=== PATIENT | male | born 1970 | race Caucasian/White ===

== ENCOUNTER 2023-08-07 11:25 | Outpatient (REF) | payer MEDICARE, MEDICAID, SELFPAY ==
--- NOTE | ~2023-08-07 | XR_ITS ---
EXAMINATION: XR HIP, RIGHT CLINICAL INFORMATION: Right hip pain COMPARISON: 10/11/2021 lumbar spine and right hip, 08/04/2021 hip with pelvis TECHNIQUE: AP view of the pelvis as well as AP and lateral views of the right hip. FINDINGS: Stabilization hardware incompletely imaged in the lower lumbar spine. Moderate degenerative changes left hip with joint space narrowing and hypertrophic change. Moderate degenerative changes right hip with joint space narrowing and hypertrophic change. Hypertrophic change with large exostosis redemonstrated along the lateral aspect of the right greater trochanter. XR/XR hip RT w PEL1V IMPRESSION: Moderate degenerative changes right hip. Hypertrophic change with large exostosis redemonstrated along the lateral aspect of the right greater trochanter. Additional imaging with CT scan or MRI should be considered for better visualization as these modalities are much more sensitive for detection of fracture or other underlying pathology.
== END 2023-08-07 11:26 | disposition home or self-care (01) ==
LOC: HO.HOSX 11:25
PROVIDERS: Visit Provider Physician Assistant
DX: M16.11 Unilateral primary osteoarthritis, right hip (principal); M70.61 Trochanteric bursitis, right hip; M54.9 Dorsalgia, unspecified
CPT/HCPCS: 20610; 73502; J1040

== ENCOUNTER 2023-08-07 14:55 | Outpatient (AMB) | payer MEDICARE, MEDICAID, SELFPAY ==
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
[2023-08-07 15:08] VITALS: BMI 37.5
== END 2023-08-07 15:29 | disposition home or self-care (01) ==
PROVIDERS: PCP Internal Medicine; Visit Provider Physician Assistant
DX: M70.61 Trochanteric bursitis, right hip (principal); M16.11 Unilateral primary osteoarthritis, right hip
CPT/HCPCS: 20610; 99204

== ENCOUNTER 2023-09-19 11:01 | Outpatient (REF) | payer MEDICARE, MEDICAID, SELFPAY ==
--- NOTE | ~2023-09-19 | FL_ITS ---
Right hip steroid injection Indications: Right hip pain. Procedure: Risks and benefits and possible complications were discussed with the patient and the consent form was signed. The patient was placed supine on the fluoroscopy table. The right hip was prepped and draped in normal sterile fashion. 1% buffered lidocaine was used for anesthesia. A 22-gauge spinal needle was used to access the hip joint. Intra-articular position of the needle within the hip joint was verified using 3 cc of Omnipaque 300. Subsequently, a total of 5 mL of 1% lidocaine and 80 mg of DepoMedrol was then injected into the hip joint. The needle was then removed and a Band-Aid was applied to the injection site. The patient tolerated the procedure well. There were no immediate complications. Fluoroscopic images demonstrate mild to moderate degenerative arthritis of the right hip joint. No evidence of AVN. FL/FL arthrogram hip RT IMPRESSION: -Successful fluoroscopically guided intra-articular instillation of right hip steroid and contrast. The procedure was performed by Roni Devine PA-C, and directly supervised by Dr. Preston.
== END 2023-09-19 11:02 | disposition home or self-care (01) ==
LOC: HO.XRAY 11:01
PROVIDERS: PCP Internal Medicine; Visit Provider Physician Assistant
DX: M16.11 Unilateral primary osteoarthritis, right hip (principal)
CPT/HCPCS: 27093; 73525

== ENCOUNTER → 2023-09-19 11:01 | Outpatient (BNV) | payer MEDICARE, MEDICAID, SELFPAY | PROVIDERS: PCP Internal Medicine; Visit Provider Radiology Diagnostic Radiology | DX: M16.11 Unilateral primary osteoarthritis, right hip (principal) | CPT/HCPCS: 27093; 73525 ==

== ENCOUNTER 2024-02-19 11:03 | Outpatient (AMB) | payer MEDICARE, MEDICAID, SELFPAY ==
--- NOTE | 2024-02-19 11:10 | A.OFFVIS_ITS ---
Intake Vital Signs 02/19/24 11:24 Height 6 ft 3 in Weight 300 lb BMI 37.5 Intake Visit Reasons: [facility]- LT shoulder pain Intake Note: Zev is a 53 year old male who presents today for a evaluation of his left shoulder pain. Patient reports that he received both his tetanus and flu in his left arm. He states that his pain is worse with movement. Patient has tried taking Tylenol and it gives him mild relief. Patient states with movement he tends to feel his pain radiate up to his neck. Allergies nasids Allergy (Uncoded 08/07/23 15:06) heat stroke HPI [facility]- LT shoulder pain HPI Details 53-year-old male who presents in the off ice today for an evaluation of left shoulder pain. Patient reports an increase in pain with movement. He claims the pain radiates to his neck with movement. He states he has tried Tylenol with mild relief. Patient reports receiving his Flu and tetanus vaccinations in this left upper extremity. [facility] Social History (Updated 08/07/23 @ 15:08 by Martha Nguyen) Alcohol intake: never Patient Tobacco Use Status: Never used Tobacco Current occupational status: disabled Review of Systems Const All systems reviewed & are unremarkable except as noted in HPI and below Physical Exam Vital Signs: BMI result Body Mass Index 37.5 Const General: cooperative, healthy appearing and no acute distress Resp Effort & Inspection: normal respiratory effort and able to speak in complete sentences Cardio Rate: regular rate Peripheral pulses: Peripheral pulses 2+ throughout GI Palpation (GI): Soft to palpation Skin Lesions: no lesions Rashes: no rashes Extrem Other: Left shoulder: Forward flexion lacking 40 degrees. Abduction to 90 degrees. Able to reach back pocket. Positive cross-body reach. Positive empty can. Negative drop arm. Office Procedures Joint Injection/Drain Joint Injection/Drain Primary Site: left shoulder Prep: site was prepped using aseptic technique, ethochloride spray was applied and injection warnings given Injected: 80 mg of, DepoMedrol, with 8 mL of (2% plain lido ) and in the subcromial space Approach Used: posterolateral Procedure: The patient tolerated the procedure well, but had some pain with the injection and there was some relief with the local anesthesia Coding 98575 - Large joint Procedure code (CPT) selection complete Assessment & Plan Assessment & Plan (1) Painful arc syndrome of left shoulder: Code(s): M75.102 - Unspecified rotator cuff tear or rupture of left shoulder, not specified as traumatic Plan Mr. Medrano is a 53-year-old male who presents in the office today for an evaluation of left shoulder pain. Patient reports an increase in pain with movement. He claims the pain radiates to his neck with movement. He states he has tried Tylenol with mild relief. Patient reports receiving his Flu and tetanus vaccinations in this left upper extremity. The patient was offered a cortisone injection in the left shoulder with 80 mg of DepoMedrol. The patient was explained the risk, benefits, and alternatives to receiving this injection. After receiving consent for the injection, the patient had the procedure done while in office today. The patient tolerated the procedure well with no complications. A referral was made for the patient to attend physical therapy. If in 6 weeks he has not has resolution of his symptoms then he will notify the office and we will discuss moving forward with an MRI to further evaluate the integrity of the left shoulder. Follow up will be in 6 weeks, or sooner if needed. X-rays of the left shoulder which were obtained while in the office today and were reviewed by me, Wendi Hua PA-C, revealed no acute fracture or dislocation. Orders: Orders XR shoulder LT min 2V Today M25.519 - Pain in unspecified shoulder Patient Instructions: Scribed by Lakia Rajan esthetician and manager medical spa, for Wendi Hua PA-C on 02/19/2024 at 11:09 am, EST. Coding Level of Care Code Est Pt Level 4 (71878) Diagnoses Painful arc syndrome of left shoulder M75.102 CPT Codes Coding - 84623 Large joint: 59669 - Large joint ([id number])
[2024-02-19 11:24] VITALS: BMI 37.5
== END 2024-02-19 12:23 | disposition home or self-care (01) ==
PROVIDERS: PCP Internal Medicine; Visit Provider Physician Assistant
DX: M75.102 Unspecified rotator cuff tear or rupture of left shoulder, not specified as traumatic (principal)
CPT/HCPCS: 20610; 99214

== ENCOUNTER 2024-02-19 11:14 | Outpatient (REF) | payer MEDICARE, MEDICAID, SELFPAY ==
--- NOTE | ~2024-02-19 | XR_ITS ---
EXAMINATION: XR SHOULDER, LEFT CLINICAL INFORMATION: Left shoulder pain. COMPARISON: None available. TECHNIQUE: AP external rotation, Grashey, scapular Y, and axillary views of the left shoulder. FINDINGS: Some minimal degenerative changes are present at the inferior aspect of the glenohumeral joint with a small humeral head osteophyte. Mild degenerative changes are seen at the AC joint. The bones and soft tissues are otherwise unremarkable. No fracture. Glenohumeral and acromioclavicular alignment is anatomic with normal joint space. No abnormal soft tissue calcifications. XR/XR shoulder LT min 2V IMPRESSION: Mild degenerative changes in the left shoulder as described above.
== END 2024-02-19 11:15 | disposition home or self-care (01) ==
LOC: HO.HOSX 11:14
PROVIDERS: Visit Provider Physician Assistant
DX: M25.512 Pain in left shoulder (principal); M75.102 Unspecified rotator cuff tear or rupture of left shoulder, not specified as traumatic
CPT/HCPCS: 20610; 73030; 99212; J1010; J1040

== ENCOUNTER 2024-02-29 10:24 | Outpatient (AMB) | payer MEDICARE, MEDICAID, SELFPAY ==
--- NOTE | 2024-02-29 10:46 | A.OFFVIS_ITS ---
Intake Vital Signs 02/29/24 10:48 Height 6 ft 3 in Weight 300 lb BMI 37.5 Intake Visit Reasons: OV - right hip pain Intake Note: Zev is a 53 year old male who presents today for a follow up of his Right Hip Bursitis/OA. Last Bursitis Injection done 08/07/23 & Right Hip Arthrogram done 09/19/23. Patient reports he would like to discuss alternative treatment options today. Allergies nasids Allergy (Uncoded 02/29/24 10:49) heat stroke HPI OV - right hip pain HPI Details Zev is a 53 year old male who presents today for a follow up of his Right Hip Bursitis/OA. Last Bursitis Injection done 08/07/23 & Right Hip Arthrogram done 09/19/23. Patient reports he would like to discuss alternative treatment options today. He [id number] hip pain that is ever present and worse with certain activities such as getting into a car or into/out of bed. He has treid physical therapy, injections and medication. He cannot take NSAIDs anymore. He recently ( 10/11) had an intra articular right hip injection and felt relief for two days and then the pain returned. He feels he cannot engage in daily activities without pain. He has to sit with his leg extended and feels the quality of his life is compromised. [facility] Social History Alcohol intake: never Patient Tobacco Use Status: Never used Tobacco Current occupational status: disabled Physical Exam Vital Signs: BMI result Body Mass Index 37.5 Const General: cooperative, healthy appearing, no acute distress and well groomed Orientation/consciousness: oriented to person and oriented to place HEENT Head: Yes normal to inspection, Yes normocephalic and Yes atraumatic Eyes General: appearance normal, both eyes and all related structures Alignment and Position: alignment normal Conjunctivae: conjunctivae normal EOM: EOMs intact bilaterally Neck Neck: Yes normal visual inspection and Yes trachea midline Resp Other: No rerpiratory distress Effort & Inspection: normal respiratory effort and able to speak in complete sentences GI Other: No abdominal distension Back/Spine/Pelvis Cervical Spine: normal cervical lordosis and cervical ROM normal Skin General skin exam: no rashes or lesions noted Neuro General: oriented to person, oriented to place and gait normal Extrem Other: Sits with right hip in an extended position There is a + Impingement and + Stinchfield He has full flexion but is limited in internal rotation bilaterally Results Reviewed Results Reviewed: I personally reviewed relevant radiographs. Moderate bilateral hip OA Assessment & Plan Assessment & Plan (1) Osteoarthritis of right hip: Code(s): M16.11 - Unilateral primary osteoarthritis, right hip Qualifiers: Osteoarthritis type: unspecified Qualified Code(s): M16.11 - Unilateral primary osteoarthritis, right hip Plan: This is a 53 yo m with painful rigbht hip arthritis. He describes pain for years that has got to the point that he cannot engage in daily activities and feels the quality of his life is diminished. He had relief from an intra articular injection but it was only for a few days. I reviewed his radiographs with him and discussed options. I recommend right hip replacement. We had a long discussion and he is only 53 but is unable to walk comfortably for more than a few minutes. I discussed the risks benefits and alternatives including but not limited to the risk of pain, infection, stiffness, need for further surgery, fracture and dislocation as well as potential medical complications such as blood clots, pulmonary embolism and cardiac complications. He expressed understanding and we will begin our pre operative clearance process. Coding Level of Care Code Est Pt Level 4 (88231) Diagnoses Osteoarthritis of right hip, unspecified osteoarthritis type M16.11 Osteoarthritis type: unspecified
[2024-02-29 10:48] VITALS: BMI 37.5
== END 2024-02-29 11:41 | disposition home or self-care (01) ==
PROVIDERS: PCP Internal Medicine; Visit Provider Orthopaedic Surgery
DX: M16.11 Unilateral primary osteoarthritis, right hip (principal)
CPT/HCPCS: 99214

== ENCOUNTER → 2024-02-29 10:24 | Outpatient (BNVA) | payer MEDICARE, MEDICAID, SELFPAY | PROVIDERS: PCP Internal Medicine; Visit Provider Orthopaedic Surgery | DX: M16.11 Unilateral primary osteoarthritis, right hip (principal) | CPT/HCPCS: 99212 ==

== ENCOUNTER → 2024-03-31 08:52 | Outpatient (BNVA) | payer MEDICARE, MEDICAID, SELFPAY | PROVIDERS: PCP Internal Medicine | DX: Z01.818 Encounter for other preprocedural examination (principal) ==

== ENCOUNTER 2024-04-24 09:07 | Outpatient (REF) | payer MEDICARE, MEDICAID, SELFPAY ==
--- NOTE | ~2024-04-24 | XR_ITS ---
EXAMINATION: XR HIP, RIGHT CLINICAL INFORMATION: Pain in unspecified hip. COMPARISON: 08/07/2023 TECHNIQUE: AP view of the pelvis and 2 views of the right hip. FINDINGS: Stabilization hardware incompletely imaged in the lower lumbar spine. Moderate degenerative changes in the left hip with joint space narrowing and hypertrophic change. Moderate degenerative changes in the right hip with joint space narrowing and hypertrophic change. Prominent exostosis along the lateral aspect of the greater trochanter on the right redemonstrated. XR/XR hip RT min 2V IMPRESSION: 1. Moderate degenerative changes bilateral hips. 2. Prominent exostosis along the lateral aspect of the greater trochanter on the right redemonstrated.
== END 2024-04-24 09:08 | disposition home or self-care (01) ==
LOC: HO.HOSX 09:07
PROVIDERS: Visit Provider Physician Assistant
DX: M16.11 Unilateral primary osteoarthritis, right hip (principal)
CPT/HCPCS: 71046; 73502; 99212

== ENCOUNTER 2024-04-24 09:16 | Outpatient (AMB) | payer MEDICARE, MEDICAID, SELFPAY ==
[2024-04-24 09:20] VITALS: BMI 37.5
--- NOTE | 2024-04-24 09:20 | MHC.OFFVIS ---
Vital Signs 04/24/24 09:20 Height 6 ft 3 in Weight 300 lb BMI 37.5 Intake Visit Reasons: T JUAN w/NE 04/30/24 Intake Note: Zev is a 53 year old male who presents today for a pre op appointment for his right JUAN 04/30/24 NE. Allergies amlodipine Allergy (Verified 04/24/24 09:38) Shortness of Breath NSAIDS (Non-Steroidal Anti-Inflamma Allergy (Verified 04/24/24 09:38) Seizure HPI HPI T JUAN w/NE 04/30/24: Details: 53-year-old male who presents in the office today for his preoperative history and physical exam prior to a right total hip arthroplasty to be performed on 04/30/[address] Peterson Cheek. Patient denies having a walker at home. He is interested in getting one off [employer] with wheels. He denies having a raised toilet seat. Patient confirms having stairs at home but has assistance to help him. Patient reports that due to him having issues leaving the house he would like home therapy at first. He will bring the information for the outpatient physical therapy they prefer at their next appointment. Patient sent forms for FMLA to the office. Patient presents in the office today with a female family member. Patient has an allergy history, as follows: -Amlodipine; dyspena -NSAIDs; seizure Patient is currently taking, as follows: -Acetaminophen 650 mg PO QID PRN -Bisacodyl 10 mg daily PRN -Buspirone 30 mg PO TID -Chlorpheniramine maleate 4 mg PO BID -Cyclobenzaprine 5-10 mg PO TID PRN -Escitalopram oxalate 20 mg PO QNoon -Hydrochlorothiazide 25 mg PO daily -Hydroxyzine HCI 100 mg PO Bedtime -Lamotrigine 200 mg PO BID -Lorazepam 1 mg PO daily PRN -Melatonin 10 mg PO Bedtime PRN -Omeprazole 20 mg PO BID -Ondansetron 4 mg PO BID -Quetiapine 50 mg TID -Trazadone 100 mg PO bedtime Patient has a medical history, as follows: -Hx of traumatic head injury -Bipolar 1 disorder -Sleep apnea, not on CPAP -Hx of lipoma -Depression -Severe obesity; BMI of 34.7 as of 04/22/2024. -PTSD -Mixed hyperlipidemia -Lung nodules -Insomnia -Impaired fasting glucose -Hypertension -Hypercalcemia -Renal cell carcinoma; 07/2019; in remission -Acute renal failure; reportedly d/t Celebrex, dehydration, TRAVIS-1 use -Fatty liver -Erectile dysfunction -Elevated serum creatinine -Colon polyp -Anxiety Patient has a surgical history, as follows: -Hx of lumbar spinal fusion; 2012 -Hx of colonoscopy -Hx of umbilical hernia repair -Hx of appendectomy -Hx of vasectomy -Hx of surgery on lower extremity; tibial rodding--2007--right side. -Hx of partial nephrectomy; 2018--right PFSH Medical History (Updated 04/22/24 @ 10:33 by Simi Goldberg RN) History of traumatic head injury Arthritis Bipolar 1 disorder Sleep apnea SOB (shortness of breath) Syncope History of lipoma Depression Severe obesity (BMI 35.0-35.9 with comorbidity) PTSD (post-traumatic stress disorder) Mixed hyperlipidemia Lung nodules Insomnia Impaired fasting glucose HTN (hypertension) Hyperlipidemia Hypercalcemia Renal cell carcinoma Acute renal failure Fatty liver Erectile dysfunction Elevated serum creatinine Colon polyp Back pain Anxiety Surgical History (Updated 04/22/24 @ 10:33 by Simi Goldberg RN) History of lumbar spinal fusion H/O colonoscopy Hx of umbilical hernia repair Hx of appendectomy Hx of vasectomy History of surgery on lower extremity History of partial nephrectomy Social History Are you a primary healthcare economics manager to a significant other at home: No Do you presently have visiting nurse or other home services: No Alcohol intake: never Patient Tobacco Use Status: Former Tobacco user Current occupational status: disabled Review of Systems Const All systems reviewed & are unremarkable except as noted in HPI and below Physical Exam Vital Signs: BMI result Body Mass Index 37.5 Const General: cooperative, healthy appearing, comfortable, no acute distress, well developed, alert and awake Orientation/consciousness: patient oriented x3 HEENT Head: Yes normal to inspection, Yes normocephalic and Yes atraumatic Eyes General: appearance normal, both eyes and all related structures Alignment and Position: alignment normal Conjunctivae: conjunctivae normal EOM: EOMs intact bilaterally Neck Neck: Yes normal visual inspection and Yes no lymphadenopathy Resp Other: No rerpiratory distress Effort & Inspection: normal respiratory effort and able to speak in complete sentences Cardio Rate: regular rate Peripheral pulses: Peripheral pulses 2+ throughout GI Other: No abdominal distension Inspection: Yes normal to inspection Palpation (GI): Soft to palpation Back/Spine/Pelvis Cervical Spine: normal cervical lordosis and cervical ROM normal Skin General skin exam: no rashes or lesions noted Neuro General: patient oriented x3 Extrem Other: Right hip: Skin is clean, dry, and intact. Sits with right hip in an extended position There is a + Impingement and + Stinchfield He has full flexion but is limited in internal rotation bilaterally Psych Mental Status: mental status grossly normal Assessment & Plan Assessment & Plan (1) Osteoarthritis of right hip: Code(s): M16.11 - Unilateral primary osteoarthritis, right hip Category: Medical Qualifiers: Osteoarthritis type: unspecified Qualified Code(s): M16.11 - Unilateral primary osteoarthritis, right hip Plan Mr. Medrano is a 53-year-old male who presents in the office today for his preoperative history and physical exam prior to a right total hip arthroplasty to be performed on 04/30/[address] Peterson Cheek. Patient denies having a walker at home. He is interested in getting one off [employer] with wheels. He denies having a raised toilet seat. Patient confirms having stairs at home but has assistance to help him. Patient reports that due to him having issues leaving the house he would like home therapy at first. He will bring the information for the outpatient physical therapy they prefer at their next appointment. Patient sent forms for FMLA to the office. Patient presents in the office today with a female family member. Patient has an allergy history, as follows: -Amlodipine; dyspena -NSAIDs; seizure Patient is currently taking, as follows: -Acetaminophen 650 mg PO QID PRN -Bisacodyl 10 mg daily PRN -Buspirone 30 mg PO TID -Chlorpheniramine maleate 4 mg PO BID -Cyclobenzaprine 5-10 mg PO TID PRN -Escitalopram oxalate 20 mg PO QNoon -Hydrochlorothiazide 25 mg PO daily -Hydroxyzine HCI 100 mg PO Bedtime -Lamotrigine 200 mg PO BID -Lorazepam 1 mg PO daily PRN -Melatonin 10 mg PO Bedtime PRN -Omeprazole 20 mg PO BID -Ondansetron 4 mg PO BID -Quetiapine 50 mg TID -Trazadone 100 mg PO bedtime Patient has a medical history, as follows: -Hx of traumatic head injury -Bipolar 1 disorder -Sleep apnea, not on CPAP -Hx of lipoma -Depression -Severe obesity; BMI of 34.7 as of 04/22/2024. -PTSD -Mixed hyperlipidemia -Lung nodules -Insomnia -Impaired fasting glucose -Hypertension -Hypercalcemia -Renal cell carcinoma; 07/2019; in remission -Acute renal failure; reportedly d/t Celebrex, dehydration, TRAVIS-1 use -Fatty liver -Erectile dysfunction -Elevated serum creatinine -Colon polyp -Anxiety Patient has a surgical history, as follows: -Hx of lumbar spinal fusion; 2012 -Hx of colonoscopy -Hx of umbilical hernia repair -Hx of appendectomy -Hx of vasectomy -Hx of surgery on lower extremity; tibial rodding--2007--right side. -Hx of partial nephrectomy; 2018--right I discussed in detail the procedure and what to expect pre and post operatively. We discussed the risks, benefits and alternatives to the surgery and the rehabilitation course. The risks include infection, bleeding, nerve injury, ongoing pain, swelling, and stiffness, perioperative risk of injury to bones and soft tissues, and blood clots. I have answered all questions and with their understanding they have consented to move forward with a right total hip arthroplasty to be performed on 04/30/[address] Peterson Cheek. Of note: The family will bring the information for the preferred outpatient physical therapy at their first post-operative appointment. Follow-up will be at the post operative appointment on 05/15/2024 at 1:00 pm, or sooner if needed. Patient was prescribed a walker for after surgery on 04/22/2024. This was sent to the medical supply store. A prescription for a raised toilet seat was placed in the office today. The office is working on the [facility] paperwork and will call the patient when it is ready to be picked up. X-rays were obtained in the office today for surgical planning. Medications: New [Raised toliet seat] As directed 1 ea 0RF Right total hip arthroplasty M16.11 - Unilateral primary osteoarthritis, right hip Patient Instructions: Scribed by Lakia Rajan medical technician, for Wendi Hua PA-C on 04/24/2024 at 9:19 am, EST. Coding Level of Care Code Global (14445) Diagnoses Osteoarthritis of right hip, unspecified osteoarthritis type M16.11 Osteoarthritis type: unspecified
== END 2024-04-24 09:56 | disposition home or self-care (01) ==
PROVIDERS: PCP Internal Medicine; Visit Provider Physician Assistant
DX: M16.11 Unilateral primary osteoarthritis, right hip (principal)
CPT/HCPCS: 99024

== ENCOUNTER 2024-04-30 06:34 | Inpatient (IN) | payer MEDICARE, MEDICAID, SELFPAY ==
[2024-04-22 10:49] VITALS: BP 166/97; PULSE 88; RESP 16; O2SAT 97; BMI 34.7
--- NOTE | 2024-04-22 11:05 | P.CONAN_ITS ---
Documented by User: Marilu Malin NP 04/24/24 13:28 HPI - Anesthesia Eval Consult details Narrative: 53yo M for Right Hip Total Replacement, 04/30/24 No recent illness No CP with minimal activity d/t pain. GARCIA started with pregabalin 2 years. Recent echo by pcp WNL. Off pregabalin with some improvement in GARCIA. Per pt, PCP plans to continue w/u after recovery SARAH. Never had CPAP. Some weight loss. No apnic spells per partner RCC s/p partial R nephrectomy 2018. No chemo rad Discussed increase risk with full gallo. Encouraged pt to trim close to face before DOS. Pt resistant. PMFSH Active Problems Active Problems: All Active Problems Painful arc syndrome of left shoulder (Acute) Osteoarthritis of right hip (Acute) Greater trochanteric bursitis of right hip (Acute) Past Medical History Medical History History of traumatic head injury Arthritis Bipolar 1 disorder Sleep apnea SOB (shortness of breath) Syncope History of lipoma Depression Severe obesity (BMI 35.0-35.9 with comorbidity) PTSD (post-traumatic stress disorder) Mixed hyperlipidemia Lung nodules Insomnia Impaired fasting glucose HTN (hypertension) Hyperlipidemia Hypercalcemia Renal cell carcinoma Acute renal failure Fatty liver Erectile dysfunction Elevated serum creatinine Colon polyp Back pain Anxiety Family History Family history of problems with anesthesia: No Surgical History Surgical History History of lumbar spinal fusion H/O colonoscopy Hx of umbilical hernia repair Hx of appendectomy Hx of vasectomy History of surgery on lower extremity History of partial nephrectomy History of Problems with Anesthesia: No Social History Social History Are you a primary human services care specialist to a significant other at home: No Do you presently have visiting nurse or other home services: No Alcohol intake: never Patient Tobacco Use Status: Former Tobacco user Smoked in Last 30 Days: No Use of substances other than those prescribed or required for medical reasons: Yes Substance Use Type Other:: vape Substance Use Frequency: Daily Have you been hit, kicked, punched, or otherwise hurt by someone within the past year? If so, by whom?: No Are you DNR?: No Advance Directives: No Advance Directives Information Provided: No Advance Directives on File: No Recently lost weight without trying: No Eating poorly because of decreased appetite: No Nutrition Risks: No Nutritional Risk Poor oral hygiene: No Current occupational status: disabled Meds Allergies Allergy/AdvReac Type Severity Reaction Status Date / Time amlodipine Allergy Shortness Verified 04/24/24 09:38 of Breath NSAIDS (Non-Steroidal Allergy Seizure Verified 04/24/24 09:38 Anti-Inflamma pregabalin Allergy Unknown Verified 04/30/24 06:41 Home Medications ?Medication ?Instructions ?Recorded ?Confirmed ?Last Taken ?Type buspirone 30 mg tablet 30 mg PO TID 08/07/23 04/21/24 04/29/24 History cholecalciferol (vitamin D3) 25 25 mcg PO DAILY 08/07/23 04/22/24 04/29/24 History mcg (1,000 unit) capsule escitalopram oxalate 20 mg tablet 20 mg PO QNOON 08/07/23 04/22/24 04/29/24 History hydrochlorothiazide 25 mg tablet 25 mg PO DAILY 08/07/23 04/22/24 04/29/24 History hydroxyzine HCl 50 mg tablet 100 mg PO BEDTIME 08/07/23 04/22/24 04/29/24 History lamotrigine 200 mg tablet 200 mg PO BID 08/07/23 04/22/24 04/29/24 History lorazepam 1 mg tablet 1 mg PO DAILY PRN Anxiety 08/07/23 04/22/24 04/29/24 History melatonin 5 mg tablet 10 mg PO BEDTIME PRN Insomnia 08/07/23 04/22/24 04/29/24 History omeprazole 20 mg capsule,delayed 20 mg PO BID@0630,1630 08/07/23 04/30/24 04/29/24 History release ondansetron 4 mg disintegrating 4 mg PO BID 08/07/23 04/22/24 Unknown History tablet quetiapine 50 mg tablet 50 mg PO TID 08/07/23 04/22/24 04/29/24 History trazodone 100 mg tablet 100 mg PO BEDTIME 08/07/23 04/22/24 04/29/24 History bisacodyl 5 mg tablet,delayed 10 mg PO DAILY PRN Constipation 04/21/24 04/22/24 Unknown History release chlorpheniramine maleate 4 mg 4 mg PO BID 04/21/24 04/22/24 04/29/24 History tablet (Aller-Chlor) cyclobenzaprine 5 mg tablet 5 - 10 mg PO TID PRN muscle spasm 04/21/24 04/21/24 04/29/24 History acetaminophen 325 mg tablet 650 mg PO QID PRN Pain 04/22/24 04/22/24 Unknown History Exam Height,Weight and Vital Signs: Height 6 ft 3 in Weight 126.099 kg Last Vital Signs Pulse 88 04/22/24 10:49 Resp 16 04/22/24 10:49 BP 166/97 H 04/22/24 10:49 Pulse Ox 93 04/22/24 10:49 O2 Del Method Room Air 04/22/24 10:49 Pertinent Lab Results Pertinent Lab Results: Lab Results 04/22/24 04/22/24 Range/Units 11:05 11:58 Nasal Screen MRSA (PCR) NEGATIVE (Negative) Nasal S. aureus Screen POSITIVE A (Negative) Nasal MRSA/S.aureus Interp SEE NOTE Blood Type O Positive Antibody Screen NEGATIVE 03/2024 CBC, BMP, PT/INR from [facility] wnl except creat elevated @ 1.3 Narrative Narrative: EKG 03/2024 NSR Prolonged QT @ 420 Airway Mallampati Class: III TM Dist: >3cm Neck ROM: Full Heart: RRR Lungs: CTAB Assessment and Plan Assessment Anesthesia Assessment: Anesthesia Plan Discussed and PAT Visit Final Anesthetic Review Family History of Problems with Anesthesia: No History of Problems with Anesthesia: No Documented by User: Nury Silva MD 04/30/24 08:02 [facility] Past Medical History Medical History History of traumatic head injury Arthritis Bipolar 1 disorder Sleep apnea SOB (shortness of breath) Syncope History of lipoma Depression Severe obesity (BMI 35.0-35.9 with comorbidity) PTSD (post-traumatic stress disorder) Mixed hyperlipidemia Lung nodules Insomnia Impaired fasting glucose HTN (hypertension) Hyperlipidemia Hypercalcemia Renal cell carcinoma Acute renal failure Fatty liver Erectile dysfunction Elevated serum creatinine Colon polyp Back pain Anxiety Surgical History Surgical History History of lumbar spinal fusion H/O colonoscopy Hx of umbilical hernia repair Hx of appendectomy Hx of vasectomy History of surgery on lower extremity History of partial nephrectomy Social History Social History Are you a primary human services care specialist to a significant other at home: No Do you presently have visiting nurse or other home services: No Alcohol intake: never Patient Tobacco Use Status: Former Tobacco user Smoked in Last 30 Days: No Use of substances other than those prescribed or required for medical reasons: Yes Substance Use Type Other:: vape Substance Use Frequency: Daily Have you been hit, kicked, punched, or otherwise hurt by someone within the past year? If so, by whom?: No Are you DNR?: No Advance Directives: No Advance Directives Information Provided: No Advance Directives on File: No Recently lost weight without trying: No Eating poorly because of decreased appetite: No Nutrition Risks: No Nutritional Risk Poor oral hygiene: No Current occupational status: disabled Meds Allergies Allergy/AdvReac Type Severity Reaction Status Date / Time amlodipine Allergy Shortness Verified 04/24/24 09:38 of Breath NSAIDS (Non-Steroidal Allergy Seizure Verified 04/24/24 09:38 Anti-Inflamma pregabalin Allergy Unknown Verified 04/30/24 06:41 Home Medications ?Medication ?Instructions ?Recorded ?Confirmed ?Last Taken ?Type buspirone 30 mg tablet 30 mg PO TID 08/07/23 04/21/24 04/29/24 History cholecalciferol (vitamin D3) 25 25 mcg PO DAILY 08/07/23 04/22/24 04/29/24 History mcg (1,000 unit) capsule escitalopram oxalate 20 mg tablet 20 mg PO QNOON 08/07/23 04/22/24 04/29/24 History hydrochlorothiazide 25 mg tablet 25 mg PO DAILY 08/07/23 04/22/24 04/29/24 History hydroxyzine HCl 50 mg tablet 100 mg PO BEDTIME 08/07/23 04/22/24 04/29/24 History lamotrigine 200 mg tablet 200 mg PO BID 08/07/23 04/22/24 04/29/24 History lorazepam 1 mg tablet 1 mg PO DAILY PRN Anxiety 08/07/23 04/22/24 04/29/24 History melatonin 5 mg tablet 10 mg PO BEDTIME PRN Insomnia 08/07/23 04/22/24 04/29/24 History omeprazole 20 mg capsule,delayed 20 mg PO BID@0630,1630 08/07/23 04/30/24 04/29/24 History release ondansetron 4 mg disintegrating 4 mg PO BID 08/07/23 04/22/24 Unknown History tablet quetiapine 50 mg tablet 50 mg PO TID 08/07/23 04/22/24 04/29/24 History trazodone 100 mg tablet 100 mg PO BEDTIME 08/07/23 04/22/24 04/29/24 History bisacodyl 5 mg tablet,delayed 10 mg PO DAILY PRN Constipation 04/21/24 04/22/24 Unknown History release chlorpheniramine maleate 4 mg 4 mg PO BID 04/21/24 04/22/24 04/29/24 History tablet (Aller-Chlor) cyclobenzaprine 5 mg tablet 5 - 10 mg PO TID PRN muscle spasm 04/21/24 04/21/24 04/29/24 History acetaminophen 325 mg tablet 650 mg PO QID PRN Pain 04/22/24 04/22/24 Unknown History Assessment and Plan Final Anesthetic Review NPO: Yes ASA Class: III Final Preanesthetic Review: No Changes in Pt Med Stat, Meds/Allgs Chart Reviewed, Consent Obtained/Reviewed and Anes Risks/Benef Reviewed Patient Risk: Intermediate Procedure Risk: Intermediate Anesthetic Plan Anesthetic Plan: GA Disposition: Standard PACU
[2024-04-22 13:02] LABS: MRSA Nasal PCR NEGATIVE (Negative); SA Nasal PCR POSITIVE (Negative)
[2024-04-30] VITALS (21 sets, daily range): BP systolic 111–187; BP diastolic 60–113; PULSE 80–116; RESP 14–18; TEMP 36.1–36.8; O2SAT 94–100; BMI 34.1
--- NOTE | 2024-04-30 | ECG_ITS ---
Test Reason : preop Blood Pressure : / mmHG Vent. Rate : 085 BPM Atrial Rate : 085 BPM P-R Int : 192 ms QRS Dur : 102 ms QT Int : 394 ms P-R-T Axes : 031 -39 030 degrees QTc Int : 468 ms Normal sinus rhythm Left axis deviation Abnormal ECG No previous ECGs available Referred By: Nury Silva Electronically Signed By:TANIKA ARBOLEDA
--- NOTE | ~2024-04-30 | XR_ITS ---
EXAMINATION: XR CHEST CLINICAL INFORMATION: Dyspnea on exertion, preop. COMPARISON: None available. TECHNIQUE: 4 views of the chest. FINDINGS: There is no gross pneumothorax. Heart size is normal. Mild dextroscoliosis of the thoracic spine with multilevel degenerative changes. No gross pleural effusion. No focal consolidation to suggest pneumonia. Pectus excavatum deformity present. XR/XR chest 2V IMPRESSION: No evidence of pneumonia. Pectus excavatum deformity present. This study was presented today, April 23, 2024, for interpretation. Stat results provided at this time as requested by referring provider.
--- NOTE | ~2024-04-30 | XR_ITS ---
EXAMINATION: XR PELVIS CLINICAL INFORMATION: Status post JUAN COMPARISON: 04/24/2024 TECHNIQUE: AP view of the pelvis. FINDINGS: Right hip bipolar prosthesis intact. No fracture, dislocation or destructive process. Pelvis intact. XR/XR pelvis 1-2V IMPRESSION: Intact prosthesis. Alignment is anatomic.
--- OUTSIDE RECORDS SUMMARY | 2024-04-30 06:37 | XMS_ITS | Continuity of Care Document ---
Author Organization [facility] Address [address] [place] [address]- Care Team Providers Care House Detective Name Role Phone Pee SANCHEZ, Carlos Primary Care Physician [facility]counter [facility] Date(s): 02/25/23 - 03/27/23 [facility] [address] [place], [place] [address] Allergies, Adverse Reactions, Alerts Substance Reaction Severity Status NSAIDs Seizure Active amLODIPine Fatigue SOB - Shortness of breath Active Immunizations Given and Recorded Vaccine Date Status Refusal Reason influenza virus vaccine, inactivated 1 09/26/22 Gi bhavik influenza virus vaccine, inactivated 07/28/21 Doug rded influenza virus vaccine, inactivated 08/02/20 Doug rded influenza virus vaccine, inactivated 09/23/19 Doug rded influenza virus vaccine, inactivated 08/30/18 Doug rded influenza virus vaccine, inactivated 10/19/16 Doug rded influenza virus vaccine, inactivated 08/11/15 Doug rded influenza virus vaccine, inactivated 09/15/14 Doug rded SARS-CoV-2 (COVID-19) mRNA-1273 vaccine 02/17/22 R ecorded SARS-CoV-2 (COVID-19) mRNA-1273 vaccine 10/14/21 R ecorded SARS-CoV-2 (COVID-19) mRNA-1273 vaccine 04/17/21 R ecorded SARS-CoV-2 (COVID-19) mRNA-1273 vaccine 03/20/21 R ecorded tetanus/diphtheria/pertussis, acel(Tdap) 07/19/11 Recorded 1Result Comment: [facility] 48304-728-16 Medications Aller-Chlor 4 mg oral tablet 1 tablet = 4 mg, By Mouth, 2 times a day, TAKE 1 TABLET BY MOUTH TWICE DAILY, # 180 tablet, 1 Refills, Maintenance, 01/19/23 14:07:00 EST, [facility] #[id number], 190.5, cm, 11/06/22 9:34:00 EST, Height Start Date: 01/19/23 Status: Ordered Ativan 1 mg oral tablet 1 tablet = 1 mg, By Mouth, Daily, PRN panic only, # 10 tablet, 4 Refills, Maintenance, 01/25/23 10:18:00 EST, Tablet, [facility] #[id number], Partial fill upon patient request if the prescription is for a schedule II opioid drug., 190.5, cm, 10/19... Start Date: 01/25/23 Stop Date: 06/24/23 Status: Ordered baclofen 10 mg oral tablet See Instructions, 1 tablet By Mouth 3 times a day for 7 days, then 1 tab BID x7d, # 35 tablet, Refills 0, Tot. Refills 0, Maintenance, 09/26/22 12:16:00 EST, Instructions Replace Required Details, Route to Pharmacy Electronically, [facility]... Start Date: 09/26/22 Status: Ordered baclofen 20 mg oral tablet 20 mg, 1, tablet, By Mouth, 3 times a day, # 270 tablet, Refills 2, Tot. Refills 2, Maintenance, 06/28/22 10:10:00 EDT, Route to Pharmacy Electronically, [facility] #[id number], Partial fill upon patient request if the prescription is for a sched... Start Date: 06/28/22 Status: Ordered bisacodyl 5 mg oral delayed release tablet 2 tablet = 10 mg, By Mouth, Daily, # 180 tablet, 3 Refills, Maintenance, 06/28/22 10:09:00 EDT, EC Tablet, [facility] #[id number], Partial fill upon patient request if the prescription is for a schedule II opioid drug., 190.5, cm, 06/28/22 9:08:0... Start Date: 06/28/22 Status: Ordered busPIRone 30 mg oral tablet 1 tablet = 30 mg, By Mouth, 3 times a day, # 270 tablet, 1 Refills, Maintenance, 01/25/23 10:15:00 EST, [facility] #[id number], Partial fill upon patient request if the prescription is for a schedule II opioid drug., 190.5, cm, 11/06/22 9:34:00 E... Start Date: 01/25/23 Stop Date: 07/24/23 Status: Ordered hydrochlorothiazide 25 mg oral tablet 25 mg, 1, tablet, By Mouth, Daily, # 90 tablet, Refills 1, Tot. Refills 1, Maintenance, 01/18/23 12:33:00 EST, Route to Pharmacy Electronically, [facility] #[id number], Partial fill upon patientrequest if the prescription is for a schedule II op... Start Date: 01/18/23 Status: Ordered hydrOXYzine pamoate 50 mg oral capsule 2 capsule = 100 mg, By Mouth, Daily at bedtime, # 180 capsule, 1 Refills, Maintenance, 01/25/23 10:16:00 EST, Capsule, [facility] #[id number], 190.5, cm, 11/06/22 9:34:00 EST, Height Start Date: 01/25/23 Stop Date: 07/24/23 Status: Ordered lamotrigine 200 mg oral tablet 1 tablet = 200 mg, By Mouth, 2 times a day, # 180 tablet, 1 Refills, Maintenance, 01/25/23 10:17:00EST, Tablet, [facility] #[id number], Partial fill upon patient request if the prescription is for a schedule II opioid drug., 190.5, cm, 11/06/22... Start Date: 01/25/23 Stop Date: 07/24/23 Status: Ordered Lexapro 20 mg oral tablet 1 tablet = 20 mg, By Mouth, Daily, # 90 tablet, 1 Refills, Maintenance, 01/25/23 10:14:00 EST, Tablet, [facility] #[id number], Partial fill upon patient request if the prescription is for a schedule II opioid drug., 190.5, cm, 11/06/22 9:34:00 ES... Start Date: 01/25/23 Stop Date: 07/24/23 Status: Ordered melatonin 5 mg oral tablet See Instructions, PRN for insomnia, 2 tablet By Mouth Daily at bedtime, # 60 tablet, 4 Refills, Maintenance, 01/25/23 10:19:00 EST, Tablet, [facility] #[id number], 190.5, cm, 11/06/22 9:34:00 EST, Height Start Date: 01/25/23 Status: Ordered omeprazole 20 mg oral enteric coated capsule 1 capsule = 20 mg, By Mouth, 2 times a day, # 180 capsule, 2 Refills, Maintenance, 09/26/22 12:26:00 EST, [facility] #[id number], Partial fill upon patient request if the prescription is for a schedule II opioid drug., 190.5, cm, 09/26/22 11:38:0... Start Date: 09/26/22 Status: Ordered ondansetron 4 mg oral tablet 1 tablet = 4 mg, By Mouth, Every 8 hours, PRN Nausea, # 180 tablet, 0 Refills, Maintenance, 06/28/22 10:10:00 EDT, Tablet, [facility] #[id number], Partial fill upon patient request if the prescription is for a schedule II opioid drug., 190.5, cm,... Start Date: 06/28/22 Status: Ordered pregabalin 150 mg oral capsule TAKE 1 CAPSULE BY MOUTH TWICE DAILY Start Date: 02/17/23 Status: Ordered Restoril 7.5 mg oral capsule 1 capsule = 7.5 mg, By Mouth, Daily at bedtime, PRN for sleep, for 30 days, # 30 capsule, 1 Refills, Acute 05/01/23 10:15:00 EDT, 03/02/23 10:15:00 EDT, Capsule, [facility] #[id number], 190.5, cm, 11/06/22 9:34:00 EST, Height Start Date: 03/02/23 Stop Date: 05/01/23 Status: Ordered SEROquel 50 mg oral tablet 1 tablet = 50 mg, By Mouth, 3 times a day, # 270 tablet, 1 Refills, Maintenance, 01/25/23 10:19:00 EST, Tablet, [facility] #[id number], Partial fill upon patient request if the prescription is for a schedule II opioid drug., 190.5, cm, 11/06/22 9... Start Date: 01/25/23 Stop Date: 07/24/23 Status: Ordered sildenafil 100 mg oral tablet 0.5 - 1 tablet, By Mouth, Daily, PRN erectile dysfunction, PATIENT USING COUPON NOT INSURANCE, # 30 tablet, 1 Refills, Maintenance, 01/18/23 12:32:00 EST, Tablet, [facility] #[id number], Partial fill upon patient request if the prescription is f... Start Date: 01/18/23 Status: Ordered traZODone 100 mg oral tablet 100 mg, 1, tablet, By Mouth, Daily at bedtime, # 30 tablet, Refills 1, Tot. Refills 1, Maintenance,03/02/23 10:15:00 EDT, Route to Pharmacy Electronically, [facility] #[id number], 190.5, cm, 11/06/22 9:34:00 EST, Height Start Date: 03/02/23 Stop Date: 05/01/23 Status: Ordered Vitamin D3 1000 intl units oral capsule 1 capsule = 25 mcg, By Mouth, Daily, # 90 capsule, 3 Refills, Maintenance, 06/28/22 10:10:00 EDT, Capsule, [facility] #[id number], Partial fill upon patient request if the prescription is for a schedule II opioid drug., 190.5, cm, 06/28/22 9:08:0... Start Date: 06/28/22 Status: Ordered Problem List Condition Confirmation Course Effective Dates Status H ealth Status Informant Anxiety Confirmed Active Chronic back pain Confirmed Active Erectile dysfunction Confirmed Active History of acute renal failure, reportedly d/t celebrex, dehydration, TRAVIS-I use Confirmed Active History of renal cell carcinoma, s/p partial R nephrectomy 08/07; Dr Gallegos Confirmed Active Hypertension Confirmed 09/09/09 Active Impaired fasting glucose Confirmed Active Insomnia Confirmed Active Mixed hyperlipidemia Confirmed Active Lung nodules Confirmed Active Obese class I Confirmed Active Colon polyp Confirmed Active Post-traumatic stress disorder Confirmed Active Severe recurrent major depression without psychotic features Confirmed Active Fatty liver Confirmed Active Social History Social History Type Response Tobacco Total pack years: 3. Sex Patient Care team information Care Team Personnel Name: Yosvany Ardon Position: [facility] Cardio/Pulm Mgr ([facility] Member Role: Primary Care Nurse Name: Carlos Glasgow MD Position: [facility] Primary Care Physician Member Role: PCP Address: Address: [facility] [address]- Name: Sarah Hope Position: [facility] RN Member Role: Primary Care Nurse Name: Verenice Holt Position: [facility] RN Member Role: Primary Care Nurse Name: Margarita Lenz RN Position: [facility] RN Member Role: Primary Care Nurse Name: Lakshmi Michelle RN Position: [facility] RN Member Role: Primary Care Nurse Care Team Related Persons Name: JEZ COLEMAN Address: home [address] [place] [address]
--- OUTSIDE RECORDS SUMMARY | 2024-04-30 06:37 | XMS_ITS | Continuity of Care Document ---
Author Organization [facility] Address [address] [place] [address]- Care Team Providers Care Rotary Lithographic Press Operator Name Role Phone Pee SANCHEZ, Carlos Primary Care Physician [phone] [facility]counter [facility] Date(s): 11/28/23 - 12/28/23 [facility] [address] [place], [place] [address] Allergies, Adverse Reactions, Alerts Substance Reaction Severity Status NSAIDs Seizure Active amLODIPine Fatigue SOB - Shortness of breath Active Immunizations Given and Recorded Vaccine Date Status Refusal Reason tetanus/diphtheria/pertussis, acel(Tdap) 1 09/26/23 Given tetanus/diphtheria/pertussis, acel(Tdap) 07/19/11 Recorded influenza virus vaccine, inactivated 2 09/26/23 Gi bhavik influenza virus vaccine, inactivated 3 09/26/22 Gi bhavik influenza virus vaccine, inactivated [...] SARS-CoV-2 (COVID-19) mRNA-1273 vaccine 03/20/21 R ecorded 1Result Comment: [facility] 68964-328-98 vaccine given below Flu 2Result Comment: [facility] 44263-291-75 vaccine given above Tdap 3Result Comment: [facility] 79529-223-14 Medications Aller-Chlor 4 mg oral tablet 1 tablet = 4 mg, By Mouth, 2 times a day, TAKE 1 TABLET BY MOUTH TWICE DAILY, # 180 tablet, 1 Refills, Maintenance, 05/29/23 12:06:00 EDT, [facility] #[id number], 190.5, cm, 05/29/23 11:36:00 EDT, Height Start Date: 05/29/23 Status: Ordered Ativan 1 mg oral tablet 1 tablet = 1 mg, By Mouth, Daily, PRN panic only, # 10 tablet, 3 Refills, Maintenance, 12/24/23 7:30:00 EST, Tablet, [facility] #[id number], Partial fill upon patient request if the prescriptionis for a schedule II opioid drug., 190.5, cm, 10/01... Start Date: 12/24/23 Stop Date: 04/22/24 Status: Ordered bisacodyl 5 mg oral delayed release tablet 2 tablet = 10 mg, By Mouth, Daily, # 180 tablet, 3 Refills, Maintenance, 06/28/22 10:09:00 EDT, EC Tablet, [facility] #[id number], Partial fill upon patient request if the prescription is for a schedule II opioid drug., 190.5, cm, 06/28/22 9:08:0... Start Date: 06/28/22 Status: Ordered busPIRone 30 mg oral tablet 1 tablet = 30 mg, By Mouth, 3 times a day, # 270 tablet, 1 Refills, Maintenance, 08/02/23 14:21:00 EDT, [facility] #[id number], Partial fill upon patient request if the prescription is for a schedule II opioid drug., 190.5, cm, 05/29/23 11:36:00... Start Date: 08/02/23 Stop Date: 01/29/24 Status: Ordered cyclobenzaprine 5 mg oral tablet 1-2 tablet, By Mouth, 3 times a day, PRN Spasm, # 90 tablet, 2 Refills, Maintenance, 10/07/23 13:41:00 EST, [facility] #[id number], Partial fill upon patient request if the prescription is for aschedule II opioid drug., 190.5, cm, 10/01/23 8:42:... Start Date: 10/07/23 Status: Ordered Home Blood Pressure Monitor See Instructions, # 1 each, Maintenance, Use to check blood pressure Dx I10, 09/26/23 8:28:00 EST, Supply Start Date: 09/26/23 Status: Ordered hydrochlorothiazide 25 mg oral tablet 25 mg, 1, tablet, By Mouth, Daily, # 90 tablet, Refills 1, Tot. Refills 1, Maintenance, 05/29/23 12:07:00 EDT, Route to Pharmacy Electronically, [facility] #[id number], Partial fill upon patientrequest if the prescription is for a schedule II op... Start Date: 05/29/23 Status: Ordered hydrOXYzine pamoate 50 mg oral capsule 2 capsule = 100 mg, By Mouth, Daily at bedtime, # 180 capsule, 1 Refills, Maintenance, 01/29/24 14:13:00 EDT, Capsule, [facility] #[id number], 190.5, cm, 10/01/23 8:42:00 EST, Height Start Date: 01/29/24 Stop Date: 07/27/24 Status: Ordered hydrOXYzine pamoate 50 mg oral capsule 2 capsule = 100 mg, By Mouth, Daily at bedtime, for 90 days, # 180 capsule, 1 Refills, Hard Stop 01/29/24 14:13:00 EDT, 08/02/23 14:13:00 EDT, Capsule, [facility] #[id number], 190.5, cm, 05/29/23 11:36:00 EDT, Height Start Date: 08/02/23 Stop Date: 01/29/24 Status: Ordered lamotrigine 200 mg oral tablet 1 tablet = 200 mg, By Mouth, 2 times a day, # 180 tablet, 1 Refills, Maintenance, 01/29/24 14:14:00EDT, Tablet, [facility] #[id number], Partial fill upon patient request if the prescription is for a schedule II opioid drug., 190.5, cm, 10/01/23... Start Date: 01/29/24 Stop Date: 07/27/24 Status: Ordered lamotrigine 200 mg oral tablet 1 tablet = 200 mg, By Mouth, 2 times a day, for 90 days, # 180 tablet, 1 Refills, Hard Stop 01/29/24 14:14:00 EDT, 08/02/23 14:14:00 EDT, Tablet, [facility] #[id number], Partial fill upon patient request if the prescription is for a schedule II o... Start Date: 08/02/23 Stop Date: 01/29/24 Status: Ordered Lexapro 20 mg oral tablet 1 tablet = 20 mg, By Mouth, Daily, # 90 tablet, 1 Refills, Maintenance, 01/29/24 14:13:00 EDT, Tablet, [facility] #[id number], Partial fill upon patient request if the prescription is for a schedule II opioid drug., 190.5, cm, 10/01/23 8:42:00 ES... Start Date: 01/29/24 Stop Date: 07/27/24 Status: Ordered Lexapro 20 mg oral tablet 1 tablet = 20 mg, By Mouth, Daily, for 90 days, # 90 tablet, 1 Refills, Hard Stop 01/29/24 14:13:00EDT, 08/02/23 14:13:00 EDT, Tablet, [facility] #[id number], Partial fill upon patient request if the prescription is for a schedule II opioid drug... Start Date: 08/02/23 Stop Date: 01/29/24 Status: Ordered melatonin 5 mg oral tablet See Instructions, PRN for insomnia, 2 tablet By Mouth Daily at bedtime, # 60 tablet, 4 Refills, Maintenance, 11/01/23 15:29:00 EST, Tablet, [facility] #[id number], 190.5, cm, 10/01/23 8:42:00 EST, Height Start Date: 11/01/23 Status: Ordered omeprazole 20 mg oral enteric coated capsule 1 capsule = 20 mg, By Mouth, 2 times a day, # 180 capsule, 2 Refills, Maintenance, 05/29/23 12:06:00 EDT, [facility] #[id number], Partial fill upon patient request if the prescription is for a schedule II opioid drug., 190.5, cm, 05/29/23 11:36:0... Start Date: 05/29/23 Status: Ordered ondansetron 4 mg oral tablet 1 tablet = 4 mg, By Mouth, Every 8 hours, PRN Nausea, # 180 tablet, 0 Refills, Maintenance, 08/25/23 21:28:00 EDT, Tablet, [facility] #[id number], Partial fill upon patient request if the prescription is for a schedule II opioid drug., 190.5, cm,... Start Date: 08/25/23 Status: Ordered pregabalin 150 mg oral capsule 1 capsule = 150 mg, By Mouth, 2 times a day, # 180 capsule, 1 Refills, Maintenance, 10/07/23 13:42:00 EST, Capsule, [facility] #[id number], Partial fill upon patient request if the prescription is for a schedule II opioid drug., 190.5, cm, ... Start Date: 10/07/23 Status: Ordered SEROquel 25 mg oral tablet 25 mg, 1, tablet, By Mouth, 2 times a day, dose decreasee, # 180 tablet, Refills 1, Tot. Refills 1,Maintenance, 11/01/23 15:28:00 EST, Route to Pharmacy Electronically, [facility] #[id number], Partial fill upon patient request if the prescriptio... Start Date: 11/01/23 Stop Date: 04/29/24 Status: Ordered sildenafil 100 mg oral tablet 0.5 - 1 tablet, By Mouth, Daily, PRN erectile dysfunction, PATIENT USING COUPON NOT INSURANCE, # 30 tablet, 1 Refills, Maintenance, 01/18/23 12:32:00 EST, Tablet, [facility] #36, Partial fill upon patient request if the prescription is f... Start Date: 01/18/23 Status: Ordered temazepam 7.5 mg oral capsule 1 capsule = 7.5 mg, By Mouth, Daily at bedtime, PRN as needed for sleep, # 30 capsule, 1 Refills, Maintenance, 11/21/23 14:41:00 EST, [facility] #[id number], Partial fill upon patient request ifthe prescription is for a schedule II opioid drug.,... Start Date: 11/21/23 Stop Date: 01/20/24 Status: Ordered traZODone 100 mg oral tablet 100 mg, 1, tablet, By Mouth, Daily at bedtime, # 60 tablet, Refills 2, Tot. Refills 2, Maintenance,09/12/23 14:58:00 EDT, Route to Pharmacy Electronically, [facility] #[id number], 190.5, cm, 05/29/23 11:36:00 EDT, Height Start Date: 09/12/23 Stop Date: 03/10/24 Status: Ordered valsartan 80 mg oral tablet 80 mg, 1, tablet, By Mouth, Daily, # 90 tablet, Refills 1, Tot. Refills 1, Maintenance, 11/28/23 7:15:00 EST, Route to Pharmacy Electronically, [facility] #[id number], Partial fill upon patient request if the prescription is for a schedule II opi... Start Date: 11/28/23 Status: Ordered Vitamin D3 1000 intl units oral capsule 1 capsule = 25 mcg, By Mouth, Daily, # 90 capsule, 3 Refills, Maintenance, 09/26/23 8:16:00 EST, Capsule, [facility] #[id number], Partial fill upon patient request if the prescription is for a schedule II opioid drug., 190.5, cm, 09/26/23 8:10:00... Start Date: 09/26/23 Status: Ordered Problem List Condition Confirmation Course Effective Dates Status H ealth Status Informant Anxiety Confirmed Active Chronic back pain Confirmed Active Erectile dysfunction Confirmed Active Family history of prostate cancer Confirmed Active History of acute renal failure, reportedly d/t celebrex, dehydration, TRAVIS-I use Confirmed Active History of renal cell carcinoma, s/p partial R nephrectomy 08/07; Dr Gallegos Confirmed Active Hypercalcemia Confirmed Active Hyperlipidemia Confirmed Active Hypertension Confirmed 09/09/09 Active Impaired fasting glucose Confirmed Active Insomnia Confirmed Active Mixed hyperlipidemia Confirmed Active Lung nodules; LDCT program following Confirmed Active Colon polyp Confirmed Active Post-traumatic stress disorder Confirmed Active Elevated serum creatinine Confirmed Active Severe obesity (BMI 35.0-39.9) with comorbidity Confirmed Active Severe recurrent major depression without psychotic features Confirmed Active Fatty liver Confirmed Active Social History Social History Type Response Tobacco Total pack years: 3. Sex Patient Care team information Care Team Personnel Name: Carlos Glasgow MD Position: [facility] Physician - Primary Care Member Role: PCP Address: Address: [address] [place] [id number] Name: Sarah Sheth MA Position: [facility] RN Member Role: Primary Care Nurse Name: Verenice Holt Position: [facility] RN Member Role: Primary Care Nurse Name: Margarita Lenz RN Position: [facility] RN Member Role: Primary Care Nurse Name: Lakshmi Michelle RN Position: [facility] RN Member Role: Primary Care Nurse Care Team Related Persons Name: JEZ COLEMAN Address: home [address] [place] [address]
--- OUTSIDE RECORDS SUMMARY | 2024-04-30 06:37 | XMS_ITS | Continuity of Care Document ---
Author Organization [facility] Address [address] [place] [address]- Care Team Providers Care Lookback Coordinator Name Role Phone Pee SANCHEZ, Carlos Primary Care Physician [facility]counter [facility] Date(s): 11/28/23 - 12/28/23 [facility] [address] [place], [place] [address] Allergies, Adverse Reactions, Alerts Substance Reaction [...] mRNA-1273 vaccine 03/20/21 R ecorded 1Result Comment: [facility] 84930-605-87 vaccine given below Flu 2Result Comment: [facility] 68020-723-31 vaccine given above Tdap 3Result Comment: [facility] 83748-947-55 Medications Aller-Chlor 4 mg oral tablet 1 tablet = 4 mg, By Mouth, 2 times a day, TAKE 1 TABLET BY MOUTH TWICE DAILY, # 180 tablet, 1 Refills, Maintenance, 05/29/23 12:06:00 EDT, [facility] #[id number], 190.5, cm, 05/29/23 11:36:00 EDT, Height Start Date: 05/29/23 Status: Ordered Ativan 1 mg oral tablet 1 tablet = 1 mg, By Mouth, Daily, PRN panic only, # 10 tablet, 3 Refills, Maintenance, 12/24/23 7:30:00 EST, Tablet, [facility] #[id number], Partial fill upon patient request if the prescriptionis for a schedule II opioid drug., 190.5, cm, 10/01... Start Date: 12/24/23 Stop Date: 04/22/24 Status: Ordered bisacodyl 5 mg oral delayed release tablet 2 tablet = 10 mg, By Mouth, Daily, # 180 tablet, 3 Refills, Maintenance, 06/28/22 10:09:00 EDT, EC Tablet, [facility] #[id number], Partial fill upon patient request if the prescription is for a schedule II opioid drug., 190.5, cm, 06/28/22 9:08:0... Start Date: 06/28/22 Status: Ordered busPIRone 30 mg oral tablet 1 tablet = 30 mg, By Mouth, 3 times a day, # 270 tablet, 1 Refills, Maintenance, 08/02/23 14:21:00 EDT, [facility] #[id number], Partial fill upon patient request if the prescription is for a schedule II opioid drug., 190.5, cm, 05/29/23 11:36:00... Start Date: 08/02/23 Stop Date: 01/29/24 Status: Ordered cyclobenzaprine 5 mg oral tablet 1-2 tablet, By Mouth, 3 times a day, PRN Spasm, # 90 tablet, 2 Refills, Maintenance, 10/07/23 13:41:00 EST, [facility] #[id number], Partial fill upon patient request if the [...] 05/29/23 12:07:00 EDT, Route to Pharmacy Electronically, [facility] #[id number], Partial fill upon patientrequest if the prescription is for a schedule II op... Start Date: 05/29/23 Status: Ordered hydrOXYzine pamoate 50 mg oral capsule 2 capsule = 100 mg, By Mouth, Daily at bedtime, # 180 capsule, 1 Refills, Maintenance, 01/29/24 14:13:00 EDT, Capsule, [facility] #[id number], 190.5, cm, 10/01/23 8:42:00 EST, Height Start Date: 01/29/24 Stop Date: 07/27/24 Status: Ordered hydrOXYzine pamoate 50 mg oral capsule 2 capsule = 100 mg, By Mouth, Daily at bedtime, for 90 days, # 180 capsule, 1 Refills, Hard Stop 01/29/24 14:13:00 EDT, 08/02/23 14:13:00 EDT, Capsule, [facility] #[id number], 190.5, cm, 05/29/23 11:36:00 EDT, Height Start Date: 08/02/23 Stop Date: 01/29/24 Status: Ordered lamotrigine 200 mg oral tablet 1 tablet = 200 mg, By Mouth, 2 times a day, # 180 tablet, 1 Refills, Maintenance, 01/29/24 14:14:00EDT, Tablet, [facility] #[id number], Partial fill upon patient request if the prescription is for a schedule II opioid drug., 190.5, cm, 10/01/23... Start Date: 01/29/24 Stop Date: 07/27/24 Status: Ordered lamotrigine 200 mg oral tablet 1 tablet = 200 mg, By Mouth, 2 times a day, for 90 days, # 180 tablet, 1 Refills, Hard Stop 01/29/24 14:14:00 EDT, 08/02/23 14:14:00 EDT, Tablet, [facility] #[id number], Partial fill upon patient request if the prescription is for a schedule II o... Start Date: 08/02/23 Stop Date: 01/29/24 Status: Ordered Lexapro 20 mg oral tablet 1 tablet = 20 mg, By Mouth, Daily, # 90 tablet, 1 Refills, Maintenance, 01/29/24 14:13:00 EDT, Tablet, [facility] #[id number], Partial fill upon patient request if the prescription is for a schedule II opioid drug., 190.5, cm, 10/01/23 8:42:00 ES... Start Date: 01/29/24 Stop Date: 07/27/24 Status: Ordered Lexapro 20 mg oral tablet 1 tablet = 20 mg, By Mouth, Daily, for 90 days, # 90 tablet, 1 Refills, Hard Stop 01/29/24 14:13:00EDT, 08/02/23 14:13:00 EDT, Tablet, [facility] #[id number], Partial fill upon patient request if the prescription is for a schedule II opioid drug... Start Date: 08/02/23 Stop Date: 01/29/24 Status: Ordered melatonin 5 mg oral tablet See Instructions, PRN for insomnia, 2 tablet By Mouth Daily at bedtime, # 60 tablet, 4 Refills, Maintenance, 11/01/23 15:29:00 EST, Tablet, [facility] #[id number], 190.5, cm, 10/01/23 8:42:00 EST, Height Start Date: 11/01/23 Status: Ordered omeprazole 20 mg oral enteric coated capsule 1 capsule = 20 mg, By Mouth, 2 times a day, # 180 capsule, 2 Refills, Maintenance, 05/29/23 12:06:00 EDT, [facility] #[id number], Partial fill upon patient request if the prescription is for a schedule II opioid drug., 190.5, cm, 05/29/23 11:36:0... Start Date: 05/29/23 Status: Ordered ondansetron 4 mg oral tablet 1 tablet = 4 mg, By Mouth, Every 8 hours, PRN Nausea, # 180 tablet, 0 Refills, Maintenance, 08/25/23 21:28:00 EDT, Tablet, [facility] #[id number], Partial fill upon patient request if the prescription is for a schedule II opioid drug., 190.5, cm,... Start Date: 08/25/23 Status: Ordered pregabalin 150 mg oral capsule 1 capsule = 150 mg, By Mouth, 2 times a day, # 180 capsule, 1 Refills, Maintenance, 10/07/23 13:42:00 EST, Capsule, [facility] #[id number], Partial fill upon patient request if the prescription is for a schedule II opioid drug., 190.5, cm, ... Start Date: 10/07/23 Status: Ordered SEROquel 25 mg oral tablet 25 mg, 1, tablet, By Mouth, 2 times a day, dose decreasee, # 180 tablet, Refills 1, Tot. Refills 1,Maintenance, 11/01/23 15:28:00 EST, Route to Pharmacy Electronically, [facility] #[id number], Partial fill upon patient request if the [...] capsule, 1 Refills, Maintenance, 11/21/23 14:41:00 EST, [facility] #[id number], Partial fill upon patient request ifthe prescription is for a schedule II opioid drug.,... Start Date: 11/21/23 Stop Date: 01/20/24 Status: Ordered traZODone 100 mg oral tablet 100 mg, 1, tablet, By Mouth, Daily at bedtime, # 60 tablet, Refills 2, Tot. Refills 2, Maintenance,09/12/23 14:58:00 EDT, Route to Pharmacy Electronically, [facility] #[id number], 190.5, cm, 05/29/23 11:36:00 EDT, Height Start Date: 09/12/23 Stop Date: 03/10/24 Status: Ordered valsartan 80 mg oral tablet 80 mg, 1, tablet, By Mouth, Daily, # 90 tablet, Refills 1, Tot. Refills 1, Maintenance, 11/28/23 7:15:00 EST, Route to Pharmacy Electronically, [facility] #[id number], Partial fill upon patient request if the prescription is for a schedule II opi... Start Date: 11/28/23 Status: Ordered Vitamin D3 1000 intl units oral capsule 1 capsule = 25 mcg, By Mouth, Daily, # 90 capsule, 3 Refills, Maintenance, 09/26/23 8:16:00 EST, Capsule, [facility] #[id number], Partial fill upon patient request if the [...] Team Personnel Name: Carlos Glasgow MD Position: [facility] Physician - Primary Care Member Role: PCP Address: Address: [address] [place] [id number] Name: Sarah Sheth [place] Position: [facility] RN Member Role: Primary Care Nurse Name: Verenice Holt Position: [facility] RN Member Role: Primary Care Nurse Name: Margarita Lenz RN Position: [facility] RN Member Role: Primary Care Nurse Name: Lakshmi Michelle RN Position: [facility] RN Member Role: Primary Care Nurse Care Team Related Persons Name: JEZ COLEMAN Address: home [address] [place] [address]
--- OUTSIDE RECORDS SUMMARY | 2024-04-30 06:37 | XMS_ITS | Continuity of Care Document ---
Author Organization [facility] Address [address] [place] [address]- Care Team Providers Care Network Internship Name Role Phone Pee SANCHEZ, Carlos Primary Care Physician [phone] Encounter [facility] Date(s): 02/03/24 - 03/04/24 [facility] [address] [place], [place] [address] Allergies, Adverse Reactions, Alerts Substance Reaction [...] mRNA-1273 vaccine 03/20/21 R ecorded 1Result Comment: [facility] [id number] vaccine given below Flu 2Result Comment: [facility] 81876-467-63 vaccine given above Tdap 3Result Comment: [facility] 17258-201-30 Medications Aller-Chlor 4 mg oral tablet 1 tablet = 4 mg, By Mouth, 2 times a day, TAKE 1 TABLET BY MOUTH TWICE DAILY, # 180 tablet, 1 Refills, Maintenance, 02/03/24 21:15:00 EDT, [facility] #[id number], 190.5, cm, 10/01/23 8:42:00 EST, Height Start Date: 02/03/24 Status: Ordered Ativan 1 mg oral tablet 1 tablet = 1 mg, By Mouth, Daily, PRN panic only, for 30 days, # 10 tablet, 3 Refills, Hard Stop 04/22/24 7:30:00 EDT, 12/24/23 7:30:00 EST, Tablet, [facility] #[id number], Partial fill upon patient request if the prescription is for a schedule I... Start Date: 12/24/23 Stop Date: 04/22/24 Status: Ordered Ativan 1 mg oral tablet 1 tablet = 1 mg, By Mouth, Daily, PRN panic only, # 10 tablet, 3 Refills, Maintenance, 04/22/24 7:30:00 EDT, Tablet, [facility] #[id number], Partial fill upon patient request if the prescriptionis for a schedule II opioid drug., 190.5, cm, 10/01... Start Date: 04/22/24 Stop Date: 08/20/24 Status: Ordered bisacodyl 5 mg oral delayed release tablet 2 tablet = 10 mg, By Mouth, Daily, # 180 tablet, 3 Refills, Maintenance, 06/28/22 10:09:00 EDT, EC Tablet, [facility] #[id number], Partial fill upon patient request if the prescription is for a schedule II opioid drug., 190.5, cm, 06/28/22 9:08:0... Start Date: 06/28/22 Status: Ordered busPIRone 30 mg oral tablet 1 tablet = 30 mg, By Mouth, 3 times a day, # 270 tablet, 1 Refills, Maintenance, 01/31/24 14:11:00 EDT, [facility] #[id number], Partial fill upon patient request if the prescription is for a schedule II opioid drug., 190.5, cm, 10/01/23 8:42:00 E... Start Date: 01/31/24 Stop Date: 07/29/24 Status: Ordered cyclobenzaprine 5 mg oral tablet 1-2 tablet, By Mouth, 3 times a day, PRN Spasm, # 90 tablet, 2 Refills, Maintenance, 10/07/23 13:41:00 EST, [facility] #[id number], Partial fill upon patient request if the [...] 05/29/23 12:07:00 EDT, Route to Pharmacy Electronically, [facility] #[id number], Partial fill upon patientrequest if the prescription is for a schedule II op... Start Date: 05/29/23 Status: Ordered hydrOXYzine pamoate 50 mg oral capsule 2 capsule = 100 mg, By Mouth, Daily at bedtime, # 180 capsule, 1 Refills, Maintenance, 01/29/24 14:13:00 EDT, Capsule, [facility] #[id number], 190.5, cm, 10/01/23 8:42:00 EST, Height Start Date: 01/29/24 Stop Date: 07/27/24 Status: Ordered lamotrigine 200 mg oral tablet 1 tablet = 200 mg, By Mouth, 2 times a day, # 180 tablet, 1 Refills, Maintenance, 01/29/24 14:14:00EDT, Tablet, [facility] #[id number], Partial fill upon patient request if the prescription is for a schedule II opioid drug., 190.5, cm, 10/01/23... Start Date: 01/29/24 Stop Date: 07/27/24 Status: Ordered Lexapro 20 mg oral tablet 1 tablet = 20 mg, By Mouth, Daily, # 90 tablet, 1 Refills, Maintenance, 01/29/24 14:13:00 EDT, Tablet, [facility] #[id number], Partial fill upon patient request if the prescription is for a schedule II opioid drug., 190.5, cm, 10/01/23 8:42:00 ES... Start Date: 01/29/24 Stop Date: 07/27/24 Status: Ordered melatonin 5 mg oral tablet See Instructions, PRN for insomnia, 2 tablet By Mouth Daily at bedtime, # 60 tablet, 4 Refills, Maintenance, 01/31/24 14:12:00 EDT, Tablet, [facility] #[id number], 190.5, cm, 10/01/23 8:42:00 EST, Height Start Date: 01/31/24 Status: Ordered omeprazole 20 mg oral enteric coated capsule 1 capsule = 20 mg, By Mouth, 2 times a day, # 180 capsule, 2 Refills, Maintenance, 05/29/23 12:06:00 EDT, [facility] #[id number], Partial fill upon patient request if the prescription is for a schedule II opioid drug., 190.5, cm, 05/29/23 11:36:0... Start Date: 05/29/23 Status: Ordered ondansetron 4 mg oral tablet 1 tablet = 4 mg, By Mouth, Every 8 hours, PRN Nausea, # 180 tablet, 0 Refills, Maintenance, 02/03/24 21:19:00 EDT, Tablet, [facility] #[id number], Partial fill upon patient request if the prescription is for a schedule II opioid drug., 190.5, cm,... Start Date: 02/03/24 Status: Ordered pregabalin 100 mg oral capsule 1 capsule = 100 mg, By Mouth, 2 times a day, # 60 capsule, 0 Refills, Maintenance, 03/04/24 12:28:00 EDT, Capsule, [facility] #[id number], Partial fill upon patient request if the prescription is for a schedule II opioid drug., 190.5, cm, ... Start Date: 03/04/24 Status: Ordered SEROquel 25 mg oral tablet 25 mg, 1, tablet, By Mouth, 2 times a day, dose decreasee, # 180 tablet, Refills 1, Tot. Refills 1,Maintenance, 11/01/23 15:28:00 EST, Route to Pharmacy Electronically, [facility] #[id number], Partial fill upon patient request if the [...] as needed for sleep, # 30 capsule, 4 Refills, Maintenance, 01/31/24 14:09:00 EDT, [facility] #[id number], Partial fill upon patient request ifthe prescription is for a schedule II opioid drug.,... Start Date: 01/31/24 Stop Date: 06/29/24 Status: Ordered traZODone 100 mg oral tablet 100 mg, 1, tablet, By Mouth, Daily at bedtime, # 60 tablet, Refills 2, Tot. Refills 2, Maintenance,09/12/23 14:58:00 EDT, Route to Pharmacy Electronically, [facility] #[id number], 190.5, cm, 05/29/23 11:36:00 EDT, Height Start Date: 09/12/23 Stop Date: 03/10/24 Status: Ordered Vitamin D3 1000 intl units oral capsule 1 capsule = 25 mcg, By Mouth, Daily, # 90 capsule, 3 Refills, Maintenance, 09/26/23 8:16:00 EST, Capsule, [facility] #[id number], Partial fill upon patient request if the [...] Team Personnel Name: Carlos Glasgow MD Position: [facility] Physician - Primary Care Member Role: PCP Address: Address: [address] [place] [address] Name: Sarah Sheth [place] Position: [facility] RN Member Role: Primary Care Nurse Name: Verenice Holt Position: [facility] RN Member Role: Primary Care Nurse Name: Margarita Lenz RN Position: [facility] RN Member Role: Primary Care Nurse Name: Lakshmi Michelle RN Position: [facility] RN Member Role: Primary Care Nurse Care Team Related Persons Name: JEZ COLEMAN Address: home [address] [place] [address]
--- OUTSIDE RECORDS SUMMARY | 2024-04-30 06:37 | XMS_ITS | Continuity of Care Document ---
Author Organization [facility] Address [address] [place] [address]- Care Team Providers Care Rn Oncology Name Role Phone Carlos Glasgow MD Primary Care Physician [phone] Encounter [facility] [id number] Date(s): 10/09/22 [facility] [address] [place] [address]- Attending Physician: Agnieszka SANCHEZ, Chase Perez Referring Physician: Carlos Glasgow MD Allergies, Adverse Reactions, Alerts Substance Reaction Severity [...] ecorded tetanus/diphtheria/pertussis, acel(Tdap) 07/19/11 Recorded 1Result Comment: [facility] [id number] Medications Ativan 1 mg oral tablet 1 tablet = 1 mg, By Mouth, Daily, PRN panic only, # 10 tablet, 4 Refills, Maintenance, 09/27/22 10:13:00 EST, Tablet, [facility] #[id number], Partial fill upon patient request if the prescription is for a schedule II opioid drug., 190.5, cm, 0... Start Date: 09/27/22 Stop Date: 02/24/23 Status: Ordered baclofen 10 mg oral tablet See Instructions, 1 tablet By Mouth 3 times a day for 7 days, then 1 tab BID x7d, # 35 tablet, Refills 0, Tot. Refills 0, Maintenance, 09/26/22 12:16:00 EST, Instructions Replace Required Details, Route to Pharmacy Electronically, [facility]... Start Date: 09/26/22 Status: Ordered baclofen 20 mg oral tablet 20 mg, 1, tablet, By Mouth, 3 times a day, # 270 tablet, Refills 2, Tot. Refills 2, Maintenance, 06/28/22 10:10:00 EDT, Route to Pharmacy Electronically, [facility] #[id number], Partial fill upon patient request if the prescription is for a sched... Start Date: 06/28/22 Status: Ordered bisacodyl 5 mg oral delayed release tablet 2 tablet = 10 mg, By Mouth, Daily, # 180 tablet, 3 Refills, Maintenance, 06/28/22 10:09:00 EDT, EC Tablet, [facility] #[id number], Partial fill upon patient request if the prescription is for a schedule II opioid drug., 190.5, cm, 06/28/22 9:08:0... Start Date: 06/28/22 Status: Ordered busPIRone 30 mg oral tablet 1 tablet = 30 mg, By Mouth, 3 times a day, # 90 tablet, 4 Refills, Maintenance, 09/27/22 10:15:00 EST, [facility] #[id number], Partial fill upon patient request if the prescription is for a schedule II opioid drug., 190.5, cm, 09/26/22 11:38:00 E... Start Date: 09/27/22 Stop Date: 02/24/23 Status: Ordered hydrochlorothiazide 25 mg oral tablet 25 mg, 1, tablet, By Mouth, Daily, # 90 tablet, Refills 0, Maintenance, 05/07/20 10:47:00 EDT Start Date: 05/07/20 Status: Ordered hydrOXYzine pamoate 50 mg oral capsule 1-2 capsules, By Mouth, Daily at bedtime, # 60 capsule, 4 Refills, Maintenance, 09/27/22 10:12:00 EST, Capsule, [facility] #[id number], 190.5, cm, 09/26/22 11:38:00 EST, Height Start Date: 09/27/22 Stop Date: 02/24/23 Status: Ordered lamotrigine 200 mg oral tablet 1 tablet = 200 mg, By Mouth, 2 times a day, # 60 tablet, 4 Refills, Maintenance, 09/27/22 10:15:00 EST, Tablet, [facility] #[id number], Partial fill upon patient request if the prescription is for a schedule II opioid drug., 190.5, cm, 09/26/22 1... Start Date: 09/27/22 Stop Date: 02/24/23 Status: Ordered Lexapro 10 mg oral tablet 1 tablet = 10 mg, By Mouth, Daily, take 1/2 tab for 7 days then increase to full tab, # 30 tablet, 4 Refills, Maintenance, 09/27/22 10:14:00 EST, Tablet, [facility] #[id number], Partial fill upon patient request if the prescription is for a sched... Start Date: 09/27/22 Stop Date: 02/24/23 Status: Ordered melatonin 5 mg oral tablet See Instructions, PRN for insomnia, 2 tablet By Mouth Daily at bedtime, # 60 tablet, 4 Refills, Maintenance, 09/27/22 10:16:00 EST, Tablet, [facility] #[id number], 190.5, cm, 09/26/22 11:38:00 EST, Height Start Date: 09/27/22 Status: Ordered omeprazole 20 mg oral enteric coated capsule 1 capsule = 20 mg, By Mouth, 2 times a day, # 180 capsule, 2 Refills, Maintenance, 09/26/22 12:26:00 EST, [facility] #[id number], Partial fill upon patient request if the prescription is for a schedule II opioid drug., 190.5, cm, 09/26/22 11:38:0... Start Date: 09/26/22 Status: Ordered ondansetron 4 mg oral tablet 1 tablet = 4 mg, By Mouth, Every 8 hours, PRN Nausea, # 180 tablet, 0 Refills, Maintenance, 06/28/22 10:10:00 EDT, Tablet, [facility] #[id number], Partial fill upon patient request if the prescription is for a schedule II opioid drug., 190.5, cm,... Start Date: 06/28/22 Status: Ordered pregabalin 75 mg oral capsule 1 capsule = 75 mg, By Mouth, 2 times a day, # 180 capsule, 0 Refills, Maintenance, 09/29/22 22:02:00 EST, Capsule, Partial fill upon patient request if the prescription is for a schedule II opioid drug. Start Date: 09/29/22 Status: Ordered Restoril 7.5 mg oral capsule 1 capsule = 7.5 mg, By Mouth, Daily at bedtime, PRN for sleep, for 30 days, # 30 capsule, 4 Refills, Acute 02/24/23 10:12:00 EDT, 09/27/22 10:12:00 EST, Capsule, [facility] #[id number], 190.5, cm, 09/26/22 11:38:00 EST, Height Start Date: 09/27/22 Stop Date: 02/24/23 Status: Ordered SEROquel 50 mg oral tablet 1 tablet = 50 mg, By Mouth, 3 times a day, # 90 tablet, 4 Refills, Maintenance, 09/27/22 10:15:00 EST, Tablet, [facility] #[id number], Partial fill upon patient request if the prescription is for a schedule II opioid drug., 190.5, cm, 09/26/22 11... Start Date: 09/27/22 Stop Date: 02/24/23 Status: Ordered sildenafil 100 mg oral tablet 0.5 - 1 tablet, By Mouth, Daily, PRN erectile dysfunction, PATIENT USING COUPON NOT INSURANCE, # 30 tablet, 0 Refills, Maintenance, 06/28/22 10:08:00 EDT, Tablet, [facility] #[id number], Partial fill upon patient request if the prescription is f... Start Date: 06/28/22 Status: Ordered tiZANidine 4 mg oral tablet 4 mg, 1, tablet, By Mouth, 3 times a day, # 90 tablet, Refills 1, Tot. Refills 1, Maintenance, 09/26/22 12:18:00 EST, Route to Pharmacy Electronically, [facility] #[id number], Partial fill upon patient request if the prescription is for a schedul... Start Date: 09/26/22 Status: Ordered traZODone 100 mg oral tablet 100 mg, 1, tablet, By Mouth, Daily at bedtime, # 30 tablet, Refills 4, Tot. Refills 4, Maintenance,09/27/22 10:16:00 EST, Route to Pharmacy Electronically, [facility] #[id number], 190.5, cm, 09/26/22 11:38:00 EST, Height Start Date: 09/27/22 Stop Date: 02/24/23 Status: Ordered Vitamin D3 1000 intl units oral capsule 1 capsule = 25 mcg, By Mouth, Daily, # 90 capsule, 3 Refills, Maintenance, 06/28/22 10:10:00 EDT, Capsule, [facility] #[id number], Partial fill upon patient request if the [...] Care Team Personnel Name: Yosvany Ardon Position: [facility] Cardio/Pulm Mgr ([facility]) Member Role: Primary Care Nurse Name: Carlos Glasgow MD Position: [facility] Primary Care Physician Member Role: PCP Address: Address: [address] [place], [place] [address] Name: Sarah Hope Position: [facility] RN Member Role: Primary Care Nurse Name: Verenice Holt Position: [facility] RN Member Role: Primary Care Nurse Name: Margarita Lenz RN Position: [facility] RN Member Role: Primary Care Nurse Name: Lakshmi Michelle RN Position: [facility] RN Member Role: Primary Care Nurse Care Team Related Persons Name: JEZ COLEMAN Address: home [address] [place] [address]
--- OUTSIDE RECORDS SUMMARY | 2024-04-30 06:37 | XMS_ITS | Continuity of Care Document ---
Author Organization [facility] Address [address] [place] [address]- Care Team Providers Care Telephone Answerer Name Role Phone Carlos Glasgow MD Primary Care Physician [phone] Encounter [facility] Date(s): 09/26/23 - 10/03/23 [facility] [address] [place], [place] [address] Encounter Diagnosis Right hip pain(Discharge Diagnosis) - 09/29/23 Medicare annual wellness visit, subsequent(Discharge Diagnosis) - 09/29/23 Attending Physician: Carlos Glasgow MD Allergies, Adverse Reactions, [...] mRNA-1273 vaccine 03/20/21 R ecorded 1Result Comment: [facility] 04063-428-70 vaccine given below Flu 2Result Comment: [facility] 47676-860-27 vaccine given above Tdap 3Result Comment: [facility] [id number] Medications Aller-Chlor 4 mg oral tablet 1 tablet = 4 mg, By Mouth, 2 times a day, TAKE 1 TABLET BY MOUTH TWICE DAILY, # 180 tablet, 1 Refills, Maintenance, 05/29/23 12:06:00 EDT, [facility] #[id number], 190.5, cm, 05/29/23 11:36:00 EDT, Height Start Date: 05/29/23 Status: Ordered Ativan 1 mg oral tablet 1 tablet = 1 mg, By Mouth, Daily, PRN panic only, # 10 tablet, 2 Refills, Maintenance, 09/25/23 7:30:00 EST, Tablet, [facility] #[id number], Partial fill upon patient request if the prescriptionis for a schedule II opioid drug., 190.5, cm, 05/29... Start Date: 09/25/23 Stop Date: 12/24/23 Status: Ordered bisacodyl 5 mg oral delayed release tablet 2 tablet = 10 mg, By Mouth, Daily, # 180 tablet, 3 Refills, Maintenance, 06/28/22 10:09:00 EDT, EC Tablet, [facility] #[id number], Partial fill upon patient request if the prescription is for a schedule II opioid drug., 190.5, cm, 06/28/22 9:08:0... Start Date: 06/28/22 Status: Ordered busPIRone 30 mg oral tablet 1 tablet = 30 mg, By Mouth, 3 times a day, # 270 tablet, 1 Refills, Maintenance, 08/02/23 14:21:00 EDT, [facility] #[id number], Partial fill upon patient request if the prescription is for a schedule II opioid drug., 190.5, cm, 05/29/23 11:36:00... Start Date: 08/02/23 Stop Date: 01/29/24 Status: Ordered cyclobenzaprine 5 mg oral tablet 1-2 tablet, By Mouth, 3 times a day, PRN Spasm, # 90 tablet, 2 Refills, Maintenance, 05/29/23 12:07:00 EDT, [facility] #[id number], Partial fill upon patient request if the prescription is for aschedule II opioid drug., 190.5, cm, 05/29/23 11:36... Start Date: 05/29/23 Status: Ordered Home Blood Pressure Monitor See Instructions, # 1 each, Maintenance, Use to check blood pressure Dx I10, 09/26/23 8:28:00 EST, Supply Start Date: 09/26/23 Status: Ordered hydrochlorothiazide 25 mg oral tablet 25 mg, 1, tablet, By Mouth, Daily, # 90 tablet, Refills 1, Tot. Refills 1, Maintenance, 05/29/23 12:07:00 EDT, Route to Pharmacy Electronically, [facility] #[id number], Partial fill upon patientrequest if the prescription is for a schedule II op... Start Date: 05/29/23 Status: Ordered hydrOXYzine pamoate 50 mg oral capsule 2 capsule = 100 mg, By Mouth, Daily at bedtime, # 180 capsule, 1 Refills, Maintenance, 08/02/23 14:13:00 EDT, Capsule, [facility] #[id number], 190.5, cm, 05/29/23 11:36:00 EDT, Height Start Date: 08/02/23 Stop Date: 01/29/24 Status: Ordered lamotrigine 200 mg oral tablet 1 tablet = 200 mg, By Mouth, 2 times a day, # 180 tablet, 1 Refills, Maintenance, 08/02/23 14:14:00EDT, Tablet, [facility] #[id number], Partial fill upon patient request if the prescription is for a schedule II opioid drug., 190.5, cm, 05/29/23... Start Date: 08/02/23 Stop Date: 01/29/24 Status: Ordered Lexapro 20 mg oral tablet 1 tablet = 20 mg, By Mouth, Daily, # 90 tablet, 1 Refills, Maintenance, 08/02/23 14:13:00 EDT, Tablet, [facility] #[id number], Partial fill upon patient request if the prescription is for a schedule II opioid drug., 190.5, cm, 05/29/23 11:36:00 E... Start Date: 08/02/23 Stop Date: 01/29/24 Status: Ordered melatonin 5 mg oral tablet See Instructions, PRN for insomnia, 2 tablet By Mouth Daily at bedtime, # 60 tablet, 4 Refills, Maintenance, 08/02/23 14:14:00 EDT, Tablet, [facility] #[id number], 190.5, cm, 05/29/23 11:36:00 EDT, Height Start Date: 08/02/23 Status: Ordered omeprazole 20 mg oral enteric coated capsule 1 capsule = 20 mg, By Mouth, 2 times a day, # 180 capsule, 2 Refills, Maintenance, 05/29/23 12:06:00 EDT, [facility] #[id number], Partial fill upon patient request if the prescription is for a schedule II opioid drug., 190.5, cm, 05/29/23 11:36:0... Start Date: 05/29/23 Status: Ordered ondansetron 4 mg oral tablet 1 tablet = 4 mg, By Mouth, Every 8 hours, PRN Nausea, # 180 tablet, 0 Refills, Maintenance, 08/25/23 21:28:00 EDT, Tablet, [facility] #[id number], Partial fill upon patient request if the prescription is for a schedule II opioid drug., 190.5, cm,... Start Date: 08/25/23 Status: Ordered pregabalin 150 mg oral capsule TAKE 1 CAPSULE BY MOUTH TWICE DAILY Start Date: 02/17/23 Status: Ordered SEROquel 25 mg oral tablet 25 mg, 1, tablet, By Mouth, 2 times a day, dose decreasee, # 180 tablet, Refills 0, Tot. Refills 0,Maintenance, 08/02/23 14:09:00 EDT, Route to Pharmacy Electronically, [facility] #[id number], Partial fill upon patient request if the prescriptio... Start Date: 08/02/23 Stop Date: 10/31/23 Status: Ordered sildenafil 100 mg oral tablet [...] Maintenance,09/12/23 14:58:00 EDT, Route to Pharmacy Electronically, [facility] #[id number], 190.5, cm, 05/29/23 11:36:00 EDT, Height Start Date: 09/12/23 Stop Date: 03/10/24 Status: Ordered valsartan 80 mg oral tablet 80 mg, 1, tablet, By Mouth, Daily, # 90 tablet, Refills 0, Tot. Refills 0, Maintenance, 08/28/23 22:06:00 EDT, Route to Pharmacy Electronically, [facility] #[id number], Partial fill upon patientrequest if the prescription is for a schedule II op... Start Date: 08/28/23 Status: Ordered Vitamin D3 1000 intl units oral capsule 1 capsule = 25 mcg, By Mouth, Daily, # 90 capsule, 3 Refills, Maintenance, 09/26/23 8:16:00 EST, Capsule, [facility] #[id number], Partial fill upon patient request if the [...] Active Post-traumatic stress disorder Confirmed Active Severe obesity (BMI 35.0-39.9) with comorbidity Confirmed Active Severe recurrent major depression without psychotic features Confirmed Active Fatty liver Confirmed Active Diagnosis Diagnosis Type Effective Dates Health Status Clinical Service Informant Right hip pain Discharge Diagnosis 09/29/23 Medicare annual wellness visit, subsequent Discharge Diagnosis 09/29/23 Vital Signs Most recent to oldest [Reference Range]: 1 2 Height 190.5 cm (10/01/23 8:42 AM) 190.50 cm (09/26/23 8:10 AM) Weight 139.2 kg (10/01/23 8:42 AM) 139.2 kg (09/26/23 8:10 AM) Oxygen Saturation [94-100 %] 93 % *L* (09/26/23 8:10 AM) Pulse Rate [55-90 bpm] 110 bpm *H* (09/26/23 8:10 AM) Body Mass Index [18.5-24.99 kg/m2] 38.36 kg/m2 *>HHI* (09/26/23 8:10 AM) Blood Pressure [90-138/55-84 mm Hg] 119/ 87mm Hg (09/26/23 8:10 AM) Mode of Delivery (Oxygen) Room air (09/26/23 8:10 AM) Blood pressure sites Arm, left (09/26/23 8:10 AM) Social History Social History Type Response Tobacco Total pack years: 3. Sex EKG study * Event Display: ECG 12-Lead Authored Date: Please click on pdf link to open report * Event Display: ECG 12-Lead Authored Date: Ventricular Rate: 99 BPM Atrial Rate: 99 BPM P-R Interval: 224 ms QRS Duration: 110 ms Q-T Interval: 496 ms QTC Calculation(Bazett): 636 ms P [place]: 52 degrees R [place]: -38 degrees T [place]: 41 degrees Sinus rhythm with 1st degree A-V block Left axis deviation Possible Inferior infarct , age undetermined Cannot rule out Anterior infarct , age undetermined Prolonged QT Abnormal ECG When compared with ECG of 22-JUL-2012 23:37, Vent. rate has increased BY 38 BPM Nonspecific T wave abnormality has replaced inverted T waves in Inferior leads QT has lengthened Confirmed by KIRK WHITLEY MD ([id number]) on 09/26/2023 10:02:55 AM [place]: KIRK WHITLEY MD Note * Naila Luna: PERFORM, SIGN, VERIFY Event Display: Patient Education/Instruction Authored Date: [id number] [facility] Clinical Summary Name JANESSA ACUNA Age 52 Years 1970 PCP Pee SANCHEZ, Carlos PCP Visit Date 09/26/2023 07:56:00 Additional Instructions: Scheduled Appointments?? Future Appointments ?*[facility] [address]??[place],??[place],??[address] ?Phone:??--?Fax:??-- ?Appt. Date:??11/01/2023?3:00 PM ?Scheduled Provider:??Sarah Law Follow-Up Instructions ?? Diagnosis Syncope and collapse Medications: Please continue your medications until treatment is completed or stopped by your provider. Discuss any questions related to medications with your provider. New Medications [facility] #[id number], [address] [place] [id number], [phone] Cholecalciferol (Vitamin D3 1000 intl units oral capsule) 1 capsule Oral Daily. Refills: 3. Next Dose: - Durable Medical Equipment (Home Blood Pressure Monitor) Use to check blood pressure Dx I10. Refills: 0. Next Dose: Medications to Continue with No Changes These medications were not printed or sent to your pharmacy Bisacodyl (bisacodyl 5 mg oral delayed release tablet) 2 tab(s) Oral Daily. Refills: 3. Next Dose: BusPIRone (busPIRone 30 mg oral tablet) 1 tab(s) Oral 3 times a day for 90 Days. Refills: 1. Next Dose: Chlorpheniramine (Aller-Chlor 4 mg oral tablet) 1 tab(s) Oral twice a day. TAKE 1 TABLET BY MOUTH TWICE DAILY. Refills: 1. Next Dose: Cyclobenzaprine (cyclobenzaprine 5 mg oral tablet) 1-2 tablet Oral 3 times a day as needed Spasm. Refills: 2. Next Dose: Escitalopram (Lexapro 20 mg oral tablet) 1 tab(s) Oral Daily for 90 Days. Refills: 1. Next Dose: Hydrochlorothiazide (hydrochlorothiazide 25 mg oral tablet) 1 tab(s) Oral Daily. Refills: 1. Next Dose: HydrOXYzine (hydrOXYzine pamoate 50 mg oral capsule) 2 capsule Oral Daily at Bedtime for 90 Days. Refills: 1. Next Dose: Lamotrigine (lamotrigine 200 mg oral tablet) 1 tab(s) Oral twice a day for 90 Days. Refills: 1. Next Dose: Lorazepam (Ativan 1 mg oral tablet) 1 tab(s) Oral Daily as needed panic only for 30 Days. Refills: 2. Next Dose: Melatonin (melatonin 5 mg oral tablet) 2 tablet By Mouth Daily at bedtime; as needed for insomnia. Refills: 4. Next Dose: Omeprazole (omeprazole 20 mg oral enteric coated capsule) 1 capsule Oral twice a day. Refills: 2. Next Dose: Ondansetron (ondansetron 4 mg oral tablet) 1 tab(s) Oral every 8 hours as needed Nausea. Refills: 0. Next Dose: Pregabalin (pregabalin 150 mg oral capsule) TAKE 1 CAPSULE BY MOUTH TWICE DAILY. Next Dose: Quetiapine (SEROquel 25 mg oral tablet) 1 tab(s) Oral twice a day for 90 Days. dose decreasee. Refills: 0. Next Dose: Sildenafil (sildenafil 100 mg oral tablet) 0.5 - 1 tablet Oral Daily as needed erectile dysfunction. PATIENT USING COUPON NOT INSURANCE. Refills: 1. Next Dose: Trazodone (traZODone 100 mg oral tablet) 1 tab(s) Oral Daily at Bedtime for 60 Days. Refills: 2. Next Dose: Valsartan (valsartan 80 mg oral tablet) 1 tab(s) Oral Daily. Refills: 0. Next Dose: Allergy Info:?? amLODIPine; NSAIDs Medications Given This Visit Medication Dose Route influenza virus vaccine, inactivated (influenza virus, inactivated vacc) 0.5 mL Intramuscular tetanus/diphtheria/pertussis, acel(Tdap) ((Tdap) diphtheria/pertussis, acel/tetanus vacc) 0.5 mL Intramuscular Future Orders ?No future orders Vital Signs Height 190.50 cm Weight 139.2 kg BMI 38.36 kg/m2 Blood Pressure 119 mm Hg/87 mm Hg Temperature Pulse Rate 110 bpm Respiratory Rate 02 Sat Mode of Delivery 93 %/Room air You can now view a summary of your hospital visit from the comfort of your home through a free online portal called [email or web address]. [email or web address] is a website that allows you to securely view your medical information including discharge summary, medications and follow-up visits. ??You can alsosend a secure electronic message to your doctor???s office to request appointments, renew medications or just ask a question. You can enroll at [email or web address] or register during your next office visit. Disclaimer:?? The information provided is of a general nature and is intended to be used in conjunction with the recommendations and advice of your health care practitioner. ??Every effort has been made to ensure that the information provided is accurate and complete at the time it is provided to you however, as your needs change, or, as new ??information becomes available, different or additional instructions may be required. If you have questions, please consult with your primary care provider or pharmacist, as appropriate. ??This information is not intended to serve as substitution for assessment and evaluation by a qualified health care provider. If you do not have a primary care provider, you may find a [facility] provider by calling [facility] Link at [phone]. [facility], in keeping with [facility] guidance, no longer requires face masks for staff, patientsor visitors in most situations. Similar to time spent indoors at other locations, there is the chance that you were exposed to respiratory viruses during your time with us (such as flu or COVID-19).? If you develop symptoms concerning for a viral respiratory infection, please seek testing (and treatment if indicated) from your medical provider or home test kit. For information about the plan of care including goals and instructions for your diagnosis, please see the patient education orders section of this document. Patient Education Materials?? The content of this educational material or handout may have been modified, supplemented, or adapted from its original content and format to support your individualized medical care. Patient Care team information Care Team Personnel Name: Carlos Glasgow MD Position: [facility] Physician - Primary Care Member Role: PCP Address: Address: [facility] [place] [address]- Name: Sarah Sheth [place] Position: [facility] RN Member Role: Primary Care Nurse Name: Verenice Holt Position: [facility] RN Member Role: Primary Care Nurse Name: Margarita Lenz RN Position: [facility] RN Member Role: Primary Care Nurse Name: Lakshmi Michelle RN Position: [facility] RN Member Role: Primary Care Nurse Care Team Related Persons Name: JEZ COLEMAN Address: home [address] [place] [address]
--- OUTSIDE RECORDS SUMMARY | 2024-04-30 06:37 | XMS_ITS | Continuity of Care Document ---
Author Organization [facility] Address [address] [place] [address]- Care Team Providers Care General Purchasing Agent Name Role Phone Not on Staff, PCP Primary Care Physician Unavail able Encounter [facility] Date(s): 03/27/22 - 04/26/22 [facility] [address] [place], [place] [address] Allergies, Adverse Reactions, Alerts Substance Reaction Severity Status NSAIDs Seizure Active amLODIPine Fatigue SOB - Shortness of breath Active Immunizations Given and Recorded Vaccine Date Status Refusal Reason SARS-CoV-2 (COVID-19) mRNA-1273 vaccine 02/17/22 R ecorded SARS-CoV-2 (COVID-19) mRNA-1273 vaccine 10/14/21 R ecorded SARS-CoV-2 (COVID-19) mRNA-1273 vaccine 04/17/21 R ecorded SARS-CoV-2 (COVID-19) mRNA-1273 vaccine 03/20/21 R ecorded influenza virus vaccine, inactivated 07/28/21 Doug rded influenza virus vaccine, inactivated 08/02/20 Doug rded influenza virus vaccine, inactivated 09/23/19 Doug rded influenza virus vaccine, inactivated 08/30/18 Doug rded influenza virus vaccine, inactivated 10/19/16 Doug rded influenza virus vaccine, inactivated 08/11/15 Doug rded influenza virus vaccine, inactivated 09/15/14 Doug rded tetanus/diphtheria/pertussis, acel(Tdap) 07/19/11 Recorded Medications atenolol 25 mg oral tablet 25 mg, 1, tablet, By Mouth, 2 times a day, # 180 tablet, Refills 0, Maintenance, 05/07/20 10:47:00 EDT Start Date: 05/07/20 Status: Ordered atenolol 25 mg oral tablet 25 mg, 1, tablet, By Mouth, Daily, # 90 tablet, Refills 0, Maintenance, 05/07/20 10:47:00 EDT Start Date: 05/07/20 Status: Ordered baclofen 20 mg oral tablet 20 mg, 1, tablet, By Mouth, 3 times a day, # 90 tablet, Refills 0, Maintenance, 05/07/20 10:48:00 EDT Start Date: 05/07/20 Status: Ordered bisacodyl 5 mg oral delayed release tablet 1 tablet = 5 mg, By Mouth, Daily, 0 Refills, Maintenance, 04/19/22 12:13:00 EDT, Partial fill upon patient request if the prescription is for a schedule II opioid drug. Start Date: 04/19/22 Status: Ordered chlorpheniramine 4 mg oral tablet 1 tablet = 4 mg, By Mouth, Every 6 hours, 0 Refills, Maintenance, 04/19/22 12:12:00 EDT, Partial fill upon patient request if the prescription is for a schedule II opioid drug. Start Date: 04/19/22 Status: Ordered fluticasone 50 mcg/inh nasal spray Daily, 0 Refills, Maintenance, 04/19/22 12:14:00 EDT, Partial fill upon patient request if the prescription is for a schedule II opioid drug. Start Date: 04/19/22 Status: Ordered gabapentin 600 mg oral tablet 1 tablet = 600 mg, By Mouth, 3 times a day, # 90 tablet, 0 Refills, Maintenance, 05/07/20 10:49:00 EDT, Tablet Start Date: 05/07/20 Status: Ordered hydrochlorothiazide 25 mg oral tablet 25 mg, 1, tablet, By Mouth, Daily, # 90 tablet, Refills 0, Maintenance, 05/07/20 10:47:00 EDT Start Date: 05/07/20 Status: Ordered Kenalog 0.1% cream 0 Refills, Maintenance, 04/19/22 12:14:00 EDT, Partial fill upon patient request if the prescription is for a schedule II opioid drug. Start Date: 04/19/22 Status: Ordered losartan 100 mg oral tablet 1 tablet = 100 mg, By Mouth, Daily, # 30 tablet, 0 Refills, Maintenance, 05/07/20 10:48:00 EDT, Tablet Start Date: 05/07/20 Status: Ordered MiraLax = 17 Gm, By Mouth, Daily, 0 Refills, Maintenance, 04/19/22 12:14:00 EDT, Partial fill upon patient request if the prescription is for a schedule II opioid drug. Start Date: 04/19/22 Status: Ordered Multivitamin Daily, 0 Refills, Maintenance, 04/19/22 12:14:00 EDT, Partial fill upon patient request if the prescription is for a schedule II opioid drug. Start Date: 04/19/22 Status: Ordered omeprazole 20 mg oral delayed release tablet 1 tablet = 20 mg, By Mouth, Daily, 0 Refills, Maintenance, 04/19/22 12:12:00 EDT, Partial fill uponpatient request if the prescription is for a schedule II opioid drug. Start Date: 04/19/22 Status: Ordered ondansetron 4 mg oral tablet 1 tablet = 4 mg, By Mouth, Every 8 hours, 0 Refills, Maintenance, 04/19/22 12:13:00 EDT, Partial fill upon patient request if the prescription is for a schedule II opioid drug. Start Date: 04/19/22 Status: Ordered predniSONE 20 mg oral tablet 1 tablet = 20 mg, By Mouth, Daily, 0 Refills, Maintenance, 04/19/22 12:14:00 EDT, Partial fill uponpatient request if the prescription is for a schedule II opioid drug. Start Date: 04/19/22 Status: Ordered sildenafil 20 mg oral tablet 1 tablet = 20 mg, By Mouth, 3 times a day, 0 Refills, Maintenance, 04/19/22 12:13:00 EDT, Partial fill upon patient request if the prescription is for a schedule II opioid drug. Start Date: 04/19/22 Status: Ordered Tylenol Extra Strength 500 mg oral tablet 2 tablet = 1,000 mg, By Mouth, Every 6 hours, 0 Refills, Maintenance, 04/19/22 12:14:00 EDT, Partial fill upon patient request if the prescription is for a schedule II opioid drug. Start Date: 04/19/22 Status: Ordered Vitamin D3 1000 intl units oral capsule 1 capsule = 25 mcg, By Mouth, Daily, # 100 capsule, 0 Refills, Maintenance, 04/19/22 12:13:00 EDT, Capsule, Partial fill upon patient request if the prescription is for a schedule II opioid drug. Start Date: 04/19/22 Status: Ordered Problem List Condition Effective Dates Status Health Status Inform ant Post-traumatic stress disorder(Confirmed) Active 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
--- OUTSIDE RECORDS SUMMARY | 2024-04-30 06:37 | XMS_ITS | Continuity of Care Document ---
Author Organization [facility] Address [address] [place] [address]- Care Team Providers Care Door Slinger Name Role Phone Carlos Glasgow MD Primary Care Physician [facility] Date[facility]): 08/25/23 - 09/24/23 [facility] [address] [place], [place] [address] Allergies, Adverse Reactions, Alerts Substance Reaction [...] ecorded tetanus/diphtheria/pertussis, acel(Tdap) 07/19/11 Recorded 1Result Comment: [facility] 24572-285-82 Medications Aller-Chlor 4 mg oral tablet 1 tablet = 4 mg, By Mouth, 2 times a day, TAKE 1 TABLET BY MOUTH TWICE DAILY, # 180 tablet, 1 Refills, Maintenance, 05/29/23 12:06:00 EDT, [facility] #[id number], 190.5, cm, 05/29/23 11:36:00 EDT, Height Start Date: 05/29/23 Status: Ordered Ativan 1 mg oral tablet 1 tablet = 1 mg, By Mouth, Daily, PRN panic only, # 10 tablet, 4 Refills, Maintenance, 01/25/23 10:18:00 EST, Tablet, [facility] #[id number], Partial fill upon patient request if the prescription is for a schedule II opioid drug., 190.5, cm, 10/19... Start Date: 01/25/23 Stop Date: 06/24/23 Status: Ordered bisacodyl 5 mg oral delayed release tablet 2 tablet = 10 mg, By Mouth, Daily, # 180 tablet, 3 Refills, Maintenance, 06/28/22 10:09:00 EDT, EC Tablet, [facility] #[id number], Partial fill upon patient request if the prescription is for a schedule II opioid drug., 190.5, cm, 06/28/22 9:08:0... Start Date: 06/28/22 Status: Ordered busPIRone 30 mg oral tablet 1 tablet = 30 mg, By Mouth, 3 times a day, # 270 tablet, 1 Refills, Maintenance, 08/02/23 14:21:00 EDT, [facility] #[id number], Partial fill upon patient request if the prescription is for a schedule II opioid drug., 190.5, cm, 05/29/23 11:36:00... Start Date: 08/02/23 Stop Date: 01/29/24 Status: Ordered cyclobenzaprine 5 mg oral tablet 1-2 tablet, By Mouth, 3 times a day, PRN Spasm, # 90 tablet, 2 Refills, Maintenance, 05/29/23 12:07:00 EDT, [facility] #[id number], Partial fill upon patient request if the prescription is for aschedule II opioid drug., 190.5, cm, 05/29/23 11:36... Start Date: 05/29/23 Status: Ordered hydrochlorothiazide 25 mg oral tablet 25 mg, 1, tablet, By Mouth, Daily, # 90 tablet, Refills 1, Tot. Refills 1, Maintenance, 05/29/23 12:07:00 EDT, Route to Pharmacy Electronically, [facility] #[id number], Partial fill upon patientrequest if the prescription is for a schedule II op... Start Date: 05/29/23 Status: Ordered hydrOXYzine pamoate 50 mg oral capsule 2 capsule = 100 mg, By Mouth, Daily at bedtime, # 180 capsule, 1 Refills, Maintenance, 08/02/23 14:13:00 EDT, Capsule, [facility] #[id number], 190.5, cm, 05/29/23 11:36:00 EDT, Height Start Date: 08/02/23 Stop Date: 01/29/24 Status: Ordered lamotrigine 200 mg oral tablet 1 tablet = 200 mg, By Mouth, 2 times a day, # 180 tablet, 1 Refills, Maintenance, 08/02/23 14:14:00EDT, Tablet, [facility] #[id number], Partial fill upon patient request if the prescription is for a schedule II opioid drug., 190.5, cm, 05/29/23... Start Date: 08/02/23 Stop Date: 01/29/24 Status: Ordered Lexapro 20 mg oral tablet 1 tablet = 20 mg, By Mouth, Daily, # 90 tablet, 1 Refills, Maintenance, 08/02/23 14:13:00 EDT, Tablet, [facility] #[id number], Partial fill upon patient request if the prescription is for a schedule II opioid drug., 190.5, cm, 05/29/23 11:36:00 E... Start Date: 08/02/23 Stop Date: 01/29/24 Status: Ordered melatonin 5 mg oral tablet See Instructions, PRN for insomnia, 2 tablet By Mouth Daily at bedtime, # 60 tablet, 4 Refills, Maintenance, 08/02/23 14:14:00 EDT, Tablet, [facility] #[id number], 190.5, cm, 05/29/23 11:36:00 EDT, Height Start Date: 08/02/23 Status: Ordered omeprazole 20 mg oral enteric coated capsule 1 capsule = 20 mg, By Mouth, 2 times a day, # 180 capsule, 2 Refills, Maintenance, 05/29/23 12:06:00 EDT, [facility] #32551, Partial fill upon patient request if the prescription is for a schedule II opioid drug., 190.5, cm, 05/29/23 11:36:0... Start Date: 05/29/23 Status: Ordered ondansetron 4 mg oral tablet 1 tablet = 4 mg, By Mouth, Every 8 hours, PRN Nausea, # 180 tablet, 0 Refills, Maintenance, 08/25/23 21:28:00 EDT, Tablet, [facility] #[id number], Partial fill upon patient request if the [...] 08/02/23 14:09:00 EDT, Route to Pharmacy Electronically, [facility] #[id number], Partial fill upon patient request if the [...] Maintenance,09/12/23 14:58:00 EDT, Route to Pharmacy Electronically, [facility] #[id number], 190.5, cm, 05/29/23 11:36:00 EDT, Height Start Date: 09/12/23 Stop Date: 03/10/24 Status: Ordered valsartan 80 mg oral tablet 80 mg, 1, tablet, By Mouth, Daily, # 90 tablet, Refills 0, Tot. Refills 0, Maintenance, 08/28/23 22:06:00 EDT, Route to Pharmacy Electronically, [facility] #[id number], Partial fill upon patientrequest if the prescription is for a schedule II op... Start Date: 08/28/23 Status: Ordered Vitamin D3 1000 intl units oral capsule 1 capsule = 25 mcg, By Mouth, Daily, # 90 capsule, 3 Refills, Maintenance, 05/29/23 12:06:00 EDT, Capsule, [facility] #[id number], Partial fill upon patient request if the prescription is for a schedule II opioid drug., 190.5, cm, 05/29/23 11:36:... Start Date: 05/29/23 Status: Ordered Problem List Condition Confirmation Course [...] Team Personnel Name: Carlos Glasgow MD Position: [facility] Physician - Primary Care Member Role: PCP Address: Address: [address] [place] [address] Name: Sarah Sheth [place] Position: [facility] RN Member Role: Primary Care Nurse Name: Verenice Holt Position: [facility] RN Member Role: Primary Care Nurse Name: Margarita Lenz RN Position: [facility] RN Member Role: Primary Care Nurse Name: Lakshmi Michelle RN Position: [facility] RN Member Role: Primary Care Nurse Care Team Related Persons Name: JEZ COLEMAN Address: home [address] [facility] [address] [place] [address]
--- OUTSIDE RECORDS SUMMARY | 2024-04-30 06:37 | XMS_ITS | Continuity of Care Document ---
Author Organization [facility] Address [address] [place] [address]- Care Team Providers Care Intel Analyst Name Role Phone Carlos Glasgow MD Primary Care Physician [phone] [place]counter [facility] Date(s): 04/15/24 - 04/22/24 [facility] [address] [place], [place] [address] Attending Physician: Michael Cavazos MD Referring Physician: Peterson Cheek MD Allergies, Adverse Reactions, Alerts Substance Reaction [...] mRNA-1273 vaccine 03/20/21 R ecorded 1Result Comment: [facility] 50604-963-11 vaccine given below Flu 2Result Comment: [facility] 48014-719-25 vaccine given above Tdap 3Result Comment: [facility] 65338-887-15 Medications Aller-Chlor 4 mg oral tablet 1 tablet = 4 mg, By Mouth, 2 times a day, TAKE 1 TABLET BY MOUTH TWICE DAILY, # 180 tablet, 1 Refills, Maintenance, 02/03/24 21:15:00 EDT, [facility] #[id number], 190.5, cm, 10/01/23 8:42:00 EST, Height Start Date: 02/03/24 Status: Ordered Ativan 1 mg oral tablet 1 tablet = 1 mg, By Mouth, Daily, PRN panic only, # 10 tablet, 3 Refills, Maintenance, 04/22/24 7:30:00 EDT, Tablet, [facility] #[id number], Partial fill upon patient request if the prescriptionis for a schedule II opioid drug., 190.5, cm, 10/01... Start Date: 04/22/24 Stop Date: 08/20/24 Status: Ordered bisacodyl 5 mg oral delayed release tablet 2 tablet = 10 mg, By Mouth, Daily, # 180 tablet, 3 Refills, Maintenance, 06/28/22 10:09:00 EDT, EC Tablet, [facility] #[id number], Partial fill upon patient request if the prescription is for a schedule II opioid drug., 190.5, cm, 06/28/22 9:08:0... Start Date: 06/28/22 Status: Ordered busPIRone 30 mg oral tablet 1 tablet = 30 mg, By Mouth, 3 times a day, # 270 tablet, 1 Refills, Maintenance, 01/31/24 14:11:00 EDT, [facility] #[id number], Partial fill upon patient request if the prescription is for a schedule II opioid drug., 190.5, cm, 10/01/23 8:42:00 E... Start Date: 01/31/24 Stop Date: 07/29/24 Status: Ordered cyclobenzaprine 5 mg oral tablet 1-2 tablet, By Mouth, 3 times a day, PRN Spasm, # 90 tablet, 2 Refills, Maintenance, 03/19/24 22:24:00 EDT, [facility] #[id number], Partial fill upon patient request if the prescription is for aschedule II opioid drug., 190.5, cm, 10/01/23 8:42:... Start Date: 03/19/24 Status: Ordered Home Blood Pressure Monitor See Instructions, # 1 each, Maintenance, Use to check blood pressure Dx I10, 09/26/23 8:28:00 EST, Supply Start Date: 09/26/23 Status: Ordered hydrochlorothiazide 25 mg oral tablet 25 mg, 1, tablet, By Mouth, Daily, # 90 tablet, Refills 1, Tot. Refills 1, Maintenance, 03/05/24 13:23:00 EDT, Route to Pharmacy Electronically, [facility] #[id number], Partial fill upon patientrequest if the prescription is for a schedule II op... Start Date: 03/05/24 Status: Ordered hydrOXYzine pamoate 50 mg oral capsule 2 capsule = 100 mg, By Mouth, Daily at bedtime, # 180 capsule, 1 Refills, Maintenance, 01/29/24 14:13:00 EDT, Capsule, [facility] #[id number], 190.5, cm, 10/01/23 8:42:00 EST, Height Start Date: 01/29/24 Stop Date: 07/27/24 Status: Ordered lamotrigine 200 mg oral tablet 1 tablet = 200 mg, By Mouth, 2 times a day, # 120 tablet, 1 Refills, Maintenance, 07/27/24 14:14:00EDT, Tablet, [facility] #45013, Partial fill upon patient request if the prescription is for a schedule II opioid drug., 190.5, cm, 10/01/23... Start Date: 07/27/24 Stop Date: 11/24/24 Status: Ordered Lexapro 20 mg oral tablet 1 tablet = 20 mg, By Mouth, Daily, # 90 tablet, 1 Refills, Maintenance, 01/29/24 14:13:00 EDT, Tablet, [facility] #[id number], Partial fill upon patient request if the prescription is for a schedule II opioid drug., 190.5, cm, 10/01/23 8:42:00 ES... Start Date: 01/29/24 Stop Date: 07/27/24 Status: Ordered melatonin 5 mg oral tablet See Instructions, PRN for insomnia, 2 tablet By Mouth Daily at bedtime, # 60 tablet, 4 Refills, Maintenance, 01/31/24 14:12:00 EDT, Tablet, [facility] #[id number], 190.5, cm, 10/01/23 8:42:00 EST, Height Start Date: 01/31/24 Status: Ordered omeprazole 20 mg oral enteric coated capsule 1 capsule = 20 mg, By Mouth, 2 times a day, # 180 capsule, 2 Refills, Maintenance, 05/29/23 12:06:00 EDT, [facility] #[id number], Partial fill upon patient request if the prescription is for a schedule II opioid drug., 190.5, cm, 05/29/23 11:36:0... Start Date: 05/29/23 Status: Ordered ondansetron 4 mg oral tablet 1 tablet = 4 mg, By Mouth, Every 8 hours, PRN Nausea, # 180 tablet, 0 Refills, Maintenance, 02/03/24 21:19:00 EDT, Tablet, [facility] #[id number], Partial fill upon patient request if the prescription is for a schedule II opioid drug., 190.5, cm,... Start Date: 02/03/24 Status: Ordered pregabalin 50 mg oral capsule 1 capsule = 50 mg, By Mouth, 2 times a day, # 20 capsule, 0 Refills, Maintenance, 04/07/24 10:36:00EDT, [facility] #[id number], Partial fill upon patient request if the prescription is for a schedule II opioid drug., 190.5, cm, 04/07/24 10:05:00... Start Date: 04/07/24 Stop Date: 04/17/24 Status: Ordered SEROquel 25 mg oral tablet 25 mg, 1, tablet, By Mouth, 2 times a day, dose decreasee, # 180 tablet, Refills 1, Tot. Refills 1,Maintenance, 11/01/23 15:28:00 EST, Route to Pharmacy Electronically, [facility] #[id number], Partial fill upon patient request if the [...] capsule, 4 Refills, Maintenance, 01/31/24 14:09:00 EDT, [facility] #[id number], Partial fill upon patient request ifthe prescription is for a schedule II opioid drug.,... Start Date: 01/31/24 Stop Date: 06/29/24 Status: Ordered traZODone 100 mg oral tablet 100 mg, 1, tablet, By Mouth, Daily at bedtime, # 60 tablet, Refills 0, Tot. Refills 0, Maintenance,03/18/24 7:26:00 EDT, Route to Pharmacy Electronically, [facility] #[id number], 190.5, cm, 10/01/23 8:42:00 EST, Height Start Date: 03/18/24 Stop Date: 05/17/24 Status: Ordered Vitamin D3 1000 intl units oral capsule 1 capsule = 25 mcg, By Mouth, Daily, # 90 capsule, 3 Refills, Maintenance, 09/26/23 8:16:00 EST, Capsule, [facility] #[id number], Partial fill upon patient request if the [...] features Confirmed Active Fatty liver Confirmed Active Vital Signs Most recent to oldest [Reference Range]: 1 Height 189.00 cm (04/15/24 8:59 AM) Weight 127.1 kg (04/15/24 8:59 AM) Oxygen Saturation [94-100 %] 95 % (04/15/24 8:59 AM) Pulse Rate [55-90 bpm] 106 bpm *H* (04/15/24 8:59 AM) Body Mass Index [18.5-24.99 kg/m2] 35.58 kg/m2 *>HHI* (04/15/24 8:59 AM) Blood Pressure [90-138/55-84 mm Hg] 137/ 84mm Hg (04/15/24 8:59 AM) Respiratory Rate [16-30 br/min] 16 br/mi n (04/15/24 8:59 AM) Mode of Delivery (Oxygen) Room air (04/15/24 8:59 AM) Blood pressure sites Arm, right (04/15/24 8:59 AM) Weight Obtained Via Standing scale (04/15/24 8:59 AM) Social History Social History Type Response Tobacco Total pack years: 3. Sex EKG study * Event Display: ECG 12-Lead Authored Date: Please click on pdf link to open report * Event Display: ECG 12-Lead Authored Date: Ventricular Rate: 90 BPM Atrial Rate: 90 BPM P-R Interval: 200 ms QRS Duration: 110 ms Q-T Interval: 420 ms QTC Calculation(Bazett): 513 ms P [place]: 85 degrees R [place]: -21 degrees T [place]: 35 degrees Normal sinus rhythm Prolonged QT Abnormal ECG When compared with ECG of 26-SEP-2023 08:51, QT has shortened Confirmed by Eddie Schuster ([id number]) on 04/15/2024 9:47:01 AM [place]: Eddie Schuster Patient Care team information Care Team Personnel Name: Carlos Glasgow MD Position: [facility] Physician - Primary Care Member Role: PCP Address: Address: [address] [place] [id number] Name: Sarah Sheth [place] Position: [facility] Staff Member Role: Primary Care Nurse Name: Verenice Diego [place] Position: [facility] Staff Member Role: Primary Care Nurse Name: Margarita Lenz RN Position: [facility] RN Member Role: Primary Care Nurse Name: Lakshmi Michelle RN Position: [facility] RN Member Role: Primary Care Nurse Care Team Related Persons Name: JEZ COLEMAN Address: home [address] [address] [place] [address]
--- OUTSIDE RECORDS SUMMARY | 2024-04-30 06:37 | XMS_ITS | Continuity of Care Document ---
Author Organization [facility] Address [address] [place] [address]- Care Team Providers Care Mixed Livestock Farm Worker Name Role Phone Carlos Glasgow MD Primary Care Physician [facility] Date[facility]s): 08/31/23 - 09/30/23 [facility] [address] [place], [place] [address] Allergies, Adverse Reactions, Alerts Substance Reaction [...] mRNA-1273 vaccine 03/20/21 R ecorded 1Result Comment: [facility] 41984-038-59 vaccine given below Flu 2Result Comment: [facility] 29627-339-27 vaccine given above Tdap 3Result Comment: [facility] 93149-699-65 Medications Aller-Chlor 4 mg oral tablet 1 tablet = 4 mg, By Mouth, 2 times a day, TAKE 1 TABLET BY MOUTH TWICE DAILY, # 180 tablet, 1 Refills, Maintenance, 05/29/23 12:06:00 EDT, [facility] #[id number], 190.5, cm, 05/29/23 11:36:00 EDT, Height Start Date: 05/29/23 Status: Ordered Ativan 1 mg oral tablet 1 tablet = 1 mg, By Mouth, Daily, PRN panic only, # 10 tablet, 2 Refills, Maintenance, 09/25/23 7:30:00 EST, Tablet, [facility] #[id number], Partial fill upon patient request if the prescriptionis for a schedule II opioid drug., 190.5, cm, 05/29... Start Date: 09/25/23 Stop Date: 12/24/23 Status: Ordered bisacodyl 5 mg oral delayed release tablet 2 tablet = 10 mg, By Mouth, Daily, # 180 tablet, 3 Refills, Maintenance, 06/28/22 10:09:00 EDT, EC Tablet, [facility] #[id number], Partial fill upon patient request if the prescription is for a schedule II opioid drug., 190.5, cm, 06/28/22 9:08:0... Start Date: 06/28/22 Status: Ordered busPIRone 30 mg oral tablet 1 tablet = 30 mg, By Mouth, 3 times a day, # 270 tablet, 1 Refills, Maintenance, 08/02/23 14:21:00 EDT, [facility] #[id number], Partial fill upon patient request if the prescription is for a schedule II opioid drug., 190.5, cm, 05/29/23 11:36:00... Start Date: 08/02/23 Stop Date: 01/29/24 Status: Ordered cyclobenzaprine 5 mg oral tablet 1-2 tablet, By Mouth, 3 times a day, PRN Spasm, # 90 tablet, 2 Refills, Maintenance, 05/29/23 12:07:00 EDT, [facility] #[id number], Partial fill upon patient request if the [...] 05/29/23 12:07:00 EDT, Route to Pharmacy Electronically, [facility] #[id number], Partial fill upon patientrequest if the prescription is for a schedule II op... Start Date: 05/29/23 Status: Ordered hydrOXYzine pamoate 50 mg oral capsule 2 capsule = 100 mg, By Mouth, Daily at bedtime, # 180 capsule, 1 Refills, Maintenance, 08/02/23 14:13:00 EDT, Capsule, [facility] #[id number], 190.5, cm, 05/29/23 11:36:00 EDT, Height Start Date: 08/02/23 Stop Date: 01/29/24 Status: Ordered lamotrigine 200 mg oral tablet 1 tablet = 200 mg, By Mouth, 2 times a day, # 180 tablet, 1 Refills, Maintenance, 08/02/23 14:14:00EDT, Tablet, [facility] #[id number], Partial fill upon patient request if the prescription is for a schedule II opioid drug., 190.5, cm, 05/29/23... Start Date: 08/02/23 Stop Date: 01/29/24 Status: Ordered Lexapro 20 mg oral tablet 1 tablet = 20 mg, By Mouth, Daily, # 90 tablet, 1 Refills, Maintenance, 08/02/23 14:13:00 EDT, Tablet, [facility] #[id number], Partial fill upon patient request if the prescription is for a schedule II opioid drug., 190.5, cm, 05/29/23 11:36:00 E... Start Date: 08/02/23 Stop Date: 01/29/24 Status: Ordered melatonin 5 mg oral tablet See Instructions, PRN for insomnia, 2 tablet By Mouth Daily at bedtime, # 60 tablet, 4 Refills, Maintenance, 08/02/23 14:14:00 EDT, Tablet, [facility] #[id number], 190.5, cm, 05/29/23 11:36:00 EDT, Height Start Date: 08/02/23 Status: Ordered omeprazole 20 mg oral enteric coated capsule 1 capsule = 20 mg, By Mouth, 2 times a day, # 180 capsule, 2 Refills, Maintenance, 05/29/23 12:06:00 EDT, [facility] #[id number], Partial fill upon patient request if the prescription is for a schedule II opioid drug., 190.5, cm, 05/29/23 11:36:0... Start Date: 05/29/23 Status: Ordered ondansetron 4 mg oral tablet 1 tablet = 4 mg, By Mouth, Every 8 hours, PRN Nausea, # 180 tablet, 0 Refills, Maintenance, 08/25/23 21:28:00 EDT, Tablet, [facility] #[id number], Partial fill upon patient request if the [...] 08/02/23 14:09:00 EDT, Route to Pharmacy Electronically, [facility] #[id number], Partial fill upon patient request if the [...] Maintenance,09/12/23 14:58:00 EDT, Route to Pharmacy Electronically, [facility] #[id number], 190.5, cm, 05/29/23 11:36:00 EDT, Height Start Date: 09/12/23 Stop Date: 03/10/24 Status: Ordered valsartan 80 mg oral tablet 80 mg, 1, tablet, By Mouth, Daily, # 90 tablet, Refills 0, Tot. Refills 0, Maintenance, 08/28/23 22:06:00 EDT, Route to Pharmacy Electronically, [facility] #[id number], Partial fill upon patientrequest if the prescription is for a schedule II op... Start Date: 08/28/23 Status: Ordered Vitamin D3 1000 intl units oral capsule 1 capsule = 25 mcg, By Mouth, Daily, # 90 capsule, 3 Refills, Maintenance, 09/26/23 8:16:00 EST, Capsule, [facility] #[id number], Partial fill upon patient request if the [...] Team Personnel Name: Carlos Glasgow MD Position: [facility] Physician - Primary Care Member Role: PCP Address: Address: [facility] [place], [place] [address] Name: Sarah Sheth [place] Position: [facility] RN Member Role: Primary Care Nurse Name: Verenice Holt Position: [facility] RN Member Role: Primary Care Nurse Name: Margarita Lenz RN Position: [facility] RN Member Role: Primary Care Nurse Name: Lakshmi Michelle RN Position: [facility] RN Member Role: Primary Care Nurse Care Team Related Persons Name: JEZ COLMEAN Address: home [address] [facility] [address] [place] [address]
--- OUTSIDE RECORDS SUMMARY | 2024-04-30 06:37 | XMS_ITS | Continuity of Care Document ---
Author Organization [facility] Address [address] [place] [address]- Care Team Providers Care Regional Controller Name Role Phone Carlos Glasgow MD Primary Care Physician Encounter [facility] [id number] Date(s): 05/07/20 - 05/07/[address] [address]- [facility] Discharge Disposition: A-D/C Home Attending Physician: Ramon Finnegan MD Admitting Physician: Ramon Finnegan MD Referring Physician: Ramon Finnegan MD Allergies, Adverse Reactions, Alerts Substance Reaction Severity Status NSAIDs Seizure Active amLODIPine Fatigue SOB - Shortness of breath Active Medications atenolol 25 mg oral tablet 25 [...] 10:48:00 EDT Start Date: 05/07/20 Status: Ordered gabapentin 600 mg oral tablet 1 tablet = 600 mg, By Mouth, 3 times a day, # 90 tablet, 0 Refills, Maintenance, 05/07/20 10:49:00 EDT, Tablet Start Date: 05/07/20 Status: Ordered hydrochlorothiazide 25 mg oral tablet 25 mg, 1, tablet, By Mouth, Daily, # 90 tablet, Refills 0, Maintenance, 05/07/20 10:47:00 EDT Start Date: 05/07/20 Status: Ordered losartan 100 mg oral tablet 1 tablet = 100 mg, By Mouth, Daily, # 30 tablet, 0 Refills, Maintenance, 05/07/20 10:48:00 EDT, Tablet Start Date: 05/07/20 Status: Ordered Problem List Condition Effective Dates Status Health Status Inform ant Post-traumatic stress disorder(Confirmed) Active 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 Vital Signs Most recent to oldest [Reference Range]: 1 2 3 Weight 150 kg (05/07/20 10:35 AM) Oxygen Saturation [94-100 %] 95 % (05/07/20 12:10 PM) 95 % (05/07/20 12:05 PM) 95 % (05/07/20 12:00 PM) Pulse Rate [55-90 bpm] 93 bpm *H* (05/07/20 10:35 AM) Blood Pressure [90-138/55-84 mm Hg] 144/79mm Hg *H* (05/07/20 12:10 PM) 143/79mm Hg *H* (05/07/20 12:05 PM) 140/83mm Hg *H* (05/07/20 12:00 PM) Respiratory Rate [16-30 br/min] 21 br/min (05/07/20 12:10 PM) 19 br/min (05/07/20 12:05 PM) 16 br/min (05/07/20 12:00 PM) Temperature [96.8-100.4 DegF] 99.3 DegF (05/07/20 10:35 AM) Mode of Delivery (Oxygen) Room air (05/07/20 10:35 AM) Blood pressure sites Arm, right (05/07/20 10:35 AM) Temperature Route Temporal (05/07/20 10:35 AM) Weight Obtained Via Patient/family state d (05/07/20 10:35 AM) Social History Social History Type Response Smoking Status Former smoker entered on: 04/27/15 Sex
--- OUTSIDE RECORDS SUMMARY | 2024-04-30 06:38 | XMS_ITS | Continuity of Care Document ---
Author Organization [facility] Address [address] [place] [address]- Care Team Providers Care Search Marketing Analyst Name Role Phone Pee SANCHEZ, Carlos Primary Care Physician Encounter [facility] Date(s): 02/14/24 - 03/15/24 [facility] [address] [place], [place] [address] Allergies, Adverse Reactions, Alerts Substance Reaction [...] mRNA-1273 vaccine 03/20/21 R ecorded 1Result Comment: [facility] 95501-799-28 vaccine given below Flu 2Result Comment: [facility] 60890-301-49 vaccine given above Tdap 3Result Comment: [facility] 71398-920-56 Medications Aller-Chlor 4 mg oral tablet 1 tablet = 4 mg, By Mouth, 2 times a day, TAKE 1 TABLET BY MOUTH TWICE DAILY, # 180 tablet, 1 Refills, Maintenance, 02/03/24 21:15:00 EDT, [facility] #[id number], 190.5, cm, 10/01/23 8:42:00 EST, Height Start Date: 02/03/24 Status: Ordered Ativan 1 mg oral tablet 1 tablet = 1 mg, By Mouth, Daily, PRN panic only, for 30 days, # 10 tablet, 3 Refills, Hard Stop 04/22/24 7:30:00 EDT, 12/24/23 7:30:00 EST, Tablet, [facility] #[id number], Partial fill upon patient request if the prescription is for a schedule I... Start Date: 12/24/23 Stop Date: 04/22/24 Status: Ordered Ativan 1 mg oral tablet 1 tablet = 1 mg, By Mouth, Daily, PRN panic only, # 10 tablet, 3 Refills, Maintenance, 04/22/24 7:30:00 EDT, Tablet, [facility] #[id number], Partial fill upon patient request if the prescriptionis for a schedule II opioid drug., 190.5, cm, 10/01... Start Date: 04/22/24 Stop Date: 08/20/24 Status: Ordered bisacodyl 5 mg oral delayed release tablet 2 tablet = 10 mg, By Mouth, Daily, # 180 tablet, 3 Refills, Maintenance, 06/28/22 10:09:00 EDT, EC Tablet, [facility] #[id number], Partial fill upon patient request if the prescription is for a schedule II opioid drug., 190.5, cm, 06/28/22 9:08:0... Start Date: 06/28/22 Status: Ordered busPIRone 30 mg oral tablet 1 tablet = 30 mg, By Mouth, 3 times a day, # 270 tablet, 1 Refills, Maintenance, 01/31/24 14:11:00 EDT, [facility] #[id number], Partial fill upon patient request if the prescription is for a schedule II opioid drug., 190.5, cm, 10/01/23 8:42:00 E... Start Date: 01/31/24 Stop Date: 07/29/24 Status: Ordered cyclobenzaprine 5 mg oral tablet 1-2 tablet, By Mouth, 3 times a day, PRN Spasm, # 90 tablet, 2 Refills, Maintenance, 10/07/23 13:41:00 EST, [facility] #[id number], Partial fill upon patient request if the [...] 03/05/24 13:23:00 EDT, Route to Pharmacy Electronically, [facility] #[id number], Partial fill upon patientrequest if the prescription is for a schedule II op... Start Date: 03/05/24 Status: Ordered hydrOXYzine pamoate 50 mg oral capsule 2 capsule = 100 mg, By Mouth, Daily at bedtime, # 180 capsule, 1 Refills, Maintenance, 01/29/24 14:13:00 EDT, Capsule, [facility] #[id number], 190.5, cm, 10/01/23 8:42:00 EST, Height Start Date: 01/29/24 Stop Date: 07/27/24 Status: Ordered lamotrigine 200 mg oral tablet 1 tablet = 200 mg, By Mouth, 2 times a day, # 180 tablet, 1 Refills, Maintenance, 01/29/24 14:14:00EDT, Tablet, [facility] #[id number], Partial fill upon patient request if the prescription is for a schedule II opioid drug., 190.5, cm, 10/01/23... Start Date: 01/29/24 Stop Date: 07/27/24 Status: Ordered Lexapro 20 mg oral tablet 1 tablet = 20 mg, By Mouth, Daily, # 90 tablet, 1 Refills, Maintenance, 01/29/24 14:13:00 EDT, Tablet, [facility] #[id number], Partial fill upon patient request if the prescription is for a schedule II opioid drug., 190.5, cm, 10/01/23 8:42:00 ES... Start Date: 01/29/24 Stop Date: 07/27/24 Status: Ordered melatonin 5 mg oral tablet See Instructions, PRN for insomnia, 2 tablet By Mouth Daily at bedtime, # 60 tablet, 4 Refills, Maintenance, 01/31/24 14:12:00 EDT, Tablet, [facility] #[id number], 190.5, cm, 10/01/23 8:42:00 EST, Height Start Date: 01/31/24 Status: Ordered omeprazole 20 mg oral enteric coated capsule 1 capsule = 20 mg, By Mouth, 2 times a day, # 180 capsule, 2 Refills, Maintenance, 05/29/23 12:06:00 EDT, [facility] #[id number], Partial fill upon patient request if the prescription is for a schedule II opioid drug., 190.5, cm, 05/29/23 11:36:0... Start Date: 05/29/23 Status: Ordered ondansetron 4 mg oral tablet 1 tablet = 4 mg, By Mouth, Every 8 hours, PRN Nausea, # 180 tablet, 0 Refills, Maintenance, 02/03/24 21:19:00 EDT, Tablet, [facility] #[id number], Partial fill upon patient request if the prescription is for a schedule II opioid drug., 190.5, cm,... Start Date: 02/03/24 Status: Ordered pregabalin 100 mg oral capsule 1 capsule = 100 mg, By Mouth, 2 times a day, # 60 capsule, 0 Refills, Maintenance, 03/04/24 12:28:00 EDT, Capsule, [facility] #[id number], Partial fill upon patient request if the prescription is for a schedule II opioid drug., 190.5, cm, ... Start Date: 03/04/24 Status: Ordered SEROquel 25 mg oral tablet 25 mg, 1, tablet, By Mouth, 2 times a day, dose decreasee, # 180 tablet, Refills 1, Tot. Refills 1,Maintenance, 11/01/23 15:28:00 EST, Route to Pharmacy Electronically, [facility] #[id number], Partial fill upon patient request if the [...] capsule, 4 Refills, Maintenance, 01/31/24 14:09:00 EDT, [facility] #[id number], Partial fill upon patient request ifthe prescription is for a schedule II opioid drug.,... Start Date: 01/31/24 Stop Date: 06/29/24 Status: Ordered traZODone 100 mg oral tablet 100 mg, 1, tablet, By Mouth, Daily at bedtime, # 60 tablet, Refills 2, Tot. Refills 2, Maintenance,09/12/23 14:58:00 EDT, Route to Pharmacy Electronically, [facility] #[id number], 190.5, cm, 05/29/23 11:36:00 EDT, Height Start Date: 09/12/23 Stop Date: 03/10/24 Status: Ordered Vitamin D3 1000 intl units oral capsule 1 capsule = 25 mcg, By Mouth, Daily, # 90 capsule, 3 Refills, Maintenance, 09/26/23 8:16:00 EST, Capsule, [facility] #[id number], Partial fill upon patient request if the [...] Team Personnel Name: Carlos Glasgow MD Position: [facility] Physician - Primary Care Member Role: PCP Address: Address: [address] [place] [address] Name: Sarah Sheth [place] Position: [facility] RN Member Role: Primary Care Nurse Name: Verenice Holt Position: [facility] RN Member Role: Primary Care Nurse Name: Margarita Lenz RN Position: [facility] RN Member Role: Primary Care Nurse Name: Lakshmi Michelle RN Position: [facility] RN Member Role: Primary Care Nurse Care Team Related Persons Name: JEZ COLEMAN Address: home [address] [facility] [address] [place] [address]
--- OUTSIDE RECORDS SUMMARY | 2024-04-30 06:38 | XMS_ITS | Continuity of Care Document ---
Author Organization [facility] Dominique [facility] Address [address] [place] [address]- Care Team Providers Care Tonal Regulator Name Role Phone Pee SANCHEZ, Carlos Primary Care Physician [id number] Date[facility]s): 03/19/20 - 03/26/20 [facility] [address] [place] [address]- [facility] Attending Physician: Sivan SANCHEZ, [facility] Referring Physician: Carlos Glasgow MD Allergies, Adverse Reactions, Alerts Substance Reaction Severity Status NSAIDs Seizure Active amLODIPine Fatigue SOB - Shortness of breath Active Problem List Condition Effective Dates Status Health Status Inform ant Post-traumatic stress disorder(Confirmed) Active 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
--- OUTSIDE RECORDS SUMMARY | 2024-04-30 06:38 | XMS_ITS | Continuity of Care Document ---
Author Organization [facility] Address [address] [place] [address]- Care Team Providers Care Fur Examiner Name Role Phone Carlos Glasgow MD Primary Care Physician [phone] [place] [facility] Date(s): 01/25/23 - 02/24/23 [facility] [address] [place], [place] [address] Allergies, Adverse Reactions, Alerts Substance Reaction [...] ecorded tetanus/diphtheria/pertussis, acel(Tdap) 07/19/11 Recorded 1Result Comment: [facility] 23375-443-04 Medications Aller-Chlor 4 mg oral tablet 1 tablet = 4 mg, By Mouth, 2 times a day, TAKE 1 TABLET BY MOUTH TWICE DAILY, # 180 tablet, 1 Refills, Maintenance, 01/19/23 14:07:00 EST, [facility] #[id number], 190.5, cm, 11/06/22 9:34:00 EST, Height Start Date: 01/19/23 Status: Ordered Ativan 1 mg oral tablet 1 tablet = 1 mg, By Mouth, Daily, PRN panic only, # 10 tablet, 4 Refills, Maintenance, 01/25/23 10:18:00 EST, Tablet, [facility] #[id number], Partial fill upon patient request if the [...] Replace Required Details, Route to Pharmacy Electronically, [facility]... Start Date: 09/26/22 Status: Ordered baclofen 20 mg oral tablet 20 mg, 1, tablet, By Mouth, 3 times a day, # 270 tablet, Refills 2, Tot. Refills 2, Maintenance, 06/28/22 10:10:00 EDT, Route to Pharmacy Electronically, [facility] #[id number], Partial fill upon patient request if the prescription is for a sched... Start Date: 06/28/22 Status: Ordered bisacodyl 5 mg oral delayed release tablet 2 tablet = 10 mg, By Mouth, Daily, # 180 tablet, 3 Refills, Maintenance, 06/28/22 10:09:00 EDT, EC Tablet, [facility] #[id number], Partial fill upon patient request if the prescription is for a schedule II opioid drug., 190.5, cm, 06/28/22 9:08:0... Start Date: 06/28/22 Status: Ordered busPIRone 30 mg oral tablet 1 tablet = 30 mg, By Mouth, 3 times a day, # 270 tablet, 1 Refills, Maintenance, 01/25/23 10:15:00 EST, [facility] #[id number], Partial fill upon patient request if the prescription is for a schedule II opioid drug., 190.5, cm, 11/06/22 9:34:00 E... Start Date: 01/25/23 Stop Date: 07/24/23 Status: Ordered hydrochlorothiazide 25 mg oral tablet 25 mg, 1, tablet, By Mouth, Daily, # 90 tablet, Refills 1, Tot. Refills 1, Maintenance, 01/18/23 12:33:00 EST, Route to Pharmacy Electronically, [facility] #[id number], Partial fill upon patientrequest if the prescription is for a schedule II op... Start Date: 01/18/23 Status: Ordered hydrOXYzine pamoate 50 mg oral capsule 2 capsule = 100 mg, By Mouth, Daily at bedtime, # 180 capsule, 1 Refills, Maintenance, 01/25/23 10:16:00 EST, Capsule, [facility] #[id number], 190.5, cm, 11/06/22 9:34:00 EST, Height Start Date: 01/25/23 Stop Date: 07/24/23 Status: Ordered lamotrigine 200 mg oral tablet 1 tablet = 200 mg, By Mouth, 2 times a day, # 180 tablet, 1 Refills, Maintenance, 01/25/23 10:17:00EST, Tablet, [facility] #[id number], Partial fill upon patient request if the prescription is for a schedule II opioid drug., 190.5, cm, 11/06/22... Start Date: 01/25/23 Stop Date: 07/24/23 Status: Ordered Lexapro 20 mg oral tablet 1 tablet = 20 mg, By Mouth, Daily, # 90 tablet, 1 Refills, Maintenance, 01/25/23 10:14:00 EST, Tablet, [facility] #[id number], Partial fill upon patient request if the prescription is for a schedule II opioid drug., 190.5, cm, 11/06/22 9:34:00 ES... Start Date: 01/25/23 Stop Date: 07/24/23 Status: Ordered melatonin 5 mg oral tablet See Instructions, PRN for insomnia, 2 tablet By Mouth Daily at bedtime, # 60 tablet, 4 Refills, Maintenance, 01/25/23 10:19:00 EST, Tablet, [facility] #[id number], 190.5, cm, 11/06/22 9:34:00 EST, Height Start Date: 01/25/23 Status: Ordered omeprazole 20 mg oral enteric coated capsule 1 capsule = 20 mg, By Mouth, 2 times a day, # 180 capsule, 2 Refills, Maintenance, 09/26/22 12:26:00 EST, [facility] #[id number], Partial fill upon patient request if the prescription is for a schedule II opioid drug., 190.5, cm, 09/26/22 11:38:0... Start Date: 09/26/22 Status: Ordered ondansetron 4 mg oral tablet 1 tablet = 4 mg, By Mouth, Every 8 hours, PRN Nausea, # 180 tablet, 0 Refills, Maintenance, 06/28/22 10:10:00 EDT, Tablet, [facility] #[id number], Partial fill upon patient request if the prescription is for a schedule II opioid drug., 190.5, cm,... Start Date: 06/28/22 Status: Ordered pregabalin 150 mg oral capsule TAKE 1 CAPSULE BY MOUTH TWICE DAILY Start Date: 02/17/23 Status: Ordered SEROquel 50 mg oral tablet 1 tablet = 50 mg, By Mouth, 3 times a day, # 270 tablet, 1 Refills, Maintenance, 01/25/23 10:19:00 EST, Tablet, [facility] #[id number], Partial fill upon patient request if the [...] is f... Start Date: 01/18/23 Status: Ordered tiZANidine 4 mg oral tablet 4 mg, 1, tablet, By Mouth, 3 times a day, # 90 tablet, Refills 1, Tot. Refills 1, Maintenance, 09/26/22 12:18:00 EST, Route to Pharmacy Electronically, [facility] #[id number], Partial fill upon patient request if the prescription is for a schedul... Start Date: 09/26/22 Status: Ordered traZODone 100 mg oral tablet 100 mg, 1, tablet, By Mouth, Daily at bedtime, # 30 tablet, Refills 4, Tot. Refills 4, Maintenance,09/27/22 10:16:00 EST, Route to Pharmacy Electronically, [facility] #[id number], 190.5, cm, 09/26/22 11:38:00 EST, Height Start Date: 09/27/22 Stop Date: 02/24/23 Status: Ordered Vitamin D3 1000 intl units oral capsule 1 capsule = 25 mcg, By Mouth, Daily, # 90 capsule, 3 Refills, Maintenance, 06/28/22 10:10:00 EDT, Capsule, [facility] #[id number], Partial fill upon patient request if the [...] Care Team Personnel Name: Yosvany Ardon Position: [facility] Cardio/Pulm Mgr ([facility]) Member Role: Primary Care Nurse Name: Carlos Glasgow MD Position: [facility] Primary Care Physician Member Role: PCP Address: Address: [address] [facility] [place] [address]- Name: Sarah Hope Position: [facility] RN Member Role: Primary Care Nurse Name: Verenice Holt Position: [facility] RN Member Role: Primary Care Nurse Name: Margarita Lenz RN Position: [facility] RN Member Role: Primary Care Nurse Name: Lakshmi Michelle RN Position: [facility] RN Member Role: Primary Care Nurse Care Team Related Persons Name: JEZ COLEMAN Address: home [address] [facility] [address] [place] [address]
--- OUTSIDE RECORDS SUMMARY | 2024-04-30 06:38 | XMS_ITS | Continuity of Care Document ---
Author Organization [facility] Dominique Silva [facility] Address [address] [place] [address]- Care Team Providers Care Community Relations Officer Name Role Phone Carlos Glasgow MD Primary Care Physician Encounter [facility] Date(s): 03/19/20 - 04/18/20 [facility] [address] [place] [address]- [facility] Attending Physician: Wendy Aguilera Admitting Physician: AdmWendy tinoco Referring Physician: Admtr, ArSamina Allergies, Adverse Reactions, Alerts Substance Reaction Severity Status NSAIDs Seizure Active amLODIPine Fatigue SOB - Shortness of breath Active Problem List Condition Effective Dates Status Health Status Inform ant Post-traumatic stress disorder(Confirmed) Active 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
--- OUTSIDE RECORDS SUMMARY | 2024-04-30 06:38 | XMS_ITS | Continuity of Care Document ---
Author Organization [facility] Address [address] [place] [address]- Care Team Providers Care Legislators Name Role Phone Carlos Glasgow MD Primary Care Physician [phone] Encounter [facility] Date(s): 08/27/23 - 09/26/23 [facility] [address] [place], [place] [address] Allergies, Adverse Reactions, Alerts Substance [...] mRNA-1273 vaccine 03/20/21 R ecorded 1Result Comment: [facility] 22808-589-51 vaccine given below Flu 2Result Comment: [facility] 22094-524-66 vaccine given above Tdap 3Result Comment: [facility] 85948-947-02 Medications Aller-Chlor 4 mg oral tablet 1 tablet = 4 mg, By Mouth, 2 times a day, TAKE 1 TABLET BY MOUTH TWICE DAILY, # 180 tablet, 1 Refills, Maintenance, 05/29/23 12:06:00 EDT, [facility] #[id number], 190.5, cm, 05/29/23 11:36:00 EDT, Height Start Date: 05/29/23 Status: Ordered Ativan 1 mg oral tablet 1 tablet = 1 mg, By Mouth, Daily, PRN panic only, # 10 tablet, 2 Refills, Maintenance, 09/25/23 7:30:00 EST, Tablet, [facility] #[id number], Partial fill upon patient request if the prescriptionis for a schedule II opioid drug., 190.5, cm, 05/29... Start Date: 09/25/23 Stop Date: 12/24/23 Status: Ordered bisacodyl 5 mg oral delayed release tablet 2 tablet = 10 mg, By Mouth, Daily, # 180 tablet, 3 Refills, Maintenance, 06/28/22 10:09:00 EDT, EC Tablet, [facility] #[id number], Partial fill upon patient request if the prescription is for a schedule II opioid drug., 190.5, cm, 06/28/22 9:08:0... Start Date: 06/28/22 Status: Ordered busPIRone 30 mg oral tablet 1 tablet = 30 mg, By Mouth, 3 times a day, # 270 tablet, 1 Refills, Maintenance, 08/02/23 14:21:00 EDT, [facility] #[id number], Partial fill upon patient request if the prescription is for a schedule II opioid drug., 190.5, cm, 05/29/23 11:36:00... Start Date: 08/02/23 Stop Date: 01/29/24 Status: Ordered cyclobenzaprine 5 mg oral tablet 1-2 tablet, By Mouth, 3 times a day, PRN Spasm, # 90 tablet, 2 Refills, Maintenance, 05/29/23 12:07:00 EDT, [facility] #[id number], Partial fill upon patient request if the [...] 05/29/23 12:07:00 EDT, Route to Pharmacy Electronically, [facility] #[id number], Partial fill upon patientrequest if the prescription is for a schedule II op... Start Date: 05/29/23 Status: Ordered hydrOXYzine pamoate 50 mg oral capsule 2 capsule = 100 mg, By Mouth, Daily at bedtime, # 180 capsule, 1 Refills, Maintenance, 08/02/23 14:13:00 EDT, Capsule, [facility] #[id number], 190.5, cm, 05/29/23 11:36:00 EDT, Height Start Date: 08/02/23 Stop Date: 01/29/24 Status: Ordered lamotrigine 200 mg oral tablet 1 tablet = 200 mg, By Mouth, 2 times a day, # 180 tablet, 1 Refills, Maintenance, 08/02/23 14:14:00EDT, Tablet, [facility] #[id number], Partial fill upon patient request if the prescription is for a schedule II opioid drug., 190.5, cm, 05/29/23... Start Date: 08/02/23 Stop Date: 01/29/24 Status: Ordered Lexapro 20 mg oral tablet 1 tablet = 20 mg, By Mouth, Daily, # 90 tablet, 1 Refills, Maintenance, 08/02/23 14:13:00 EDT, Tablet, [facility] #[id number], Partial fill upon patient request if the prescription is for a schedule II opioid drug., 190.5, cm, 05/29/23 11:36:00 E... Start Date: 08/02/23 Stop Date: 01/29/24 Status: Ordered melatonin 5 mg oral tablet See Instructions, PRN for insomnia, 2 tablet By Mouth Daily at bedtime, # 60 tablet, 4 Refills, Maintenance, 08/02/23 14:14:00 EDT, Tablet, [facility] #[id number], 190.5, cm, 05/29/23 11:36:00 EDT, Height Start Date: 08/02/23 Status: Ordered omeprazole 20 mg oral enteric coated capsule 1 capsule = 20 mg, By Mouth, 2 times a day, # 180 capsule, 2 Refills, Maintenance, 05/29/23 12:06:00 EDT, [facility] #[id number], Partial fill upon patient request if the prescription is for a schedule II opioid drug., 190.5, cm, 05/29/23 11:36:0... Start Date: 05/29/23 Status: Ordered ondansetron 4 mg oral tablet 1 tablet = 4 mg, By Mouth, Every 8 hours, PRN Nausea, # 180 tablet, 0 Refills, Maintenance, 08/25/23 21:28:00 EDT, Tablet, [facility] #[id number], Partial fill upon patient request if the [...] 08/02/23 14:09:00 EDT, Route to Pharmacy Electronically, [facility] #[id number], Partial fill upon patient request if the [...] Maintenance,09/12/23 14:58:00 EDT, Route to Pharmacy Electronically, [facility] #[id number], 190.5, cm, 05/29/23 11:36:00 EDT, Height Start Date: 09/12/23 Stop Date: 03/10/24 Status: Ordered valsartan 80 mg oral tablet 80 mg, 1, tablet, By Mouth, Daily, # 90 tablet, Refills 0, Tot. Refills 0, Maintenance, 08/28/23 22:06:00 EDT, Route to Pharmacy Electronically, [facility] #[id number], Partial fill upon patientrequest if the prescription is for a schedule II op... Start Date: 08/28/23 Status: Ordered Vitamin D3 1000 intl units oral capsule 1 capsule = 25 mcg, By Mouth, Daily, # 90 capsule, 3 Refills, Maintenance, 09/26/23 8:16:00 EST, Capsule, [facility] #[id number], Partial fill upon patient request if the [...] Team Personnel Name: Carlos Glasgow MD Position: [facility] Physician - Primary Care Member Role: PCP Address: Address: [facility] [place], [place] [address] Name: Sarah Sheth [place] Position: [facility] RN Member Role: Primary Care Nurse Name: Verenice Holt Position: [facility] RN Member Role: Primary Care Nurse Name: Margarita Lenz RN Position: [facility] RN Member Role: Primary Care Nurse Name: Lakshmi Michelle RN Position: [facility] RN Member Role: Primary Care Nurse Care Team Related Persons Name: JEZ COLEMAN Address: home [address] [facility] [address] [place] [address]
--- OUTSIDE RECORDS SUMMARY | 2024-04-30 06:38 | XMS_ITS | Continuity of Care Document ---
Author Organization [facility] Address [address] [place] [address]- Care Team Providers Care Buffer Nickel Name Role Phone Carlos Glasgow MD Primary Care Physician Encounter [facility] Date(s): 07/01/22 - 07/31/22 [facility] [address] [place], [place] [address] Allergies, Adverse Reactions, Alerts Substance Reaction [...] Doug rded tetanus/diphtheria/pertussis, acel(Tdap) 07/19/11 Recorded Medications Ativan 1 mg oral tablet 1 tablet = 1 mg, By Mouth, Daily, PRN panic only, # 10 tablet, 4 Refills, Maintenance, 07/05/22 10:38:00 EDT, Tablet, [facility] #[id number], Partial fill upon patient request if the prescription is for a schedule II opioid drug., 190.5, cm, 06/19... Start Date: 07/05/22 Stop Date: 12/02/22 Status: Ordered baclofen 20 mg oral tablet 20 mg, 1, tablet, By Mouth, 3 times a day, # 270 tablet, Refills 2, Tot. Refills 2, Maintenance, 06/28/22 10:10:00 EDT, Route to Pharmacy Electronically, [facility] #[id number], Partial fill upon patient request if the prescription is for a sched... Start Date: 06/28/22 Status: Ordered bisacodyl 5 mg oral delayed release tablet 2 tablet = 10 mg, By Mouth, Daily, # 180 tablet, 3 Refills, Maintenance, 06/28/22 10:09:00 EDT, EC Tablet, [facility] #[id number], Partial fill upon patient request if the prescription is for a schedule II opioid drug., 190.5, cm, 06/28/22 9:08:0... Start Date: 06/28/22 Status: Ordered busPIRone 30 mg oral tablet 1 tablet = 30 mg, By Mouth, 3 times a day, # 90 tablet, 4 Refills, Maintenance, 07/05/22 10:39:00 EDT, [facility] #[id number], Partial fill upon patient request if the prescription is for a schedule II opioid drug., 190.5, cm, 06/28/22 9:08:00 ED... Start Date: 07/05/22 Stop Date: 12/02/22 Status: Ordered gabapentin 600 mg oral tablet 1 tablet = 600 mg, By Mouth, 3 times a day, # 270 tablet, 2 Refills, Maintenance, 06/28/22 10:10:00EDT, Tablet, [facility] #[id number], Partial fill upon patient request if the prescription is for a schedule II opioid drug., 190.5, cm, 06/28/22... Start Date: 06/28/22 Status: Ordered hydrochlorothiazide 25 mg oral tablet 25 mg, 1, tablet, By Mouth, Daily, # 90 tablet, Refills 0, Maintenance, 05/07/20 10:47:00 EDT Start Date: 05/07/20 Status: Ordered hydrOXYzine pamoate 50 mg oral capsule 1-2 capsules, By Mouth, Daily at bedtime, # 60 capsule, 4 Refills, Maintenance, 07/05/22 10:37:00 EDT, Capsule, [facility] #[id number], 190.5, cm, 06/28/22 9:08:00 EDT, Height Start Date: 07/05/22 Stop Date: 12/02/22 Status: Ordered lamotrigine 200 mg oral tablet 1 tablet = 200 mg, By Mouth, 2 times a day, # 60 tablet, 4 Refills, Maintenance, 07/05/22 10:39:00 EDT, Tablet, [facility] #[id number], Partial fill upon patient request if the prescription is for a schedule II opioid drug., 190.5, cm, 06/28/22 9... Start Date: 07/05/22 Stop Date: 12/02/22 Status: Ordered Lexapro 10 mg oral tablet 1 tablet = 10 mg, By Mouth, Daily, take 1/2 tab for 7 days then increase to full tab, # 30 tablet, 4 Refills, Maintenance, 07/05/22 10:42:00 EDT, Tablet, [facility] #[id number], Partial fill upon patient request if the prescription is for a sched... Start Date: 07/05/22 Stop Date: 12/02/22 Status: Ordered melatonin 5 mg oral tablet See Instructions, PRN for insomnia, 2 tablet By Mouth Daily at bedtime, # 60 tablet, 4 Refills, Maintenance, 07/05/22 10:41:00 EDT, Tablet, [facility] #[id number], 190.5, cm, 06/28/22 9:08:00 EDT, Height Start Date: 07/05/22 Status: Ordered omeprazole 20 mg oral delayed [...] 0 Refills, Maintenance, 06/28/22 10:10:00 EDT, Tablet, [facility] #[id number], Partial fill upon patient request if the prescription is for a schedule II opioid drug., 190.5, cm,... Start Date: 06/28/22 Status: Ordered Restoril 7.5 mg oral capsule 1 capsule = 7.5 mg, By Mouth, Daily at bedtime, PRN for sleep, for 30 days, # 30 capsule, 4 Refills, Acute 12/02/22 10:37:00 EST, 07/05/22 10:37:00 EDT, Capsule, [facility] #[id number], 190.5, cm, 06/28/22 9:08:00 EDT, Height Start Date: 07/05/22 Stop Date: 12/02/22 Status: Ordered SEROquel 50 mg oral tablet 1 tablet = 50 mg, By Mouth, 3 times a day, # 90 tablet, 4 Refills, Maintenance, 07/05/22 10:40:00 EDT, Tablet, [facility] #[id number], Partial fill upon patient request if the prescription is for a schedule II opioid drug., 190.5, cm, 06/28/22 9:... Start Date: 07/05/22 Stop Date: 12/02/22 Status: Ordered sildenafil 100 mg oral tablet 0.5 - 1 tablet, By Mouth, Daily, PRN erectile dysfunction, PATIENT USING COUPON NOT INSURANCE, # 30 tablet, 0 Refills, Maintenance, 06/28/22 10:08:00 EDT, Tablet, [facility] #[id number], Partial fill upon patient request if the prescription is f... Start Date: 06/28/22 Status: Ordered traZODone 100 mg oral tablet 100 mg, 1, tablet, By Mouth, Daily at bedtime, # 30 tablet, Refills 4, Tot. Refills 4, Maintenance,07/05/22 10:41:00 EDT, Route to Pharmacy Electronically, [facility] #[id number], 190.5, cm, 06/28/22 9:08:00 EDT, Height Start Date: 07/05/22 Stop Date: 12/02/22 Status: Ordered Vitamin D3 1000 intl units oral capsule 1 capsule = 25 mcg, By Mouth, Daily, # 90 capsule, 3 Refills, Maintenance, 06/28/22 10:10:00 EDT, [facility], [id number], Partial fill upon patient request if the prescription is for a schedule II opioid drug., 190.5, cm, 06/28/22 9:08:0... Start Date: 06/28/22 Status: Ordered Problem List Condition Effective Dates Status Health Status Inform ant Anxiety(Confirmed) Active Chronic back pain(Confirmed) Active Erectile dysfunction(Confirmed) Active History of acute renal failu re, reportedly d/t celebrex, dehydration, TRAVIS-I use(Confirmed) Active History of renal cell carcin dede, s/p partial R nephrectomy 08/07; Dr Gallegos(Confirmed) Active Hypertension(Confirmed) 09/09/09 Active Impaired fasting glucose(Confirmed) Active Insomnia(Confirmed) Active Mixed hyperlipidemia(Confirmed) Active Lung nodules(Confirmed) Active Obese class I(Confirmed) Active Colon polyp(Confirmed) Active Post-traumatic stress disorder(Confirmed) Active 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 Sex Care Team Personnel Name: Carlos Glasgow MD Address: [address] [place] [address]
--- OUTSIDE RECORDS SUMMARY | 2024-04-30 06:38 | XMS_ITS | Continuity of Care Document ---
Author Organization [facility] Address [address] [place] [address]- Care Team Providers Care Analytical Research Program Manager Name Role Phone Carlos Glasgow MD Primary Care Physician Encounter [facility] [id number] Date(s): 03/22/20 - 05/24/[address] [address]- [facility] Attending Physician: Ramon Finnegan MD Admitting Physician: Ramon Finnegan MD Allergies, Adverse Reactions, [...]
--- OUTSIDE RECORDS SUMMARY | 2024-04-30 06:38 | XMS_ITS | Continuity of Care Document ---
Author Organization [facility] Address [address] [place] [address]- Care Team Providers Care Clerk Supervisor Name Role Phone Carlos Glasgow MD Primary Care Physician [phone] Encounter [facility] Date(s): 06/10/23 - 07/10/23 [facility] [address] [place], [place] [address] Allergies, Adverse Reactions, Alerts Substance Reaction Severity [...] ecorded tetanus/diphtheria/pertussis, acel(Tdap) 07/19/11 Recorded 1Result Comment: [facility] 31586-545-13 Medications Aller-Chlor 4 mg oral tablet 1 tablet = 4 mg, By Mouth, 2 times a day, TAKE 1 TABLET BY MOUTH TWICE DAILY, # 180 tablet, 1 Refills, Maintenance, 05/29/23 12:06:00 EDT, [facility] #[id number], 190.5, cm, 05/29/23 11:36:00 EDT, Height Start Date: 05/29/23 Status: Ordered Ativan 1 mg oral tablet 1 tablet = 1 mg, By Mouth, Daily, PRN panic only, # 10 tablet, 4 Refills, Maintenance, 01/25/23 10:18:00 EST, Tablet, [facility] #[id number], Partial fill upon patient request if the prescription is for a schedule II opioid drug., 190.5, cm, 10/19... Start Date: 01/25/23 Stop Date: 06/24/23 Status: Ordered bisacodyl 5 mg oral delayed release tablet 2 tablet = 10 mg, By Mouth, Daily, # 180 tablet, 3 Refills, Maintenance, 06/28/22 10:09:00 EDT, EC Tablet, [facility] #[id number], Partial fill upon patient request if the prescription is for a schedule II opioid drug., 190.5, cm, 06/28/22 9:08:0... Start Date: 06/28/22 Status: Ordered busPIRone 30 mg oral tablet 1 tablet = 30 mg, By Mouth, 3 times a day, # 270 tablet, 0 Refills, Maintenance, 07/10/23 9:22:00 EDT, [facility], Partial fill upon patient request if the prescription is for a schedule II opioid drug., 190.5, cm, 05/29/23 11:3... Start Date: 07/10/23 Stop Date: 10/08/23 Status: Ordered cyclobenzaprine 5 mg oral tablet 1-2 tablet, By Mouth, 3 times a day, PRN Spasm, # 90 tablet, 2 Refills, Maintenance, 05/29/23 12:07:00 EDT, [facility] #[id number], Partial fill upon patient request if the prescription is for aschedule II opioid drug., 190.5, cm, 05/29/23 11:36... Start Date: 05/29/23 Status: Ordered hydrochlorothiazide 25 mg oral tablet 25 mg, 1, tablet, By Mouth, Daily, # 90 tablet, Refills 1, Tot. Refills 1, Maintenance, 05/29/23 12:07:00 EDT, Route to Pharmacy Electronically, [facility] #[id number], Partial fill upon patientrequest if the prescription is for a schedule II op... Start Date: 05/29/23 Status: Ordered hydrOXYzine pamoate 50 mg oral capsule 2 capsule = 100 mg, By Mouth, Daily at bedtime, # 180 capsule, 1 Refills, Maintenance, 01/25/23 10:16:00 EST, Capsule, [facility] #[id number], 190.5, cm, 11/06/22 9:34:00 EST, Height Start Date: 01/25/23 Stop Date: 07/24/23 Status: Ordered lamotrigine 200 mg oral tablet 1 tablet = 200 mg, By Mouth, 2 times a day, # 180 tablet, 1 Refills, Maintenance, 01/25/23 10:17:00EST, Tablet, [facility] #[id number], Partial fill upon patient request if the prescription is for a schedule II opioid drug., 190.5, cm, 11/06/22... Start Date: 01/25/23 Stop Date: 07/24/23 Status: Ordered Lexapro 20 mg oral tablet 1 tablet = 20 mg, By Mouth, Daily, # 90 tablet, 1 Refills, Maintenance, 01/25/23 10:14:00 EST, Tablet, [facility] #[id number], Partial fill upon patient request if the prescription is for a schedule II opioid drug., 190.5, cm, 11/06/22 9:34:00 ES... Start Date: 01/25/23 Stop Date: 07/24/23 Status: Ordered melatonin 5 mg oral tablet See Instructions, PRN for insomnia, 2 tablet By Mouth Daily at bedtime, # 60 tablet, 4 Refills, Maintenance, 07/03/23 7:18:00 EDT, Tablet, [facility], 190.5, cm, 05/29/23 11:36:00 EDT, Height Start Date: 07/03/23 Status: Ordered omeprazole 20 mg oral enteric coated capsule 1 capsule = 20 mg, By Mouth, 2 times a day, # 180 capsule, 2 Refills, Maintenance, 05/29/23 12:06:00 EDT, [facility] #[id number], Partial fill upon patient request if the prescription is for a schedule II opioid drug., 190.5, cm, 05/29/23 11:36:0... Start Date: 05/29/23 Status: Ordered ondansetron 4 mg oral tablet 1 tablet = 4 mg, By Mouth, Every 8 hours, PRN Nausea, # 180 tablet, 0 Refills, Maintenance, 05/29/23 12:06:00 EDT, Tablet, [facility] #[id number], Partial fill upon patient request if the prescription is for a schedule II opioid drug., 190.5, cm,... Start Date: 05/29/23 Status: Ordered pregabalin 150 mg oral capsule TAKE 1 CAPSULE BY MOUTH TWICE DAILY Start Date: 02/17/23 Status: Ordered Restoril 7.5 mg oral capsule 1 capsule = 7.5 mg, By Mouth, Daily at bedtime, PRN for sleep, for 30 days, # 30 capsule, 4 Refills, Acute 12/07/23 9:24:00 EST, 07/10/23 9:24:00 EDT, Capsule, [facility], 190.5, cm, 05/29/23 11:36:00 EDT, Height Start Date: 07/10/23 Stop Date: 12/07/23 Status: Ordered SEROquel 50 mg oral tablet 1 tablet = 50 mg, By Mouth, 3 times a day, # 270 tablet, 1 Refills, Maintenance, 01/25/23 10:19:00 EST, Tablet, [facility] #[id number], Partial fill upon patient request if the [...] tablet, By Mouth, Daily at bedtime, # 90 tablet, Refills 0, Tot. Refills 0, Maintenance,07/03/23 7:17:00 EDT, Route to Pharmacy Electronically, [facility], 190.5, cm, 05/29/23 11:36:00 EDT, Height Start Date: 07/03/23 Stop Date: 10/01/23 Status: Ordered valsartan 80 mg oral tablet 80 mg, 1, tablet, By Mouth, Daily, PLEASE DISREGARD PRIOR RX FOR 160MG, # 90 tablet, Refills 0,Tot. Refills 0, Maintenance, 05/29/23 12:20:00 EDT, Route to Pharmacy Electronically, [facility] #[id number], Partial fill upon patient request if... Start Date: 05/29/23 Status: Ordered Vitamin D3 1000 intl units oral capsule 1 capsule = 25 mcg, By Mouth, Daily, # 90 capsule, 3 Refills, Maintenance, 05/29/23 12:06:00 EDT, Capsule, [facility] #[id number], Partial fill upon patient request if the [...] Care Team Personnel Name: Yosvany Ardon Position: [facility] ([facility] Member Role: Primary Care Nurse Name: Carlos Glasgow MD Position: [facility] Physician - Primary Care Member Role: PCP Address: Address: [address] [place] [address] Name: Sarah Sheth [place] Position: [facility] RN Member Role: Primary Care Nurse Name: Verenice Holt Position: [facility] RN Member Role: Primary Care Nurse Name: Margarita Lenz RN Position: [facility] RN Member Role: Primary Care Nurse Name: Lakshmi Michelle RN Position: [facility] RN Member Role: Primary Care Nurse Care Team Related Persons Name: JEZ COLEMAN Address: home [address] [place] [address]
--- OUTSIDE RECORDS SUMMARY | 2024-04-30 06:38 | XMS_ITS | Continuity of Care Document ---
Author Organization [facility] Address [address] [place] [address]- Care Team Providers Care Foam Dispenser Name Role Phone Carlos Glasgow MD Primary Care Physician [phone] Encounter [facility] Date(s): 07/04/23 - 08/03/23 [facility] [address] [place], [place] [address] Allergies, Adverse Reactions, Alerts Substance [...] ecorded tetanus/diphtheria/pertussis, acel(Tdap) 07/19/11 Recorded 1Result Comment: [facility] [id number] Medications Aller-Chlor 4 mg oral tablet 1 tablet = 4 mg, By Mouth, 2 times a day, TAKE 1 TABLET BY MOUTH TWICE DAILY, # 180 tablet, 1 Refills, Maintenance, 05/29/23 12:06:00 EDT, [facility] #[id number], 190.5, cm, 05/29/23 11:36:00 EDT, Height Start Date: 05/29/23 Status: Ordered Ativan 1 mg oral tablet 1 tablet = 1 mg, By Mouth, Daily, PRN panic only, # 10 tablet, 4 Refills, Maintenance, 01/25/23 10:18:00 EST, Tablet, [facility] #[id number], Partial fill upon patient request if the prescription is for a schedule II opioid drug., 190.5, cm, 10/19... Start Date: 01/25/23 Stop Date: 06/24/23 Status: Ordered bisacodyl 5 mg oral delayed release tablet 2 tablet = 10 mg, By Mouth, Daily, # 180 tablet, 3 Refills, Maintenance, 06/28/22 10:09:00 EDT, EC Tablet, [facility] #[id number], Partial fill upon patient request if the prescription is for a schedule II opioid drug., 190.5, cm, 06/28/22 9:08:0... Start Date: 06/28/22 Status: Ordered busPIRone 30 mg oral tablet 1 tablet = 30 mg, By Mouth, 3 times a day, # 270 tablet, 1 Refills, Maintenance, 08/02/23 14:21:00 EDT, [facility] #[id number], Partial fill upon patient request if the prescription is for a schedule II opioid drug., 190.5, cm, 05/29/23 11:36:00... Start Date: 08/02/23 Stop Date: 01/29/24 Status: Ordered cyclobenzaprine 5 mg oral tablet 1-2 tablet, By Mouth, 3 times a day, PRN Spasm, # 90 tablet, 2 Refills, Maintenance, 05/29/23 12:07:00 EDT, [facility] #[id number], Partial fill upon patient request if the prescription is for aschedule II opioid drug., 190.5, cm, 05/29/23 11:36... Start Date: 05/29/23 Status: Ordered hydrochlorothiazide 25 mg oral tablet 25 mg, 1, tablet, By Mouth, Daily, # 90 tablet, Refills 1, Tot. Refills 1, Maintenance, 05/29/23 12:07:00 EDT, Route to Pharmacy Electronically, [facility] #[id number], Partial fill upon patientrequest if the prescription is for a schedule II op... Start Date: 05/29/23 Status: Ordered hydrOXYzine pamoate 50 mg oral capsule 2 capsule = 100 mg, By Mouth, Daily at bedtime, # 180 capsule, 1 Refills, Maintenance, 08/02/23 14:13:00 EDT, Capsule, [facility] #[id number], 190.5, cm, 05/29/23 11:36:00 EDT, Height Start Date: 08/02/23 Stop Date: 01/29/24 Status: Ordered lamotrigine 200 mg oral tablet 1 tablet = 200 mg, By Mouth, 2 times a day, # 180 tablet, 1 Refills, Maintenance, 08/02/23 14:14:00EDT, Tablet, [facility] #[id number], Partial fill upon patient request if the prescription is for a schedule II opioid drug., 190.5, cm, 05/29/23... Start Date: 08/02/23 Stop Date: 01/29/24 Status: Ordered Lexapro 20 mg oral tablet 1 tablet = 20 mg, By Mouth, Daily, # 90 tablet, 1 Refills, Maintenance, 08/02/23 14:13:00 EDT, Tablet, [facility] #[id number], Partial fill upon patient request if the prescription is for a schedule II opioid drug., 190.5, cm, 05/29/23 11:36:00 E... Start Date: 08/02/23 Stop Date: 01/29/24 Status: Ordered melatonin 5 mg oral tablet See Instructions, PRN for insomnia, 2 tablet By Mouth Daily at bedtime, # 60 tablet, 4 Refills, Maintenance, 08/02/23 14:14:00 EDT, Tablet, [email or web address] #[id number], 190.5, cm, 05/29/23 11:36:00 EDT, Height Start Date: 08/02/23 Status: Ordered omeprazole 20 mg oral enteric coated capsule 1 capsule = 20 mg, By Mouth, 2 times a day, # 180 capsule, 2 Refills, Maintenance, 05/29/23 12:06:00 EDT, [facility] #[id number], Partial fill upon patient request if the prescription is for a schedule II opioid drug., 190.5, cm, 05/29/23 11:36:0... Start Date: 05/29/23 Status: Ordered ondansetron 4 mg oral tablet 1 tablet = 4 mg, By Mouth, Every 8 hours, PRN Nausea, # 180 tablet, 0 Refills, Maintenance, 05/29/23 12:06:00 EDT, Tablet, [facility] #[id number], Partial fill upon patient request if the prescription is for a schedule II opioid drug., 190.5, cm,... Start Date: 05/29/23 Status: Ordered pregabalin 150 mg oral capsule TAKE 1 CAPSULE BY MOUTH TWICE DAILY Start Date: 02/17/23 Status: Ordered Restoril 7.5 mg oral capsule 1 capsule = 7.5 mg, By Mouth, Daily at bedtime, PRN for sleep, for 30 days, infrequent use, # 14 capsule, 0 Refills, Acute 09/01/23 14:23:00 EDT, 08/02/23 14:23:00 EDT, Capsule, [facility] #[id number], 190.5, cm, 05/29/23 11:36:00 EDT, Height Start Date: 08/02/23 Stop Date: 09/01/23 Status: Ordered SEROquel 25 mg oral tablet 25 mg, 1, tablet, By Mouth, 2 times a day, dose decreasee, # 180 tablet, Refills 0, Tot. Refills 0,Maintenance, 08/02/23 14:09:00 EDT, Route to Pharmacy Electronically, [facility] #[id number], Partial fill upon patient request if the [...] 60 tablet, Refills 0, Tot. Refills 0, Maintenance,07/13/23 9:16:00 EDT, Route to Pharmacy Electronically, [facility] #[id number], 190.5, cm, 05/29/23 11:36:00 EDT, Height Start Date: 07/13/23 Stop Date: 09/11/23 Status: Ordered valsartan 80 mg oral tablet 80 mg, 1, tablet, By Mouth, Daily, PLEASE DISREGARD PRIOR RX FOR 160MG, # 90 tablet, Refills 0,Tot. Refills 0, Maintenance, 05/29/23 12:20:00 EDT, Route to Pharmacy Electronically, [facility] #[id number], Partial fill upon patient request if... Start Date: 05/29/23 Status: Ordered Vitamin D3 1000 intl units oral capsule 1 capsule = 25 mcg, By Mouth, Daily, # 90 capsule, 3 Refills, Maintenance, 05/29/23 12:06:00 EDT, Capsule, [facility] #[id number], Partial fill upon patient request if the [...] Team Personnel Name: Carlos Glasgow MD Position: [facility] Physician - Primary Care Member Role: PCP Address: Address: [address] [place] [address]- Name: Sarah Sheth [place] Position: [facility] RN Member Role: Primary Care Nurse Name: Verenice Holt Position: [facility] RN Member Role: Primary Care Nurse Name: Margarita Lenz RN Position: [facility] RN Member Role: Primary Care Nurse Name: Lakshmi Michelle RN Position: [facility] RN Member Role: Primary Care Nurse Care Team Related Persons Name: JEZ COLEMAN Address: home [address] [place] [address]
--- OUTSIDE RECORDS SUMMARY | 2024-04-30 06:38 | XMS_ITS | Continuity of Care Document ---
Author Organization [facility] Address [address] [place] [address]- Care Team Providers Care Tapping Machine Operator Name Role Phone Pee SANCHEZ, Carlos Primary Care Physician Encounter [facility] Date(s): 02/03/24 - 03/04/24 [facility] [address] [place], [place] [address] Allergies, Adverse Reactions, Alerts Substance Reaction Severity [...] mRNA-1273 vaccine 03/20/21 R ecorded 1Result Comment: [facility] 32221-075-03 vaccine given below Flu 2Result Comment: [facility] 03953-085-99 vaccine given above Tdap 3Result Comment: [facility] 11049-669-07 Medications Aller-Chlor 4 mg oral tablet 1 tablet = 4 mg, By Mouth, 2 times a day, TAKE 1 TABLET BY MOUTH TWICE DAILY, # 180 tablet, 1 Refills, Maintenance, 02/03/24 21:15:00 EDT, [facility] #[id number], 190.5, cm, 10/01/23 8:42:00 EST, Height Start Date: 02/03/24 Status: Ordered Ativan 1 mg oral tablet 1 tablet = 1 mg, By Mouth, Daily, PRN panic only, for 30 days, # 10 tablet, 3 Refills, Hard Stop 04/22/24 7:30:00 EDT, 12/24/23 7:30:00 EST, Tablet, [facility] #[id number], Partial fill upon patient request if the prescription is for a schedule I... Start Date: 12/24/23 Stop Date: 04/22/24 Status: Ordered Ativan 1 mg oral tablet 1 tablet = 1 mg, By Mouth, Daily, PRN panic only, # 10 tablet, 3 Refills, Maintenance, 04/22/24 7:30:00 EDT, Tablet, [facility] #[id number], Partial fill upon patient request if the prescriptionis for a schedule II opioid drug., 190.5, cm, 10/01... Start Date: 04/22/24 Stop Date: 08/20/24 Status: Ordered bisacodyl 5 mg oral delayed release tablet 2 tablet = 10 mg, By Mouth, Daily, # 180 tablet, 3 Refills, Maintenance, 06/28/22 10:09:00 EDT, EC Tablet, [facility] #[id number], Partial fill upon patient request if the prescription is for a schedule II opioid drug., 190.5, cm, 06/28/22 9:08:0... Start Date: 06/28/22 Status: Ordered busPIRone 30 mg oral tablet 1 tablet = 30 mg, By Mouth, 3 times a day, # 270 tablet, 1 Refills, Maintenance, 01/31/24 14:11:00 EDT, [facility] #[id number], Partial fill upon patient request if the prescription is for a schedule II opioid drug., 190.5, cm, 10/01/23 8:42:00 E... Start Date: 01/31/24 Stop Date: 07/29/24 Status: Ordered cyclobenzaprine 5 mg oral tablet 1-2 tablet, By Mouth, 3 times a day, PRN Spasm, # 90 tablet, 2 Refills, Maintenance, 10/07/23 13:41:00 EST, [facility] #[id number], Partial fill upon patient request if the [...] 05/29/23 12:07:00 EDT, Route to Pharmacy Electronically, [facility] #[id number], Partial fill upon patientrequest if the prescription is for a schedule II op... Start Date: 05/29/23 Status: Ordered hydrOXYzine pamoate 50 mg oral capsule 2 capsule = 100 mg, By Mouth, Daily at bedtime, # 180 capsule, 1 Refills, Maintenance, 01/29/24 14:13:00 EDT, Capsule, [facility] #[id number], 190.5, cm, 10/01/23 8:42:00 EST, Height Start Date: 01/29/24 Stop Date: 07/27/24 Status: Ordered lamotrigine 200 mg oral tablet 1 tablet = 200 mg, By Mouth, 2 times a day, # 180 tablet, 1 Refills, Maintenance, 01/29/24 14:14:00EDT, Tablet, [facility] #[id number], Partial fill upon patient request if the prescription is for a schedule II opioid drug., 190.5, cm, 10/01/23... Start Date: 01/29/24 Stop Date: 07/27/24 Status: Ordered Lexapro 20 mg oral tablet 1 tablet = 20 mg, By Mouth, Daily, # 90 tablet, 1 Refills, Maintenance, 01/29/24 14:13:00 EDT, Tablet, [facility] #[id number], Partial fill upon patient request if the prescription is for a schedule II opioid drug., 190.5, cm, 10/01/23 8:42:00 ES... Start Date: 01/29/24 Stop Date: 07/27/24 Status: Ordered melatonin 5 mg oral tablet See Instructions, PRN for insomnia, 2 tablet By Mouth Daily at bedtime, # 60 tablet, 4 Refills, Maintenance, 01/31/24 14:12:00 EDT, Tablet, [facility] #[id number], 190.5, cm, 10/01/23 8:42:00 EST, Height Start Date: 01/31/24 Status: Ordered omeprazole 20 mg oral enteric coated capsule 1 capsule = 20 mg, By Mouth, 2 times a day, # 180 capsule, 2 Refills, Maintenance, 05/29/23 12:06:00 EDT, [facility] #[id number], Partial fill upon patient request if the prescription is for a schedule II opioid drug., 190.5, cm, 05/29/23 11:36:0... Start Date: 05/29/23 Status: Ordered ondansetron 4 mg oral tablet 1 tablet = 4 mg, By Mouth, Every 8 hours, PRN Nausea, # 180 tablet, 0 Refills, Maintenance, 02/03/24 21:19:00 EDT, Tablet, [facility] #[id number], Partial fill upon patient request if the prescription is for a schedule II opioid drug., 190.5, cm,... Start Date: 02/03/24 Status: Ordered pregabalin 100 mg oral capsule 1 capsule = 100 mg, By Mouth, 2 times a day, # 60 capsule, 0 Refills, Maintenance, 03/04/24 12:28:00 EDT, Capsule, [facility] #[id number], Partial fill upon patient request if the prescription is for a schedule II opioid drug., 190.5, cm, ... Start Date: 03/04/24 Status: Ordered SEROquel 25 mg oral tablet 25 mg, 1, tablet, By Mouth, 2 times a day, dose decreasee, # 180 tablet, Refills 1, Tot. Refills 1,Maintenance, 11/01/23 15:28:00 EST, Route to Pharmacy Electronically, [facility] #[id number], Partial fill upon patient request if the [...] capsule, 4 Refills, Maintenance, 01/31/24 14:09:00 EDT, [facility] #[id number], Partial fill upon patient request ifthe prescription is for a schedule II opioid drug.,... Start Date: 01/31/24 Stop Date: 06/29/24 Status: Ordered traZODone 100 mg oral tablet 100 mg, 1, tablet, By Mouth, Daily at bedtime, # 60 tablet, Refills 2, Tot. Refills 2, Maintenance,09/12/23 14:58:00 EDT, Route to Pharmacy Electronically, [facility] #[id number], 190.5, cm, 05/29/23 11:36:00 EDT, Height Start Date: 09/12/23 Stop Date: 03/10/24 Status: Ordered Vitamin D3 1000 intl units oral capsule 1 capsule = 25 mcg, By Mouth, Daily, # 90 capsule, 3 Refills, Maintenance, 09/26/23 8:16:00 EST, Capsule, [facility] #[id number], Partial fill upon patient request if the [...] Team Personnel Name: Carlos Glasgow MD Position: [facility] Physician - Primary Care Member Role: PCP Address: Address: [address] [place] [address] Name: Sarah Sheth [place] Position: [facility] RN Member Role: Primary Care Nurse Name: Verenice Holt Position: [facility] RN Member Role: Primary Care Nurse Name: Margarita Lenz RN Position: [facility] RN Member Role: Primary Care Nurse Name: Lakshmi Michelle RN Position: [facility] RN Member Role: Primary Care Nurse Care Team Related Persons Name: JEZ COLEMAN Address: home [address] [address] [place] [address]
--- OUTSIDE RECORDS SUMMARY | 2024-04-30 06:38 | XMS_ITS | Continuity of Care Document ---
Author Organization [facility] Address [address] [place] [address]- Care Team Providers Care Delivery Assistant Name Role Phone Carlos Glasgow MD Primary Care Physician Encounter [facility] Date(s): 08/17/23 - 09/16/23 [facility] [address] [place], [place] [address] Allergies, Adverse Reactions, Alerts Substance Reaction [...] ecorded tetanus/diphtheria/pertussis, acel(Tdap) 07/19/11 Recorded 1Result Comment: [facility] 21782-326-61 Medications Aller-Chlor 4 mg oral tablet 1 tablet = 4 mg, By Mouth, 2 times a day, TAKE 1 TABLET BY MOUTH TWICE DAILY, # 180 tablet, 1 Refills, Maintenance, 05/29/23 12:06:00 EDT, [facility] #[id number], 190.5, cm, 05/29/23 11:36:00 EDT, Height Start Date: 05/29/23 Status: Ordered Ativan 1 mg oral tablet 1 tablet = 1 mg, By Mouth, Daily, PRN panic only, # 10 tablet, 4 Refills, Maintenance, 01/25/23 10:18:00 EST, Tablet, [facility] #[id number], Partial fill upon patient request if the prescription is for a schedule II opioid drug., 190.5, cm, 10/19... Start Date: 01/25/23 Stop Date: 06/24/23 Status: Ordered bisacodyl 5 mg oral delayed release tablet 2 tablet = 10 mg, By Mouth, Daily, # 180 tablet, 3 Refills, Maintenance, 06/28/22 10:09:00 EDT, EC Tablet, [facility] #[id number], Partial fill upon patient request if the prescription is for a schedule II opioid drug., 190.5, cm, 06/28/22 9:08:0... Start Date: 06/28/22 Status: Ordered busPIRone 30 mg oral tablet 1 tablet = 30 mg, By Mouth, 3 times a day, # 270 tablet, 1 Refills, Maintenance, 08/02/23 14:21:00 EDT, [facility] #[id number], Partial fill upon patient request if the prescription is for a schedule II opioid drug., 190.5, cm, 05/29/23 11:36:00... Start Date: 08/02/23 Stop Date: 01/29/24 Status: Ordered cyclobenzaprine 5 mg oral tablet 1-2 tablet, By Mouth, 3 times a day, PRN Spasm, # 90 tablet, 2 Refills, Maintenance, 05/29/23 12:07:00 EDT, [facility] #[id number], Partial fill upon patient request if the prescription is for aschedule II opioid drug., 190.5, cm, 05/29/23 11:36... Start Date: 05/29/23 Status: Ordered hydrochlorothiazide 25 mg oral tablet 25 mg, 1, tablet, By Mouth, Daily, # 90 tablet, Refills 1, Tot. Refills 1, Maintenance, 05/29/23 12:07:00 EDT, Route to Pharmacy Electronically, [facility] #[id number], Partial fill upon patientrequest if the prescription is for a schedule II op... Start Date: 05/29/23 Status: Ordered hydrOXYzine pamoate 50 mg oral capsule 2 capsule = 100 mg, By Mouth, Daily at bedtime, # 180 capsule, 1 Refills, Maintenance, 08/02/23 14:13:00 EDT, Capsule, [facility] #[id number], 190.5, cm, 05/29/23 11:36:00 EDT, Height Start Date: 08/02/23 Stop Date: 01/29/24 Status: Ordered lamotrigine 200 mg oral tablet 1 tablet = 200 mg, By Mouth, 2 times a day, # 180 tablet, 1 Refills, Maintenance, 08/02/23 14:14:00EDT, Tablet, [facility] #[id number], Partial fill upon patient request if the prescription is for a schedule II opioid drug., 190.5, cm, 05/29/23... Start Date: 08/02/23 Stop Date: 01/29/24 Status: Ordered Lexapro 20 mg oral tablet 1 tablet = 20 mg, By Mouth, Daily, # 90 tablet, 1 Refills, Maintenance, 08/02/23 14:13:00 EDT, Tablet, [facility] #[id number], Partial fill upon patient request if the prescription is for a schedule II opioid drug., 190.5, cm, 05/29/23 11:36:00 E... Start Date: 08/02/23 Stop Date: 01/29/24 Status: Ordered melatonin 5 mg oral tablet See Instructions, PRN for insomnia, 2 tablet By Mouth Daily at bedtime, # 60 tablet, 4 Refills, Maintenance, 08/02/23 14:14:00 EDT, Tablet, [facility] #[id number], 190.5, cm, 05/29/23 11:36:00 EDT, Height Start Date: 08/02/23 Status: Ordered omeprazole 20 mg oral enteric coated capsule 1 capsule = 20 mg, By Mouth, 2 times a day, # 180 capsule, 2 Refills, Maintenance, 05/29/23 12:06:00 EDT, [facility] #[id number], Partial fill upon patient request if the prescription is for a schedule II opioid drug., 190.5, cm, 05/29/23 11:36:0... Start Date: 05/29/23 Status: Ordered ondansetron 4 mg oral tablet 1 tablet = 4 mg, By Mouth, Every 8 hours, PRN Nausea, # 180 tablet, 0 Refills, Maintenance, 08/25/23 21:28:00 EDT, Tablet, [facility] #[id number], Partial fill upon patient request if the [...] 08/02/23 14:09:00 EDT, Route to Pharmacy Electronically, [facility] #[id number], Partial fill upon patient request if the [...] Maintenance,09/12/23 14:58:00 EDT, Route to Pharmacy Electronically, [facility] #[id number], 190.5, cm, 05/29/23 11:36:00 EDT, Height Start Date: 09/12/23 Stop Date: 03/10/24 Status: Ordered valsartan 80 mg oral tablet 80 mg, 1, tablet, By Mouth, Daily, # 90 tablet, Refills 0, Tot. Refills 0, Maintenance, 08/28/23 22:06:00 EDT, Route to Pharmacy Electronically, [facility] #[id number], Partial fill upon patientrequest if the prescription is for a schedule II op... Start Date: 08/28/23 Status: Ordered Vitamin D3 1000 intl units oral capsule 1 capsule = 25 mcg, By Mouth, Daily, # 90 capsule, 3 Refills, Maintenance, 05/29/23 12:06:00 EDT, Capsule, [facility] #[id number], Partial fill upon patient request if the [...] Team Personnel Name: Carlos Glasgow MD Position: [facility] Physician - Primary Care Member Role: PCP Address: Address: [address] [place] [address] Name: Sarah Sheth [place] Position: [facility] RN Member Role: Primary Care Nurse Name: Verenice Holt Position: [facility] RN Member Role: Primary Care Nurse Name: Margarita Lenz RN Position: [facility] RN Member Role: Primary Care Nurse Name: Lakshmi Michelle RN Position: [facility] RN Member Role: Primary Care Nurse Care Team Related Persons Name: JEZ COLEMAN Address: home [address] [place] [address]
--- OUTSIDE RECORDS SUMMARY | 2024-04-30 06:38 | XMS_ITS | Continuity of Care Document ---
Author Organization [facility] Address [address] [place] [address]- Care Team Providers Care Plsql Developer Name Role Phone Carlos Glasgow MD Primary Care Physician [phone] Encounter [facility] Date(s): 03/19/24 - 04/18/24 [facility] [address] [place], [place] [address] Allergies, Adverse Reactions, Alerts Substance Reaction [...] mRNA-1273 vaccine 03/20/21 R ecorded 1Result Comment: [facility] [id number] vaccine given below Flu 2Result Comment: [facility] [id number] vaccine given above Tdap 3Result Comment: [facility] [id number] Medications Aller-Chlor 4 mg oral tablet 1 tablet = 4 mg, By Mouth, 2 times a day, TAKE 1 TABLET BY MOUTH TWICE DAILY, # 180 tablet, 1 Refills, Maintenance, 02/03/24 21:15:00 EDT, [facility] #[id number], 190.5, cm, 10/01/23 8:42:00 EST, Height Start Date: 02/03/24 Status: Ordered Ativan 1 mg oral tablet 1 tablet = 1 mg, By Mouth, Daily, PRN panic only, # 10 tablet, 3 Refills, Maintenance, 04/22/24 7:30:00 EDT, Tablet, [facility] #[id number], Partial fill upon patient request if the prescriptionis for a schedule II opioid drug., 190.5, cm, 10/01... Start Date: 04/22/24 Stop Date: 08/20/24 Status: Ordered bisacodyl 5 mg oral delayed release tablet 2 tablet = 10 mg, By Mouth, Daily, # 180 tablet, 3 Refills, Maintenance, 06/28/22 10:09:00 EDT, EC Tablet, [facility] #[id number], Partial fill upon patient request if the prescription is for a schedule II opioid drug., 190.5, cm, 06/28/22 9:08:0... Start Date: 06/28/22 Status: Ordered busPIRone 30 mg oral tablet 1 tablet = 30 mg, By Mouth, 3 times a day, # 270 tablet, 1 Refills, Maintenance, 01/31/24 14:11:00 EDT, [facility] #[id number], Partial fill upon patient request if the prescription is for a schedule II opioid drug., 190.5, cm, 10/01/23 8:42:00 E... Start Date: 01/31/24 Stop Date: 07/29/24 Status: Ordered cyclobenzaprine 5 mg oral tablet 1-2 tablet, By Mouth, 3 times a day, PRN Spasm, # 90 tablet, 2 Refills, Maintenance, 03/19/24 22:24:00 EDT, [facility] #[id number], Partial fill upon patient request if the [...] 03/05/24 13:23:00 EDT, Route to Pharmacy Electronically, [facility] #[id number], Partial fill upon patientrequest if the prescription is for a schedule II op... Start Date: 03/05/24 Status: Ordered hydrOXYzine pamoate 50 mg oral capsule 2 capsule = 100 mg, By Mouth, Daily at bedtime, # 180 capsule, 1 Refills, Maintenance, 01/29/24 14:13:00 EDT, Capsule, [facility] #[id number], 190.5, cm, 10/01/23 8:42:00 EST, Height Start Date: 01/29/24 Stop Date: 07/27/24 Status: Ordered lamotrigine 200 mg oral tablet 1 tablet = 200 mg, By Mouth, 2 times a day, # 120 tablet, 1 Refills, Maintenance, 07/27/24 14:14:00EDT, Tablet, [facility] #[id number], Partial fill upon patient request if the prescription is for a schedule II opioid drug., 190.5, cm, 10/01/23... Start Date: 07/27/24 Stop Date: 11/24/24 Status: Ordered Lexapro 20 mg oral tablet 1 tablet = 20 mg, By Mouth, Daily, # 90 tablet, 1 Refills, Maintenance, 01/29/24 14:13:00 EDT, Tablet, [facility] #[id number], Partial fill upon patient request if the prescription is for a schedule II opioid drug., 190.5, cm, 10/01/23 8:42:00 ES... Start Date: 01/29/24 Stop Date: 07/27/24 Status: Ordered melatonin 5 mg oral tablet See Instructions, PRN for insomnia, 2 tablet By Mouth Daily at bedtime, # 60 tablet, 4 Refills, Maintenance, 01/31/24 14:12:00 EDT, Tablet, [facility] #[id number], 190.5, cm, 10/01/23 8:42:00 EST, Height Start Date: 01/31/24 Status: Ordered omeprazole 20 mg oral enteric coated capsule 1 capsule = 20 mg, By Mouth, 2 times a day, # 180 capsule, 2 Refills, Maintenance, 05/29/23 12:06:00 EDT, [facility] #[id number], Partial fill upon patient request if the prescription is for a schedule II opioid drug., 190.5, cm, 05/29/23 11:36:0... Start Date: 05/29/23 Status: Ordered ondansetron 4 mg oral tablet 1 tablet = 4 mg, By Mouth, Every 8 hours, PRN Nausea, # 180 tablet, 0 Refills, Maintenance, 02/03/24 21:19:00 EDT, Tablet, [facility] #[id number], Partial fill upon patient request if the prescription is for a schedule II opioid drug., 190.5, cm,... Start Date: 02/03/24 Status: Ordered pregabalin 50 mg oral capsule 1 capsule = 50 mg, By Mouth, 2 times a day, # 20 capsule, 0 Refills, Maintenance, 04/07/24 10:36:00EDT, [facility] #[id number], Partial fill upon patient request if the prescription is for a schedule II opioid drug., 190.5, cm, 04/07/24 10:05:00... Start Date: 04/07/24 Stop Date: 04/17/24 Status: Ordered SEROquel 25 mg oral tablet 25 mg, 1, tablet, By Mouth, 2 times a day, dose decreasee, # 180 tablet, Refills 1, Tot. Refills 1,Maintenance, 11/01/23 15:28:00 EST, Route to Pharmacy Electronically, [facility] #[id number], Partial fill upon patient request if the [...] capsule, 4 Refills, Maintenance, 01/31/24 14:09:00 EDT, [facility] #[id number], Partial fill upon patient request ifthe prescription is for a schedule II opioid drug.,... Start Date: 01/31/24 Stop Date: 06/29/24 Status: Ordered traZODone 100 mg oral tablet 100 mg, 1, tablet, By Mouth, Daily at bedtime, # 60 tablet, Refills 0, Tot. Refills 0, Maintenance,03/18/24 7:26:00 EDT, Route to Pharmacy Electronically, [facility] #[id number], 190.5, cm, 10/01/23 8:42:00 EST, Height Start Date: 03/18/24 Stop Date: 05/17/24 Status: Ordered Vitamin D3 1000 intl units oral capsule 1 capsule = 25 mcg, By Mouth, Daily, # 90 capsule, 3 Refills, Maintenance, 09/26/23 8:16:00 EST, Capsule, [facility] #[id number], Partial fill upon patient request if the [...] Team Personnel Name: Carlos Glasgow MD Position: [facility] Physician - Primary Care Member Role: PCP Address: Address: [address] [place] [address] Name: Sarah Sheth MA Position: [facility] Office Staff Member Role: Primary Care Nurse Name: Verenice Diego MA Position: [facility] Office Staff Member Role: Primary Care Nurse Name: Margarita Lenz RN Position: [facility] RN Member Role: Primary Care Nurse Name: Lakshmi Michelle RN Position: [facility] RN Member Role: Primary Care Nurse Care Team Related Persons Name: JEZ COLEMAN Address: home [address] [facility] [facility] [address] [place] [address]
--- OUTSIDE RECORDS SUMMARY | 2024-04-30 06:38 | XMS_ITS | Continuity of Care Document ---
Author Organization [facility] Address [address] [place] [address]- Care Team Providers Care Bridge Painter Name Role Phone Pee SANCHEZ, Carlos Primary Care Physician [phone] Encounter [facility] Date(s): 02/19/24 - 03/20/24 [facility] [address], [place] [address] Allergies, Adverse Reactions, Alerts Substance [...] [facility] [id number] vaccine given below Flu 2Result Comment: [facility] [id number] vaccine given above Tdap 3Result Comment: [facility] [id number] Medications Aller-Chlor 4 mg oral tablet 1 tablet = 4 mg, By Mouth, 2 times a day, TAKE 1 TABLET BY MOUTH TWICE DAILY, # 180 tablet, 1 Refills, Maintenance, 02/03/24 21:15:00 EDT, [facility] #[id number], 190.5, cm, 10/01/23 8:42:00 EST, Height Start Date: 02/03/24 Status: Ordered Ativan 1 mg oral tablet 1 tablet = 1 mg, By Mouth, Daily, PRN panic only, for 30 days, # 10 tablet, 3 Refills, Hard Stop 04/22/24 7:30:00 EDT, 12/24/23 7:30:00 EST, Tablet, [facility] #[id number], Partial fill upon patient request if the prescription is for a schedule I... Start Date: 12/24/23 Stop Date: 04/22/24 Status: Ordered Ativan 1 mg oral tablet 1 tablet = 1 mg, By Mouth, Daily, PRN panic only, # 10 tablet, 3 Refills, Maintenance, 04/22/24 7:30:00 EDT, Tablet, [facility] #[id number], Partial fill upon patient request if the prescriptionis for a schedule II opioid drug., 190.5, cm, 10/01... Start Date: 04/22/24 Stop Date: 08/20/24 Status: Ordered bisacodyl 5 mg oral delayed release tablet 2 tablet = 10 mg, By Mouth, Daily, # 180 tablet, 3 Refills, Maintenance, 06/28/22 10:09:00 EDT, EC Tablet, [facility] #[id number], Partial fill upon patient request if the prescription is for a schedule II opioid drug., 190.5, cm, 06/28/22 9:08:0... Start Date: 06/28/22 Status: Ordered busPIRone 30 mg oral tablet 1 tablet = 30 mg, By Mouth, 3 times a day, # 270 tablet, 1 Refills, Maintenance, 01/31/24 14:11:00 EDT, [facility] #[id number], Partial fill upon patient request if the prescription is for a schedule II opioid drug., 190.5, cm, 10/01/23 8:42:00 E... Start Date: 01/31/24 Stop Date: 07/29/24 Status: Ordered cyclobenzaprine 5 mg oral tablet 1-2 tablet, By Mouth, 3 times a day, PRN Spasm, # 90 tablet, 2 Refills, Maintenance, 03/19/24 22:24:00 EDT, [facility] #[id number], Partial fill upon patient request if the [...] 03/05/24 13:23:00 EDT, Route to Pharmacy Electronically, [facility] #[id number], Partial fill upon patientrequest if the prescription is for a schedule II op... Start Date: 03/05/24 Status: Ordered hydrOXYzine pamoate 50 mg oral capsule 2 capsule = 100 mg, By Mouth, Daily at bedtime, # 180 capsule, 1 Refills, Maintenance, 01/29/24 14:13:00 EDT, Capsule, [facility] #[id number], 190.5, cm, 10/01/23 8:42:00 EST, Height Start Date: 01/29/24 Stop Date: 07/27/24 Status: Ordered lamotrigine 200 mg oral tablet 1 tablet = 200 mg, By Mouth, 2 times a day, for 90 days, # 180 tablet, 1 Refills, Hard Stop 07/27/24 14:14:00 EDT, 01/29/24 14:14:00 EDT, Tablet, [facility] #[id number], Partial fill upon patient request if the prescription is for a schedule II o... Start Date: 01/29/24 Stop Date: 07/27/24 Status: Ordered lamotrigine 200 mg oral tablet 1 tablet = 200 mg, By Mouth, 2 times a day, # 120 tablet, 1 Refills, Maintenance, 07/27/24 14:14:00EDT, Tablet, [facility] #[id number], Partial fill upon patient request if the prescription is for a schedule II opioid drug., 190.5, cm, 10/01/23... Start Date: 07/27/24 Stop Date: 11/24/24 Status: Ordered Lexapro 20 mg oral tablet 1 tablet = 20 mg, By Mouth, Daily, # 90 tablet, 1 Refills, Maintenance, 01/29/24 14:13:00 EDT, Tablet, [facility] #[id number], Partial fill upon patient request if the prescription is for a schedule II opioid drug., 190.5, cm, 10/01/23 8:42:00 ES... Start Date: 01/29/24 Stop Date: 07/27/24 Status: Ordered melatonin 5 mg oral tablet See Instructions, PRN for insomnia, 2 tablet By Mouth Daily at bedtime, # 60 tablet, 4 Refills, Maintenance, 01/31/24 14:12:00 EDT, Tablet, [facility] #[id number], 190.5, cm, 10/01/23 8:42:00 EST, Height Start Date: 01/31/24 Status: Ordered omeprazole 20 mg oral enteric coated capsule 1 capsule = 20 mg, By Mouth, 2 times a day, # 180 capsule, 2 Refills, Maintenance, 05/29/23 12:06:00 EDT, [facility] #[id number], Partial fill upon patient request if the prescription is for a schedule II opioid drug., 190.5, cm, 05/29/23 11:36:0... Start Date: 05/29/23 Status: Ordered ondansetron 4 mg oral tablet 1 tablet = 4 mg, By Mouth, Every 8 hours, PRN Nausea, # 180 tablet, 0 Refills, Maintenance, 02/03/24 21:19:00 EDT, Tablet, [facility] #[id number], Partial fill upon patient request if the prescription is for a schedule II opioid drug., 190.5, cm,... Start Date: 02/03/24 Status: Ordered pregabalin 100 mg oral capsule 1 capsule = 100 mg, By Mouth, 2 times a day, # 60 capsule, 0 Refills, Maintenance, 03/04/24 12:28:00 EDT, Capsule, [facility] #[id number], Partial fill upon patient request if the prescription is for a schedule II opioid drug., 190.5, cm, ... Start Date: 03/04/24 Status: Ordered SEROquel 25 mg oral tablet 25 mg, 1, tablet, By Mouth, 2 times a day, dose decreasee, # 180 tablet, Refills 1, Tot. Refills 1,Maintenance, 11/01/23 15:28:00 EST, Route to Pharmacy Electronically, [facility] #[id number], Partial fill upon patient request if the [...] capsule, 4 Refills, Maintenance, 01/31/24 14:09:00 EDT, [facility] #[id number], Partial fill upon patient request ifthe prescription is for a schedule II opioid drug.,... Start Date: 01/31/24 Stop Date: 06/29/24 Status: Ordered traZODone 100 mg oral tablet 100 mg, 1, tablet, By Mouth, Daily at bedtime, # 60 tablet, Refills 0, Tot. Refills 0, Maintenance,03/18/24 7:26:00 EDT, Route to Pharmacy Electronically, [facility] #[id number], 190.5, cm, 10/01/23 8:42:00 EST, Height Start Date: 03/18/24 Stop Date: 05/17/24 Status: Ordered Vitamin D3 1000 intl units oral capsule 1 capsule = 25 mcg, By Mouth, Daily, # 90 capsule, 3 Refills, Maintenance, 09/26/23 8:16:00 EST, Capsule, [facility] #[id number], Partial fill upon patient request if the [...] Most recent to oldest [Reference Range]: 1 Blood Pressure [90-138/55-84 mm Hg] 127/ 89mm Hg (02/13/24 3:43 PM) Social History Social History Type Response Tobacco Total pack years: 3. Sex Patient Care team information Care Team Personnel Name: Carlos Glasgow MD Position: [facility] Physician - Primary Care Member Role: PCP Address: Address: [address] [place] [id number] Name: Sarah Sheth [place] Position: [facility] RN Member Role: Primary Care Nurse Name: Verenice Holt Position: [facility] RN Member Role: Primary Care Nurse Name: Margarita Lenz RN Position: [facility] RN Member Role: Primary Care Nurse Name: Lakshmi Michelle RN Position: [facility] RN Member Role: Primary Care Nurse Care Team Related Persons Name: JEZ COLEMAN Address: home [address] [place] [address]
--- OUTSIDE RECORDS SUMMARY | 2024-04-30 06:38 | XMS_ITS | Continuity of Care Document ---
Author Organization [facility] Address [address] [place] [address]- Care Team Providers Care Healthcare Receptionist Name Role Phone Carlos Glasgow MD Primary Care Physician [place] [facility] [place] 01/26/23 [facility] [address] [place], [place] [address] Attending Physician: Carlos Glasgow MD Allergies, Adverse [...] tetanus/diphtheria/pertussis, acel(Tdap) 07/19/11 Recorded 1Result Comment: [facility] [id number] Medications Aller-Chlor 4 mg oral tablet 1 tablet = 4 mg, By Mouth, 2 times a day, TAKE 1 TABLET BY MOUTH TWICE DAILY, # 180 tablet, 1 Refills, Maintenance, 01/19/23 14:07:00 EST, [facility] #[id number], 190.5, cm, 11/06/22 9:34:00 EST, Height Start Date: 01/19/23 Status: Ordered Ativan 1 mg oral tablet 1 tablet = 1 mg, By Mouth, Daily, PRN panic only, # 10 tablet, 4 Refills, Maintenance, 01/25/23 10:18:00 EST, Tablet, [facility] #[id number], Partial fill upon patient request if the [...] Replace Required Details, Route to Pharmacy Electronically, [facility]... Start Date: 09/26/22 Status: Ordered baclofen 20 mg oral tablet 20 mg, 1, tablet, By Mouth, 3 times a day, # 270 tablet, Refills 2, Tot. Refills 2, Maintenance, 06/28/22 10:10:00 EDT, Route to Pharmacy Electronically, [facility] #[id number], Partial fill upon patient request if the prescription is for a sched... Start Date: 06/28/22 Status: Ordered bisacodyl 5 mg oral delayed release tablet 2 tablet = 10 mg, By Mouth, Daily, # 180 tablet, 3 Refills, Maintenance, 06/28/22 10:09:00 EDT, EC Tablet, [facility] #[id number], Partial fill upon patient request if the prescription is for a schedule II opioid drug., 190.5, cm, 06/28/22 9:08:0... Start Date: 06/28/22 Status: Ordered busPIRone 30 mg oral tablet 1 tablet = 30 mg, By Mouth, 3 times a day, # 270 tablet, 1 Refills, Maintenance, 01/25/23 10:15:00 EST, [facility] #[id number], Partial fill upon patient request if the prescription is for a schedule II opioid drug., 190.5, cm, 11/06/22 9:34:00 E... Start Date: 01/25/23 Stop Date: 07/24/23 Status: Ordered hydrochlorothiazide 25 mg oral tablet 25 mg, 1, tablet, By Mouth, Daily, # 90 tablet, Refills 1, Tot. Refills 1, Maintenance, 01/18/23 12:33:00 EST, Route to Pharmacy Electronically, [facility] #[id number], Partial fill upon patientrequest if the prescription is for a schedule II op... Start Date: 01/18/23 Status: Ordered hydrOXYzine pamoate 50 mg oral capsule 2 capsule = 100 mg, By Mouth, Daily at bedtime, # 180 capsule, 1 Refills, Maintenance, 01/25/23 10:16:00 EST, Capsule, [facility] #[id number], 190.5, cm, 11/06/22 9:34:00 EST, Height Start Date: 01/25/23 Stop Date: 07/24/23 Status: Ordered lamotrigine 200 mg oral tablet 1 tablet = 200 mg, By Mouth, 2 times a day, # 180 tablet, 1 Refills, Maintenance, 01/25/23 10:17:00EST, Tablet, [facility] #[id number], Partial fill upon patient request if the prescription is for a schedule II opioid drug., 190.5, cm, 11/06/22... Start Date: 01/25/23 Stop Date: 07/24/23 Status: Ordered Lexapro 20 mg oral tablet 1 tablet = 20 mg, By Mouth, Daily, # 90 tablet, 1 Refills, Maintenance, 01/25/23 10:14:00 EST, Tablet, [facility] #[id number], Partial fill upon patient request if the prescription is for a schedule II opioid drug., 190.5, cm, 11/06/22 9:34:00 ES... Start Date: 01/25/23 Stop Date: 07/24/23 Status: Ordered melatonin 5 mg oral tablet See Instructions, PRN for insomnia, 2 tablet By Mouth Daily at bedtime, # 60 tablet, 4 Refills, Maintenance, 01/25/23 10:19:00 EST, Tablet, [facility] #[id number], 190.5, cm, 11/06/22 9:34:00 EST, Height Start Date: 01/25/23 Status: Ordered omeprazole 20 mg oral enteric coated capsule 1 capsule = 20 mg, By Mouth, 2 times a day, # 180 capsule, 2 Refills, Maintenance, 09/26/22 12:26:00 EST, [facility] #[id number], Partial fill upon patient request if the prescription is for a schedule II opioid drug., 190.5, cm, 09/26/22 11:38:0... Start Date: 09/26/22 Status: Ordered ondansetron 4 mg oral tablet 1 tablet = 4 mg, By Mouth, Every 8 hours, PRN Nausea, # 180 tablet, 0 Refills, Maintenance, 06/28/22 10:10:00 EDT, Tablet, [facility] #[id number], Partial fill upon patient request if the [...] 02/24/23 10:12:00 EDT, 09/27/22 10:12:00 EST, Capsule, [facility] #[id number], 190.5, cm, 09/26/22 11:38:00 EST, Height Start Date: 09/27/22 Stop Date: 02/24/23 Status: Ordered SEROquel 50 mg oral tablet 1 tablet = 50 mg, By Mouth, 3 times a day, # 270 tablet, 1 Refills, Maintenance, 01/25/23 10:19:00 EST, Tablet, [facility] #[id number], Partial fill upon patient request if the [...] 09/26/22 12:18:00 EST, Route to Pharmacy Electronically, [facility] #[id number], Partial fill upon patient request if the prescription is for a schedul... Start Date: 09/26/22 Status: Ordered traZODone 100 mg oral tablet 100 mg, 1, tablet, By Mouth, Daily at bedtime, # 30 tablet, Refills 4, Tot. Refills 4, Maintenance,09/27/22 10:16:00 EST, Route to Pharmacy Electronically, [facility] #[id number], 190.5, cm, 09/26/22 11:38:00 EST, Height Start Date: 09/27/22 Stop Date: 02/24/23 Status: Ordered Vitamin D3 1000 intl units oral capsule 1 capsule = 25 mcg, By Mouth, Daily, # 90 capsule, 3 Refills, Maintenance, 06/28/22 10:10:00 EDT, Capsule, [facility] #[id number], Partial fill upon patient request if the [...] Care Team Personnel Name: Yosvany Ardon Position: [facility] Cardio[place]Pulm Mgr [place] Member Role: Primary Care Nurse Name: Carlos Glasgow MD Position: [facility] Primary Care Physician Member Role: PCP Address: Address: [address] [place] [id number] Name: Sarah Hope Position: [facility] RN Member Role: Primary Care Nurse Name: Verenice Holt Position: [facility] RN Member Role: Primary Care Nurse Name: Margarita Lenz RN Position: [facility] RN Member Role: Primary Care Nurse Name: Lakshmi Michelle RN Position: [facility] RN Member Role: Primary Care Nurse Care Team Related Persons Name: JEZ COLEMAN Address: home [address] [place] [address]
--- OUTSIDE RECORDS SUMMARY | 2024-04-30 06:38 | XMS_ITS | Continuity of Care Document ---
Author Organization [facility] Address [address] [place] [address]- Care Team Providers Care Talent Acquisition Manager Name Role Phone Carlos Glasgow MD Primary Care Physician [phone] [place] [facility] [place] [facility] [address] [place], [place] [address] Encounter Diagnosis Stool incontinence(Discharge Diagnosis) - 06/28/22 Chronic back pain(Discharge Diagnosis) - 06/28/22 Lung nodules, f/u due approx 12/11(Discharge Diagnosis) - 06/28/22 Anxiety(Discharge Diagnosis) - 06/28/22 Erectile dysfunction(Discharge Diagnosis) - 06/28/22 Hypertension(Discharge Diagnosis) - 06/28/22 Attending Physician: Carlos Glasgow MD Allergies, Adverse [...] Doug rded tetanus/diphtheria/pertussis, acel(Tdap) 07/19/11 Recorded Medications baclofen 20 mg oral tablet 20 mg, 1, tablet, By Mouth, 3 times a day, # 270 tablet, Refills 2, Tot. Refills 2, Maintenance, 06/28/22 10:10:00 EDT, Route to Pharmacy Electronically, [facility] #[id number], Partial fill upon patient request if the prescription is for a sched... Start Date: 06/28/22 Status: Ordered bisacodyl 5 mg oral delayed release tablet 2 tablet = 10 mg, By Mouth, Daily, # 180 tablet, 3 Refills, Maintenance, 06/28/22 10:09:00 EDT, EC Tablet, [facility] #[id number], Partial fill upon patient request if the prescription is for a schedule II opioid drug., 190.5, cm, 06/28/22 9:08:0... Start Date: 06/28/22 Status: Ordered gabapentin 600 mg oral tablet 1 tablet = 600 mg, By Mouth, 3 times a day, # 270 tablet, 2 Refills, Maintenance, 06/28/22 10:10:00EDT, Tablet, [facility] #[id number], Partial fill upon patient request if the prescription is for a schedule II opioid drug., 190.5, cm, 06/28/22... Start Date: 06/28/22 Status: Ordered hydrochlorothiazide 25 mg oral tablet 25 mg, 1, tablet, By Mouth, Daily, # 90 tablet, Refills 0, Maintenance, 05/07/20 10:47:00 EDT Start Date: 05/07/20 Status: Ordered omeprazole 20 mg oral delayed [...] 0 Refills, Maintenance, 06/28/22 10:10:00 EDT, Tablet, [facility] #[id number], Partial fill upon patient request if the prescription is for a schedule II opioid drug., 190.5, cm,... Start Date: 06/28/22 Status: Ordered sildenafil 100 mg oral tablet 0.5 - 1 tablet, By Mouth, Daily, PRN erectile dysfunction, PATIENT USING COUPON NOT INSURANCE, # 30 tablet, 0 Refills, Maintenance, 06/28/22 10:08:00 EDT, Tablet, [facility] #[id number], Partial fill upon patient request if the prescription is f... Start Date: 06/28/22 Status: Ordered Vitamin D3 1000 intl units oral capsule 1 capsule = 25 mcg, By Mouth, Daily, # 90 capsule, 3 Refills, Maintenance, 06/28/22 10:10:00 EDT, Capsule, [facility] #[id number], Partial fill upon patient request if the [...] without psychotic features(Confirmed) Active Fatty liver(Confirmed) Active Diagnosis Diagnosis Type Effective Dates Health Status Clinical Service Informant Chronic back pain Discharge Diagnosis 06/28/22 Stool incontinence Discharge Diagnosis 06/28/22 Lung nodules, f/u due approx 12/11 Discharge Diagnosis 06/28/22 Non-Specified Anxiety Discharge Diagnosis 06/28/22 Erectile dysfunction Discharge Diagnosis 06/28/22 Hypertension Discharge Diagnosis 06/28/22 Procedures Procedure Date Related Diagnosis Body Site Status Nephrectomy, partial, d/t RCC 2018 Completed Excision of lipoma, multiple 03/10/15 Completed Operation on lumbar spine 2012 Completed Operative procedure on lower leg, tibial rodding 2007 Completed Vasectomy Completed Vital Signs Most recent to oldest [Reference Range]: 1 Height 190.50 cm (06/28/22 9:08 AM) Weight 125.9 kg (06/28/22 9:08 AM) Oxygen Saturation [94-100 %] 97 % (06/28/22 9:08 AM) Pulse Rate [55-90 bpm] 93 bpm *H* (06/28/22 9:08 AM) Body Mass Index [18.5-24.99] 34.69 *>HHI* (06/28/22 9:08 AM) Blood Pressure [90-138/55-84 mm Hg] 134/ 90mm Hg (06/28/22 9:08 AM) Blood pressure sites Arm, left (06/28/22 9:08 AM) Social History Social History Type Response Tobacco Total pack years: 3. Sex
--- OUTSIDE RECORDS SUMMARY | 2024-04-30 06:38 | XMS_ITS | Continuity of Care Document ---
Author Organization 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 [address] [place] [address]- Encounter Diagnosis Umbilical hernia(Discharge Diagnosis) - 09/29/22 Right leg pain(Discharge Diagnosis) - 09/29/22 Chronic back pain(Discharge Diagnosis) - 09/29/22 Attending Physician: Carlos Glasgow MD Allergies, Adverse [...] ecorded tetanus/diphtheria/pertussis, acel(Tdap) 07/19/11 Recorded 1Result Comment: [facility] [id number] Medications Ativan 1 mg oral tablet 1 tablet = 1 mg, By Mouth, Daily, PRN panic only, # 10 tablet, 4 Refills, Maintenance, 09/27/22 10:13:00 EST, Tablet, [facility][id number], Partial fill upon patient request if the [...] Replace Required Details, Route to Pharmacy Electronically, [facility]... Start Date: 09/26/22 Status: Ordered baclofen 20 mg oral tablet 20 mg, 1, tablet, By Mouth, 3 times a day, # 270 tablet, Refills 2, Tot. Refills 2, Maintenance, 06/28/22 10:10:00 EDT, Route to Pharmacy Electronically, [facility] #[id number], Partial fill upon patient request if the prescription is for a sched... Start Date: 06/28/22 Status: Ordered bisacodyl 5 mg oral delayed release tablet 2 tablet = 10 mg, By Mouth, Daily, # 180 tablet, 3 Refills, Maintenance, 06/28/22 10:09:00 EDT, EC Tablet, [facility] #[id number], Partial fill upon patient request if the prescription is for a schedule II opioid drug., 190.5, cm, 06/28/22 9:08:0... Start Date: 06/28/22 Status: Ordered busPIRone 30 mg oral tablet 1 tablet = 30 mg, By Mouth, 3 times a day, # 90 tablet, 4 Refills, Maintenance, 09/27/22 10:15:00 EST, [facility][id number], Partial fill upon patient request if the [...] 4 Refills, Maintenance, 09/27/22 10:12:00 EST, Capsule, [facility] #[id number], 190.5, cm, 09/26/22 11:38:00 EST, Height Start Date: 09/27/22 Stop Date: 02/24/23 Status: Ordered lamotrigine 200 mg oral tablet 1 tablet = 200 mg, By Mouth, 2 times a day, # 60 tablet, 4 Refills, Maintenance, 09/27/22 10:15:00 EST, Tablet, [facility] #[id number], Partial fill upon patient request if the prescription is for a schedule II opioid drug., 190.5, cm, 09/26/22 1... Start Date: 09/27/22 Stop Date: 02/24/23 Status: Ordered Lexapro 10 mg oral tablet 1 tablet = 10 mg, By Mouth, Daily, take 1/2 tab for 7 days then increase to full tab, # 30 tablet, 4 Refills, Maintenance, 09/27/22 10:14:00 EST, Tablet, [facility] #[id number], Partial fill upon patient request if the prescription is for a sched... Start Date: 09/27/22 Stop Date: 02/24/23 Status: Ordered melatonin 5 mg oral tablet See Instructions, PRN for insomnia, 2 tablet By Mouth Daily at bedtime, # 60 tablet, 4 Refills, Maintenance, 09/27/22 10:16:00 EST, Tablet, [facility] #[id number], 190.5, cm, 09/26/22 11:38:00 EST, Height Start Date: 09/27/22 Status: Ordered omeprazole 20 mg oral enteric coated capsule 1 capsule = 20 mg, By Mouth, 2 times a day, # 180 capsule, 2 Refills, Maintenance, 09/26/22 12:26:00 EST, [facility] #[id number], Partial fill upon patient request if the prescription is for a schedule II opioid drug., 190.5, cm, 09/26/22 11:38:0... Start Date: 09/26/22 Status: Ordered ondansetron 4 mg oral tablet 1 tablet = 4 mg, By Mouth, Every 8 hours, PRN Nausea, # 180 tablet, 0 Refills, Maintenance, 06/28/22 10:10:00 EDT, Tablet, [facility] #[id number], Partial fill upon patient request if the [...] 02/24/23 10:12:00 EDT, 09/27/22 10:12:00 EST, Capsule, [facility] #[id number], 190.5, cm, 09/26/22 11:38:00 EST, Height Start Date: 09/27/22 Stop Date: 02/24/23 Status: Ordered SEROquel 50 mg oral tablet 1 tablet = 50 mg, By Mouth, 3 times a day, # 90 tablet, 4 Refills, Maintenance, 09/27/22 10:15:00 EST, Tablet, [facility] #[id number], Partial fill upon patient request if the [...] 09/26/22 12:18:00 EST, Route to Pharmacy Electronically, [facility][id number], Partial fill upon patient request if the prescription is for a schedul... Start Date: 09/26/22 Status: Ordered traZODone 100 mg oral tablet 100 mg, 1, tablet, By Mouth, Daily at bedtime, # 30 tablet, Refills 4, Tot. Refills 4, Maintenance,09/27/22 10:16:00 EST, Route to Pharmacy Electronically, [facility] #[id number], 190.5, cm, 09/26/22 11:38:00 EST, Height Start Date: 09/27/22 Stop Date: 02/24/23 Status: Ordered Vitamin D3 1000 intl units oral capsule 1 capsule = 25 mcg, By Mouth, Daily, # 90 capsule, 3 Refills, Maintenance, 06/28/22 10:10:00 EDT, Capsule, [facility] #[id number], Partial fill upon patient request if the [...] Active Lung nodules Confirmed Active Obese class II Confirmed Active Colon polyp Confirmed Active Post-traumatic stress disorder Confirmed Active Severe recurrent major depression without psychotic features Confirmed Active Fatty liver Confirmed Active Diagnosis Diagnosis Type Effective Dates Health Status Cl inical Service Informant Umbilical hernia Discharge Diagnosis 09/29/22 Right leg pain Discharge Diagnosis 09/29/22 Chronic back pain Discharge Diagnosis 09/29/22 Procedures Procedure Date Related Diagnosis Body Site Status Appendectomy Completed Repair of umbilical hernia Completed Vital Signs Most recent to oldest [Reference Range]: 1 Height 190.50 cm (09/26/22 11:38 AM) Weight 128.5 kg (09/26/22 11:38 AM) Oxygen Saturation [94-100 %] 95 % (09/26/22 11:38 AM) Pulse Rate [55-90 bpm] 67 bpm (09/26/22 11:38 AM) Body Mass Index [18.5-24.99 kg/m2] 35.41 kg/m2 *>HHI* (09/26/22 11:38 AM) Blood Pressure [90-138/55-84 mm Hg] 124/ 74mm Hg (09/26/22 11:38 AM) Blood pressure sites Arm, right (09/26/22 11:38 AM) Social History Social History Type Response Tobacco Total pack years: 3. Sex Note * Sarah Alvarado: PERFORM, SIGN, VERIFY Event Display: Patient Education/Instruction Authored Date: [id number] [facility] *[facility] Clinical Summary Name JANESSA ACUNA Age 51 Years 1970 PCP Carlos Glasgow MD PCP Visit Date 09/26/2022 10:56:00 Patient Instructions Continue your current medications for the next 2 weeks Then, go down to baclofen 20mg twice daily for 1 week Then start the baclofen 10mg tabs; 1 tab three times daily for 1 week, then 1 tab twice daily for aweek Then start tizanidine once you're off the baclofen Additional Instructions: Scheduled Appointments?? Future Appointments ?*[facility] [address]??[place],??[place],??[address] ?Phone:??--?Fax:??-- ?Appt. Date:??09/27/2022?10:00 AM ?Scheduled Provider:??Sarah Law Follow-Up Instructions ?? Diagnosis Medications: Please continue your medications until treatment is completed or stopped by your provider. Discuss any questions related to medications with your provider. New Medications [facility] #[id number], [address] [place] [address] [phone], [phone] Tizanidine (tiZANidine 4 mg oral tablet) 1 tab(s) Oral 3 times a day. Refills: 1. Next Dose: Medications to Continue Taking That Have Changed [facility] #[id number], [address] [place] [address] [phone], [phone] - Baclofen (baclofen 10 mg oral tablet) 1 tablet By Mouth 3 times a day for 7 days, then 1 tab BID x7d. Refills: 0. Next Dose: - Omeprazole (omeprazole 20 mg oral enteric coated capsule) 1 capsule Oral twice a day. Refills: 2. Next Dose: These medications were not printed or sent to your pharmacy - Baclofen (baclofen 20 mg oral tablet) 1 tab(s) Oral 3 times a day. Refills: 2. Next Dose: Medications to Continue with No Changes These medications were not printed or sent to your pharmacy Bisacodyl (bisacodyl 5 mg oral delayed release tablet) 2 tab(s) Oral Daily. Refills: 3. Next Dose: BusPIRone (busPIRone 30 mg oral tablet) 1 tab(s) Oral 3 times a day for 30 Days. Refills: 4. Next Dose: Cholecalciferol (Vitamin D3 1000 intl units oral capsule) 1 capsule Oral Daily. Refills: 3. Next Dose: Desvenlafaxine (desvenlafaxine (as base) 50 mg oral tablet, extended release) 1 tab(s) Oral Daily. Next Dose: Escitalopram (Lexapro 10 mg oral tablet) 1 tab(s) Oral Daily for 30 Days. take 1/2 tab for 7 days then increase to full tab. Refills: 4. Next Dose: Gabapentin (gabapentin 600 mg oral tablet) 1 tab(s) Oral 3 times a day. Refills: 2. Next Dose: Hydrochlorothiazide (hydrochlorothiazide 25 mg oral tablet) 1 tab(s) Oral Daily. Next Dose: HydrOXYzine (hydrOXYzine pamoate 50 mg oral capsule) 1-2 capsules Oral Daily at Bedtime for 30 Days. Refills: 4. Next Dose: Lamotrigine (lamotrigine 200 mg oral tablet) 1 tab(s) Oral twice a day for 30 Days. Refills: 4. Next Dose: Lorazepam (Ativan 1 mg oral tablet) 1 tab(s) Oral Daily as needed panic only for 30 Days. Refills: 4. Next Dose: Melatonin (melatonin 5 mg oral tablet) 2 tablet By Mouth Daily at bedtime; as needed for insomnia. Refills: 4. Next Dose: Ondansetron (ondansetron 4 mg oral tablet) 1 tab(s) Oral every 8 hours as needed Nausea. Refills: 0. Next Dose: Quetiapine (SEROquel 50 mg oral tablet) 1 tab(s) Oral 3 times a day for 30 Days. Refills: 4. Next Dose: Sildenafil (sildenafil 100 mg oral tablet) 0.5 - 1 tablet Oral Daily as needed erectile dysfunction. PATIENT USING COUPON NOT INSURANCE. Refills: 0. Next Dose: Temazepam (Restoril 7.5 mg oral capsule) 1 capsule Oral Daily at Bedtime as needed for sleep for 30Days. Refills: 4. Next Dose: Trazodone (traZODone 100 mg oral tablet) 1 tab(s) Oral Daily at Bedtime for 30 Days. Refills: 4. Next Dose: Allergy Info:?? amLODIPine; NSAIDs Medications Given This Visit Medication Dose Route influenza virus vaccine, inactivated (influenza virus, inactivated vacc) 0.5 mL Intramuscular Future Orders ?No future orders Vital Signs Height 190.50 cm Weight 128.5 kg BMI 35.41 kg/m2 Blood Pressure 124 mm Hg/74 mm Hg Temperature Pulse Rate 67 bpm Respiratory Rate 02 Sat Mode of Delivery 95 %/ You can now view a summary of your hospital visit from the comfort of your home through a free online portal called [employer]. [employer] is a website that allows you to securely view your medical information including discharge summary, medications and follow-up visits. ??You can alsosend a secure electronic message to your doctor???s office to request appointments, renew medications or just ask a question. You can enroll at [email or web address] or register during your next office visit. [...] primary care provider, you may find a [facility] provider by calling [facility] [employer] at [phone]. For information about the plan of care [...] Care Team Personnel Name: Yosvany Ardon Position: [facility] Cardio/Pulm Mgr ([facility]) Member Role: Primary Care Nurse Name: Carlos Glasgow MD Position: [facility] Primary Care Physician Member Role: PCP Address: Address: [address] [place] [address] Name: Sarah Hope Position: [facility] RN Member Role: Primary Care Nurse Name: Verenice Holt Position: [facility] RN Member Role: Primary Care Nurse Name: Margarita Lenz RN Position: [facility] RN Member Role: Primary Care Nurse Name: Lakshmi Michelle RN Position: [facility] RN Member Role: Primary Care Nurse Care Team Related Persons Name: JEZ COLEMAN Address: home [address] [place] [address]
--- OUTSIDE RECORDS SUMMARY | 2024-04-30 06:38 | XMS_ITS | Continuity of Care Document ---
Author Organization [facility] Address [address] [place] [address]- Care Team Providers Care Film Examiner Name Role Phone Carlos Glasgow MD Primary Care Physician Encounter [facility] Date(s): 10/03/23 - 01/31/24 [facility] [address] [place], [place] [address] Attending Physician: Carlos Glasgow MD Allergies, Adverse [...] mRNA-1273 vaccine 03/20/21 R ecorded 1Result Comment: [facility] 57592-116-29 vaccine given below Flu 2Result Comment: [facility] 55763-547-20 vaccine given above Tdap 3Result Comment: [facility] 68208-736-06 Medications Aller-Chlor 4 mg oral tablet 1 tablet = 4 mg, By Mouth, 2 times a day, TAKE 1 TABLET BY MOUTH TWICE DAILY, # 180 tablet, 1 Refills, Maintenance, 05/29/23 12:06:00 EDT, [facility] #[id number], 190.5, cm, 05/29/23 11:36:00 EDT, Height Start Date: 05/29/23 Status: Ordered Ativan 1 mg oral tablet 1 tablet = 1 mg, By Mouth, Daily, PRN panic only, for 30 days, # 10 tablet, 3 Refills, Hard Stop 04/22/24 7:30:00 EDT, 12/24/23 7:30:00 EST, Tablet, [facility] #[id number], Partial fill upon patient request if the prescription is for a schedule I... Start Date: 12/24/23 Stop Date: 04/22/24 Status: Ordered Ativan 1 mg oral tablet 1 tablet = 1 mg, By Mouth, Daily, PRN panic only, # 10 tablet, 3 Refills, Maintenance, 04/22/24 7:30:00 EDT, Tablet, [facility] #[id number], Partial fill upon patient request if the prescriptionis for a schedule II opioid drug., 190.5, cm, 10/01... Start Date: 04/22/24 Stop Date: 08/20/24 Status: Ordered bisacodyl 5 mg oral delayed release tablet 2 tablet = 10 mg, By Mouth, Daily, # 180 tablet, 3 Refills, Maintenance, 06/28/22 10:09:00 EDT, EC Tablet, [facility] #[id number], Partial fill upon patient request if the prescription is for a schedule II opioid drug., 190.5, cm, 06/28/22 9:08:0... Start Date: 06/28/22 Status: Ordered busPIRone 30 mg oral tablet 1 tablet = 30 mg, By Mouth, 3 times a day, # 270 tablet, 1 Refills, Maintenance, 01/31/24 14:11:00 EDT, [facility] #[id number], Partial fill upon patient request if the prescription is for a schedule II opioid drug., 190.5, cm, 10/01/23 8:42:00 E... Start Date: 01/31/24 Stop Date: 07/29/24 Status: Ordered cyclobenzaprine 5 mg oral tablet 1-2 tablet, By Mouth, 3 times a day, PRN Spasm, # 90 tablet, 2 Refills, Maintenance, 10/07/23 13:41:00 EST, [facility] #[id number], Partial fill upon patient request if the [...] 05/29/23 12:07:00 EDT, Route to Pharmacy Electronically, [facility] #[id number], Partial fill upon patientrequest if the prescription is for a schedule II op... Start Date: 05/29/23 Status: Ordered hydrOXYzine pamoate 50 mg oral capsule 2 capsule = 100 mg, By Mouth, Daily at bedtime, # 180 capsule, 1 Refills, Maintenance, 01/29/24 14:13:00 EDT, Capsule, [facility] #[id number], 190.5, cm, 10/01/23 8:42:00 EST, Height Start Date: 01/29/24 Stop Date: 07/27/24 Status: Ordered lamotrigine 200 mg oral tablet 1 tablet = 200 mg, By Mouth, 2 times a day, # 180 tablet, 1 Refills, Maintenance, 01/29/24 14:14:00EDT, Tablet, [facility] #[id number], Partial fill upon patient request if the prescription is for a schedule II opioid drug., 190.5, cm, 10/01/23... Start Date: 01/29/24 Stop Date: 07/27/24 Status: Ordered Lexapro 20 mg oral tablet 1 tablet = 20 mg, By Mouth, Daily, # 90 tablet, 1 Refills, Maintenance, 01/29/24 14:13:00 EDT, Tablet, [facility] #[id number], Partial fill upon patient request if the prescription is for a schedule II opioid drug., 190.5, cm, 10/01/23 8:42:00 ES... Start Date: 01/29/24 Stop Date: 07/27/24 Status: Ordered melatonin 5 mg oral tablet See Instructions, PRN for insomnia, 2 tablet By Mouth Daily at bedtime, # 60 tablet, 4 Refills, Maintenance, 01/31/24 14:12:00 EDT, Tablet, [facility] #[id number], 190.5, cm, 10/01/23 8:42:00 EST, Height Start Date: 01/31/24 Status: Ordered omeprazole 20 mg oral enteric coated capsule 1 capsule = 20 mg, By Mouth, 2 times a day, # 180 capsule, 2 Refills, Maintenance, 05/29/23 12:06:00 EDT, [facility] #[id number], Partial fill upon patient request if the prescription is for a schedule II opioid drug., 190.5, cm, 05/29/23 11:36:0... Start Date: 05/29/23 Status: Ordered ondansetron 4 mg oral tablet 1 tablet = 4 mg, By Mouth, Every 8 hours, PRN Nausea, # 180 tablet, 0 Refills, Maintenance, 08/25/23 21:28:00 EDT, Tablet, [facility] #[id number], Partial fill upon patient request if the prescription is for a schedule II opioid drug., 190.5, cm,... Start Date: 08/25/23 Status: Ordered pregabalin 200 mg oral capsule 1 capsule = 200 mg, By Mouth, 2 times a day, # 180 capsule, 1 Refills, Maintenance, 01/01/24 16:05:00 EST, Capsule, [facility] #[id number], Partial fill upon patient request if the prescription is for a schedule II opioid drug., 190.5, cm, ... Start Date: 01/01/24 Status: Ordered SEROquel 25 mg oral tablet 25 mg, 1, tablet, By Mouth, 2 times a day, dose decreasee, # 180 tablet, Refills 1, Tot. Refills 1,Maintenance, 11/01/23 15:28:00 EST, Route to Pharmacy Electronically, [facility] #[id number], Partial fill upon patient request if the [...] capsule, 4 Refills, Maintenance, 01/31/24 14:09:00 EDT, [facility] #[id number], Partial fill upon patient request ifthe prescription is for a schedule II opioid drug.,... Start Date: 01/31/24 Stop Date: 06/29/24 Status: Ordered traZODone 100 mg oral tablet 100 mg, 1, tablet, By Mouth, Daily at bedtime, # 60 tablet, Refills 2, Tot. Refills 2, Maintenance,09/12/23 14:58:00 EDT, Route to Pharmacy Electronically, [facility] #[id number], 190.5, cm, 05/29/23 11:36:00 EDT, Height Start Date: 09/12/23 Stop Date: 03/10/24 Status: Ordered Vitamin D3 1000 intl units oral capsule 1 capsule = 25 mcg, By Mouth, Daily, # 90 capsule, 3 Refills, Maintenance, 09/26/23 8:16:00 EST, Capsule, [facility] #[id number], Partial fill upon patient request if the [...] Team Personnel Name: Carlos Glasgow MD Position: [facility] Physician - Primary Care Member Role: PCP Address: Address: [address] [place] [address] Name: Sarah Sheth [place] Position: [facility] RN Member Role: Primary Care Nurse Name: Verenice Holt Position: [facility] RN Member Role: Primary Care Nurse Name: Margarita Lenz RN Position: [facility] RN Member Role: Primary Care Nurse Name: Lakshmi Michelle RN Position: [facility] RN Member Role: Primary Care Nurse Care Team Related Persons Name: JEZ COLEMAN Address: home [address] [address] [place] [address]
--- OUTSIDE RECORDS SUMMARY | 2024-04-30 06:38 | XMS_ITS | Continuity of Care Document ---
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 Encounter Diagnosis Right hip pain(Discharge Diagnosis) - 01/01/24 Lightheadedness(Discharge Diagnosis) - 01/01/24 Chronic back pain(Discharge Diagnosis) - 01/01/24 Shoulder pain(Discharge Diagnosis) - 01/01/24 Cheek swelling(Discharge Diagnosis) - 01/01/24 Attending Physician: Carlos Glasgow MD Allergies, Adverse [...] mRNA-1273 vaccine 03/20/21 R ecorded 1Result Comment: [facility] 93654-389-62 vaccine given below Flu 2Result Comment: [facility] 58996-671-81 vaccine given above Tdap 3Result Comment: [facility] 31922-397-15 Medications Aller-Chlor 4 mg oral tablet 1 tablet = 4 mg, By Mouth, 2 times a day, TAKE 1 TABLET BY MOUTH TWICE DAILY, # 180 tablet, 1 Refills, Maintenance, 05/29/23 12:06:00 EDT, [facility] #[id number], 190.5, cm, 05/29/23 11:36:00 EDT, Height Start Date: 05/29/23 Status: Ordered Ativan 1 mg oral tablet 1 tablet = 1 mg, By Mouth, Daily, PRN panic only, # 10 tablet, 3 Refills, Maintenance, 12/24/23 7:30:00 EST, Tablet, [facility] #[id number], Partial fill upon patient request if the prescriptionis for a schedule II opioid drug., 190.5, cm, 10/01... Start Date: 12/24/23 Stop Date: 04/22/24 Status: Ordered bisacodyl 5 mg oral delayed release tablet 2 tablet = 10 mg, By Mouth, Daily, # 180 tablet, 3 Refills, Maintenance, 06/28/22 10:09:00 EDT, EC Tablet, [facility] #[id number], Partial fill upon patient request if the prescription is for a schedule II opioid drug., 190.5, cm, 06/28/22 9:08:0... Start Date: 06/28/22 Status: Ordered busPIRone 30 mg oral tablet 1 tablet = 30 mg, By Mouth, 3 times a day, # 270 tablet, 1 Refills, Maintenance, 08/02/23 14:21:00 EDT, [facility] #[id number], Partial fill upon patient request if the prescription is for a schedule II opioid drug., 190.5, cm, 05/29/23 11:36:00... Start Date: 08/02/23 Stop Date: 01/29/24 Status: Ordered cyclobenzaprine 5 mg oral tablet 1-2 tablet, By Mouth, 3 times a day, PRN Spasm, # 90 tablet, 2 Refills, Maintenance, 10/07/23 13:41:00 EST, [facility] #[id number], Partial fill upon patient request if the [...] 05/29/23 12:07:00 EDT, Route to Pharmacy Electronically, [facility] #[id number], Partial fill upon patientrequest if the prescription is for a schedule II op... Start Date: 05/29/23 Status: Ordered hydrOXYzine pamoate 50 mg oral capsule 2 capsule = 100 mg, By Mouth, Daily at bedtime, # 180 capsule, 1 Refills, Maintenance, 01/29/24 14:13:00 EDT, Capsule, [facility] #[id number], 190.5, cm, 10/01/23 8:42:00 EST, Height Start Date: 01/29/24 Stop Date: 07/27/24 Status: Ordered hydrOXYzine pamoate 50 mg oral capsule 2 capsule = 100 mg, By Mouth, Daily at bedtime, for 90 days, # 180 capsule, 1 Refills, Hard Stop 01/29/24 14:13:00 EDT, 08/02/23 14:13:00 EDT, Capsule, [facility] #[id number], 190.5, cm, 05/29/23 11:36:00 EDT, Height Start Date: 08/02/23 Stop Date: 01/29/24 Status: Ordered lamotrigine 200 mg oral tablet 1 tablet = 200 mg, By Mouth, 2 times a day, # 180 tablet, 1 Refills, Maintenance, 01/29/24 14:14:00EDT, Tablet, [facility] #[id number], Partial fill upon patient request if the prescription is for a schedule II opioid drug., 190.5, cm, 10/01/23... Start Date: 01/29/24 Stop Date: 07/27/24 Status: Ordered lamotrigine 200 mg oral tablet 1 tablet = 200 mg, By Mouth, 2 times a day, for 90 days, # 180 tablet, 1 Refills, Hard Stop 01/29/24 14:14:00 EDT, 08/02/23 14:14:00 EDT, Tablet, [facility] #[id number], Partial fill upon patient request if the prescription is for a schedule II o... Start Date: 08/02/23 Stop Date: 01/29/24 Status: Ordered Lexapro 20 mg oral tablet 1 tablet = 20 mg, By Mouth, Daily, # 90 tablet, 1 Refills, Maintenance, 01/29/24 14:13:00 EDT, Tablet, [facility] #[id number], Partial fill upon patient request if the prescription is for a schedule II opioid drug., 190.5, cm, 10/01/23 8:42:00 ES... Start Date: 01/29/24 Stop Date: 07/27/24 Status: Ordered Lexapro 20 mg oral tablet 1 tablet = 20 mg, By Mouth, Daily, for 90 days, # 90 tablet, 1 Refills, Hard Stop 01/29/24 14:13:00EDT, 08/02/23 14:13:00 EDT, Tablet, [facility] #[id number], Partial fill upon patient request if the prescription is for a schedule II opioid drug... Start Date: 08/02/23 Stop Date: 01/29/24 Status: Ordered melatonin 5 mg oral tablet See Instructions, PRN for insomnia, 2 tablet By Mouth Daily at bedtime, # 60 tablet, 4 Refills, Maintenance, 11/01/23 15:29:00 EST, Tablet, [facility] #[id number], 190.5, cm, 10/01/23 8:42:00 EST, Height Start Date: 11/01/23 Status: Ordered omeprazole 20 mg oral enteric coated capsule 1 capsule = 20 mg, By Mouth, 2 times a day, # 180 capsule, 2 Refills, Maintenance, 05/29/23 12:06:00 EDT, [facility] #[id number], Partial fill upon patient request if the prescription is for a schedule II opioid drug., 190.5, cm, 05/29/23 11:36:0... Start Date: 05/29/23 Status: Ordered ondansetron 4 mg oral tablet 1 tablet = 4 mg, By Mouth, Every 8 hours, PRN Nausea, # 180 tablet, 0 Refills, Maintenance, 08/25/23 21:28:00 EDT, Tablet, [facility] #[id number], Partial fill upon patient request if the prescription is for a schedule II opioid drug., 190.5, cm,... Start Date: 08/25/23 Status: Ordered pregabalin 200 mg oral capsule 1 capsule = 200 mg, By Mouth, 2 times a day, # 180 capsule, 1 Refills, Maintenance, 01/01/24 16:05:00 EST, Capsule, [facility] #[id number], Partial fill upon patient request if the prescription is for a schedule II opioid drug., 190.5, cm, ... Start Date: 01/01/24 Status: Ordered SEROquel 25 mg oral tablet 25 mg, 1, tablet, By Mouth, 2 times a day, dose decreasee, # 180 tablet, Refills 1, Tot. Refills 1,Maintenance, 11/01/23 15:28:00 EST, Route to Pharmacy Electronically, [facility] #[id number], Partial fill upon patient request if the [...] capsule, 1 Refills, Maintenance, 11/21/23 14:41:00 EST, [facility] #[id number], Partial fill upon patient request ifthe prescription is for a schedule II opioid drug.,... Start Date: 11/21/23 Stop Date: 01/20/24 Status: Ordered traZODone 100 mg oral tablet 100 mg, 1, tablet, By Mouth, Daily at bedtime, # 60 tablet, Refills 2, Tot. Refills 2, Maintenance,09/12/23 14:58:00 EDT, Route to Pharmacy Electronically, [facility] #[id number], 190.5, cm, 05/29/23 11:36:00 EDT, Height Start Date: 09/12/23 Stop Date: 03/10/24 Status: Ordered Vitamin D3 1000 intl units oral capsule 1 capsule = 25 mcg, By Mouth, Daily, # 90 capsule, 3 Refills, Maintenance, 09/26/23 8:16:00 EST, Capsule, [facility] #[id number], Partial fill upon patient request if the [...] Service Informant Right hip pain Discharge Diagnosis 01/01/24 Lightheadedness Discharge Diagnosis 01/01/24 Chronic back pain Discharge Diagnosis 01/01/24 Shoulder pain Discharge Diagnosis 01/01/24 Cheek swelling Discharge Diagnosis 01/01/24 Social History Social History Type Response Tobacco Total pack years: 3. Sex Patient Care team information Care Team Personnel Name: Carlos Glasgow MD Position: [facility] Physician - Primary Care Member Role: PCP Address: Address: [address] [place] [address] Name: Sarah Sheth [place] Position: [facility] RN Member Role: Primary Care Nurse Name: Verenice Holt Position: [facility] RN Member Role: Primary Care Nurse Name: Margarita Lenz RN Position: [facility] RN Member Role: Primary Care Nurse Name: Lakshmi Michelle RN Position: [facility] RN Member Role: Primary Care Nurse Care Team Related Persons Name: JEZ COLEMAN Address: home [address] [place] [address]
--- OUTSIDE RECORDS SUMMARY | 2024-04-30 06:38 | XMS_ITS | Continuity of Care Document ---
Author Organization [facility] Address [address] [place] [address]- Care Team Providers Care Box Feeder Name Role Phone Pee SANCHEZ, Carlos Primary Care Physician Encounter [facility] Date(s): 10/07/23 - 11/06/23 [facility] [address] [place], [place] [address] Allergies, Adverse Reactions, Alerts Substance [...] mRNA-1273 vaccine 03/20/21 R ecorded 1Result Comment: [facility] 12131-641-86 vaccine given below Flu 2Result Comment: [facility] 74282-237-86 vaccine given above Tdap 3Result Comment: [facility] 30200-217-62 Medications Aller-Chlor 4 mg oral tablet 1 tablet = 4 mg, By Mouth, 2 times a day, TAKE 1 TABLET BY MOUTH TWICE DAILY, # 180 tablet, 1 Refills, Maintenance, 05/29/23 12:06:00 EDT, [facility] #[id number], 190.5, cm, 05/29/23 11:36:00 EDT, Height Start Date: 05/29/23 Status: Ordered Ativan 1 mg oral tablet 1 tablet = 1 mg, By Mouth, Daily, PRN panic only, # 10 tablet, 3 Refills, Maintenance, 12/24/23 7:30:00 EST, Tablet, [facility] #[id number], Partial fill upon patient request if the prescriptionis for a schedule II opioid drug., 190.5, cm, 10/01... Start Date: 12/24/23 Stop Date: 04/22/24 Status: Ordered Ativan 1 mg oral tablet 1 tablet = 1 mg, By Mouth, Daily, PRN panic only, for 30 days, # 10 tablet, 2 Refills, Hard Stop 12/24/23 7:30:00 EST, 09/25/23 7:30:00 EST, Tablet, [facility] #[id number], Partial fill upon patient request if the prescription is for a schedule I... Start Date: 09/25/23 Stop Date: 12/24/23 Status: Ordered bisacodyl 5 mg oral delayed release tablet 2 tablet = 10 mg, By Mouth, Daily, # 180 tablet, 3 Refills, Maintenance, 06/28/22 10:09:00 EDT, EC Tablet, [facility] #[id number], Partial fill upon patient request if the prescription is for a schedule II opioid drug., 190.5, cm, 06/28/22 9:08:0... Start Date: 06/28/22 Status: Ordered busPIRone 30 mg oral tablet 1 tablet = 30 mg, By Mouth, 3 times a day, # 270 tablet, 1 Refills, Maintenance, 08/02/23 14:21:00 EDT, [facility] #[id number], Partial fill upon patient request if the prescription is for a schedule II opioid drug., 190.5, cm, 05/29/23 11:36:00... Start Date: 08/02/23 Stop Date: 01/29/24 Status: Ordered cyclobenzaprine 5 mg oral tablet 1-2 tablet, By Mouth, 3 times a day, PRN Spasm, # 90 tablet, 2 Refills, Maintenance, 10/07/23 13:41:00 EST, [facility] #[id number], Partial fill upon patient request if the [...] 05/29/23 12:07:00 EDT, Route to Pharmacy Electronically, [facility] #[id number], Partial fill upon patientrequest if the prescription is for a schedule II op... Start Date: 05/29/23 Status: Ordered hydrOXYzine pamoate 50 mg oral capsule 2 capsule = 100 mg, By Mouth, Daily at bedtime, # 180 capsule, 1 Refills, Maintenance, 01/29/24 14:13:00 EDT, Capsule, [facility] #[id number], 190.5, cm, 10/01/23 8:42:00 EST, Height Start Date: 01/29/24 Stop Date: 07/27/24 Status: Ordered hydrOXYzine pamoate 50 mg oral capsule 2 capsule = 100 mg, By Mouth, Daily at bedtime, for 90 days, # 180 capsule, 1 Refills, Hard Stop 01/29/24 14:13:00 EDT, 08/02/23 14:13:00 EDT, Capsule, [facility] #[id number], 190.5, cm, 05/29/23 11:36:00 EDT, Height Start Date: 08/02/23 Stop Date: 01/29/24 Status: Ordered lamotrigine 200 mg oral tablet 1 tablet = 200 mg, By Mouth, 2 times a day, # 180 tablet, 1 Refills, Maintenance, 01/29/24 14:14:00EDT, Tablet, [facility] #[id number], Partial fill upon patient request if the prescription is for a schedule II opioid drug., 190.5, cm, 10/01/23... Start Date: 01/29/24 Stop Date: 07/27/24 Status: Ordered lamotrigine 200 mg oral tablet 1 tablet = 200 mg, By Mouth, 2 times a day, for 90 days, # 180 tablet, 1 Refills, Hard Stop 01/29/24 14:14:00 EDT, 08/02/23 14:14:00 EDT, Tablet, [facility] #[id number], Partial fill upon patient request if the prescription is for a schedule II o... Start Date: 08/02/23 Stop Date: 01/29/24 Status: Ordered Lexapro 20 mg oral tablet 1 tablet = 20 mg, By Mouth, Daily, # 90 tablet, 1 Refills, Maintenance, 01/29/24 14:13:00 EDT, Tablet, [facility] #[id number], Partial fill upon patient request if the prescription is for a schedule II opioid drug., 190.5, cm, 10/01/23 8:42:00 ES... Start Date: 01/29/24 Stop Date: 07/27/24 Status: Ordered Lexapro 20 mg oral tablet 1 tablet = 20 mg, By Mouth, Daily, for 90 days, # 90 tablet, 1 Refills, Hard Stop 01/29/24 14:13:00EDT, 08/02/23 14:13:00 EDT, Tablet, [facility] #[id number], Partial fill upon patient request if the prescription is for a schedule II opioid drug... Start Date: 08/02/23 Stop Date: 01/29/24 Status: Ordered melatonin 5 mg oral tablet See Instructions, PRN for insomnia, 2 tablet By Mouth Daily at bedtime, # 60 tablet, 4 Refills, Maintenance, 11/01/23 15:29:00 EST, Tablet, [facility] #[id number], 190.5, cm, 10/01/23 8:42:00 EST, Height Start Date: 11/01/23 Status: Ordered omeprazole 20 mg oral enteric coated capsule 1 capsule = 20 mg, By Mouth, 2 times a day, # 180 capsule, 2 Refills, Maintenance, 05/29/23 12:06:00 EDT, [facility] #[id number], Partial fill upon patient request if the prescription is for a schedule II opioid drug., 190.5, cm, 05/29/23 11:36:0... Start Date: 05/29/23 Status: Ordered ondansetron 4 mg oral tablet 1 tablet = 4 mg, By Mouth, Every 8 hours, PRN Nausea, # 180 tablet, 0 Refills, Maintenance, 08/25/23 21:28:00 EDT, Tablet, [facility] #[id number], Partial fill upon patient request if the prescription is for a schedule II opioid drug., 190.5, cm,... Start Date: 08/25/23 Status: Ordered pregabalin 150 mg oral capsule 1 capsule = 150 mg, By Mouth, 2 times a day, # 180 capsule, 1 Refills, Maintenance, 10/07/23 13:42:00 EST, Capsule, [facility] #[id number], Partial fill upon patient request if the prescription is for a schedule II opioid drug., 190.5, cm, ... Start Date: 10/07/23 Status: Ordered SEROquel 25 mg oral tablet 25 mg, 1, tablet, By Mouth, 2 times a day, dose decreasee, # 180 tablet, Refills 1, Tot. Refills 1,Maintenance, 11/01/23 15:28:00 EST, Route to Pharmacy Electronically, [facility] #[id number], Partial fill upon patient request if the [...] capsule, 1 Refills, Maintenance, 11/21/23 14:41:00 EST, [facility] #[id number], Partial fill upon patient request ifthe prescription is for a schedule II opioid drug.,... Start Date: 11/21/23 Stop Date: 01/20/24 Status: Ordered temazepam 7.5 mg oral capsule 1 capsule = 7.5 mg, By Mouth, Daily at bedtime, PRN as needed for sleep, for 30 days, # 30 capsule,0 Refills, Hard Stop 11/21/23 14:41:00 EST, 10/22/23 14:41:00 EST, [facility] #[id number], Partial fill upon patient request if the prescription i... Start Date: 10/22/23 Stop Date: 11/21/23 Status: Ordered traZODone 100 mg oral tablet 100 mg, 1, tablet, By Mouth, Daily at bedtime, # 60 tablet, Refills 2, Tot. Refills 2, Maintenance,09/12/23 14:58:00 EDT, Route to Pharmacy Electronically, [facility] #[id number], 190.5, cm, 05/29/23 11:36:00 EDT, Height Start Date: 09/12/23 Stop Date: 03/10/24 Status: Ordered valsartan 80 mg oral tablet 80 mg, 1, tablet, By Mouth, Daily, # 90 tablet, Refills 0, Tot. Refills 0, Maintenance, 08/28/23 22:06:00 EDT, Route to Pharmacy Electronically, [facility] #[id number], Partial fill upon patientrequest if the prescription is for a schedule II op... Start Date: 08/28/23 Status: Ordered Vitamin D3 1000 intl units oral capsule 1 capsule = 25 mcg, By Mouth, Daily, # 90 capsule, 3 Refills, Maintenance, 09/26/23 8:16:00 EST, Capsule, [facility] #[id number], Partial fill upon patient request if the [...] Team Personnel Name: Carlos Glasgow MD Position: [facility] Physician - Primary Care Member Role: PCP Address: Address: [address] [place] [address] Name: Sarah Sheth [place] Position: [facility] RN Member Role: Primary Care Nurse Name: Verenice Holt Position: [facility] RN Member Role: Primary Care Nurse Name: Margarita Lenz RN Position: [facility] RN Member Role: Primary Care Nurse Name: Lakshmi Michelle RN Position: [facility] RN Member Role: Primary Care Nurse Care Team Related Persons Name: JEZ COLEMAN Address: home [address] [place] [address]
--- OUTSIDE RECORDS SUMMARY | 2024-04-30 06:38 | XMS_ITS | Continuity of Care Document ---
Author Organization [facility] Address [address] [place] [address]- Care Team Providers Care Block Breaker Name Role Phone Carlos Glasgow MD Primary Care Physician [place] [facility] [place]/02[place]23 - 09/30/23 [facility] [address] [place], [place] [address] Attending Physician: Carlos Glasgow MD Allergies, Adverse [...] 10/14/21 R ecorded SARS-CoV-2 (COVID-19) mRNA-1273 vaccine 5/30/21 R ecorded SARS-CoV-2 (COVID-19) mRNA-1273 vaccine 03/20/21 R ecorded 1Result Comment: [facility] 18853-172-16 vaccine given below Flu 2Result Comment: [facility] 02077-955-50 vaccine given above Tdap 3Result Comment: [facility] 40431-579-10 Medications Aller-Chlor 4 mg oral tablet 1 tablet = 4 mg, By Mouth, 2 times a day, TAKE 1 TABLET BY MOUTH TWICE DAILY, # 180 tablet, 1 Refills, Maintenance, 05/29/23 12:06:00 EDT, [facility] #[id number], 190.5, cm, 05/29/23 11:36:00 EDT, Height Start Date: 05/29/23 Status: Ordered Ativan 1 mg oral tablet 1 tablet = 1 mg, By Mouth, Daily, PRN panic only, # 10 tablet, 2 Refills, Maintenance, 09/25/23 7:30:00 EST, Tablet, [facility] #[id number], Partial fill upon patient request if the prescriptionis for a schedule II opioid drug., 190.5, cm, 05/29... Start Date: 09/25/23 Stop Date: 12/24/23 Status: Ordered bisacodyl 5 mg oral delayed release tablet 2 tablet = 10 mg, By Mouth, Daily, # 180 tablet, 3 Refills, Maintenance, 06/28/22 10:09:00 EDT, EC Tablet, [facility] #[id number], Partial fill upon patient request if the prescription is for a schedule II opioid drug., 190.5, cm, 06/28/22 9:08:0... Start Date: 06/28/22 Status: Ordered busPIRone 30 mg oral tablet 1 tablet = 30 mg, By Mouth, 3 times a day, # 270 tablet, 1 Refills, Maintenance, 08/02/23 14:21:00 EDT, [facility] #[id number], Partial fill upon patient request if the prescription is for a schedule II opioid drug., 190.5, cm, 05/29/23 11:36:00... Start Date: 08/02/23 Stop Date: 01/29/24 Status: Ordered cyclobenzaprine 5 mg oral tablet 1-2 tablet, By Mouth, 3 times a day, PRN Spasm, # 90 tablet, 2 Refills, Maintenance, 05/29/23 12:07:00 EDT, [facility] #[id number], Partial fill upon patient request if the [...] 05/29/23 12:07:00 EDT, Route to Pharmacy Electronically, [facility] #[id number], Partial fill upon patientrequest if the prescription is for a schedule II op... Start Date: 05/29/23 Status: Ordered hydrOXYzine pamoate 50 mg oral capsule 2 capsule = 100 mg, By Mouth, Daily at bedtime, # 180 capsule, 1 Refills, Maintenance, 08/02/23 14:13:00 EDT, Capsule, [facility] #[id number], 190.5, cm, 05/29/23 11:36:00 EDT, Height Start Date: 08/02/23 Stop Date: 01/29/24 Status: Ordered lamotrigine 200 mg oral tablet 1 tablet = 200 mg, By Mouth, 2 times a day, # 180 tablet, 1 Refills, Maintenance, 08/02/23 14:14:00EDT, Tablet, [facility] #[id number], Partial fill upon patient request if the prescription is for a schedule II opioid drug., 190.5, cm, 05/29/23... Start Date: 08/02/23 Stop Date: 01/29/24 Status: Ordered Lexapro 20 mg oral tablet 1 tablet = 20 mg, By Mouth, Daily, # 90 tablet, 1 Refills, Maintenance, 08/02/23 14:13:00 EDT, Tablet, [facility] #[id number], Partial fill upon patient request if the prescription is for a schedule II opioid drug., 190.5, cm, 05/29/23 11:36:00 E... Start Date: 08/02/23 Stop Date: 01/29/24 Status: Ordered melatonin 5 mg oral tablet See Instructions, PRN for insomnia, 2 tablet By Mouth Daily at bedtime, # 60 tablet, 4 Refills, Maintenance, 08/02/23 14:14:00 EDT, Tablet, [facility] #[id number], 190.5, cm, 05/29/23 11:36:00 EDT, Height Start Date: 08/02/23 Status: Ordered omeprazole 20 mg oral enteric coated capsule 1 capsule = 20 mg, By Mouth, 2 times a day, # 180 capsule, 2 Refills, Maintenance, 05/29/23 12:06:00 EDT, [facility] #[id number], Partial fill upon patient request if the prescription is for a schedule II opioid drug., 190.5, cm, 05/29/23 11:36:0... Start Date: 05/29/23 Status: Ordered ondansetron 4 mg oral tablet 1 tablet = 4 mg, By Mouth, Every 8 hours, PRN Nausea, # 180 tablet, 0 Refills, Maintenance, 08/25/23 21:28:00 EDT, Tablet, [facility] #[id number], Partial fill upon patient request if the [...] 08/02/23 14:09:00 EDT, Route to Pharmacy Electronically, [facility] #[id number], Partial fill upon patient request if the [...] Maintenance,09/12/23 14:58:00 EDT, Route to Pharmacy Electronically, [facility] #[id number], 190.5, cm, 05/29/23 11:36:00 EDT, Height Start Date: 09/12/23 Stop Date: 03/10/24 Status: Ordered valsartan 80 mg oral tablet 80 mg, 1, tablet, By Mouth, Daily, # 90 tablet, Refills 0, Tot. Refills 0, Maintenance, 08/28/23 22:06:00 EDT, Route to Pharmacy Electronically, [facility] #[id number], Partial fill upon patientrequest if the prescription is for a schedule II op... Start Date: 08/28/23 Status: Ordered Vitamin D3 1000 intl units oral capsule 1 capsule = 25 mcg, By Mouth, Daily, # 90 capsule, 3 Refills, Maintenance, 09/26/23 8:16:00 EST, Capsule, [facility] #[id number], Partial fill upon patient request if the [...] Primary Care Member Role: PCP Address: Address: [address] [place] [id number] Name: Sarah Sheth [place] Position: [facility] RN Member Role: Primary Care Nurse Name: Verenice Holt Position: [facility] RN Member Role: Primary Care Nurse Name: Margarita Lenz RN Position: [facility] RN Member Role: Primary Care Nurse Name: Lakshmi Michelle RN Position: [facility] RN Member Role: Primary Care Nurse Care Team Related Persons Name: JEZ COLEMAN Address: home [address] [place] [address]
--- OUTSIDE RECORDS SUMMARY | 2024-04-30 06:38 | XMS_ITS | Continuity of Care Document ---
Author Organization [facility] Address [address] [place] [address]- Care Team Providers Care Cocoa Powder Mixer Operator Name Role Phone Carlos Glasgow MD Primary Care Physician Encounter [facility] Date(s): 06/29/22 - 07/29/22 [facility] [address] [place], [place] [address] Allergies, Adverse Reactions, Alerts Substance [...] 4 Refills, Maintenance, 07/05/22 10:38:00 EDT, Tablet, [facility] #[id number], Partial fill upon patient request if the prescription is for a schedule II opioid drug., 190.5, cm, 06/19... Start Date: 07/05/22 Stop Date: 12/02/22 Status: Ordered baclofen 20 mg oral tablet 20 mg, 1, tablet, By Mouth, 3 times a day, # 270 tablet, Refills 2, Tot. Refills 2, Maintenance, 06/28/22 10:10:00 EDT, Route to Pharmacy Electronically, [facility] #[id number], Partial fill upon patient request if the prescription is for a sched... Start Date: 06/28/22 Status: Ordered bisacodyl 5 mg oral delayed release tablet 2 tablet = 10 mg, By Mouth, Daily, # 180 tablet, 3 Refills, Maintenance, 06/28/22 10:09:00 EDT, EC Tablet, [facility] #[id number], Partial fill upon patient request if the prescription is for a schedule II opioid drug., 190.5, cm, 06/28/22 9:08:0... Start Date: 06/28/22 Status: Ordered busPIRone 30 mg oral tablet 1 tablet = 30 mg, By Mouth, 3 times a day, # 90 tablet, 4 Refills, Maintenance, 07/05/22 10:39:00 EDT, [facility] #[id number], Partial fill upon patient request if the prescription is for a schedule II opioid drug., 190.5, cm, 06/28/22 9:08:00 ED... Start Date: 07/05/22 Stop Date: 12/02/22 Status: Ordered gabapentin 600 mg oral tablet 1 tablet = 600 mg, By Mouth, 3 times a day, # 270 tablet, 2 Refills, Maintenance, 06/28/22 10:10:00EDT, Tablet, [facility] #[id number], Partial fill upon patient request if the [...] 4 Refills, Maintenance, 07/05/22 10:37:00 EDT, Capsule, [facility] #[id number], 190.5, cm, 06/28/22 9:08:00 EDT, Height Start Date: 07/05/22 Stop Date: 12/02/22 Status: Ordered lamotrigine 200 mg oral tablet 1 tablet = 200 mg, By Mouth, 2 times a day, # 60 tablet, 4 Refills, Maintenance, 07/05/22 10:39:00 EDT, Tablet, [facility] #[id number], Partial fill upon patient request if the prescription is for a schedule II opioid drug., 190.5, cm, 06/28/22 9... Start Date: 07/05/22 Stop Date: 12/02/22 Status: Ordered Lexapro 10 mg oral tablet 1 tablet = 10 mg, By Mouth, Daily, take 1/2 tab for 7 days then increase to full tab, # 30 tablet, 4 Refills, Maintenance, 07/05/22 10:42:00 EDT, Tablet, [facility] #[id number], Partial fill upon patient request if the prescription is for a sched... Start Date: 07/05/22 Stop Date: 12/02/22 Status: Ordered melatonin 5 mg oral tablet See Instructions, PRN for insomnia, 2 tablet By Mouth Daily at bedtime, # 60 tablet, 4 Refills, Maintenance, 07/05/22 10:41:00 EDT, Tablet, [facility] #[id number], 190.5, cm, 06/28/22 9:08:00 EDT, Height Start [...] 0 Refills, Maintenance, 06/28/22 10:10:00 EDT, Tablet, [facility] #[id number], Partial fill upon patient request if the prescription is for a schedule II opioid drug., 190.5, cm,... Start Date: 06/28/22 Status: Ordered Restoril 7.5 mg oral capsule 1 capsule = 7.5 mg, By Mouth, Daily at bedtime, PRN for sleep, for 30 days, # 30 capsule, 4 Refills, Acute 12/02/22 10:37:00 EST, 07/05/22 10:37:00 EDT, Capsule, [facility] #[id number], 190.5, cm, 06/28/22 9:08:00 EDT, Height Start Date: 07/05/22 Stop Date: 12/02/22 Status: Ordered SEROquel 50 mg oral tablet 1 tablet = 50 mg, By Mouth, 3 times a day, # 90 tablet, 4 Refills, Maintenance, 07/05/22 10:40:00 EDT, Tablet, [facility] #[id number], Partial fill upon patient request if the [...] Maintenance,07/05/22 10:41:00 EDT, Route to Pharmacy Electronically, [facility] #[id number], 190.5, cm, 06/28/22 9:08:00 EDT, Height Start Date: 07/05/22 Stop Date: 12/02/22 Status: Ordered Vitamin D3 1000 intl units oral capsule 1 capsule = 25 mcg, By Mouth, Daily, # 90 capsule, 3 Refills, Maintenance, 06/28/22 10:10:00 EDT, [id number], Partial fill upon patient request if the [...] Team Personnel Name: Carlos Glasgow MD Address: [address] [place] [address]
--- OUTSIDE RECORDS SUMMARY | 2024-04-30 06:39 | XMS_ITS | Continuity of Care Document ---
Author Organization [facility] Address [address] [place] [address]- Care Team Providers Care Special Education Teaching Assistant Name Role Phone Carlos Glasgow MD Primary Care Physician Encounter [facility] Date(s): 04/29/23 - 05/29/23 [facility] [address] [place], [place] [address] Allergies, Adverse Reactions, Alerts Substance [...] ecorded tetanus/diphtheria/pertussis, acel(Tdap) 07/19/11 Recorded 1Result Comment: [facility] [id number] Medications Aller-Chlor 4 mg oral tablet 1 tablet = 4 mg, By Mouth, 2 times a day, TAKE 1 TABLET BY MOUTH TWICE DAILY, # 180 tablet, 1 Refills, Maintenance, 05/29/23 12:06:00 EDT, [facility] #[id number], 190.5, cm, 05/29/23 11:36:00 EDT, Height Start Date: 05/29/23 Status: Ordered Ativan 1 mg oral tablet 1 tablet = 1 mg, By Mouth, Daily, PRN panic only, # 10 tablet, 4 Refills, Maintenance, 01/25/23 10:18:00 EST, Tablet, [facility] #[id number], Partial fill upon patient request if the prescription is for a schedule II opioid drug., 190.5, cm, 10/19... Start Date: 01/25/23 Stop Date: 06/24/23 Status: Ordered bisacodyl 5 mg oral delayed release tablet 2 tablet = 10 mg, By Mouth, Daily, # 180 tablet, 3 Refills, Maintenance, 06/28/22 10:09:00 EDT, EC Tablet, [facility] #[id number], Partial fill upon patient request if the prescription is for a schedule II opioid drug., 190.5, cm, 06/28/22 9:08:0... Start Date: 06/28/22 Status: Ordered busPIRone 30 mg oral tablet 1 tablet = 30 mg, By Mouth, 3 times a day, # 270 tablet, 1 Refills, Maintenance, 01/25/23 10:15:00 EST, [facility] #[id number], Partial fill upon patient request if the prescription is for a schedule II opioid drug., 190.5, cm, 11/06/22 9:34:00 E... Start Date: 01/25/23 Stop Date: 07/24/23 Status: Ordered cyclobenzaprine 5 mg oral tablet 1-2 tablet, By Mouth, 3 times a day, PRN Spasm, # 90 tablet, 2 Refills, Maintenance, 05/29/23 12:07:00 EDT, [facility] #[id number], Partial fill upon patient request if the prescription is for aschedule II opioid drug., 190.5, cm, 05/29/23 11:36... Start Date: 05/29/23 Status: Ordered hydrochlorothiazide 25 mg oral tablet 25 mg, 1, tablet, By Mouth, Daily, # 90 tablet, Refills 1, Tot. Refills 1, Maintenance, 05/29/23 12:07:00 EDT, Route to Pharmacy Electronically, [facility] #[id number], Partial fill upon patientrequest if the prescription is for a schedule II op... Start Date: 05/29/23 Status: Ordered hydrOXYzine pamoate 50 mg oral capsule 2 capsule = 100 mg, By Mouth, Daily at bedtime, # 180 capsule, 1 Refills, Maintenance, 01/25/23 10:16:00 EST, Capsule, [facility] #[id number], 190.5, cm, 11/06/22 9:34:00 EST, Height Start Date: 01/25/23 Stop Date: 07/24/23 Status: Ordered lamotrigine 200 mg oral tablet 1 tablet = 200 mg, By Mouth, 2 times a day, # 180 tablet, 1 Refills, Maintenance, 01/25/23 10:17:00EST, Tablet, [facility] #[id number], Partial fill upon patient request if the prescription is for a schedule II opioid drug., 190.5, cm, 11/06/22... Start Date: 01/25/23 Stop Date: 07/24/23 Status: Ordered Lexapro 20 mg oral tablet 1 tablet = 20 mg, By Mouth, Daily, # 90 tablet, 1 Refills, Maintenance, 01/25/23 10:14:00 EST, Tablet, [facility] #[id number], Partial fill upon patient request if the prescription is for a schedule II opioid drug., 190.5, cm, 11/06/22 9:34:00 ES... Start Date: 01/25/23 Stop Date: 07/24/23 Status: Ordered melatonin 5 mg oral tablet See Instructions, PRN for insomnia, 2 tablet By Mouth Daily at bedtime, # 60 tablet, 4 Refills, Maintenance, 01/25/23 10:19:00 EST, Tablet, [facility] #[id number], 190.5, cm, 11/06/22 9:34:00 EST, Height Start Date: 01/25/23 Status: Ordered omeprazole 20 mg oral enteric coated capsule 1 capsule = 20 mg, By Mouth, 2 times a day, # 180 capsule, 2 Refills, Maintenance, 05/29/23 12:06:00 EDT, [facility] #[id number], Partial fill upon patient request if the prescription is for a schedule II opioid drug., 190.5, cm, 05/29/23 11:36:0... Start Date: 05/29/23 Status: Ordered ondansetron 4 mg oral tablet 1 tablet = 4 mg, By Mouth, Every 8 hours, PRN Nausea, # 180 tablet, 0 Refills, Maintenance, 05/29/23 12:06:00 EDT, Tablet, [facility] #[id number], Partial fill upon patient request if the prescription is for a schedule II opioid drug., 190.5, cm,... Start Date: 05/29/23 Status: Ordered pregabalin 150 mg oral capsule TAKE 1 CAPSULE BY MOUTH TWICE DAILY Start Date: 02/17/23 Status: Ordered Restoril 7.5 mg oral capsule 1 capsule = 7.5 mg, By Mouth, Daily at bedtime, PRN for sleep, for 30 days, # 30 capsule, 0 Refills, Acute 06/15/23 13:58:00 EDT, 05/16/23 13:58:00 EDT, Capsule, [facility] #[id number], 190.5, cm, 11/06/22 9:34:00 EST, Height Start Date: 05/16/23 Stop Date: 06/15/23 Status: Ordered SEROquel 50 mg oral tablet 1 tablet = 50 mg, By Mouth, 3 times a day, # 270 tablet, 1 Refills, Maintenance, 01/25/23 10:19:00 EST, Tablet, [facility] #[id number], Partial fill upon patient request if the [...] Daily at bedtime, # 30 tablet, Refills 0, Tot. Refills 0, Maintenance,05/14/23 15:18:00 EDT, Route to Pharmacy Electronically, [facility] #[id number], 190.5, cm, 11/06/22 9:34:00 EST, Height Start Date: 05/14/23 Stop Date: 06/13/23 Status: Ordered valsartan 80 mg oral tablet 80 mg, 1, tablet, By Mouth, Daily, PLEASE DISREGARD PRIOR RX FOR 160MG, # 90 tablet, Refills 0,Tot. Refills 0, Maintenance, 05/29/23 12:20:00 EDT, Route to Pharmacy Electronically, [facility] #[id number], Partial fill upon patient request if... Start Date: 05/29/23 Status: Ordered Vitamin D3 1000 intl units oral capsule 1 capsule = 25 mcg, By Mouth, Daily, # 90 capsule, 3 Refills, Maintenance, 05/29/23 12:06:00 EDT, Capsule, [facility] #[id number], Partial fill upon patient request if the [...] hyperlipidemia Confirmed Active Lung nodules Confirmed Active Colon polyp Confirmed Active Post-traumatic stress disorder Confirmed Active Severe obesity (BMI 35.0-39.9) with comorbidity Confirmed Active Severe recurrent major depression without psychotic features Confirmed Active Fatty liver Confirmed Active Social History Social History Type Response Tobacco Total pack years: 3. Sex Patient Care team information Care Team Personnel Name: Yosvany Ardon Position: [facility] Cardio/Pulm Mgr ([facility]) Member Role: Primary Care Nurse Name: Carlos Glasgow MD Position: [facility] Physician - Primary Care Member Role: PCP Address: Address: [address] [place] [id number] Name: Sarah Sheth [place] Position: [facility] RN Member Role: Primary Care Nurse Name: Verenice Holt Position: [facility] RN Member Role: Primary Care Nurse Name: Margarita Lenz RN Position: [facility] RN Member Role: Primary Care Nurse Name: Lakshmi Michelle RN Position: [facility] RN Member Role: Primary Care Nurse Care Team Related Persons Name: JEZ COLEMAN Address: home [address] [facility] [facility] [address] [place] [address]
--- OUTSIDE RECORDS SUMMARY | 2024-04-30 06:39 | XMS_ITS | Continuity of Care Document ---
Author Organization [facility] Address [address] [place] [address]- Care Team Providers Care Cubing Machine Tender Name Role Phone Carlos lGasgow MD Primary Care Physician Encounter [facility] Date(s): 07/04/22 - 08/03/22 [facility] [address] [place], [place] [address] Allergies, Adverse Reactions, Alerts [...] 4 Refills, Maintenance, 07/05/22 10:38:00 EDT, Tablet, [facility] #[id number], Partial fill upon patient request if the prescription is for a schedule II opioid drug., 190.5, cm, 06/19... Start Date: 07/05/22 Stop Date: 12/02/22 Status: Ordered baclofen 20 mg oral tablet 20 mg, 1, tablet, By Mouth, 3 times a day, # 270 tablet, Refills 2, Tot. Refills 2, Maintenance, 06/28/22 10:10:00 EDT, Route to Pharmacy Electronically, [facility] #[id number], Partial fill upon patient request if the prescription is for a sched... Start Date: 06/28/22 Status: Ordered bisacodyl 5 mg oral delayed release tablet 2 tablet = 10 mg, By Mouth, Daily, # 180 tablet, 3 Refills, Maintenance, 06/28/22 10:09:00 EDT, EC Tablet, [facility] #[id number], Partial fill upon patient request if the prescription is for a schedule II opioid drug., 190.5, cm, 06/28/22 9:08:0... Start Date: 06/28/22 Status: Ordered busPIRone 30 mg oral tablet 1 tablet = 30 mg, By Mouth, 3 times a day, # 90 tablet, 4 Refills, Maintenance, 07/05/22 10:39:00 EDT, [facility] #[id number], Partial fill upon patient request if the prescription is for a schedule II opioid drug., 190.5, cm, 06/28/22 9:08:00 ED... Start Date: 07/05/22 Stop Date: 12/02/22 Status: Ordered gabapentin 600 mg oral tablet 1 tablet = 600 mg, By Mouth, 3 times a day, # 270 tablet, 2 Refills, Maintenance, 06/28/22 10:10:00EDT, Tablet, [facility] #[id number], Partial fill upon patient request if the [...] 4 Refills, Maintenance, 07/05/22 10:37:00 EDT, Capsule, [facility] #[id number], 190.5, cm, 06/28/22 9:08:00 EDT, Height Start Date: 07/05/22 Stop Date: 12/02/22 Status: Ordered lamotrigine 200 mg oral tablet 1 tablet = 200 mg, By Mouth, 2 times a day, # 60 tablet, 4 Refills, Maintenance, 07/05/22 10:39:00 EDT, Tablet, [facility] #[id number], Partial fill upon patient request if the prescription is for a schedule II opioid drug., 190.5, cm, 06/28/22 9... Start Date: 07/05/22 Stop Date: 12/02/22 Status: Ordered Lexapro 10 mg oral tablet 1 tablet = 10 mg, By Mouth, Daily, take 1/2 tab for 7 days then increase to full tab, # 30 tablet, 4 Refills, Maintenance, 07/05/22 10:42:00 EDT, Tablet, [facility] #[id number], Partial fill upon patient request if the prescription is for a sched... Start Date: 07/05/22 Stop Date: 12/02/22 Status: Ordered melatonin 5 mg oral tablet See Instructions, PRN for insomnia, 2 tablet By Mouth Daily at bedtime, # 60 tablet, 4 Refills, Maintenance, 07/05/22 10:41:00 EDT, Tablet, [facility] #[id number], 190.5, cm, 06/28/22 9:08:00 EDT, Height Start [...] 0 Refills, Maintenance, 06/28/22 10:10:00 EDT, Tablet, [facility] #[id number], Partial fill upon patient request if the prescription is for a schedule II opioid drug., 190.5, cm,... Start Date: 06/28/22 Status: Ordered Restoril 7.5 mg oral capsule 1 capsule = 7.5 mg, By Mouth, Daily at bedtime, PRN for sleep, for 30 days, # 30 capsule, 4 Refills, Acute 12/02/22 10:37:00 EST, 07/05/22 10:37:00 EDT, Capsule, [facility] #[id number], 190.5, cm, 06/28/22 9:08:00 EDT, Height Start Date: 07/05/22 Stop Date: 12/02/22 Status: Ordered SEROquel 50 mg oral tablet 1 tablet = 50 mg, By Mouth, 3 times a day, # 90 tablet, 4 Refills, Maintenance, 07/05/22 10:40:00 EDT, Tablet, [facility] #[id number], Partial fill upon patient request if the [...] Maintenance,07/05/22 10:41:00 EDT, Route to Pharmacy Electronically, [facility] #[id number], 190.5, cm, 06/28/22 9:08:00 EDT, Height Start Date: 07/05/22 Stop Date: 12/02/22 Status: Ordered Vitamin D3 1000 intl units oral capsule 1 capsule = 25 mcg, By Mouth, Daily, # 90 capsule, 3 Refills, Maintenance, 06/28/22 10:10:00 EDT, [facility]ule, [facility][id number], Partial fill upon patient request if the [...] Team Personnel Name: Carlos Glasgow MD Address: [address] [place] [address]
--- OUTSIDE RECORDS SUMMARY | 2024-04-30 06:39 | XMS_ITS | Continuity of Care Document ---
Author Organization [facility] Address [address] [place] [address]- Care Team Providers Care Network Operations Center Technician Name Role Phone Pee SANCHEZ, Carlos Primary Care Physician [phone] Encounter [facility] Date(s): 10/07/23 - 11/06/23 [facility] [address] [place], [place] [address] Allergies, Adverse Reactions, Alerts Substance Reaction Severity [...] mRNA-1273 vaccine 03/20/21 R ecorded 1Result Comment: [facility] [id number] vaccine given below Flu 2Result Comment: [facility] 53425-566-87 vaccine given above Tdap 3Result Comment: [facility] 01789-772-71 Medications Aller-Chlor 4 mg oral tablet 1 tablet = 4 mg, By Mouth, 2 times a day, TAKE 1 TABLET BY MOUTH TWICE DAILY, # 180 tablet, 1 Refills, Maintenance, 05/29/23 12:06:00 EDT, [email or web address] #[id number], 190.5, cm, 05/29/23 11:36:00 EDT, Height Start Date: 05/29/23 Status: Ordered Ativan 1 mg oral tablet 1 tablet = 1 mg, By Mouth, Daily, PRN panic only, # 10 tablet, 3 Refills, Maintenance, 12/24/23 7:30:00 EST, Tablet, [facility] #[id number], Partial fill upon patient request if the prescriptionis for a schedule II opioid drug., 190.5, cm, 10/01... Start Date: 12/24/23 Stop Date: 04/22/24 Status: Ordered Ativan 1 mg oral tablet 1 tablet = 1 mg, By Mouth, Daily, PRN panic only, for 30 days, # 10 tablet, 2 Refills, Hard Stop 12/24/23 7:30:00 EST, 09/25/23 7:30:00 EST, Tablet, [facility] #[id number], Partial fill upon patient request if the prescription is for a schedule I... Start Date: 09/25/23 Stop Date: 12/24/23 Status: Ordered bisacodyl 5 mg oral delayed release tablet 2 tablet = 10 mg, By Mouth, Daily, # 180 tablet, 3 Refills, Maintenance, 06/28/22 10:09:00 EDT, EC Tablet, [facility] #[id number], Partial fill upon patient request if the prescription is for a schedule II opioid drug., 190.5, cm, 06/28/22 9:08:0... Start Date: 06/28/22 Status: Ordered busPIRone 30 mg oral tablet 1 tablet = 30 mg, By Mouth, 3 times a day, # 270 tablet, 1 Refills, Maintenance, 08/02/23 14:21:00 EDT, [facility] #[id number], Partial fill upon patient request if the prescription is for a schedule II opioid drug., 190.5, cm, 05/29/23 11:36:00... Start Date: 08/02/23 Stop Date: 01/29/24 Status: Ordered cyclobenzaprine 5 mg oral tablet 1-2 tablet, By Mouth, 3 times a day, PRN Spasm, # 90 tablet, 2 Refills, Maintenance, 10/07/23 13:41:00 EST, [facility] #[id number], Partial fill upon patient request if the [...] 05/29/23 12:07:00 EDT, Route to Pharmacy Electronically, [facility] #[id number], Partial fill upon patientrequest if the prescription is for a schedule II op... Start Date: 05/29/23 Status: Ordered hydrOXYzine pamoate 50 mg oral capsule 2 capsule = 100 mg, By Mouth, Daily at bedtime, # 180 capsule, 1 Refills, Maintenance, 01/29/24 14:13:00 EDT, Capsule, [email or web address] #[id number], 190.5, cm, 10/01/23 8:42:00 EST, Height Start Date: 01/29/24 Stop Date: 07/27/24 Status: Ordered hydrOXYzine pamoate 50 mg oral capsule 2 capsule = 100 mg, By Mouth, Daily at bedtime, for 90 days, # 180 capsule, 1 Refills, Hard Stop 01/29/24 14:13:00 EDT, 08/02/23 14:13:00 EDT, Capsule, [email or web address] #[id number], 190.5, cm, 05/29/23 11:36:00 EDT, Height Start Date: 08/02/23 Stop Date: 01/29/24 Status: Ordered lamotrigine 200 mg oral tablet 1 tablet = 200 mg, By Mouth, 2 times a day, # 180 tablet, 1 Refills, Maintenance, 01/29/24 14:14:00EDT, Tablet, [email or web address] #[id number], Partial fill upon patient request if the prescription is for a schedule II opioid drug., 190.5, cm, 10/01/23... Start Date: 01/29/24 Stop Date: 07/27/24 Status: Ordered lamotrigine 200 mg oral tablet 1 tablet = 200 mg, By Mouth, 2 times a day, for 90 days, # 180 tablet, 1 Refills, Hard Stop 01/29/24 14:14:00 EDT, 08/02/23 14:14:00 EDT, Tablet, [facility] #[id number], Partial fill upon patient request if the prescription is for a schedule II o... Start Date: 08/02/23 Stop Date: 01/29/24 Status: Ordered Lexapro 20 mg oral tablet 1 tablet = 20 mg, By Mouth, Daily, # 90 tablet, 1 Refills, Maintenance, 01/29/24 14:13:00 EDT, Tablet, [facility] #[id number], Partial fill upon patient request if the prescription is for a schedule II opioid drug., 190.5, cm, 10/01/23 8:42:00 ES... Start Date: 01/29/24 Stop Date: 07/27/24 Status: Ordered Lexapro 20 mg oral tablet 1 tablet = 20 mg, By Mouth, Daily, for 90 days, # 90 tablet, 1 Refills, Hard Stop 01/29/24 14:13:00EDT, 08/02/23 14:13:00 EDT, Tablet, [email or web address] #[id number], Partial fill upon patient request if the prescription is for a schedule II opioid drug... Start Date: 08/02/23 Stop Date: 01/29/24 Status: Ordered melatonin 5 mg oral tablet See Instructions, PRN for insomnia, 2 tablet By Mouth Daily at bedtime, # 60 tablet, 4 Refills, Maintenance, 11/01/23 15:29:00 EST, Tablet, [email or web address] #[id number], 190.5, cm, 10/01/23 8:42:00 EST, Height Start Date: 11/01/23 Status: Ordered omeprazole 20 mg oral enteric coated capsule 1 capsule = 20 mg, By Mouth, 2 times a day, # 180 capsule, 2 Refills, Maintenance, 05/29/23 12:06:00 EDT, [facility] #[id number], Partial fill upon patient request if the prescription is for a schedule II opioid drug., 190.5, cm, 05/29/23 11:36:0... Start Date: 05/29/23 Status: Ordered ondansetron 4 mg oral tablet 1 tablet = 4 mg, By Mouth, Every 8 hours, PRN Nausea, # 180 tablet, 0 Refills, Maintenance, 08/25/23 21:28:00 EDT, Tablet, [facility] #[id number], Partial fill upon patient request if the prescription is for a schedule II opioid drug., 190.5, cm,... Start Date: 08/25/23 Status: Ordered pregabalin 150 mg oral capsule 1 capsule = 150 mg, By Mouth, 2 times a day, # 180 capsule, 1 Refills, Maintenance, 10/07/23 13:42:00 EST, Capsule, [facility] #[id number], Partial fill upon patient request if the prescription is for a schedule II opioid drug., 190.5, cm, ... Start Date: 10/07/23 Status: Ordered SEROquel 25 mg oral tablet 25 mg, 1, tablet, By Mouth, 2 times a day, dose decreasee, # 180 tablet, Refills 1, Tot. Refills 1,Maintenance, 11/01/23 15:28:00 EST, Route to Pharmacy Electronically, [facility] #[id number], Partial fill upon patient request if the [...] capsule, 1 Refills, Maintenance, 11/21/23 14:41:00 EST, [facility] #[id number], Partial fill upon patient request ifthe prescription is for a schedule II opioid drug.,... Start Date: 11/21/23 Stop Date: 01/20/24 Status: Ordered temazepam 7.5 mg oral capsule 1 capsule = 7.5 mg, By Mouth, Daily at bedtime, PRN as needed for sleep, for 30 days, # 30 capsule,0 Refills, Hard Stop 11/21/23 14:41:00 EST, 10/22/23 14:41:00 EST, [facility] #[id number], Partial fill upon patient request if the prescription i... Start Date: 10/22/23 Stop Date: 11/21/23 Status: Ordered traZODone 100 mg oral tablet 100 mg, 1, tablet, By Mouth, Daily at bedtime, # 60 tablet, Refills 2, Tot. Refills 2, Maintenance,09/12/23 14:58:00 EDT, Route to Pharmacy Electronically, [facility] #[id number], 190.5, cm, 05/29/23 11:36:00 EDT, Height Start Date: 09/12/23 Stop Date: 03/10/24 Status: Ordered valsartan 80 mg oral tablet 80 mg, 1, tablet, By Mouth, Daily, # 90 tablet, Refills 0, Tot. Refills 0, Maintenance, 08/28/23 22:06:00 EDT, Route to Pharmacy Electronically, [facility] #[id number], Partial fill upon patientrequest if the prescription is for a schedule II op... Start Date: 08/28/23 Status: Ordered Vitamin D3 1000 intl units oral capsule 1 capsule = 25 mcg, By Mouth, Daily, # 90 capsule, 3 Refills, Maintenance, 09/26/23 8:16:00 EST, Capsule, [facility] #[id number], Partial fill upon patient request if the [...] Team Personnel Name: Carlos Glasgow MD Position: [facility] Physician - Primary Care Member Role: PCP Address: Address: [address] [place] [address] Name: Sarah Sheth MA Position: [facility] RN Member Role: Primary Care Nurse Name: Verenice Holt Position: [facility] RN Member Role: Primary Care Nurse Name: Margarita Lenz RN Position: [facility] RN Member Role: Primary Care Nurse Name: Lakshmi Michelle RN Position: [facility] RN Member Role: Primary Care Nurse Care Team Related Persons Name: JEZ COLEMAN Address: home [address] [place] [address]
--- OUTSIDE RECORDS SUMMARY | 2024-04-30 06:39 | XMS_ITS | Continuity of Care Document ---
Author Organization [facility] Address [address] [place] [address]- Care Team Providers Care Steam Trap Man Name Role Phone Carlos Glasgow MD Primary Care Physician [place] [facility] [place] 04/07/24 - 04/14/24 [facility] [address] [address], [place] [address] Encounter Diagnosis Chronic back pain(Discharge Diagnosis) - 04/11/24 Chronic hip pain(Discharge Diagnosis) - 04/11/24 Elevated serum creatinine(Discharge Diagnosis) - 04/11/24 Hypercalcemia(Discharge Diagnosis) - 04/11/24 Hyperlipidemia(Discharge Diagnosis) - 04/11/24 Hypertension(Discharge Diagnosis) - 04/11/24 Attending Physician: Carlos Glasgow MD Allergies, Adverse [...] ecorded 1Result Comment: [facility] 27663-557-19 vaccine given below Flu 2Result Comment: [facility] 15941-389-06 vaccine given above Tdap 3Result Comment: [facility] [id number] Medications Aller-Chlor 4 mg oral tablet 1 tablet = 4 mg, By Mouth, 2 times a day, TAKE 1 TABLET BY MOUTH TWICE DAILY, # 180 tablet, 1 Refills, Maintenance, 02/03/24 21:15:00 EDT, [facility] #[id number], 190.5, cm, 10/01/23 8:42:00 EST, Height Start Date: 02/03/24 Status: Ordered Ativan 1 mg oral tablet 1 tablet = 1 mg, By Mouth, Daily, PRN panic only, for 30 days, # 10 tablet, 3 Refills, Hard Stop 04/22/24 7:30:00 EDT, 12/24/23 7:30:00 EST, Tablet, [facility] #[id number], Partial fill upon patient request if the prescription is for a schedule I... Start Date: 12/24/23 Stop Date: 04/22/24 Status: Ordered Ativan 1 mg oral tablet 1 tablet = 1 mg, By Mouth, Daily, PRN panic only, # 10 tablet, 3 Refills, Maintenance, 04/22/24 7:30:00 EDT, Tablet, [facility] #[id number], Partial fill upon patient request if the prescriptionis for a schedule II opioid drug., 190.5, cm, 10/01... Start Date: 04/22/24 Stop Date: 08/20/24 Status: Ordered bisacodyl 5 mg oral delayed release tablet 2 tablet = 10 mg, By Mouth, Daily, # 180 tablet, 3 Refills, Maintenance, 06/28/22 10:09:00 EDT, EC Tablet, [facility] #[id number], Partial fill upon patient request if the prescription is for a schedule II opioid drug., 190.5, cm, 06/28/22 9:08:0... Start Date: 06/28/22 Status: Ordered busPIRone 30 mg oral tablet 1 tablet = 30 mg, By Mouth, 3 times a day, # 270 tablet, 1 Refills, Maintenance, 01/31/24 14:11:00 EDT, [facility] #[id number], Partial fill upon patient request if the prescription is for a schedule II opioid drug., 190.5, cm, 10/01/23 8:42:00 E... Start Date: 01/31/24 Stop Date: 07/29/24 Status: Ordered cyclobenzaprine 5 mg oral tablet 1-2 tablet, By Mouth, 3 times a day, PRN Spasm, # 90 tablet, 2 Refills, Maintenance, 03/19/24 22:24:00 EDT, [facility] #[id number], Partial fill upon patient request if the [...] 03/05/24 13:23:00 EDT, Route to Pharmacy Electronically, [facility] #[id number], Partial fill upon patientrequest if the prescription is for a schedule II op... Start Date: 03/05/24 Status: Ordered hydrOXYzine pamoate 50 mg oral capsule 2 capsule = 100 mg, By Mouth, Daily at bedtime, # 180 capsule, 1 Refills, Maintenance, 01/29/24 14:13:00 EDT, Capsule, [facility] #[id number], 190.5, cm, 10/01/23 8:42:00 EST, Height Start Date: 01/29/24 Stop Date: 07/27/24 Status: Ordered lamotrigine 200 mg oral tablet 1 tablet = 200 mg, By Mouth, 2 times a day, for 90 days, # 180 tablet, 1 Refills, Hard Stop 07/27/24 14:14:00 EDT, 01/29/24 14:14:00 EDT, Tablet, [facility] #[id number], Partial fill upon patient request if the prescription is for a schedule II o... Start Date: 01/29/24 Stop Date: 07/27/24 Status: Ordered lamotrigine 200 mg oral tablet 1 tablet = 200 mg, By Mouth, 2 times a day, # 120 tablet, 1 Refills, Maintenance, 07/27/24 14:14:00EDT, Tablet, [facility] #[id number], Partial fill upon patient request if the prescription is for a schedule II opioid drug., 190.5, cm, 10/01/23... Start Date: 07/27/24 Stop Date: 11/24/24 Status: Ordered Lexapro 20 mg oral tablet 1 tablet = 20 mg, By Mouth, Daily, # 90 tablet, 1 Refills, Maintenance, 01/29/24 14:13:00 EDT, Tablet, [facility] #[id number], Partial fill upon patient request if the prescription is for a schedule II opioid drug., 190.5, cm, 10/01/23 8:42:00 ES... Start Date: 01/29/24 Stop Date: 07/27/24 Status: Ordered melatonin 5 mg oral tablet See Instructions, PRN for insomnia, 2 tablet By Mouth Daily at bedtime, # 60 tablet, 4 Refills, Maintenance, 01/31/24 14:12:00 EDT, Tablet, [facility] #[id number], 190.5, cm, 10/01/23 8:42:00 EST, Height Start Date: 01/31/24 Status: Ordered omeprazole 20 mg oral enteric coated capsule 1 capsule = 20 mg, By Mouth, 2 times a day, # 180 capsule, 2 Refills, Maintenance, 05/29/23 12:06:00 EDT, [facility] #[id number], Partial fill upon patient request if the prescription is for a schedule II opioid drug., 190.5, cm, 05/29/23 11:36:0... Start Date: 05/29/23 Status: Ordered ondansetron 4 mg oral tablet 1 tablet = 4 mg, By Mouth, Every 8 hours, PRN Nausea, # 180 tablet, 0 Refills, Maintenance, 02/03/24 21:19:00 EDT, Tablet, [facility] #[id number], Partial fill upon patient request if the prescription is for a schedule II opioid drug., 190.5, cm,... Start Date: 02/03/24 Status: Ordered pregabalin 100 mg oral capsule 1 capsule = 100 mg, By Mouth, 2 times a day, # 60 capsule, 0 Refills, Maintenance, 03/04/24 12:28:00 EDT, Capsule, [facility] #[id number], Partial fill upon patient request if the prescription is for a schedule II opioid drug., 190.5, cm, ... Start Date: 03/04/24 Status: Ordered pregabalin 50 mg oral capsule 1 capsule = 50 mg, By Mouth, 2 times a day, # 20 capsule, 0 Refills, Maintenance, 04/07/24 10:36:00EDT, [facility] #[id number], Partial fill upon patient request if the prescription is for a schedule II opioid drug., 190.5, cm, 04/07/24 10:05:00... Start Date: 04/07/24 Stop Date: 04/17/24 Status: Ordered SEROquel 25 mg oral tablet 25 mg, 1, tablet, By Mouth, 2 times a day, dose decreasee, # 180 tablet, Refills 1, Tot. Refills 1,Maintenance, 11/01/23 15:28:00 EST, Route to Pharmacy Electronically, [facility] #[id number], Partial fill upon patient request if the [...] capsule, 4 Refills, Maintenance, 01/31/24 14:09:00 EDT, [facility] #[id number], Partial fill upon patient request ifthe prescription is for a schedule II opioid drug.,... Start Date: 01/31/24 Stop Date: 06/29/24 Status: Ordered traZODone 100 mg oral tablet 100 mg, 1, tablet, By Mouth, Daily at bedtime, # 60 tablet, Refills 0, Tot. Refills 0, Maintenance,03/18/24 7:26:00 EDT, Route to Pharmacy Electronically, [facility] #[id number], 190.5, cm, 10/01/23 8:42:00 EST, Height Start Date: 03/18/24 Stop Date: 05/17/24 Status: Ordered Vitamin D3 1000 intl units oral capsule 1 capsule = 25 mcg, By Mouth, Daily, # 90 capsule, 3 Refills, Maintenance, 09/26/23 8:16:00 EST, Capsule, [facility] #[id number], Partial fill upon patient request if the [...] Lung nodules; LDCT program following Confirmed Active Obese class I Confirmed Active Colon polyp Confirmed Active Post-traumatic stress disorder Confirmed Active Elevated serum creatinine Confirmed Active Severe recurrent major depression without psychotic features Confirmed Active Fatty liver Confirmed Active Diagnosis Diagnosis Type Effective Dates Health Status Clinical Service Informant Chronic back pain Discharge Diagnosis 04/11/24 Chronic hip pain Discharge Diagnosis 04/11/24 Elevated serum creatinine Discharge Diagnosis 04/11/24 Hypercalcemia Discharge Diagnosis 04/11/24 Hyperlipidemia Discharge Diagnosis 04/11/24 Hypertension Discharge Diagnosis 04/11/24 Vital Signs Most recent to oldest [Reference Range]: 1 Height 190.5 cm (04/07/24 10:05 AM) Weight 126.7 kg (04/07/24 10:05 AM) Oxygen Saturation [94-100 %] 99 % (04/07/24 10:05 AM) Pulse Rate [55-90 bpm] 107 bpm *H* (04/07/24 10:05 AM) Body Mass Index [18.5-24.99 kg/m2] 34.91 kg/m2 *>HHI* (04/07/24 10:05 AM) Blood Pressure [90-138/55-84 mm Hg] 136/ 101mm Hg (04/07/24 10:05 AM) Mode of Delivery (Oxygen) Room air (04/07/24 10:05 AM) Blood pressure sites Arm, left (04/07/24 10:05 AM) Social History Social History Type Response Tobacco Total pack years: 3. Sex Note * Naila Luna: PERFORM Event Display: Patient Education/Instruction Authored Date: Ambulatory Adult Visit Summary [facility] [place] [address] Name: JANESSA ACUNA : 1970?? Visit: 04/07/2024 09:45?? Ambulatory Visit Instructions ?? Your Care Team Primary Care Provider Carlos Glasgow MD? This Visit Provider Carlos Glasgow MD Vitals Signs Pulse Rate:??107 bpm??High Height: 190.5 cm Systolic Blood Pressure: 136 mm Hg Weight: 126.7 kg Diastolic Blood Pressure:??101 mm Hg??High Body Mass Index:??34.91 kg/m2??Critical Oxygen Saturation: 99 % Body surface area: 2.59 What to do next Scheduled Follow-Up Appointments Sunday 9:00 AM EDT ?? With: Elton DOLL, Anay Where: [facility] [address] [place] [address]- Status: Pending Sunday 1:00 PM EDT ?? With: Sarah Law Where: [facility] [address] [place] [address]- Status: Pending Follow-Up Appointments Follow Up with??Carlos Glasgow MD When:??07/08/2024 10:40 AM EDT Why: ret Where: [address] [place] [address]- Future Orders Lipid Panel - Once, *Est. 10/21/23, Order for Today?? Hemoglobin A1C (Monitoring) - Once, *Est. 10/21/23, Order for Today?? Comprehensive Metabolic Panel - Once, *Est. 10/21/23, Order for Today?? PTH Intact - Once, *Est. 10/21/23, Order for Today?? Vitamin D 25 Hydroxy Level - Once, *Est. 10/21/23, Order for Today?? Medications The list below reflects the information in our records and provided by you today along with any changes made during this visit. Please continue your medications until treatment is completed or stopped by your provider. If this is different from the information you have or there are other questions,please contact the prescribing provider. What How Much When Why Instructions Changed Pregabalin (pregabalin 100 mg oral capsule) 1 capsule Oral Twice a day Changed Pregabalin (pregabalin 50 mg oral capsule) 1 capsule Oral Twice a day Duration: 10 Days Pickup at [facility] #[id number] Unchanged Bisacodyl (bisacodyl 5 mg oral delayed release tablet) 2 tab(s) Oral Daily Unchanged BusPIRone (busPIRone 30 mg oral tablet) 1 tab(s) Oral 3 times a day Duration: 90 Days Unchanged Chlorpheniramine (Aller-Chlor 4 mg oral tablet) 1 tab(s) Oral Twice a day TAKE 1 TABLET BY MOUTH TWICE DAILY ?? Unchanged Cholecalciferol (Vitamin D3 1000 intl units oral capsule) 1 capsule Oral Daily Unchanged Cyclobenzaprine (cyclobenzaprine 5 mg oral tablet) 1-2 tablet Oral 3 times a day as needed for Spasm Unchanged Durable Medical Equipment (Home Blood Pressure Monitor) See instructions Hypertension Use to check blood pressure ??Dx I10 ?? Unchanged Escitalopram (Lexapro 20 mg oral tablet) 1 tab(s) Oral Daily Duration: 90 Days Unchanged Hydrochlorothiazide (hydrochlorothiazide 25 mg oral tablet) 1 tab(s) Oral Daily Unchanged HydrOXYzine (hydrOXYzine pamoate 50 mg oral capsule) 2 capsule Oral Daily at Bedtime Duration: 90 Days Unchanged Lamotrigine (lamotrigine 200 mg oral tablet) 1 tab(s) Oral Twice a day Duration: 90 Days Unchanged Lamotrigine (lamotrigine 200 mg oral tablet) 1 tab(s) Oral Twice a day Duration: 60 Days Unchanged Lorazepam (Ativan 1 mg oral tablet) 1 tab(s) Oral Daily as needed for panic only Duration: 30 Days Unchanged Lorazepam (Ativan 1 mg oral tablet) 1 tab(s) Oral Daily as needed for panic only Duration: 30 Days Unchanged Melatonin (melatonin 5 mg oral tablet) See instructions 2 ??tablet By Mouth Daily at bedtime, As needed for for insomnia ?? Unchanged Omeprazole (omeprazole 20 mg oral enteric coated capsule) 1 capsule Oral Twice a day Unchanged Ondansetron (ondansetron 4 mg oral tablet) 1 tab(s) Oral Every 8 hours as needed for Nausea Unchanged Quetiapine (SEROquel 25 mg oral tablet) 1 tab(s) Oral Twice a day Duration: 90 Days dose decreasee ?? Unchanged Sildenafil (sildenafil 100 mg oral tablet) 0.5 - 1 tablet Oral Daily as needed for erectile dysfunction PATIENT USING COUPON NOT INSURANCE ?? Unchanged Temazepam (temazepam 7.5 mg oral capsule) 1 capsule Oral Daily at Bedtime as needed for as needed for sleep Duration: 30 Days Unchanged Trazodone (traZODone 100 mg oral tablet) 1 tab(s) Oral Daily at Bedtime Duration: 60 Days Pharmacy Information [facility] #[id number]: [address] [place] [address], [place] [id number] [phone] Medications and Immunizations Administered Medications Given During Visit No medications given during this visit.?? Allergies (NKA means No Known Allergies) NSAIDs??(Seizure) amLODIPine??(Fatigue, SOB - Shortness of breath) Common Emergency Awareness Tips IS IT A STROKE? Act FAST and Check for these signs: FACE Does the face look uneven? ARM Does one arm drift down? SPEECH Does their speech sound strange? TIME Call at any sign of stroke ?? Heart Attack Signs Chest discomfort: Most heart attacks involve discomfort in the center of the chest and lasts more than a few minutes, or goes away and comes back. It can feel like uncomfortable pressure, squeezing, fullness or pain. Discomfort in upper body: Symptoms can include pain or discomfort in one or both arms, back, neck, jaw or stomach. Shortness of breath: With or without discomfort. Other signs: Breaking out in a cold sweat, nausea, or lightheaded. Remember, MINUTES DO MATTER. If you experience any of these heart attack warning signs, call to get immediate medical attention! ?? Smoking can increase your chances of developing chronic health problems and can cause harmful effects to other family members in your house. If you smoke, you are strongly encouraged to quit. Please call [employer] at [phone] or [phone] ([phone]) or log in to [email or web address] for referrals to smoking cessation programs. ?? The National Suicide Prevention Hotline is available 11/06 if you or someone you know needs to find a reason to keep living. By calling 5-392-163-[employer] (3439) you'll be connected to a skilled, trained counselor at a crisis center in your area. [facility] [employer] Portal You can view and manage your care through the patient portal or by using a health care jay of your choosing. [employer] is a website that allows you to securely view your medical information including your hospital discharge summary, office visit summaries, medications and follow-up visits. You can also request appointments, renew medications, and request access to your medical information using a health care jay of your choosing, or just ask a question. You can enroll at [email or web address] or register during your next office visit. [facility], in keeping with [facility] guidance, no longer requires face masks for staff, patientsor visitors in most situations. Similiar to time spent indoors at other locations, there is the chance that you were exposed to repiratory viruses during your time with us (such as flu or COVID-19). If you develop symptoms concerning for a viral respiratory infection, please seek testing (and treatment if indicated) from your medical provider or home test kit. ?? Disclaimer: The information provided is of a general nature and is intended to be used in conjunction with the recommendations and advice of your health care practitioner. Every effort has been made to ensure that the information provided is accurate and complete at the time it is provided to you however, as your needs change, or, as new information becomes available, different or additional instructions may be required. ?? If you have questions, please consult with your primary care provider or pharmacist, as appropriate. This information is not intended to serve as substitution for assessment and evaluation by a qualified health care provider. If you do not have a primary care provider, you may find a [facility] provider by calling [facility] [employer] [facility] at [phone]. Patient Care team information Care Team Personnel Name: Carlos Glasgow MD Position: [facility] Physician - Primary Care Member Role: PCP Address: Address: [address] [place] [id number] Name: Sarah Sheth [place] Position: [facility] Office Staff Member Role: Primary Care Nurse Name: Verenice Diego [place] Position: [facility] Staff Member Role: Primary Care Nurse Name: Margarita Lenz RN Position: [facility] RN Member Role: Primary Care Nurse Name: Lakshmi Michelle RN Position: [facility] RN Member Role: Primary Care Nurse Care Team Related Persons Name: JEZ COLEMAN Address: [place] [address] [facility] [address] [place] [address]
--- OUTSIDE RECORDS SUMMARY | 2024-04-30 06:39 | XMS_ITS | Continuity of Care Document ---
Author Organization [facility] Address [address] [place] [address]- Care Team Providers Care Track Production Engineer Name Role Phone Carlos Glasgow MD Primary Care Physician Encounter [facility] Date(s): 05/29/23 - 06/05/23 [facility] [address] [place], [place] [address] Attending Physician: Carlos Glasgow MD [...] ecorded tetanus/diphtheria/pertussis, acel(Tdap) 07/19/11 Recorded 1Result Comment: [facility] [id number] Medications Aller-Chlor 4 mg oral tablet 1 tablet = 4 mg, By Mouth, 2 times a day, TAKE 1 TABLET BY MOUTH TWICE DAILY, # 180 tablet, 1 Refills, Maintenance, 05/29/23 12:06:00 EDT, [facility] #[id number], 190.5, cm, 05/29/23 11:36:00 EDT, Height Start Date: 05/29/23 Status: Ordered Ativan 1 mg oral tablet 1 tablet = 1 mg, By Mouth, Daily, PRN panic only, # 10 tablet, 4 Refills, Maintenance, 01/25/23 10:18:00 EST, Tablet, [facility] #[id number], Partial fill upon patient request if the prescription is for a schedule II opioid drug., 190.5, cm, 10/19... Start Date: 01/25/23 Stop Date: 06/24/23 Status: Ordered bisacodyl 5 mg oral delayed release tablet 2 tablet = 10 mg, By Mouth, Daily, # 180 tablet, 3 Refills, Maintenance, 06/28/22 10:09:00 EDT, EC Tablet, [facility] #[id number], Partial fill upon patient request if the prescription is for a schedule II opioid drug., 190.5, cm, 06/28/22 9:08:0... Start Date: 06/28/22 Status: Ordered busPIRone 30 mg oral tablet 1 tablet = 30 mg, By Mouth, 3 times a day, # 270 tablet, 1 Refills, Maintenance, 01/25/23 10:15:00 EST, [facility] #[id number], Partial fill upon patient request if the prescription is for a schedule II opioid drug., 190.5, cm, 11/06/22 9:34:00 E... Start Date: 01/25/23 Stop Date: 07/24/23 Status: Ordered cyclobenzaprine 5 mg oral tablet 1-2 tablet, By Mouth, 3 times a day, PRN Spasm, # 90 tablet, 2 Refills, Maintenance, 05/29/23 12:07:00 EDT, [facility] #[id number], Partial fill upon patient request if the prescription is for aschedule II opioid drug., 190.5, cm, 05/29/23 11:36... Start Date: 05/29/23 Status: Ordered hydrochlorothiazide 25 mg oral tablet 25 mg, 1, tablet, By Mouth, Daily, # 90 tablet, Refills 1, Tot. Refills 1, Maintenance, 05/29/23 12:07:00 EDT, Route to Pharmacy Electronically, [facility] #[id number], Partial fill upon patientrequest if the prescription is for a schedule II op... Start Date: 05/29/23 Status: Ordered hydrOXYzine pamoate 50 mg oral capsule 2 capsule = 100 mg, By Mouth, Daily at bedtime, # 180 capsule, 1 Refills, Maintenance, 01/25/23 10:16:00 EST, Capsule, [facility] #[id number], 190.5, cm, 11/06/22 9:34:00 EST, Height Start Date: 01/25/23 Stop Date: 07/24/23 Status: Ordered lamotrigine 200 mg oral tablet 1 tablet = 200 mg, By Mouth, 2 times a day, # 180 tablet, 1 Refills, Maintenance, 01/25/23 10:17:00EST, Tablet, [facility] #[id number], Partial fill upon patient request if the prescription is for a schedule II opioid drug., 190.5, cm, 11/06/22... Start Date: 01/25/23 Stop Date: 07/24/23 Status: Ordered Lexapro 20 mg oral tablet 1 tablet = 20 mg, By Mouth, Daily, # 90 tablet, 1 Refills, Maintenance, 01/25/23 10:14:00 EST, Tablet, [facility] #[id number], Partial fill upon patient request if the prescription is for a schedule II opioid drug., 190.5, cm, 11/06/22 9:34:00 ES... Start Date: 01/25/23 Stop Date: 07/24/23 Status: Ordered melatonin 5 mg oral tablet See Instructions, PRN for insomnia, 2 tablet By Mouth Daily at bedtime, # 60 tablet, 4 Refills, Maintenance, 01/25/23 10:19:00 EST, Tablet, [facility] #[id number], 190.5, cm, 11/06/22 9:34:00 EST, Height Start Date: 01/25/23 Status: Ordered omeprazole 20 mg oral enteric coated capsule 1 capsule = 20 mg, By Mouth, 2 times a day, # 180 capsule, 2 Refills, Maintenance, 05/29/23 12:06:00 EDT, [facility] #[id number], Partial fill upon patient request if the prescription is for a schedule II opioid drug., 190.5, cm, 05/29/23 11:36:0... Start Date: 05/29/23 Status: Ordered ondansetron 4 mg oral tablet 1 tablet = 4 mg, By Mouth, Every 8 hours, PRN Nausea, # 180 tablet, 0 Refills, Maintenance, 05/29/23 12:06:00 EDT, Tablet, [facility] #[id number], Partial fill upon patient request if the [...] days, # 30 capsule, 0 Refills, Acute 06/30/23 16:41:00 EDT, 05/31/23 16:41:00 EDT, Capsule, [facility] #[id number], 190.5, cm, 05/29/23 11:36:00 EDT, Height Start Date: 05/31/23 Stop Date: 06/30/23 Status: Ordered SEROquel 50 mg oral tablet 1 tablet = 50 mg, By Mouth, 3 times a day, # 270 tablet, 1 Refills, Maintenance, 01/25/23 10:19:00 EST, Tablet, [facility] #[id number], Partial fill upon patient request if the [...] Maintenance,05/14/23 15:18:00 EDT, Route to Pharmacy Electronically, [facility] #[id number], 190.5, cm, 11/06/22 9:34:00 EST, Height Start Date: 05/14/23 Stop Date: 06/13/23 Status: Ordered valsartan 80 mg oral tablet 80 mg, 1, tablet, By Mouth, Daily, PLEASE DISREGARD PRIOR RX FOR 160MG, # 90 tablet, Refills 0,Tot. Refills 0, Maintenance, 05/29/23 12:20:00 EDT, Route to Pharmacy Electronically, [facility] #[id number], Partial fill upon patient request if... Start Date: 05/29/23 Status: Ordered Vitamin D3 1000 intl units oral capsule 1 capsule = 25 mcg, By Mouth, Daily, # 90 capsule, 3 Refills, Maintenance, 05/29/23 12:06:00 EDT, Capsule, [facility] #[id number], Partial fill upon patient request if the [...] to oldest [Reference Range]: 1 2 Height 190.50 cm (05/29/23 11:36 AM) 190.50 cm (05/29/23 11:32 AM) Weight 143.8 kg (05/29/23 11:32 AM) Oxygen Saturation [94-100 %] 97 % (05/29/23 11:32 AM) Pulse Rate [55-90 bpm] 80 bpm (05/29/23 11:32 AM) Body Mass Index [18.5-24.99 kg/m2] 39.62 kg/m2 *>HHI* (05/29/23 11:32 AM) Blood Pressure [90-138/55-84 mm Hg] 156/ 111mm Hg *H* (05/29/23 11:36 AM) 155/116mm Hg *H* (05/29/23 11:32 AM) Blood pressure sites Arm, right (05/29/23 11:36 AM) Arm, right (05/29/23 11:32 AM) Social History Social History Type Response Tobacco Total pack years: 3. Sex Patient Care team information Care Team Personnel Name: Yosvany Ardon Position: [facility] Cardio/Pulm Mgr ([facility]) Member Role: Primary Care Nurse Name: Carlos Glasgow MD Position: [facility] Physician - Primary Care Member Role: PCP Address: Address: [address] [place] [id number] Name: Sarah Sheth [place] Position: [facility] [...] Name: JEZ COLEMAN Address: home [address] [facility] [address] [place] [address]
--- OUTSIDE RECORDS SUMMARY | 2024-04-30 06:39 | XMS_ITS | Continuity of Care Document ---
Author Organization [facility] Address [address] [place] [address]- Care Team Providers Care Bacteriologist Pharmaceutical Name Role Phone Pee SANCHEZ, Carlos Primary Care Physician Encounter [facility] Date(s): 10/21/23 - 11/20/23 [facility] [address] [place], [place] [address] Allergies, Adverse Reactions, Alerts Substance Reaction Severity [...] mRNA-1273 vaccine 03/20/21 R ecorded 1Result Comment: [facility] 61886-477-67 vaccine given below Flu 2Result Comment: [facility] 37509-061-06 vaccine given above Tdap 3Result Comment: [facility] [id number] Medications Aller-Chlor 4 mg oral tablet 1 tablet = 4 mg, By Mouth, 2 times a day, TAKE 1 TABLET BY MOUTH TWICE DAILY, # 180 tablet, 1 Refills, Maintenance, 05/29/23 12:06:00 EDT, [facility] #[id number], 190.5, cm, 05/29/23 11:36:00 EDT, Height Start Date: 05/29/23 Status: Ordered Ativan 1 mg oral tablet 1 tablet = 1 mg, By Mouth, Daily, PRN panic only, # 10 tablet, 3 Refills, Maintenance, 12/24/23 7:30:00 EST, Tablet, [facility] #[id number], Partial fill upon patient request if the prescriptionis for a schedule II opioid drug., 190.5, cm, 10/01... Start Date: 12/24/23 Stop Date: 04/22/24 Status: Ordered Ativan 1 mg oral tablet 1 tablet = 1 mg, By Mouth, Daily, PRN panic only, for 30 days, # 10 tablet, 2 Refills, Hard Stop 12/24/23 7:30:00 EST, 09/25/23 7:30:00 EST, Tablet, [facility] #[id number], Partial fill upon patient request if the prescription is for a schedule I... Start Date: 09/25/23 Stop Date: 12/24/23 Status: Ordered bisacodyl 5 mg oral delayed release tablet 2 tablet = 10 mg, By Mouth, Daily, # 180 tablet, 3 Refills, Maintenance, 06/28/22 10:09:00 EDT, EC Tablet, [facility] #[id number], Partial fill upon patient request if the prescription is for a schedule II opioid drug., 190.5, cm, 06/28/22 9:08:0... Start Date: 06/28/22 Status: Ordered busPIRone 30 mg oral tablet 1 tablet = 30 mg, By Mouth, 3 times a day, # 270 tablet, 1 Refills, Maintenance, 08/02/23 14:21:00 EDT, [facility] #[id number], Partial fill upon patient request if the prescription is for a schedule II opioid drug., 190.5, cm, 05/29/23 11:36:00... Start Date: 08/02/23 Stop Date: 01/29/24 Status: Ordered cyclobenzaprine 5 mg oral tablet 1-2 tablet, By Mouth, 3 times a day, PRN Spasm, # 90 tablet, 2 Refills, Maintenance, 10/07/23 13:41:00 EST, [facility] #[id number], Partial fill upon patient request if the [...] 05/29/23 12:07:00 EDT, Route to Pharmacy Electronically, [facility] #[id number], Partial fill upon patientrequest if the prescription is for a schedule II op... Start Date: 05/29/23 Status: Ordered hydrOXYzine pamoate 50 mg oral capsule 2 capsule = 100 mg, By Mouth, Daily at bedtime, # 180 capsule, 1 Refills, Maintenance, 01/29/24 14:13:00 EDT, Capsule, [facility] #[id number], 190.5, cm, 10/01/23 8:42:00 EST, Height Start Date: 01/29/24 Stop Date: 07/27/24 Status: Ordered hydrOXYzine pamoate 50 mg oral capsule 2 capsule = 100 mg, By Mouth, Daily at bedtime, for 90 days, # 180 capsule, 1 Refills, Hard Stop 01/29/24 14:13:00 EDT, 08/02/23 14:13:00 EDT, Capsule, [facility] #[id number], 190.5, cm, 05/29/23 11:36:00 EDT, Height Start Date: 08/02/23 Stop Date: 01/29/24 Status: Ordered lamotrigine 200 mg oral tablet 1 tablet = 200 mg, By Mouth, 2 times a day, # 180 tablet, 1 Refills, Maintenance, 01/29/24 14:14:00EDT, Tablet, [facility] #[id number], Partial fill upon patient request if the prescription is for a schedule II opioid drug., 190.5, cm, 10/01/23... Start Date: 01/29/24 Stop Date: 07/27/24 Status: Ordered lamotrigine 200 mg oral tablet 1 tablet = 200 mg, By Mouth, 2 times a day, for 90 days, # 180 tablet, 1 Refills, Hard Stop 01/29/24 14:14:00 EDT, 08/02/23 14:14:00 EDT, Tablet, [facility] #[id number], Partial fill upon patient request if the prescription is for a schedule II o... Start Date: 08/02/23 Stop Date: 01/29/24 Status: Ordered Lexapro 20 mg oral tablet 1 tablet = 20 mg, By Mouth, Daily, # 90 tablet, 1 Refills, Maintenance, 01/29/24 14:13:00 EDT, Tablet, [facility] #[id number], Partial fill upon patient request if the prescription is for a schedule II opioid drug., 190.5, cm, 10/01/23 8:42:00 ES... Start Date: 01/29/24 Stop Date: 07/27/24 Status: Ordered Lexapro 20 mg oral tablet 1 tablet = 20 mg, By Mouth, Daily, for 90 days, # 90 tablet, 1 Refills, Hard Stop 01/29/24 14:13:00EDT, 08/02/23 14:13:00 EDT, Tablet, [facility] #[id number], Partial fill upon patient request if the prescription is for a schedule II opioid drug... Start Date: 08/02/23 Stop Date: 01/29/24 Status: Ordered melatonin 5 mg oral tablet See Instructions, PRN for insomnia, 2 tablet By Mouth Daily at bedtime, # 60 tablet, 4 Refills, Maintenance, 12/14/23 15:29:00 EST, Tablet, [facility] #[id number], 190.5, cm, 10/01/23 8:42:00 EST, Height Start Date: 11/01/23 Status: Ordered omeprazole 20 mg oral enteric coated capsule 1 capsule = 20 mg, By Mouth, 2 times a day, # 180 capsule, 2 Refills, Maintenance, 05/29/23 12:06:00 EDT, [facility] #[id number], Partial fill upon patient request if the prescription is for a schedule II opioid drug., 190.5, cm, 05/29/23 11:36:0... Start Date: 05/29/23 Status: Ordered ondansetron 4 mg oral tablet 1 tablet = 4 mg, By Mouth, Every 8 hours, PRN Nausea, # 180 tablet, 0 Refills, Maintenance, 08/25/23 21:28:00 EDT, Tablet, [facility] #[id number], Partial fill upon patient request if the prescription is for a schedule II opioid drug., 190.5, cm,... Start Date: 08/25/23 Status: Ordered pregabalin 150 mg oral capsule 1 capsule = 150 mg, By Mouth, 2 times a day, # 180 capsule, 1 Refills, Maintenance, 10/07/23 13:42:00 EST, Capsule, [facility] #[id number], Partial fill upon patient request if the prescription is for a schedule II opioid drug., 190.5, cm, ... Start Date: 10/07/23 Status: Ordered SEROquel 25 mg oral tablet 25 mg, 1, tablet, By Mouth, 2 times a day, dose decreasee, # 180 tablet, Refills 1, Tot. Refills 1,Maintenance, 11/01/23 15:28:00 EST, Route to Pharmacy Electronically, [facility] #[id number], Partial fill upon patient request if the [...] capsule, 1 Refills, Maintenance, 11/21/23 14:41:00 EST, [facility] #[id number], Partial fill upon patient request ifthe prescription is for a schedule II opioid drug.,... Start Date: 11/21/23 Stop Date: 01/20/24 Status: Ordered temazepam 7.5 mg oral capsule 1 capsule = 7.5 mg, By Mouth, Daily at bedtime, PRN as needed for sleep, for 30 days, # 30 capsule,0 Refills, Hard Stop 11/21/23 14:41:00 EST, 10/22/23 14:41:00 EST, [facility] #[id number], Partial fill upon patient request if the prescription i... Start Date: 10/22/23 Stop Date: 11/21/23 Status: Ordered traZODone 100 mg oral tablet 100 mg, 1, tablet, By Mouth, Daily at bedtime, # 60 tablet, Refills 2, Tot. Refills 2, Maintenance,09/12/23 14:58:00 EDT, Route to Pharmacy Electronically, [facility] #[id number], 190.5, cm, 05/29/23 11:36:00 EDT, Height Start Date: 09/12/23 Stop Date: 03/10/24 Status: Ordered valsartan 80 mg oral tablet 80 mg, 1, tablet, By Mouth, Daily, # 90 tablet, Refills 0, Tot. Refills 0, Maintenance, 08/28/23 22:06:00 EDT, Route to Pharmacy Electronically, [facility] #[id number], Partial fill upon patientrequest if the prescription is for a schedule II op... Start Date: 08/28/23 Status: Ordered Vitamin D3 1000 intl units oral capsule 1 capsule = 25 mcg, By Mouth, Daily, # 90 capsule, 3 Refills, Maintenance, 09/26/23 8:16:00 EST, Capsule, [facility] #[id number], Partial fill upon patient request if the [...] Team Personnel Name: Carlos Glasgow MD Position: [facility] Physician - Primary Care Member Role: PCP Address: Address: [address] [place] [address] Name: Sarah Sheth [place] Position: [facility] RN Member Role: Primary Care Nurse Name: Verenice Holt Position: [facility] RN Member Role: Primary Care Nurse Name: Margarita Lenz RN Position: [facility] RN Member Role: Primary Care Nurse Name: Lakshmi Michelle RN Position: [facility] RN Member Role: Primary Care Nurse Care Team Related Persons Name: JEZ COLEMAN Address: home [address] [facility] [facility] [address] [place] [address]
--- OUTSIDE RECORDS SUMMARY | 2024-04-30 06:39 | XMS_ITS | Continuity of Care Document ---
Author Organization [facility] Address [address] [place] [address]- Care Team Providers Care Diesel Engine Fitter Name Role Phone Carlos Glasgow MD Primary Care Physician [phone] Encounter [facility] Date(s): 07/01/22 - 07/31/22 [facility] [address] [place], [place] [address] Allergies, Adverse Reactions, Alerts Substance Reaction [...] 4 Refills, Maintenance, 07/05/22 10:38:00 EDT, Tablet, [facility] #[id number], Partial fill upon patient request if the prescription is for a schedule II opioid drug., 190.5, cm, 06/19... Start Date: 07/05/22 Stop Date: 12/02/22 Status: Ordered baclofen 20 mg oral tablet 20 mg, 1, tablet, By Mouth, 3 times a day, # 270 tablet, Refills 2, Tot. Refills 2, Maintenance, 06/28/22 10:10:00 EDT, Route to Pharmacy Electronically, [facility] #[id number], Partial fill upon patient request if the prescription is for a sched... Start Date: 06/28/22 Status: Ordered bisacodyl 5 mg oral delayed release tablet 2 tablet = 10 mg, By Mouth, Daily, # 180 tablet, 3 Refills, Maintenance, 06/28/22 10:09:00 EDT, EC Tablet, [facility] #[id number], Partial fill upon patient request if the prescription is for a schedule II opioid drug., 190.5, cm, 06/28/22 9:08:0... Start Date: 06/28/22 Status: Ordered busPIRone 30 mg oral tablet 1 tablet = 30 mg, By Mouth, 3 times a day, # 90 tablet, 4 Refills, Maintenance, 07/05/22 10:39:00 EDT, [facility] #[id number], Partial fill upon patient request if the prescription is for a schedule II opioid drug., 190.5, cm, 06/28/22 9:08:00 ED... Start Date: 07/05/22 Stop Date: 12/02/22 Status: Ordered gabapentin 600 mg oral tablet 1 tablet = 600 mg, By Mouth, 3 times a day, # 270 tablet, 2 Refills, Maintenance, 06/28/22 10:10:00EDT, Tablet, [facility] #[id number], Partial fill upon patient request if the [...] 4 Refills, Maintenance, 07/05/22 10:37:00 EDT, Capsule, [facility] #[id number], 190.5, cm, 06/28/22 9:08:00 EDT, Height Start Date: 07/05/22 Stop Date: 12/02/22 Status: Ordered lamotrigine 200 mg oral tablet 1 tablet = 200 mg, By Mouth, 2 times a day, # 60 tablet, 4 Refills, Maintenance, 07/05/22 10:39:00 EDT, Tablet, [facility] #[id number], Partial fill upon patient request if the prescription is for a schedule II opioid drug., 190.5, cm, 06/28/22 9... Start Date: 07/05/22 Stop Date: 12/02/22 Status: Ordered Lexapro 10 mg oral tablet 1 tablet = 10 mg, By Mouth, Daily, take 1/2 tab for 7 days then increase to full tab, # 30 tablet, 4 Refills, Maintenance, 07/05/22 10:42:00 EDT, Tablet, [facility] #[id number], Partial fill upon patient request if the prescription is for a sched... Start Date: 07/05/22 Stop Date: 12/02/22 Status: Ordered melatonin 5 mg oral tablet See Instructions, PRN for insomnia, 2 tablet By Mouth Daily at bedtime, # 60 tablet, 4 Refills, Maintenance, 07/05/22 10:41:00 EDT, Tablet, [facility] #[id number], 190.5, cm, 06/28/22 9:08:00 EDT, Height Start [...] 0 Refills, Maintenance, 06/28/22 10:10:00 EDT, Tablet, [facility] #[id number], Partial fill upon patient request if the prescription is for a schedule II opioid drug., 190.5, cm,... Start Date: 06/28/22 Status: Ordered Restoril 7.5 mg oral capsule 1 capsule = 7.5 mg, By Mouth, Daily at bedtime, PRN for sleep, for 30 days, # 30 capsule, 4 Refills, Acute 12/02/22 10:37:00 EST, 07/05/22 10:37:00 EDT, Capsule, [facility] #[id number], 190.5, cm, 06/28/22 9:08:00 EDT, Height Start Date: 07/05/22 Stop Date: 12/02/22 Status: Ordered SEROquel 50 mg oral tablet 1 tablet = 50 mg, By Mouth, 3 times a day, # 90 tablet, 4 Refills, Maintenance, 07/05/22 10:40:00 EDT, Tablet, [facility] #[id number], Partial fill upon patient request if the [...] Maintenance,07/05/22 10:41:00 EDT, Route to Pharmacy Electronically, [facility] #[id number], 190.5, cm, 06/28/22 9:08:00 EDT, Height Start Date: 07/05/22 Stop Date: 12/02/22 Status: Ordered Vitamin D3 1000 intl units oral capsule 1 capsule = 25 mcg, By Mouth, Daily, # 90 capsule, 3 Refills, Maintenance, 06/28/22 10:10:00 EDT, [id number], Partial fill upon patient request if the [...] Team Personnel Name: Carlos Glasgow MD Address: [address] [place] [address]
--- OUTSIDE RECORDS SUMMARY | 2024-04-30 06:39 | XMS_ITS | Continuity of Care Document ---
Author Organization [facility] Address [address] [place] [address]- Care Team Providers Care Tomato Grader Name Role Phone Pee SANCHEZ, Carlos Primary Care Physician [phone] Encounter [facility] Date(s): 11/25/23 - 12/25/23 [facility] [address] [place], [place] [address] Allergies, Adverse Reactions, Alerts Substance Reaction [...] vaccine 03/20/21 R ecorded 1Result Comment: [facility] 74815-181-02 vaccine given below Flu 2Result Comment: [facility] 38852-249-66 vaccine given above Tdap 3Result Comment: [facility] 28945-956-95 Medications Aller-Chlor 4 mg oral tablet 1 tablet = 4 mg, By Mouth, 2 times a day, TAKE 1 TABLET BY MOUTH TWICE DAILY, # 180 tablet, 1 Refills, Maintenance, 05/29/23 12:06:00 EDT, [facility] #[id number], 190.5, cm, 05/29/23 11:36:00 EDT, Height Start Date: 05/29/23 Status: Ordered Ativan 1 mg oral tablet 1 tablet = 1 mg, By Mouth, Daily, PRN panic only, # 10 tablet, 3 Refills, Maintenance, 12/24/23 7:30:00 EST, Tablet, [facility] #[id number], Partial fill upon patient request if the prescriptionis for a schedule II opioid drug., 190.5, cm, 10/01... Start Date: 12/24/23 Stop Date: 04/22/24 Status: Ordered bisacodyl 5 mg oral delayed release tablet 2 tablet = 10 mg, By Mouth, Daily, # 180 tablet, 3 Refills, Maintenance, 06/28/22 10:09:00 EDT, EC Tablet, [facility] #[id number], Partial fill upon patient request if the prescription is for a schedule II opioid drug., 190.5, cm, 06/28/22 9:08:0... Start Date: 06/28/22 Status: Ordered busPIRone 30 mg oral tablet 1 tablet = 30 mg, By Mouth, 3 times a day, # 270 tablet, 1 Refills, Maintenance, 08/02/23 14:21:00 EDT, [facility] #[id number], Partial fill upon patient request if the prescription is for a schedule II opioid drug., 190.5, cm, 05/29/23 11:36:00... Start Date: 08/02/23 Stop Date: 01/29/24 Status: Ordered cyclobenzaprine 5 mg oral tablet 1-2 tablet, By Mouth, 3 times a day, PRN Spasm, # 90 tablet, 2 Refills, Maintenance, 10/07/23 13:41:00 EST, [facility] #[id number], Partial fill upon patient request if the [...] 05/29/23 12:07:00 EDT, Route to Pharmacy Electronically, [facility] #[id number], Partial fill upon patientrequest if the prescription is for a schedule II op... Start Date: 05/29/23 Status: Ordered hydrOXYzine pamoate 50 mg oral capsule 2 capsule = 100 mg, By Mouth, Daily at bedtime, # 180 capsule, 1 Refills, Maintenance, 01/29/24 14:13:00 EDT, Capsule, [facility] #[id number], 190.5, cm, 10/01/23 8:42:00 EST, Height Start Date: 01/29/24 Stop Date: 07/27/24 Status: Ordered hydrOXYzine pamoate 50 mg oral capsule 2 capsule = 100 mg, By Mouth, Daily at bedtime, for 90 days, # 180 capsule, 1 Refills, Hard Stop 01/29/24 14:13:00 EDT, 08/02/23 14:13:00 EDT, Capsule, [facility] #[id number], 190.5, cm, 05/29/23 11:36:00 EDT, Height Start Date: 08/02/23 Stop Date: 01/29/24 Status: Ordered lamotrigine 200 mg oral tablet 1 tablet = 200 mg, By Mouth, 2 times a day, # 180 tablet, 1 Refills, Maintenance, 01/29/24 14:14:00EDT, Tablet, [facility] #[id number], Partial fill upon patient request if the prescription is for a schedule II opioid drug., 190.5, cm, 10/01/23... Start Date: 01/29/24 Stop Date: 07/27/24 Status: Ordered lamotrigine 200 mg oral tablet 1 tablet = 200 mg, By Mouth, 2 times a day, for 90 days, # 180 tablet, 1 Refills, Hard Stop 01/29/24 14:14:00 EDT, 08/02/23 14:14:00 EDT, Tablet, [facility] #[id number], Partial fill upon patient request if the prescription is for a schedule II o... Start Date: 08/02/23 Stop Date: 01/29/24 Status: Ordered Lexapro 20 mg oral tablet 1 tablet = 20 mg, By Mouth, Daily, # 90 tablet, 1 Refills, Maintenance, 01/29/24 14:13:00 EDT, Tablet, [facility] #[id number], Partial fill upon patient request if the prescription is for a schedule II opioid drug., 190.5, cm, 10/01/23 8:42:00 ES... Start Date: 01/29/24 Stop Date: 07/27/24 Status: Ordered Lexapro 20 mg oral tablet 1 tablet = 20 mg, By Mouth, Daily, for 90 days, # 90 tablet, 1 Refills, Hard Stop 01/29/24 14:13:00EDT, 08/02/23 14:13:00 EDT, Tablet, [facility] #[id number], Partial fill upon patient request if the prescription is for a schedule II opioid drug... Start Date: 08/02/23 Stop Date: 01/29/24 Status: Ordered melatonin 5 mg oral tablet See Instructions, PRN for insomnia, 2 tablet By Mouth Daily at bedtime, # 60 tablet, 4 Refills, Maintenance, 11/01/23 15:29:00 EST, Tablet, [facility] #[id number], 190.5, cm, 10/01/23 8:42:00 EST, Height Start Date: 11/01/23 Status: Ordered omeprazole 20 mg oral enteric coated capsule 1 capsule = 20 mg, By Mouth, 2 times a day, # 180 capsule, 2 Refills, Maintenance, 05/29/23 12:06:00 EDT, [facility] #[id number], Partial fill upon patient request if the prescription is for a schedule II opioid drug., 190.5, cm, 05/29/23 11:36:0... Start Date: 05/29/23 Status: Ordered ondansetron 4 mg oral tablet 1 tablet = 4 mg, By Mouth, Every 8 hours, PRN Nausea, # 180 tablet, 0 Refills, Maintenance, 08/25/23 21:28:00 EDT, Tablet, [facility] #[id number], Partial fill upon patient request if the prescription is for a schedule II opioid drug., 190.5, cm,... Start Date: 08/25/23 Status: Ordered pregabalin 150 mg oral capsule 1 capsule = 150 mg, By Mouth, 2 times a day, # 180 capsule, 1 Refills, Maintenance, 10/07/23 13:42:00 EST, Capsule, [facility] #[id number], Partial fill upon patient request if the prescription is for a schedule II opioid drug., 190.5, cm, ... Start Date: 10/07/23 Status: Ordered SEROquel 25 mg oral tablet 25 mg, 1, tablet, By Mouth, 2 times a day, dose decreasee, # 180 tablet, Refills 1, Tot. Refills 1,Maintenance, 11/01/23 15:28:00 EST, Route to Pharmacy Electronically, [facility] #[id number], Partial fill upon patient request if the [...] capsule, 1 Refills, Maintenance, 11/21/23 14:41:00 EST, [facility] #[id number], Partial fill upon patient request ifthe prescription is for a schedule II opioid drug.,... Start Date: 11/21/23 Stop Date: 01/20/24 Status: Ordered traZODone 100 mg oral tablet 100 mg, 1, tablet, By Mouth, Daily at bedtime, # 60 tablet, Refills 2, Tot. Refills 2, Maintenance,09/12/23 14:58:00 EDT, Route to Pharmacy Electronically, [facility] #[id number], 190.5, cm, 05/29/23 11:36:00 EDT, Height Start Date: 09/12/23 Stop Date: 03/10/24 Status: Ordered valsartan 80 mg oral tablet 80 mg, 1, tablet, By Mouth, Daily, # 90 tablet, Refills 1, Tot. Refills 1, Maintenance, 11/28/23 7:15:00 EST, Route to Pharmacy Electronically, [facility] #[id number], Partial fill upon patient request if the prescription is for a schedule II opi... 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; Dr aGllegos Confirmed Active Hypercalcemia Confirmed Active Hyperlipidemia Confirmed [...] Team Personnel Name: Carlos Glasgow MD Position: [facility] Physician - Primary Care Member Role: PCP Address: Address: [address] [place] [id number] Name: Sarah Sheth [place] Position: [facility] RN Member Role: Primary Care Nurse Name: Verenice Holt Position: [facility] RN Member Role: Primary Care Nurse Name: Margarita Lenz RN Position: [facility] RN Member Role: Primary Care Nurse Name: Lakshmi Michelle RN Position: [facility] RN Member Role: Primary Care Nurse Care Team Related Persons Name: JEZ COLEMAN Address: home [address] [place] [address]
--- OUTSIDE RECORDS SUMMARY | 2024-04-30 06:39 | XMS_ITS | Continuity of Care Document ---
Author Organization [facility] Address [address] [place] [address]- Care Team Providers Care Bioprocessing Manufacturing Technician Name Role Phone Carlos Glasgow MD Primary Care Physician Encounter [facility] Date(s): 08/27/23 - 09/26/23 [facility] [address] [place], [place] [address] Allergies, Adverse Reactions, Alerts Substance Reaction [...] ecorded 1Result Comment: [facility] 59258-324-91 vaccine given below Flu 2Result Comment: [facility] 22605-086-53 vaccine given above Tdap 3Result Comment: [facility] 50609-354-71 Medications Aller-Chlor 4 mg oral tablet 1 tablet = 4 mg, By Mouth, 2 times a day, TAKE 1 TABLET BY MOUTH TWICE DAILY, # 180 tablet, 1 Refills, Maintenance, 05/29/23 12:06:00 EDT, [facility] #[id number], 190.5, cm, 05/29/23 11:36:00 EDT, Height Start Date: 05/29/23 Status: Ordered Ativan 1 mg oral tablet 1 tablet = 1 mg, By Mouth, Daily, PRN panic only, # 10 tablet, 2 Refills, Maintenance, 09/25/23 7:30:00 EST, Tablet, [facility] #[id number], Partial fill upon patient request if the prescriptionis for a schedule II opioid drug., 190.5, cm, 05/29... Start Date: 09/25/23 Stop Date: 12/24/23 Status: Ordered bisacodyl 5 mg oral delayed release tablet 2 tablet = 10 mg, By Mouth, Daily, # 180 tablet, 3 Refills, Maintenance, 06/28/22 10:09:00 EDT, EC Tablet, [facility] #[id number], Partial fill upon patient request if the prescription is for a schedule II opioid drug., 190.5, cm, 06/28/22 9:08:0... Start Date: 06/28/22 Status: Ordered busPIRone 30 mg oral tablet 1 tablet = 30 mg, By Mouth, 3 times a day, # 270 tablet, 1 Refills, Maintenance, 08/02/23 14:21:00 EDT, [facility] #[id number], Partial fill upon patient request if the prescription is for a schedule II opioid drug., 190.5, cm, 05/29/23 11:36:00... Start Date: 08/02/23 Stop Date: 01/29/24 Status: Ordered cyclobenzaprine 5 mg oral tablet 1-2 tablet, By Mouth, 3 times a day, PRN Spasm, # 90 tablet, 2 Refills, Maintenance, 05/29/23 12:07:00 EDT, [facility] #[id number], Partial fill upon patient request if the [...] 05/29/23 12:07:00 EDT, Route to Pharmacy Electronically, [facility] #[id number], Partial fill upon patientrequest if the prescription is for a schedule II op... Start Date: 05/29/23 Status: Ordered hydrOXYzine pamoate 50 mg oral capsule 2 capsule = 100 mg, By Mouth, Daily at bedtime, # 180 capsule, 1 Refills, Maintenance, 08/02/23 14:13:00 EDT, Capsule, [facility] #[id number], 190.5, cm, 05/29/23 11:36:00 EDT, Height Start Date: 08/02/23 Stop Date: 01/29/24 Status: Ordered lamotrigine 200 mg oral tablet 1 tablet = 200 mg, By Mouth, 2 times a day, # 180 tablet, 1 Refills, Maintenance, 08/02/23 14:14:00EDT, Tablet, [facility] #[id number], Partial fill upon patient request if the prescription is for a schedule II opioid drug., 190.5, cm, 05/29/23... Start Date: 08/02/23 Stop Date: 01/29/24 Status: Ordered Lexapro 20 mg oral tablet 1 tablet = 20 mg, By Mouth, Daily, # 90 tablet, 1 Refills, Maintenance, 08/02/23 14:13:00 EDT, Tablet, [facility] #[id number], Partial fill upon patient request if the prescription is for a schedule II opioid drug., 190.5, cm, 05/29/23 11:36:00 E... Start Date: 08/02/23 Stop Date: 01/29/24 Status: Ordered melatonin 5 mg oral tablet See Instructions, PRN for insomnia, 2 tablet By Mouth Daily at bedtime, # 60 tablet, 4 Refills, Maintenance, 08/02/23 14:14:00 EDT, Tablet, [facility] #[id number], 190.5, cm, 05/29/23 11:36:00 EDT, Height Start Date: 08/02/23 Status: Ordered omeprazole 20 mg oral enteric coated capsule 1 capsule = 20 mg, By Mouth, 2 times a day, # 180 capsule, 2 Refills, Maintenance, 05/29/23 12:06:00 EDT, [facility] #[id number], Partial fill upon patient request if the prescription is for a schedule II opioid drug., 190.5, cm, 05/29/23 11:36:0... Start Date: 05/29/23 Status: Ordered ondansetron 4 mg oral tablet 1 tablet = 4 mg, By Mouth, Every 8 hours, PRN Nausea, # 180 tablet, 0 Refills, Maintenance, 08/25/23 21:28:00 EDT, Tablet, [facility] #[id number], Partial fill upon patient request if the [...] 08/02/23 14:09:00 EDT, Route to Pharmacy Electronically, [facility] #[id number], Partial fill upon patient request if the [...] Maintenance,09/12/23 14:58:00 EDT, Route to Pharmacy Electronically, [facility] #[id number], 190.5, cm, 05/29/23 11:36:00 EDT, Height Start Date: 09/12/23 Stop Date: 03/10/24 Status: Ordered valsartan 80 mg oral tablet 80 mg, 1, tablet, By Mouth, Daily, # 90 tablet, Refills 0, Tot. Refills 0, Maintenance, 08/28/23 22:06:00 EDT, Route to Pharmacy Electronically, [facility] #[id number], Partial fill upon patientrequest if the prescription is for a schedule II op... Start Date: 08/28/23 Status: Ordered Vitamin D3 1000 intl units oral capsule 1 capsule = 25 mcg, By Mouth, Daily, # 90 capsule, 3 Refills, Maintenance, 09/26/23 8:16:00 EST, Capsule, [facility] #[id number], Partial fill upon patient request if the [...] Team Personnel Name: Carlos Glasgow MD Position: [facility] Physician - Primary Care Member Role: PCP Address: Address: [facility] [place], [place] [address] Name: Sarah Sheth [place] Position: [facility] RN Member Role: Primary Care Nurse Name: Verenice Holt Position: [facility] RN Member Role: Primary Care Nurse Name: Margarita Lenz RN Position: [facility] RN Member Role: Primary Care Nurse Name: Lakshmi Michelle RN Position: [facility] RN Member Role: Primary Care Nurse Care Team Related Persons Name: JEZ COLEMAN Address: home [address] [place] [address]
--- OUTSIDE RECORDS SUMMARY | 2024-04-30 06:39 | XMS_ITS | Continuity of Care Document ---
Author Organization [facility] Address [address] [place] [address]- Care Team Providers Care Chain Tender Name Role Phone Carlos Glasgow MD Primary Care Physician [phone] Encounter [facility] Date(s): 05/31/23 - 06/30/23 [facility] [address] [place], [place] [address] Allergies, Adverse Reactions, Alerts [...] ecorded tetanus/diphtheria/pertussis, acel(Tdap) 07/19/11 Recorded 1Result Comment: [facility] 68174-940-06 Medications Aller-Chlor 4 mg oral tablet 1 tablet = 4 mg, By Mouth, 2 times a day, TAKE 1 TABLET BY MOUTH TWICE DAILY, # 180 tablet, 1 Refills, Maintenance, 05/29/23 12:06:00 EDT, [facility] #[id number], 190.5, cm, 05/29/23 11:36:00 EDT, Height Start Date: 05/29/23 Status: Ordered Ativan 1 mg oral tablet 1 tablet = 1 mg, By Mouth, Daily, PRN panic only, # 10 tablet, 4 Refills, Maintenance, 01/25/23 10:18:00 EST, Tablet, [facility] #[id number], Partial fill upon patient request if the prescription is for a schedule II opioid drug., 190.5, cm, 10/19... Start Date: 01/25/23 Stop Date: 06/24/23 Status: Ordered bisacodyl 5 mg oral delayed release tablet 2 tablet = 10 mg, By Mouth, Daily, # 180 tablet, 3 Refills, Maintenance, 06/28/22 10:09:00 EDT, EC Tablet, [facility] #[id number], Partial fill upon patient request if the prescription is for a schedule II opioid drug., 190.5, cm, 06/28/22 9:08:0... Start Date: 06/28/22 Status: Ordered busPIRone 30 mg oral tablet 1 tablet = 30 mg, By Mouth, 3 times a day, # 270 tablet, 1 Refills, Maintenance, 01/25/23 10:15:00 EST, [facility] #[id number], Partial fill upon patient request if the prescription is for a schedule II opioid drug., 190.5, cm, 11/06/22 9:34:00 E... Start Date: 01/25/23 Stop Date: 07/24/23 Status: Ordered cyclobenzaprine 5 mg oral tablet 1-2 tablet, By Mouth, 3 times a day, PRN Spasm, # 90 tablet, 2 Refills, Maintenance, 05/29/23 12:07:00 EDT, [facility] #[id number], Partial fill upon patient request if the prescription is for aschedule II opioid drug., 190.5, cm, 05/29/23 11:36... Start Date: 05/29/23 Status: Ordered hydrochlorothiazide 25 mg oral tablet 25 mg, 1, tablet, By Mouth, Daily, # 90 tablet, Refills 1, Tot. Refills 1, Maintenance, 05/29/23 12:07:00 EDT, Route to Pharmacy Electronically, [facility] #[id number], Partial fill upon patientrequest if the prescription is for a schedule II op... Start Date: 05/29/23 Status: Ordered hydrOXYzine pamoate 50 mg oral capsule 2 capsule = 100 mg, By Mouth, Daily at bedtime, # 180 capsule, 1 Refills, Maintenance, 01/25/23 10:16:00 EST, Capsule, [facility] #[id number], 190.5, cm, 11/06/22 9:34:00 EST, Height Start Date: 01/25/23 Stop Date: 07/24/23 Status: Ordered lamotrigine 200 mg oral tablet 1 tablet = 200 mg, By Mouth, 2 times a day, # 180 tablet, 1 Refills, Maintenance, 01/25/23 10:17:00EST, Tablet, [facility] #[id number], Partial fill upon patient request if the prescription is for a schedule II opioid drug., 190.5, cm, 11/06/22... Start Date: 01/25/23 Stop Date: 07/24/23 Status: Ordered Lexapro 20 mg oral tablet 1 tablet = 20 mg, By Mouth, Daily, # 90 tablet, 1 Refills, Maintenance, 01/25/23 10:14:00 EST, Tablet, [facility] #[id number], Partial fill upon patient request if the prescription is for a schedule II opioid drug., 190.5, cm, 11/06/22 9:34:00 ES... Start Date: 01/25/23 Stop Date: 07/24/23 Status: Ordered melatonin 5 mg oral tablet See Instructions, PRN for insomnia, 2 tablet By Mouth Daily at bedtime, # 60 tablet, 4 Refills, Maintenance, 01/25/23 10:19:00 EST, Tablet, [facility] #[id number], 190.5, cm, 11/06/22 9:34:00 EST, Height Start Date: 01/25/23 Status: Ordered omeprazole 20 mg oral enteric coated capsule 1 capsule = 20 mg, By Mouth, 2 times a day, # 180 capsule, 2 Refills, Maintenance, 05/29/23 12:06:00 EDT, [facility] #[id number], Partial fill upon patient request if the prescription is for a schedule II opioid drug., 190.5, cm, 05/29/23 11:36:0... Start Date: 05/29/23 Status: Ordered ondansetron 4 mg oral tablet 1 tablet = 4 mg, By Mouth, Every 8 hours, PRN Nausea, # 180 tablet, 0 Refills, Maintenance, 05/29/23 12:06:00 EDT, Tablet, [facility] #[id number], Partial fill upon patient request if the [...] 1 Refills, Maintenance, 01/25/23 10:19:00 EST, Tablet, [facility] #[id number], Partial fill upon patient request if the [...] Maintenance,05/14/23 15:18:00 EDT, Route to Pharmacy Electronically, [facility] #[id number], 190.5, cm, 11/06/22 9:34:00 EST, Height Start Date: 05/14/23 Stop Date: 06/13/23 Status: Ordered valsartan 80 mg oral tablet 80 mg, 1, tablet, By Mouth, Daily, PLEASE DISREGARD PRIOR RX FOR 160MG, # 90 tablet, Refills 0,Tot. Refills 0, Maintenance, 05/29/23 12:20:00 EDT, Route to Pharmacy Electronically, [facility] #[id number], Partial fill upon patient request if... Start Date: 05/29/23 Status: Ordered Vitamin D3 1000 intl units oral capsule 1 capsule = 25 mcg, By Mouth, Daily, # 90 capsule, 3 Refills, Maintenance, 05/29/23 12:06:00 EDT, Capsule, [facility] #[id number], Partial fill upon patient request if the [...] Care Team Personnel Name: Yosvany Ardon Position: [facility] Cardio/Pulm Mgr ([facility] Member Role: Primary Care Nurse Name: Carlos Glasgow MD Position: [facility] Physician - Primary Care Member Role: PCP Address: Address: [address] [place] [address] Name: Sarah Sheth [place] Position: [facility] RN Member Role: Primary Care Nurse Name: Verenice Holt Position: [facility] RN Member Role: Primary Care Nurse Name: Margarita Lenz RN Position: [facility] RN Member Role: Primary Care Nurse Name: Lakshmi Michelle RN Position: [facility] RN Member Role: Primary Care Nurse Care Team Related Persons Name: JEZ COLEMAN Address: home [address] [place] [address]
--- OUTSIDE RECORDS SUMMARY | 2024-04-30 06:39 | XMS_ITS | Continuity of Care Document ---
Author Organization [facility] Address [address] [place] [address]- Care Team Providers Care Grounds Maintenance Manager Name Role Phone Pee SANCHEZ, Carlos Primary Care Physician Encounter [facility] Date(s): 03/05/24 - 04/04/24 [facility] [address] [place], [place] [address] Allergies, Adverse Reactions, Alerts [...] mRNA-1273 vaccine 03/20/21 R ecorded 1Result Comment: [facility] 51285-869-39 vaccine given below Flu 2Result Comment: [facility] 51778-045-30 vaccine given above Tdap 3Result Comment: [facility] 58628-721-63 Medications Aller-Chlor 4 mg oral tablet 1 tablet = 4 mg, By Mouth, 2 times a day, TAKE 1 TABLET BY MOUTH TWICE DAILY, # 180 tablet, 1 Refills, Maintenance, 02/03/24 21:15:00 EDT, [facility] #[id number], 190.5, cm, 10/01/23 8:42:00 EST, Height Start Date: 02/03/24 Status: Ordered Ativan 1 mg oral tablet 1 tablet = 1 mg, By Mouth, Daily, PRN panic only, for 30 days, # 10 tablet, 3 Refills, Hard Stop 04/22/24 7:30:00 EDT, 12/24/23 7:30:00 EST, Tablet, [facility] #[id number], Partial fill upon patient request if the prescription is for a schedule I... Start Date: 12/24/23 Stop Date: 04/22/24 Status: Ordered Ativan 1 mg oral tablet 1 tablet = 1 mg, By Mouth, Daily, PRN panic only, # 10 tablet, 3 Refills, Maintenance, 04/22/24 7:30:00 EDT, Tablet, [facility] #[id number], Partial fill upon patient request if the prescriptionis for a schedule II opioid drug., 190.5, cm, 10/01... Start Date: 04/22/24 Stop Date: 08/20/24 Status: Ordered bisacodyl 5 mg oral delayed release tablet 2 tablet = 10 mg, By Mouth, Daily, # 180 tablet, 3 Refills, Maintenance, 06/28/22 10:09:00 EDT, EC Tablet, [facility] #[id number], Partial fill upon patient request if the prescription is for a schedule II opioid drug., 190.5, cm, 06/28/22 9:08:0... Start Date: 06/28/22 Status: Ordered busPIRone 30 mg oral tablet 1 tablet = 30 mg, By Mouth, 3 times a day, # 270 tablet, 1 Refills, Maintenance, 01/31/24 14:11:00 EDT, [facility] #[id number], Partial fill upon patient request if the prescription is for a schedule II opioid drug., 190.5, cm, 10/01/23 8:42:00 E... Start Date: 01/31/24 Stop Date: 07/29/24 Status: Ordered cyclobenzaprine 5 mg oral tablet 1-2 tablet, By Mouth, 3 times a day, PRN Spasm, # 90 tablet, 2 Refills, Maintenance, 03/19/24 22:24:00 EDT, [facility] #[id number], Partial fill upon patient request if the [...] 03/05/24 13:23:00 EDT, Route to Pharmacy Electronically, [facility] #[id number], Partial fill upon patientrequest if the prescription is for a schedule II op... Start Date: 03/05/24 Status: Ordered hydrOXYzine pamoate 50 mg oral capsule 2 capsule = 100 mg, By Mouth, Daily at bedtime, # 180 capsule, 1 Refills, Maintenance, 01/29/24 14:13:00 EDT, Capsule, [facility] #[id number], 190.5, cm, 10/01/23 8:42:00 EST, Height Start Date: 01/29/24 Stop Date: 07/27/24 Status: Ordered lamotrigine 200 mg oral tablet 1 tablet = 200 mg, By Mouth, 2 times a day, for 90 days, # 180 tablet, 1 Refills, Hard Stop 07/27/24 14:14:00 EDT, 01/29/24 14:14:00 EDT, Tablet, [facility] #[id number], Partial fill upon patient request if the prescription is for a schedule II o... Start Date: 01/29/24 Stop Date: 07/27/24 Status: Ordered lamotrigine 200 mg oral tablet 1 tablet = 200 mg, By Mouth, 2 times a day, # 120 tablet, 1 Refills, Maintenance, 07/27/24 14:14:00EDT, Tablet, [facility] #[id number], Partial fill upon patient request if the prescription is for a schedule II opioid drug., 190.5, cm, 10/01/23... Start Date: 07/27/24 Stop Date: 11/24/24 Status: Ordered Lexapro 20 mg oral tablet 1 tablet = 20 mg, By Mouth, Daily, # 90 tablet, 1 Refills, Maintenance, 01/29/24 14:13:00 EDT, Tablet, [facility] #[id number], Partial fill upon patient request if the prescription is for a schedule II opioid drug., 190.5, cm, 10/01/23 8:42:00 ES... Start Date: 01/29/24 Stop Date: 07/27/24 Status: Ordered melatonin 5 mg oral tablet See Instructions, PRN for insomnia, 2 tablet By Mouth Daily at bedtime, # 60 tablet, 4 Refills, Maintenance, 01/31/24 14:12:00 EDT, Tablet, [facility] #[id number], 190.5, cm, 10/01/23 8:42:00 EST, Height Start Date: 01/31/24 Status: Ordered omeprazole 20 mg oral enteric coated capsule 1 capsule = 20 mg, By Mouth, 2 times a day, # 180 capsule, 2 Refills, Maintenance, 05/29/23 12:06:00 EDT, [facility] #[id number], Partial fill upon patient request if the prescription is for a schedule II opioid drug., 190.5, cm, 05/29/23 11:36:0... Start Date: 05/29/23 Status: Ordered ondansetron 4 mg oral tablet 1 tablet = 4 mg, By Mouth, Every 8 hours, PRN Nausea, # 180 tablet, 0 Refills, Maintenance, 02/03/24 21:19:00 EDT, Tablet, [facility] #[id number], Partial fill upon patient request if the prescription is for a schedule II opioid drug., 190.5, cm,... Start Date: 02/03/24 Status: Ordered pregabalin 100 mg oral capsule 1 capsule = 100 mg, By Mouth, 2 times a day, # 60 capsule, 0 Refills, Maintenance, 03/04/24 12:28:00 EDT, Capsule, [facility] #[id number], Partial fill upon patient request if the prescription is for a schedule II opioid drug., 190.5, cm, ... Start Date: 03/04/24 Status: Ordered SEROquel 25 mg oral tablet 25 mg, 1, tablet, By Mouth, 2 times a day, dose decreasee, # 180 tablet, Refills 1, Tot. Refills 1,Maintenance, 11/01/23 15:28:00 EST, Route to Pharmacy Electronically, [facility] #[id number], Partial fill upon patient request if the [...] capsule, 4 Refills, Maintenance, 01/31/24 14:09:00 EDT, [facility] #[id number], Partial fill upon patient request ifthe prescription is for a schedule II opioid drug.,... Start Date: 01/31/24 Stop Date: 06/29/24 Status: Ordered traZODone 100 mg oral tablet 100 mg, 1, tablet, By Mouth, Daily at bedtime, # 60 tablet, Refills 0, Tot. Refills 0, Maintenance,03/18/24 7:26:00 EDT, Route to Pharmacy Electronically, [facility] #[id number], 190.5, cm, 10/01/23 8:42:00 EST, Height Start Date: 03/18/24 Stop Date: 05/17/24 Status: Ordered Vitamin D3 1000 intl units oral capsule 1 capsule = 25 mcg, By Mouth, Daily, # 90 capsule, 3 Refills, Maintenance, 09/26/23 8:16:00 EST, Capsule, [facility] #[id number], Partial fill upon patient request if the [...] Team Personnel Name: Carlos Glasgow MD Position: [facility] Physician - Primary Care Member Role: PCP Address: Address: [address] [place] [id number] Name: Sarah Sheth MA Position: [facility] MA Member Role: Primary Care Nurse Name: Verenice Diego MA Position: [facility] Office Staff Member Role: Primary Care Nurse Name: Margarita Lenz RN Position: [facility] RN Member Role: Primary Care Nurse Name: Lakshmi Michelle RN Position: [facility] RN Member Role: Primary Care Nurse Care Team Related Persons Name: JEZ COLEMAN Address: home [address] [place] [address]
--- OUTSIDE RECORDS SUMMARY | 2024-04-30 06:39 | XMS_ITS | Continuity of Care Document ---
Author Organization [facility] Address [address] [place] [address]- Care Team Providers Care Theatre Instructor Name Role Phone Carlos Glasgow MD Primary Care Physician Encounter [facility] Date(s): 05/30/23 - 06/29/23 [facility] [address] [place], [place] [address] Allergies, Adverse Reactions, Alerts [...] ecorded tetanus/diphtheria/pertussis, acel(Tdap) 07/19/11 Recorded 1Result Comment: [facility] 44614-252-26 Medications Aller-Chlor 4 mg oral tablet 1 tablet = 4 mg, By Mouth, 2 times a day, TAKE 1 TABLET BY MOUTH TWICE DAILY, # 180 tablet, 1 Refills, Maintenance, 05/29/23 12:06:00 EDT, [email or web address] #[id number], 190.5, cm, 05/29/23 11:36:00 EDT, Height Start Date: 05/29/23 Status: Ordered Ativan 1 mg oral tablet 1 tablet = 1 mg, By Mouth, Daily, PRN panic only, # 10 tablet, 4 Refills, Maintenance, 01/25/23 10:18:00 EST, Tablet, [email or web address] #[id number], Partial fill upon patient request if the prescription is for a schedule II opioid drug., 190.5, cm, 10/19... Start Date: 01/25/23 Stop Date: 06/24/23 Status: Ordered bisacodyl 5 mg oral delayed release tablet 2 tablet = 10 mg, By Mouth, Daily, # 180 tablet, 3 Refills, Maintenance, 06/28/22 10:09:00 EDT, EC Tablet, [email or web address] #[id number], Partial fill upon patient request if the prescription is for a schedule II opioid drug., 190.5, cm, 06/28/22 9:08:0... Start Date: 06/28/22 Status: Ordered busPIRone 30 mg oral tablet 1 tablet = 30 mg, By Mouth, 3 times a day, # 270 tablet, 1 Refills, Maintenance, 01/25/23 10:15:00 EST, [email or web address] #[id number], Partial fill upon patient request if the prescription is for a schedule II opioid drug., 190.5, cm, 11/06/22 9:34:00 E... Start Date: 01/25/23 Stop Date: 07/24/23 Status: Ordered cyclobenzaprine 5 mg oral tablet 1-2 tablet, By Mouth, 3 times a day, PRN Spasm, # 90 tablet, 2 Refills, Maintenance, 05/29/23 12:07:00 EDT, [email or web address] #[id number], Partial fill upon patient request if the prescription is for aschedule II opioid drug., 190.5, cm, 05/29/23 11:36... Start Date: 05/29/23 Status: Ordered hydrochlorothiazide 25 mg oral tablet 25 mg, 1, tablet, By Mouth, Daily, # 90 tablet, Refills 1, Tot. Refills 1, Maintenance, 05/29/23 12:07:00 EDT, Route to Pharmacy Electronically, [email or web address] #[id number], Partial fill upon patientrequest if the prescription is for a schedule II op... Start Date: 05/29/23 Status: Ordered hydrOXYzine pamoate 50 mg oral capsule 2 capsule = 100 mg, By Mouth, Daily at bedtime, # 180 capsule, 1 Refills, Maintenance, 01/25/23 10:16:00 EST, Capsule, [email or web address] #[id number], 190.5, cm, 11/06/22 9:34:00 EST, Height Start Date: 01/25/23 Stop Date: 07/24/23 Status: Ordered lamotrigine 200 mg oral tablet 1 tablet = 200 mg, By Mouth, 2 times a day, # 180 tablet, 1 Refills, Maintenance, 01/25/23 10:17:00EST, Tablet, [email or web address] #[id number], Partial fill upon patient request if the prescription is for a schedule II opioid drug., 190.5, cm, 11/06/22... Start Date: 01/25/23 Stop Date: 07/24/23 Status: Ordered Lexapro 20 mg oral tablet 1 tablet = 20 mg, By Mouth, Daily, # 90 tablet, 1 Refills, Maintenance, 01/25/23 10:14:00 EST, Tablet, [email or web address] #[id number], Partial fill upon patient request if the prescription is for a schedule II opioid drug., 190.5, cm, 11/06/22 9:34:00 ES... Start Date: 01/25/23 Stop Date: 07/24/23 Status: Ordered melatonin 5 mg oral tablet See Instructions, PRN for insomnia, 2 tablet By Mouth Daily at bedtime, # 60 tablet, 4 Refills, Maintenance, 01/25/23 10:19:00 EST, Tablet, [facility] #[id number], 190.5, cm, 11/06/22 9:34:00 EST, Height Start Date: 01/25/23 Status: Ordered omeprazole 20 mg oral enteric coated capsule 1 capsule = 20 mg, By Mouth, 2 times a day, # 180 capsule, 2 Refills, Maintenance, 05/29/23 12:06:00 EDT, [email or web address] #[id number], Partial fill upon patient request if the prescription is for a schedule II opioid drug., 190.5, cm, 05/29/23 11:36:0... Start Date: 05/29/23 Status: Ordered ondansetron 4 mg oral tablet 1 tablet = 4 mg, By Mouth, Every 8 hours, PRN Nausea, # 180 tablet, 0 Refills, Maintenance, 05/29/23 12:06:00 EDT, Tablet, [email or web address] #[id number], Partial fill upon patient request if the [...] 06/30/23 16:41:00 EDT, 05/31/23 16:41:00 EDT, Capsule, [email or web address] #[id number], 190.5, cm, 05/29/23 11:36:00 EDT, Height Start Date: 05/31/23 Stop Date: 06/30/23 Status: Ordered SEROquel 50 mg oral tablet 1 tablet = 50 mg, By Mouth, 3 times a day, # 270 tablet, 1 Refills, Maintenance, 01/25/23 10:19:00 EST, Tablet, [email or web address] #[id number], Partial fill upon patient request if the [...] Maintenance,05/14/23 15:18:00 EDT, Route to Pharmacy Electronically, [email or web address] #[id number], 190.5, cm, 11/06/22 9:34:00 EST, Height Start Date: 05/14/23 Stop Date: 06/13/23 Status: Ordered valsartan 80 mg oral tablet 80 mg, 1, tablet, By Mouth, Daily, PLEASE DISREGARD PRIOR RX FOR 160MG, # 90 tablet, Refills 0,Tot. Refills 0, Maintenance, 05/29/23 12:20:00 EDT, Route to Pharmacy Electronically, [email or web address] #[id number], Partial fill upon patient request if... Start Date: 05/29/23 Status: Ordered Vitamin D3 1000 intl units oral capsule 1 capsule = 25 mcg, By Mouth, Daily, # 90 capsule, 3 Refills, Maintenance, 05/29/23 12:06:00 EDT, Capsule, [email or web address] #[id number], Partial fill upon patient request if the [...] Name: Yosvany Ardon Position: [facility] ([facility]) Member Role: Primary Care Nurse Name: Carlos Glasgow MD Position: [facility] Physician - Primary Care Member Role: PCP Address: Address: [address], [place] [address] Name: Sarah Sheth MA Position: [facility] RN Member Role: Primary Care Nurse Name: Verenice Holt Position: [facility] RN Member Role: Primary Care Nurse Name: Margarita Lenz RN Position: [facility] RN Member Role: Primary Care Nurse Name: Lakshmi Michelle RN Position: [facility] RN Member Role: Primary Care Nurse Care Team Related Persons Name: JEZ COLEMAN Address: home [address] [place] [address]
--- OUTSIDE RECORDS SUMMARY | 2024-04-30 06:39 | XMS_ITS | Continuity of Care Document ---
Author Organization [facility] Address [address] [place] [address]- Care Team Providers Care Second Crusher Name Role Phone Pee SANCHEZ, Carlos Primary Care Physician [phone] Encounter [facility] Date(s): 03/03/24 - 04/02/24 [facility] [address] [place], [place] [address] Allergies, [...] mRNA-1273 vaccine 03/20/21 R ecorded 1Result Comment: [facility] 75339-436-86 vaccine given below Flu 2Result Comment: [facility] 13296-899-93 vaccine given above Tdap 3Result Comment: [facility] 31275-121-76 Medications Aller-Chlor 4 mg oral tablet 1 tablet = 4 mg, By Mouth, 2 times a day, TAKE 1 TABLET BY MOUTH TWICE DAILY, # 180 tablet, 1 Refills, Maintenance, 02/03/24 21:15:00 EDT, [facility] #[id number], 190.5, cm, 10/01/23 8:42:00 EST, Height Start Date: 02/03/24 Status: Ordered Ativan 1 mg oral tablet 1 tablet = 1 mg, By Mouth, Daily, PRN panic only, for 30 days, # 10 tablet, 3 Refills, Hard Stop 04/22/24 7:30:00 EDT, 12/24/23 7:30:00 EST, Tablet, [facility] #[id number], Partial fill upon patient request if the prescription is for a schedule I... Start Date: 12/24/23 Stop Date: 04/22/24 Status: Ordered Ativan 1 mg oral tablet 1 tablet = 1 mg, By Mouth, Daily, PRN panic only, # 10 tablet, 3 Refills, Maintenance, 04/22/24 7:30:00 EDT, Tablet, [facility] #[id number], Partial fill upon patient request if the prescriptionis for a schedule II opioid drug., 190.5, cm, 10/01... Start Date: 04/22/24 Stop Date: 08/20/24 Status: Ordered bisacodyl 5 mg oral delayed release tablet 2 tablet = 10 mg, By Mouth, Daily, # 180 tablet, 3 Refills, Maintenance, 06/28/22 10:09:00 EDT, EC Tablet, [facility] #[id number], Partial fill upon patient request if the prescription is for a schedule II opioid drug., 190.5, cm, 06/28/22 9:08:0... Start Date: 06/28/22 Status: Ordered busPIRone 30 mg oral tablet 1 tablet = 30 mg, By Mouth, 3 times a day, # 270 tablet, 1 Refills, Maintenance, 01/31/24 14:11:00 EDT, [facility] #[id number], Partial fill upon patient request if the prescription is for a schedule II opioid drug., 190.5, cm, 10/01/23 8:42:00 E... Start Date: 01/31/24 Stop Date: 07/29/24 Status: Ordered cyclobenzaprine 5 mg oral tablet 1-2 tablet, By Mouth, 3 times a day, PRN Spasm, # 90 tablet, 2 Refills, Maintenance, 03/19/24 22:24:00 EDT, [facility] #[id number], Partial fill upon patient request if the [...] 03/05/24 13:23:00 EDT, Route to Pharmacy Electronically, [facility] #[id number], Partial fill upon patientrequest if the prescription is for a schedule II op... Start Date: 03/05/24 Status: Ordered hydrOXYzine pamoate 50 mg oral capsule 2 capsule = 100 mg, By Mouth, Daily at bedtime, # 180 capsule, 1 Refills, Maintenance, 01/29/24 14:13:00 EDT, Capsule, [facility] #[id number], 190.5, cm, 10/01/23 8:42:00 EST, Height Start Date: 01/29/24 Stop Date: 07/27/24 Status: Ordered lamotrigine 200 mg oral tablet 1 tablet = 200 mg, By Mouth, 2 times a day, for 90 days, # 180 tablet, 1 Refills, Hard Stop 07/27/24 14:14:00 EDT, 01/29/24 14:14:00 EDT, Tablet, [facility] #[id number], Partial fill upon patient request if the prescription is for a schedule II o... Start Date: 01/29/24 Stop Date: 07/27/24 Status: Ordered lamotrigine 200 mg oral tablet 1 tablet = 200 mg, By Mouth, 2 times a day, # 120 tablet, 1 Refills, Maintenance, 07/27/24 14:14:00EDT, Tablet, [facility] #[id number], Partial fill upon patient request if the prescription is for a schedule II opioid drug., 190.5, cm, 10/01/23... Start Date: 07/27/24 Stop Date: 11/24/24 Status: Ordered Lexapro 20 mg oral tablet 1 tablet = 20 mg, By Mouth, Daily, # 90 tablet, 1 Refills, Maintenance, 01/29/24 14:13:00 EDT, Tablet, [facility] #[id number], Partial fill upon patient request if the prescription is for a schedule II opioid drug., 190.5, cm, 10/01/23 8:42:00 ES... Start Date: 01/29/24 Stop Date: 07/27/24 Status: Ordered melatonin 5 mg oral tablet See Instructions, PRN for insomnia, 2 tablet By Mouth Daily at bedtime, # 60 tablet, 4 Refills, Maintenance, 01/31/24 14:12:00 EDT, Tablet, [facility] #[id number], 190.5, cm, 10/01/23 8:42:00 EST, Height Start Date: 01/31/24 Status: Ordered omeprazole 20 mg oral enteric coated capsule 1 capsule = 20 mg, By Mouth, 2 times a day, # 180 capsule, 2 Refills, Maintenance, 05/29/23 12:06:00 EDT, [facility] #[id number], Partial fill upon patient request if the prescription is for a schedule II opioid drug., 190.5, cm, 05/29/23 11:36:0... Start Date: 05/29/23 Status: Ordered ondansetron 4 mg oral tablet 1 tablet = 4 mg, By Mouth, Every 8 hours, PRN Nausea, # 180 tablet, 0 Refills, Maintenance, 02/03/24 21:19:00 EDT, Tablet, [facility] #[id number], Partial fill upon patient request if the prescription is for a schedule II opioid drug., 190.5, cm,... Start Date: 02/03/24 Status: Ordered pregabalin 100 mg oral capsule 1 capsule = 100 mg, By Mouth, 2 times a day, # 60 capsule, 0 Refills, Maintenance, 03/04/24 12:28:00 EDT, Capsule, [facility] #[id number], Partial fill upon patient request if the prescription is for a schedule II opioid drug., 190.5, cm, ... Start Date: 03/04/24 Status: Ordered SEROquel 25 mg oral tablet 25 mg, 1, tablet, By Mouth, 2 times a day, dose decreasee, # 180 tablet, Refills 1, Tot. Refills 1,Maintenance, 11/01/23 15:28:00 EST, Route to Pharmacy Electronically, [facility] #[id number], Partial fill upon patient request if the [...] capsule, 4 Refills, Maintenance, 01/31/24 14:09:00 EDT, [facility] #[id number], Partial fill upon patient request ifthe prescription is for a schedule II opioid drug.,... Start Date: 01/31/24 Stop Date: 06/29/24 Status: Ordered traZODone 100 mg oral tablet 100 mg, 1, tablet, By Mouth, Daily at bedtime, # 60 tablet, Refills 0, Tot. Refills 0, Maintenance,03/18/24 7:26:00 EDT, Route to Pharmacy Electronically, [facility] #[id number], 190.5, cm, 10/01/23 8:42:00 EST, Height Start Date: 03/18/24 Stop Date: 05/17/24 Status: Ordered Vitamin D3 1000 intl units oral capsule 1 capsule = 25 mcg, By Mouth, Daily, # 90 capsule, 3 Refills, Maintenance, 09/26/23 8:16:00 EST, Capsule, [facility] #[id number], Partial fill upon patient request if the [...] Team Personnel Name: Carlos Glasgow MD Position: [facility] Physician - Primary Care Member Role: PCP Address: Address: [address] [place] [id number] Name: Sarah Sheth MA Position: [facility] MA Member Role: Primary Care Nurse Name: Verenice Diego MA Position: [facility] Office Staff Member Role: Primary Care Nurse Name: Margarita Lenz RN Position: [facility] RN Member Role: Primary Care Nurse Name: Lakshmi Michelle RN Position: [facility] RN Member Role: Primary Care Nurse Care Team Related Persons Name: JEZ COLEMAN Address: home [address] [place] [address]
--- OUTSIDE RECORDS SUMMARY | 2024-04-30 06:39 | XMS_ITS | Continuity of Care Document ---
Author Organization [facility] Address [address] [place] [address]- Care Team Providers Care Passementerie Worker Name Role Phone Carlos Glasgow MD Primary Care Physician [phone] Encounter [facility] Date(s): 08/17/23 - 09/16/23 [facility] [address] [place], [place] [address] Allergies, Adverse Reactions, Alerts [...] ecorded tetanus/diphtheria/pertussis, acel(Tdap) 07/19/11 Recorded 1Result Comment: [facility] [id number] Medications Aller-Chlor 4 mg oral tablet 1 tablet = 4 mg, By Mouth, 2 times a day, TAKE 1 TABLET BY MOUTH TWICE DAILY, # 180 tablet, 1 Refills, Maintenance, 05/29/23 12:06:00 EDT, [facility] #[id number], 190.5, cm, 05/29/23 11:36:00 EDT, Height Start Date: 05/29/23 Status: Ordered Ativan 1 mg oral tablet 1 tablet = 1 mg, By Mouth, Daily, PRN panic only, # 10 tablet, 4 Refills, Maintenance, 01/25/23 10:18:00 EST, Tablet, [facility] #[id number], Partial fill upon patient request if the prescription is for a schedule II opioid drug., 190.5, cm, 10/19... Start Date: 01/25/23 Stop Date: 06/24/23 Status: Ordered bisacodyl 5 mg oral delayed release tablet 2 tablet = 10 mg, By Mouth, Daily, # 180 tablet, 3 Refills, Maintenance, 06/28/22 10:09:00 EDT, EC Tablet, [facility] #[id number], Partial fill upon patient request if the prescription is for a schedule II opioid drug., 190.5, cm, 06/28/22 9:08:0... Start Date: 06/28/22 Status: Ordered busPIRone 30 mg oral tablet 1 tablet = 30 mg, By Mouth, 3 times a day, # 270 tablet, 1 Refills, Maintenance, 08/02/23 14:21:00 EDT, [facility] #[id number], Partial fill upon patient request if the prescription is for a schedule II opioid drug., 190.5, cm, 05/29/23 11:36:00... Start Date: 08/02/23 Stop Date: 01/29/24 Status: Ordered cyclobenzaprine 5 mg oral tablet 1-2 tablet, By Mouth, 3 times a day, PRN Spasm, # 90 tablet, 2 Refills, Maintenance, 05/29/23 12:07:00 EDT, [facility] #[id number], Partial fill upon patient request if the prescription is for aschedule II opioid drug., 190.5, cm, 05/29/23 11:36... Start Date: 05/29/23 Status: Ordered hydrochlorothiazide 25 mg oral tablet 25 mg, 1, tablet, By Mouth, Daily, # 90 tablet, Refills 1, Tot. Refills 1, Maintenance, 05/29/23 12:07:00 EDT, Route to Pharmacy Electronically, [facility] #[id number], Partial fill upon patientrequest if the prescription is for a schedule II op... Start Date: 05/29/23 Status: Ordered hydrOXYzine pamoate 50 mg oral capsule 2 capsule = 100 mg, By Mouth, Daily at bedtime, # 180 capsule, 1 Refills, Maintenance, 08/02/23 14:13:00 EDT, Capsule, [facility] #[id number], 190.5, cm, 05/29/23 11:36:00 EDT, Height Start Date: 08/02/23 Stop Date: 01/29/24 Status: Ordered lamotrigine 200 mg oral tablet 1 tablet = 200 mg, By Mouth, 2 times a day, # 180 tablet, 1 Refills, Maintenance, 08/02/23 14:14:00EDT, Tablet, [facility] #[id number], Partial fill upon patient request if the prescription is for a schedule II opioid drug., 190.5, cm, 05/29/23... Start Date: 08/02/23 Stop Date: 01/29/24 Status: Ordered Lexapro 20 mg oral tablet 1 tablet = 20 mg, By Mouth, Daily, # 90 tablet, 1 Refills, Maintenance, 08/02/23 14:13:00 EDT, Tablet, [facility] #[id number], Partial fill upon patient request if the prescription is for a schedule II opioid drug., 190.5, cm, 05/29/23 11:36:00 E... Start Date: 08/02/23 Stop Date: 01/29/24 Status: Ordered melatonin 5 mg oral tablet See Instructions, PRN for insomnia, 2 tablet By Mouth Daily at bedtime, # 60 tablet, 4 Refills, Maintenance, 08/02/23 14:14:00 EDT, Tablet, [facility] #[id number], 190.5, cm, 05/29/23 11:36:00 EDT, Height Start Date: 08/02/23 Status: Ordered omeprazole 20 mg oral enteric coated capsule 1 capsule = 20 mg, By Mouth, 2 times a day, # 180 capsule, 2 Refills, Maintenance, 05/29/23 12:06:00 EDT, [facility] #[id number], Partial fill upon patient request if the prescription is for a schedule II opioid drug., 190.5, cm, 05/29/23 11:36:0... Start Date: 05/29/23 Status: Ordered ondansetron 4 mg oral tablet 1 tablet = 4 mg, By Mouth, Every 8 hours, PRN Nausea, # 180 tablet, 0 Refills, Maintenance, 08/25/23 21:28:00 EDT, Tablet, [facility] #[id number], Partial fill upon patient request if the [...] 08/02/23 14:09:00 EDT, Route to Pharmacy Electronically, [facility] #[id number], Partial fill upon patient request if the [...] Maintenance,09/12/23 14:58:00 EDT, Route to Pharmacy Electronically, [facility] #[id number], 190.5, cm, 05/29/23 11:36:00 EDT, Height Start Date: 09/12/23 Stop Date: 03/10/24 Status: Ordered valsartan 80 mg oral tablet 80 mg, 1, tablet, By Mouth, Daily, # 90 tablet, Refills 0, Tot. Refills 0, Maintenance, 08/28/23 22:06:00 EDT, Route to Pharmacy Electronically, [facility] #[id number], Partial fill upon patientrequest if the prescription is for a schedule II op... Start Date: 08/28/23 Status: Ordered Vitamin D3 1000 intl units oral capsule 1 capsule = 25 mcg, By Mouth, Daily, # 90 capsule, 3 Refills, Maintenance, 05/29/23 12:06:00 EDT, Capsule, [facility] #[id number], Partial fill upon patient request if the [...] Team Personnel Name: Carlos Glasgow MD Position: [facility] Physician - Primary Care Member Role: PCP Address: Address: [address] [place] [address] Name: Sarah Sheth [place] Position: [facility] RN Member Role: Primary Care Nurse Name: Verenice Holt Position: [facility] RN Member Role: Primary Care Nurse Name: Margarita Lenz RN Position: [facility] RN Member Role: Primary Care Nurse Name: Lakshmi Michelle RN Position: [facility] RN Member Role: Primary Care Nurse Care Team Related Persons Name: JEZ COLEMAN Address: home [address] [place] [address]
--- OUTSIDE RECORDS SUMMARY | 2024-04-30 06:39 | XMS_ITS | Continuity of Care Document ---
Author Organization [facility] Address [address] [place] [address]- Care Team Providers Care Biofuels Production Associate Name Role Phone Carlos Glasgow MD Primary Care Physician Encounter [facility] [id number] Date(s): 11/06/22 - 12/06/22 [facility] [address], [place] [address] Attending Physician: Wendy Aguilera Admitting Physician: AdmtrWendy Referring Physician: Admtr, Guy8 Allergies, Adverse Reactions, Alerts Substance Reaction Severity [...] tetanus/diphtheria/pertussis, acel(Tdap) 07/19/11 Recorded 1Result Comment: [facility] [id number] Medications Ativan 1 mg oral tablet 1 tablet = 1 mg, By Mouth, Daily, PRN panic only, # 10 tablet, 4 Refills, Maintenance, 09/27/22 10:13:00 EST, Tablet, [facility] #[id number], Partial fill upon patient request if the [...] Replace Required Details, Route to Pharmacy Electronically, Flavours... Start Date: 09/26/22 Status: Ordered baclofen 20 mg oral tablet 20 mg, 1, tablet, By Mouth, 3 times a day, # 270 tablet, Refills 2, Tot. Refills 2, Maintenance, 06/28/22 10:10:00 EDT, Route to Pharmacy Electronically, [facility] #[id number], Partial fill upon patient request if the prescription is for a sched... Start Date: 06/28/22 Status: Ordered bisacodyl 5 mg oral delayed release tablet 2 tablet = 10 mg, By Mouth, Daily, # 180 tablet, 3 Refills, Maintenance, 06/28/22 10:09:00 EDT, EC Tablet, [facility] #[id number], Partial fill upon patient request if the prescription is for a schedule II opioid drug., 190.5, cm, 06/28/22 9:08:0... Start Date: 06/28/22 Status: Ordered busPIRone 30 mg oral tablet 1 tablet = 30 mg, By Mouth, 3 times a day, # 90 tablet, 4 Refills, Maintenance, 09/27/22 10:15:00 EST, [facility] #[id number], Partial fill upon patient request if the [...] 4 Refills, Maintenance, 09/27/22 10:12:00 EST, Capsule, [facility] #[id number], 190.5, cm, 09/26/22 11:38:00 EST, Height Start Date: 09/27/22 Stop Date: 02/24/23 Status: Ordered lamotrigine 200 mg oral tablet 1 tablet = 200 mg, By Mouth, 2 times a day, # 60 tablet, 4 Refills, Maintenance, 09/27/22 10:15:00 EST, Tablet, [facility] #[id number], Partial fill upon patient request if the prescription is for a schedule II opioid drug., 190.5, cm, 09/26/22 1... Start Date: 09/27/22 Stop Date: 02/24/23 Status: Ordered Lexapro 10 mg oral tablet 1 tablet = 10 mg, By Mouth, Daily, take 1/2 tab for 7 days then increase to full tab, # 30 tablet, 4 Refills, Maintenance, 09/27/22 10:14:00 EST, Tablet, [facility] #[id number], Partial fill upon patient request if the prescription is for a sched... Start Date: 09/27/22 Stop Date: 02/24/23 Status: Ordered melatonin 5 mg oral tablet See Instructions, PRN for insomnia, 2 tablet By Mouth Daily at bedtime, # 60 tablet, 4 Refills, Maintenance, 09/27/22 10:16:00 EST, Tablet, [facility] #[id number], 190.5, cm, 09/26/22 11:38:00 EST, Height Start Date: 09/27/22 Status: Ordered omeprazole 20 mg oral enteric coated capsule 1 capsule = 20 mg, By Mouth, 2 times a day, # 180 capsule, 2 Refills, Maintenance, 09/26/22 12:26:00 EST, [facility] #[id number], Partial fill upon patient request if the prescription is for a schedule II opioid drug., 190.5, cm, 09/26/22 11:38:0... Start Date: 09/26/22 Status: Ordered ondansetron 4 mg oral tablet 1 tablet = 4 mg, By Mouth, Every 8 hours, PRN Nausea, # 180 tablet, 0 Refills, Maintenance, 06/28/22 10:10:00 EDT, Tablet, [facility] #[id number], Partial fill upon patient request if the [...] 02/24/23 10:12:00 EDT, 09/27/22 10:12:00 EST, Capsule, [facility] #[id number], 190.5, cm, 09/26/22 11:38:00 EST, Height Start Date: 09/27/22 Stop Date: 02/24/23 Status: Ordered SEROquel 50 mg oral tablet 1 tablet = 50 mg, By Mouth, 3 times a day, # 90 tablet, 4 Refills, Maintenance, 09/27/22 10:15:00 EST, Tablet, [facility] #[id number], Partial fill upon patient request if the [...] 09/26/22 12:18:00 EST, Route to Pharmacy Electronically, [facility] #[id number], Partial fill upon patient request if the prescription is for a schedul... Start Date: 09/26/22 Status: Ordered traZODone 100 mg oral tablet 100 mg, 1, tablet, By Mouth, Daily at bedtime, # 30 tablet, Refills 4, Tot. Refills 4, Maintenance,09/27/22 10:16:00 EST, Route to Pharmacy Electronically, [facility] #[id number], 190.5, cm, 09/26/22 11:38:00 EST, Height Start Date: 09/27/22 Stop Date: 02/24/23 Status: Ordered Vitamin D3 1000 intl units oral capsule 1 capsule = 25 mcg, By Mouth, Daily, # 90 capsule, 3 Refills, Maintenance, 06/28/22 10:10:00 EDT, Capsule, [facility] #[id number], Partial fill upon patient request if the [...] Care team information Care Team Personnel Name: Yovsany Ardon Position: S Cardio/Pulm Mgr ([facility]) Member Role: Primary Care Nurse Name: Carlos Glasgow MD Position: [facility] Primary Care Physician Member Role: PCP Address: Address: [address] [place] [id number] Name: Sarah Hope Position: [facility] RN Member Role: Primary Care Nurse Name: Verenice Holt Position: [facility] RN Member Role: Primary Care Nurse Name: Margarita Lenz RN Position: [facility] RN Member Role: Primary Care Nurse Name: Lakshmi Michelle RN Position: [facility] RN Member Role: Primary Care Nurse Care Team Related Persons Name: JEZ COLEMAN Address: home [address] [place] [address]
--- OUTSIDE RECORDS SUMMARY | 2024-04-30 06:39 | XMS_ITS | Continuity of Care Document ---
Author Organization [facility] Address [address] [place] [address]- Care Team Providers Care Program Aide Name Role Phone Pee SANCHEZ, Carlos Primary Care Physician [facility]counter [facility] Date(s): 10/21/23 - 11/20/23 [facility] [address] [place], [place] [address] Allergies, Adverse Reactions, Alerts Substance Reaction Severity [...] vaccine 03/20/21 R ecorded 1Result Comment: [facility] [id number] vaccine given below Flu 2Result Comment: [facility] [id number] vaccine given above Tdap 3Result Comment: [facility] 49480-627-55 Medications Aller-Chlor 4 mg oral tablet 1 tablet = 4 mg, By Mouth, 2 times a day, TAKE 1 TABLET BY MOUTH TWICE DAILY, # 180 tablet, 1 Refills, Maintenance, 05/29/23 12:06:00 EDT, [facility] #[id number], 190.5, cm, 05/29/23 11:36:00 EDT, Height Start Date: 05/29/23 Status: Ordered Ativan 1 mg oral tablet 1 tablet = 1 mg, By Mouth, Daily, PRN panic only, # 10 tablet, 3 Refills, Maintenance, 12/24/23 7:30:00 EST, Tablet, [facility] #[id number], Partial fill upon patient request if the prescriptionis for a schedule II opioid drug., 190.5, cm, 10/01... Start Date: 12/24/23 Stop Date: 04/22/24 Status: Ordered Ativan 1 mg oral tablet 1 tablet = 1 mg, By Mouth, Daily, PRN panic only, for 30 days, # 10 tablet, 2 Refills, Hard Stop 12/24/23 7:30:00 EST, 09/25/23 7:30:00 EST, Tablet, [facility] #[id number], Partial fill upon patient request if the prescription is for a schedule I... Start Date: 09/25/23 Stop Date: 12/24/23 Status: Ordered bisacodyl 5 mg oral delayed release tablet 2 tablet = 10 mg, By Mouth, Daily, # 180 tablet, 3 Refills, Maintenance, 06/28/22 10:09:00 EDT, EC Tablet, [facility] #[id number], Partial fill upon patient request if the prescription is for a schedule II opioid drug., 190.5, cm, 06/28/22 9:08:0... Start Date: 06/28/22 Status: Ordered busPIRone 30 mg oral tablet 1 tablet = 30 mg, By Mouth, 3 times a day, # 270 tablet, 1 Refills, Maintenance, 08/02/23 14:21:00 EDT, [facility] #[id number], Partial fill upon patient request if the prescription is for a schedule II opioid drug., 190.5, cm, 05/29/23 11:36:00... Start Date: 08/02/23 Stop Date: 01/29/24 Status: Ordered cyclobenzaprine 5 mg oral tablet 1-2 tablet, By Mouth, 3 times a day, PRN Spasm, # 90 tablet, 2 Refills, Maintenance, 10/07/23 13:41:00 EST, [facility] #[id number], Partial fill upon patient request if the [...] 05/29/23 12:07:00 EDT, Route to Pharmacy Electronically, [facility] #[id number], Partial fill upon patientrequest if the prescription is for a schedule II op... Start Date: 05/29/23 Status: Ordered hydrOXYzine pamoate 50 mg oral capsule 2 capsule = 100 mg, By Mouth, Daily at bedtime, # 180 capsule, 1 Refills, Maintenance, 01/29/24 14:13:00 EDT, Capsule, [facility] #[id number], 190.5, cm, 10/01/23 8:42:00 EST, Height Start Date: 01/29/24 Stop Date: 07/27/24 Status: Ordered hydrOXYzine pamoate 50 mg oral capsule 2 capsule = 100 mg, By Mouth, Daily at bedtime, for 90 days, # 180 capsule, 1 Refills, Hard Stop 01/29/24 14:13:00 EDT, 08/02/23 14:13:00 EDT, Capsule, [facility] #[id number], 190.5, cm, 05/29/23 11:36:00 EDT, Height Start Date: 08/02/23 Stop Date: 01/29/24 Status: Ordered lamotrigine 200 mg oral tablet 1 tablet = 200 mg, By Mouth, 2 times a day, # 180 tablet, 1 Refills, Maintenance, 01/29/24 14:14:00EDT, Tablet, [facility] #[id number], Partial fill upon patient request if the prescription is for a schedule II opioid drug., 190.5, cm, 10/01/23... Start Date: 01/29/24 Stop Date: 07/27/24 Status: Ordered lamotrigine 200 mg oral tablet 1 tablet = 200 mg, By Mouth, 2 times a day, for 90 days, # 180 tablet, 1 Refills, Hard Stop 01/29/24 14:14:00 EDT, 08/02/23 14:14:00 EDT, Tablet, [facility] #[id number], Partial fill upon patient request if the prescription is for a schedule II o... Start Date: 08/02/23 Stop Date: 01/29/24 Status: Ordered Lexapro 20 mg oral tablet 1 tablet = 20 mg, By Mouth, Daily, # 90 tablet, 1 Refills, Maintenance, 01/29/24 14:13:00 EDT, Tablet, [facility] #[id number], Partial fill upon patient request if the prescription is for a schedule II opioid drug., 190.5, cm, 10/01/23 8:42:00 ES... Start Date: 01/29/24 Stop Date: 07/27/24 Status: Ordered Lexapro 20 mg oral tablet 1 tablet = 20 mg, By Mouth, Daily, for 90 days, # 90 tablet, 1 Refills, Hard Stop 01/29/24 14:13:00EDT, 08/02/23 14:13:00 EDT, Tablet, [facility] #[id number], Partial fill upon patient request if the prescription is for a schedule II opioid drug... Start Date: 08/02/23 Stop Date: 01/29/24 Status: Ordered melatonin 5 mg oral tablet See Instructions, PRN for insomnia, 2 tablet By Mouth Daily at bedtime, # 60 tablet, 4 Refills, Maintenance, 12/14/23 15:29:00 EST, Tablet, [facility] #[id number], 190.5, cm, 10/01/23 8:42:00 EST, Height Start Date: 11/01/23 Status: Ordered omeprazole 20 mg oral enteric coated capsule 1 capsule = 20 mg, By Mouth, 2 times a day, # 180 capsule, 2 Refills, Maintenance, 05/29/23 12:06:00 EDT, [facility] #[id number], Partial fill upon patient request if the prescription is for a schedule II opioid drug., 190.5, cm, 05/29/23 11:36:0... Start Date: 05/29/23 Status: Ordered ondansetron 4 mg oral tablet 1 tablet = 4 mg, By Mouth, Every 8 hours, PRN Nausea, # 180 tablet, 0 Refills, Maintenance, 08/25/23 21:28:00 EDT, Tablet, [facility] #[id number], Partial fill upon patient request if the prescription is for a schedule II opioid drug., 190.5, cm,... Start Date: 08/25/23 Status: Ordered pregabalin 150 mg oral capsule 1 capsule = 150 mg, By Mouth, 2 times a day, # 180 capsule, 1 Refills, Maintenance, 10/07/23 13:42:00 EST, Capsule, [facility] #[id number], Partial fill upon patient request if the prescription is for a schedule II opioid drug., 190.5, cm, ... Start Date: 10/07/23 Status: Ordered SEROquel 25 mg oral tablet 25 mg, 1, tablet, By Mouth, 2 times a day, dose decreasee, # 180 tablet, Refills 1, Tot. Refills 1,Maintenance, 11/01/23 15:28:00 EST, Route to Pharmacy Electronically, [facility] #[id number], Partial fill upon patient request if the [...] capsule, 1 Refills, Maintenance, 11/21/23 14:41:00 EST, [facility] #[id number], Partial fill upon patient request ifthe prescription is for a schedule II opioid drug.,... Start Date: 11/21/23 Stop Date: 01/20/24 Status: Ordered temazepam 7.5 mg oral capsule 1 capsule = 7.5 mg, By Mouth, Daily at bedtime, PRN as needed for sleep, for 30 days, # 30 capsule,0 Refills, Hard Stop 11/21/23 14:41:00 EST, 10/22/23 14:41:00 EST, [facility] #[id number], Partial fill upon patient request if the prescription i... Start Date: 10/22/23 Stop Date: 11/21/23 Status: Ordered traZODone 100 mg oral tablet 100 mg, 1, tablet, By Mouth, Daily at bedtime, # 60 tablet, Refills 2, Tot. Refills 2, Maintenance,09/12/23 14:58:00 EDT, Route to Pharmacy Electronically, [facility] #[id number], 190.5, cm, 05/29/23 11:36:00 EDT, Height Start Date: 09/12/23 Stop Date: 03/10/24 Status: Ordered valsartan 80 mg oral tablet 80 mg, 1, tablet, By Mouth, Daily, # 90 tablet, Refills 0, Tot. Refills 0, Maintenance, 08/28/23 22:06:00 EDT, Route to Pharmacy Electronically, [facility] #[id number], Partial fill upon patientrequest if the prescription is for a schedule II op... Start Date: 08/28/23 Status: Ordered Vitamin D3 1000 intl units oral capsule 1 capsule = 25 mcg, By Mouth, Daily, # 90 capsule, 3 Refills, Maintenance, 09/26/23 8:16:00 EST, Capsule, [facility] #[id number], Partial fill upon patient request if the [...] Primary Care Member Role: PCP Address: Address: [address] [place] [address] Name: Sarah Sheth [place] Position: [facility] RN Member Role: Primary Care Nurse Name: Verenice Holt Position: [facility] RN Member Role: Primary Care Nurse Name: Margarita Lenz RN Position: [facility] RN Member Role: Primary Care Nurse Name: Lakshmi Michelle RN Position: [facility] RN Member Role: Primary Care Nurse Care Team Related Persons Name: JEZ COLEMAN Address: home [address] [place] [address]
--- OUTSIDE RECORDS SUMMARY | 2024-04-30 06:39 | XMS_ITS | Continuity of Care Document ---
Author Organization [facility] Address [address] [place] [address]- Care Team Providers Care Supervisory Examiner Name Role Phone Carlos Glasgow MD Primary Care Physician [place] [facility] [place] 01/18/23 - 02/17/23 [facility] [address] [place], [place] [address] Allergies, Adverse Reactions, Alerts Substance [...] ecorded tetanus/diphtheria/pertussis, acel(Tdap) 07/19/11 Recorded 1Result Comment: [facility] [id number] Medications Aller-Chlor 4 mg oral tablet 1 tablet = 4 mg, By Mouth, 2 times a day, TAKE 1 TABLET BY MOUTH TWICE DAILY, # 180 tablet, 1 Refills, Maintenance, 01/19/23 14:07:00 EST, [facility] #[id number], 190.5, cm, 11/06/22 9:34:00 EST, Height Start Date: 01/19/23 Status: Ordered Ativan 1 mg oral tablet 1 tablet = 1 mg, By Mouth, Daily, PRN panic only, # 10 tablet, 4 Refills, Maintenance, 01/25/23 10:18:00 EST, Tablet, [facility] #[id number], Partial fill upon patient request if the [...] Replace Required Details, Route to Pharmacy Electronically, [facility]... Start Date: 09/26/22 Status: Ordered baclofen 20 mg oral tablet 20 mg, 1, tablet, By Mouth, 3 times a day, # 270 tablet, Refills 2, Tot. Refills 2, Maintenance, 06/28/22 10:10:00 EDT, Route to Pharmacy Electronically, [facility] #[id number], Partial fill upon patient request if the prescription is for a sched... Start Date: 06/28/22 Status: Ordered bisacodyl 5 mg oral delayed release tablet 2 tablet = 10 mg, By Mouth, Daily, # 180 tablet, 3 Refills, Maintenance, 06/28/22 10:09:00 EDT, EC Tablet, [facility] #[id number], Partial fill upon patient request if the prescription is for a schedule II opioid drug., 190.5, cm, 06/28/22 9:08:0... Start Date: 06/28/22 Status: Ordered busPIRone 30 mg oral tablet 1 tablet = 30 mg, By Mouth, 3 times a day, # 270 tablet, 1 Refills, Maintenance, 01/25/23 10:15:00 EST, [facility] #[id number], Partial fill upon patient request if the prescription is for a schedule II opioid drug., 190.5, cm, 11/06/22 9:34:00 E... Start Date: 01/25/23 Stop Date: 07/24/23 Status: Ordered hydrochlorothiazide 25 mg oral tablet 25 mg, 1, tablet, By Mouth, Daily, # 90 tablet, Refills 1, Tot. Refills 1, Maintenance, 01/18/23 12:33:00 EST, Route to Pharmacy Electronically, [facility] #[id number], Partial fill upon patientrequest if the prescription is for a schedule II op... Start Date: 01/18/23 Status: Ordered hydrOXYzine pamoate 50 mg oral capsule 2 capsule = 100 mg, By Mouth, Daily at bedtime, # 180 capsule, 1 Refills, Maintenance, 01/25/23 10:16:00 EST, Capsule, [facility] #[id number], 190.5, cm, 11/06/22 9:34:00 EST, Height Start Date: 01/25/23 Stop Date: 07/24/23 Status: Ordered lamotrigine 200 mg oral tablet 1 tablet = 200 mg, By Mouth, 2 times a day, # 180 tablet, 1 Refills, Maintenance, 01/25/23 10:17:00EST, Tablet, [facility] #[id number], Partial fill upon patient request if the prescription is for a schedule II opioid drug., 190.5, cm, 11/06/22... Start Date: 01/25/23 Stop Date: 07/24/23 Status: Ordered Lexapro 20 mg oral tablet 1 tablet = 20 mg, By Mouth, Daily, # 90 tablet, 1 Refills, Maintenance, 01/25/23 10:14:00 EST, Tablet, [facility] #[id number], Partial fill upon patient request if the prescription is for a schedule II opioid drug., 190.5, cm, 11/06/22 9:34:00 ES... Start Date: 01/25/23 Stop Date: 07/24/23 Status: Ordered melatonin 5 mg oral tablet See Instructions, PRN for insomnia, 2 tablet By Mouth Daily at bedtime, # 60 tablet, 4 Refills, Maintenance, 01/25/23 10:19:00 EST, Tablet, [facility] #[id number], 190.5, cm, 11/06/22 9:34:00 EST, Height Start Date: 01/25/23 Status: Ordered omeprazole 20 mg oral enteric coated capsule 1 capsule = 20 mg, By Mouth, 2 times a day, # 180 capsule, 2 Refills, Maintenance, 09/26/22 12:26:00 EST, [facility] #[id number], Partial fill upon patient request if the prescription is for a schedule II opioid drug., 190.5, cm, 09/26/22 11:38:0... Start Date: 09/26/22 Status: Ordered ondansetron 4 mg oral tablet 1 tablet = 4 mg, By Mouth, Every 8 hours, PRN Nausea, # 180 tablet, 0 Refills, Maintenance, 06/28/22 10:10:00 EDT, Tablet, [facility] #[id number], Partial fill upon patient request if the [...] 02/24/23 10:12:00 EDT, 09/27/22 10:12:00 EST, Capsule, [facility] #[id number], 190.5, cm, 09/26/22 11:38:00 EST, Height Start Date: 09/27/22 Stop Date: 02/24/23 Status: Ordered SEROquel 50 mg oral tablet 1 tablet = 50 mg, By Mouth, 3 times a day, # 270 tablet, 1 Refills, Maintenance, 01/25/23 10:19:00 EST, Tablet, [facility] #[id number], Partial fill upon patient request if the [...] 09/26/22 12:18:00 EST, Route to Pharmacy Electronically, [facility] #[id number], Partial fill upon patient request if the prescription is for a schedul... Start Date: 09/26/22 Status: Ordered traZODone 100 mg oral tablet 100 mg, 1, tablet, By Mouth, Daily at bedtime, # 30 tablet, Refills 4, Tot. Refills 4, Maintenance,09/27/22 10:16:00 EST, Route to Pharmacy Electronically, [facility] #[id number], 190.5, cm, 09/26/22 11:38:00 EST, Height Start Date: 09/27/22 Stop Date: 02/24/23 Status: Ordered Vitamin D3 1000 intl units oral capsule 1 capsule = 25 mcg, By Mouth, Daily, # 90 capsule, 3 Refills, Maintenance, 06/28/22 10:10:00 EDT, Capsule, [facility] #[id number], Partial fill upon patient request if the [...] 08/07; Dr Gallegos Confirmed Active Hypertension Confirmed 10/22/09 Active Impaired fasting glucose Confirmed Active Insomnia [...] Care Team Personnel Name: Yosvany Ardon Position: [facility] Cardio[facility]Pulm Mgr [place] Member Role: Primary Care Nurse Name: Carlos Glasgow MD Position: [facility] Primary Care Physician Member Role: PCP Address: Address: [address] [place] [address] Name: Sarah Hope Position: [facility] RN Member Role: Primary Care Nurse Name: Verenice Holt Position: [facility] RN Member Role: Primary Care Nurse Name: Margarita Lenz RN Position: [facility] RN Member Role: Primary Care Nurse Name: Lakshmi Michelle RN Position: [facility] RN Member Role: Primary Care Nurse Care Team Related Persons Name: JEZ COLEMAN Address: home [address] [facility] [place] [address]
--- OUTSIDE RECORDS SUMMARY | 2024-04-30 06:39 | XMS_ITS | Continuity of Care Document ---
Author Organization [facility] Address [address] [place] [address]- Care Team Providers Care Rn Charge Name Role Phone Carlos Glasgow MD Primary Care Physician [place] [facility] [place] 02[place]17/23 [facility] [address] [place], [place] [address] Attending Physician: Terrie Chacon DO Allergies, Adverse Reactions, Alerts Substance Reaction Severity [...] 1Result Comment: [facility] [id number] Medications Aller-Chlor 4 mg oral tablet 1 tablet = 4 mg, By Mouth, 2 times a day, TAKE 1 TABLET BY MOUTH TWICE DAILY, # 180 tablet, 1 Refills, Maintenance, 01/19/23 14:07:00 EST, [facility] #[id number], 190.5, cm, 11/06/22 9:34:00 EST, Height Start Date: 01/19/23 Status: Ordered Ativan 1 mg oral tablet 1 tablet = 1 mg, By Mouth, Daily, PRN panic only, # 10 tablet, 4 Refills, Maintenance, 01/25/23 10:18:00 EST, Tablet, [facility] #[id number], Partial fill upon patient request if the [...] Replace Required Details, Route to Pharmacy Electronically, [facility]... Start Date: 09/26/22 Status: Ordered baclofen 20 mg oral tablet 20 mg, 1, tablet, By Mouth, 3 times a day, # 270 tablet, Refills 2, Tot. Refills 2, Maintenance, 06/28/22 10:10:00 EDT, Route to Pharmacy Electronically, [facility] #[id number], Partial fill upon patient request if the prescription is for a sched... Start Date: 06/28/22 Status: Ordered bisacodyl 5 mg oral delayed release tablet 2 tablet = 10 mg, By Mouth, Daily, # 180 tablet, 3 Refills, Maintenance, 06/28/22 10:09:00 EDT, EC Tablet, [facility] #[id number], Partial fill upon patient request if the prescription is for a schedule II opioid drug., 190.5, cm, 06/28/22 9:08:0... Start Date: 06/28/22 Status: Ordered busPIRone 30 mg oral tablet 1 tablet = 30 mg, By Mouth, 3 times a day, # 270 tablet, 1 Refills, Maintenance, 01/25/23 10:15:00 EST, [facility] #[id number], Partial fill upon patient request if the prescription is for a schedule II opioid drug., 190.5, cm, 11/06/22 9:34:00 E... Start Date: 01/25/23 Stop Date: 07/24/23 Status: Ordered hydrochlorothiazide 25 mg oral tablet 25 mg, 1, tablet, By Mouth, Daily, # 90 tablet, Refills 1, Tot. Refills 1, Maintenance, 01/18/23 12:33:00 EST, Route to Pharmacy Electronically, [facility] #[id number], Partial fill upon patientrequest if the prescription is for a schedule II op... Start Date: 01/18/23 Status: Ordered hydrOXYzine pamoate 50 mg oral capsule 2 capsule = 100 mg, By Mouth, Daily at bedtime, # 180 capsule, 1 Refills, Maintenance, 01/25/23 10:16:00 EST, Capsule, [facility] #[id number], 190.5, cm, 11/06/22 9:34:00 EST, Height Start Date: 01/25/23 Stop Date: 07/24/23 Status: Ordered lamotrigine 200 mg oral tablet 1 tablet = 200 mg, By Mouth, 2 times a day, # 180 tablet, 1 Refills, Maintenance, 01/25/23 10:17:00EST, Tablet, [facility] #[id number], Partial fill upon patient request if the prescription is for a schedule II opioid drug., 190.5, cm, 11/06/22... Start Date: 01/25/23 Stop Date: 07/24/23 Status: Ordered Lexapro 20 mg oral tablet 1 tablet = 20 mg, By Mouth, Daily, # 90 tablet, 1 Refills, Maintenance, 01/25/23 10:14:00 EST, Tablet, [facility] #[id number], Partial fill upon patient request if the prescription is for a schedule II opioid drug., 190.5, cm, 11/06/22 9:34:00 ES... Start Date: 01/25/23 Stop Date: 07/24/23 Status: Ordered melatonin 5 mg oral tablet See Instructions, PRN for insomnia, 2 tablet By Mouth Daily at bedtime, # 60 tablet, 4 Refills, Maintenance, 01/25/23 10:19:00 EST, Tablet, [email or web address] #[id number], 190.5, cm, 11/06/22 9:34:00 EST, Height Start Date: 01/25/23 Status: Ordered omeprazole 20 mg oral enteric coated capsule 1 capsule = 20 mg, By Mouth, 2 times a day, # 180 capsule, 2 Refills, Maintenance, 09/26/22 12:26:00 EST, [email or web address] #[id number], Partial fill upon patient request if the prescription is for a schedule II opioid drug., 190.5, cm, 09/26/22 11:38:0... Start Date: 09/26/22 Status: Ordered ondansetron 4 mg oral tablet 1 tablet = 4 mg, By Mouth, Every 8 hours, PRN Nausea, # 180 tablet, 0 Refills, Maintenance, 06/28/22 10:10:00 EDT, Tablet, [email or web address] #[id number], Partial fill upon patient request if the [...] 02/24/23 10:12:00 EDT, 09/27/22 10:12:00 EST, Capsule, [email or web address] #[id number], 190.5, cm, 09/26/22 11:38:00 EST, Height Start Date: 09/27/22 Stop Date: 02/24/23 Status: Ordered SEROquel 50 mg oral tablet 1 tablet = 50 mg, By Mouth, 3 times a day, # 270 tablet, 1 Refills, Maintenance, 01/25/23 10:19:00 EST, Tablet, [email or web address] #[id number], Partial fill upon patient request if the [...] 09/26/22 12:18:00 EST, Route to Pharmacy Electronically, [facility] #[id number], Partial fill upon patient request if the prescription is for a schedul... Start Date: 09/26/22 Status: Ordered traZODone 100 mg oral tablet 100 mg, 1, tablet, By Mouth, Daily at bedtime, # 30 tablet, Refills 4, Tot. 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) Member Role: Primary Care Nurse Name: Carlos Glasgow MD Position: [facility] Primary Care Physician Member Role: PCP Address: Address: [address] [place] [id number] Name: Sarah Hope Position: [facility] RN Member Role: Primary Care Nurse Name: Verenice Holt Position: [facility] RN Member Role: Primary Care Nurse Name: Margarita Lenz RN Position: [facility] RN Member Role: Primary Care Nurse Name: Lakshmi Michelle RN Position: [facility] RN Member Role: Primary Care Nurse Care Team Related Persons Name: JEZ COLEMAN Address: home [address] [facility] [facility] [facility] [address] [place] [address]
--- OUTSIDE RECORDS SUMMARY | 2024-04-30 06:40 | XMS_ITS | Continuity of Care Document ---
Author Organization [facility] ter Address [address] [place] [id number]- Care Team Providers Care Senior Executive Assistant Name Role Phone Carlos Glasgow MD Primary Care Physician Encounter [facility] [place] Date(s): 09/01/22 - 10/01/[address] [address] Allergies, Adverse Reactions, Alerts Substance Reaction Severity [...] ecorded tetanus/diphtheria/pertussis, acel(Tdap) 07/19/11 Recorded 1Result Comment: [facility] 61896-029-14 Medications Ativan 1 mg oral tablet 1 tablet = 1 mg, By Mouth, Daily, PRN panic only, # 10 tablet, 4 Refills, Maintenance, 09/27/22 10:13:00 EST, Tablet, [facility] #[id number], Partial fill upon patient request if the [...] Replace Required Details, Route to Pharmacy Electronically, [facility] Start Date: 09/26/22 Status: Ordered baclofen 20 mg oral tablet 20 mg, 1, tablet, By Mouth, 3 times a day, # 270 tablet, Refills 2, Tot. Refills 2, Maintenance, 06/28/22 10:10:00 EDT, Route to Pharmacy Electronically, [facility] #[id number], Partial fill upon patient request if the prescription is for a sched... Start Date: 06/28/22 Status: Ordered bisacodyl 5 mg oral delayed release tablet 2 tablet = 10 mg, By Mouth, Daily, # 180 tablet, 3 Refills, Maintenance, 06/28/22 10:09:00 EDT, EC Tablet, [facility] #[id number], Partial fill upon patient request if the prescription is for a schedule II opioid drug., 190.5, cm, 06/28/22 9:08:0... Start Date: 06/28/22 Status: Ordered busPIRone 30 mg oral tablet 1 tablet = 30 mg, By Mouth, 3 times a day, # 90 tablet, 4 Refills, Maintenance, 09/27/22 10:15:00 EST, [facility] #[id number], Partial fill upon patient request if the [...] 4 Refills, Maintenance, 09/27/22 10:12:00 EST, Capsule, [facility] #[id number], 190.5, cm, 09/26/22 11:38:00 EST, Height Start Date: 09/27/22 Stop Date: 02/24/23 Status: Ordered lamotrigine 200 mg oral tablet 1 tablet = 200 mg, By Mouth, 2 times a day, # 60 tablet, 4 Refills, Maintenance, 09/27/22 10:15:00 EST, Tablet, [facility] #[id number], Partial fill upon patient request if the prescription is for a schedule II opioid drug., 190.5, cm, 09/26/22 1... Start Date: 09/27/22 Stop Date: 02/24/23 Status: Ordered Lexapro 10 mg oral tablet 1 tablet = 10 mg, By Mouth, Daily, take 1/2 tab for 7 days then increase to full tab, # 30 tablet, 4 Refills, Maintenance, 09/27/22 10:14:00 EST, Tablet, [facility] #[id number], Partial fill upon patient request if the prescription is for a sched... Start Date: 09/27/22 Stop Date: 02/24/23 Status: Ordered melatonin 5 mg oral tablet See Instructions, PRN for insomnia, 2 tablet By Mouth Daily at bedtime, # 60 tablet, 4 Refills, Maintenance, 09/27/22 10:16:00 EST, Tablet, [facility] #[id number], 190.5, cm, 09/26/22 11:38:00 EST, Height Start Date: 09/27/22 Status: Ordered omeprazole 20 mg oral enteric coated capsule 1 capsule = 20 mg, By Mouth, 2 times a day, # 180 capsule, 2 Refills, Maintenance, 09/26/22 12:26:00 EST, [facility] #[id number], Partial fill upon patient request if the prescription is for a schedule II opioid drug., 190.5, cm, 09/26/22 11:38:0... Start Date: 09/26/22 Status: Ordered ondansetron 4 mg oral tablet 1 tablet = 4 mg, By Mouth, Every 8 hours, PRN Nausea, # 180 tablet, 0 Refills, Maintenance, 06/28/22 10:10:00 EDT, Tablet, [facility] #[id number], Partial fill upon patient request if the [...] 02/24/23 10:12:00 EDT, 09/27/22 10:12:00 EST, Capsule, [facility] #[id number], 190.5, cm, 09/26/22 11:38:00 EST, Height Start Date: 09/27/22 Stop Date: 02/24/23 Status: Ordered SEROquel 50 mg oral tablet 1 tablet = 50 mg, By Mouth, 3 times a day, # 90 tablet, 4 Refills, Maintenance, 09/27/22 10:15:00 EST, Tablet, [facility] #[id number], Partial fill upon patient request if the [...] 09/26/22 12:18:00 EST, Route to Pharmacy Electronically, [facility] #[id number], Partial fill upon patient request if the prescription is for a schedul... Start Date: 09/26/22 Status: Ordered traZODone 100 mg oral tablet 100 mg, 1, tablet, By Mouth, Daily at bedtime, # 30 tablet, Refills 4, Tot. Refills 4, Maintenance,09/27/22 10:16:00 EST, Route to Pharmacy Electronically, [facility] #[id number], 190.5, cm, 09/26/22 11:38:00 EST, Height Start Date: 09/27/22 Stop Date: 02/24/23 Status: Ordered Vitamin D3 1000 intl units oral capsule 1 capsule = 25 mcg, By Mouth, Daily, # 90 capsule, 3 Refills, Maintenance, 06/28/22 10:10:00 EDT, Capsule, [facility] #[id number], Partial fill upon patient request if the [...] Care Team Personnel Name: Yosvany Ardon Position: [facility] Cardio/Pulm Mgr ([facility]) Member Role: Primary Care Nurse Name: Carlos Glasgow MD Position: [facility] Primary Care Physician Member Role: PCP Address: Address: [address] [facility] [place] [address]- Name: Sarah Hope Position: [facility] RN Member Role: Primary Care Nurse Name: Verenice Holt Position: [facility] RN Member Role: Primary Care Nurse Name: Margarita Lenz RN Position: [facility] RN Member Role: Primary Care Nurse Name: Lakshmi Michelle RN Position: [facility] RN Member Role: Primary Care Nurse Care Team Related Persons Name: JEZ COLEMAN Address: home [address] [place] [address]
--- OUTSIDE RECORDS SUMMARY | 2024-04-30 06:40 | XMS_ITS | Continuity of Care Document ---
Author Organization [facility] Address [address] [place] [address]- Care Team Providers Care Roll Icer Name Role Phone Carlos Glasgow MD Primary Care Physician [phone] Encounter [facility] [place]): 02/27/23 - 03/29/23 [facility] [address] [place] [id number]- [place] Allergies, Adverse Reactions, Alerts Substance Reaction Severity [...] ecorded tetanus/diphtheria/pertussis, acel(Tdap) 07/19/11 Recorded 1Result Comment: [facility] [id number] Medications Aller-Chlor 4 mg oral tablet 1 tablet = 4 mg, By Mouth, 2 times a day, TAKE 1 TABLET BY MOUTH TWICE DAILY, # 180 tablet, 1 Refills, Maintenance, 01/19/23 14:07:00 EST, [facility] #[id number], 190.5, cm, 11/06/22 9:34:00 EST, Height Start Date: 01/19/23 Status: Ordered Ativan 1 mg oral tablet 1 tablet = 1 mg, By Mouth, Daily, PRN panic only, # 10 tablet, 4 Refills, Maintenance, 01/25/23 10:18:00 EST, Tablet, [facility] #[id number], Partial fill upon patient request if the [...] Replace Required Details, Route to Pharmacy Electronically, [facility]... Start Date: 09/26/22 Status: Ordered baclofen 20 mg oral tablet 20 mg, 1, tablet, By Mouth, 3 times a day, # 270 tablet, Refills 2, Tot. Refills 2, Maintenance, 06/28/22 10:10:00 EDT, Route to Pharmacy Electronically, [facility] #[id number], Partial fill upon patient request if the prescription is for a sched... Start Date: 06/28/22 Status: Ordered bisacodyl 5 mg oral delayed release tablet 2 tablet = 10 mg, By Mouth, Daily, # 180 tablet, 3 Refills, Maintenance, 06/28/22 10:09:00 EDT, EC Tablet, [facility] #[id number], Partial fill upon patient request if the prescription is for a schedule II opioid drug., 190.5, cm, 06/28/22 9:08:0... Start Date: 06/28/22 Status: Ordered busPIRone 30 mg oral tablet 1 tablet = 30 mg, By Mouth, 3 times a day, # 270 tablet, 1 Refills, Maintenance, 01/25/23 10:15:00 EST, [facility] #[id number], Partial fill upon patient request if the prescription is for a schedule II opioid drug., 190.5, cm, 11/06/22 9:34:00 E... Start Date: 01/25/23 Stop Date: 07/24/23 Status: Ordered hydrochlorothiazide 25 mg oral tablet 25 mg, 1, tablet, By Mouth, Daily, # 90 tablet, Refills 1, Tot. Refills 1, Maintenance, 01/18/23 12:33:00 EST, Route to Pharmacy Electronically, [facility] #[id number], Partial fill upon patientrequest if the prescription is for a schedule II op... Start Date: 01/18/23 Status: Ordered hydrOXYzine pamoate 50 mg oral capsule 2 capsule = 100 mg, By Mouth, Daily at bedtime, # 180 capsule, 1 Refills, Maintenance, 01/25/23 10:16:00 EST, Capsule, [facility] #[id number], 190.5, cm, 11/06/22 9:34:00 EST, Height Start Date: 01/25/23 Stop Date: 07/24/23 Status: Ordered lamotrigine 200 mg oral tablet 1 tablet = 200 mg, By Mouth, 2 times a day, # 180 tablet, 1 Refills, Maintenance, 01/25/23 10:17:00EST, Tablet, [facility] #[id number], Partial fill upon patient request if the prescription is for a schedule II opioid drug., 190.5, cm, 11/06/22... Start Date: 01/25/23 Stop Date: 07/24/23 Status: Ordered Lexapro 20 mg oral tablet 1 tablet = 20 mg, By Mouth, Daily, # 90 tablet, 1 Refills, Maintenance, 01/25/23 10:14:00 EST, Tablet, [facility] #[id number], Partial fill upon patient request if the prescription is for a schedule II opioid drug., 190.5, cm, 11/06/22 9:34:00 ES... Start Date: 01/25/23 Stop Date: 07/24/23 Status: Ordered melatonin 5 mg oral tablet See Instructions, PRN for insomnia, 2 tablet By Mouth Daily at bedtime, # 60 tablet, 4 Refills, Maintenance, 01/25/23 10:19:00 EST, Tablet, [facility] #[id number], 190.5, cm, 11/06/22 9:34:00 EST, Height Start Date: 01/25/23 Status: Ordered omeprazole 20 mg oral enteric coated capsule 1 capsule = 20 mg, By Mouth, 2 times a day, # 180 capsule, 2 Refills, Maintenance, 09/26/22 12:26:00 EST, [facility] #[id number], Partial fill upon patient request if the prescription is for a schedule II opioid drug., 190.5, cm, 09/26/22 11:38:0... Start Date: 09/26/22 Status: Ordered ondansetron 4 mg oral tablet 1 tablet = 4 mg, By Mouth, Every 8 hours, PRN Nausea, # 180 tablet, 0 Refills, Maintenance, 06/28/22 10:10:00 EDT, Tablet, [facility] #[id number], Partial fill upon patient request if the [...] 05/01/23 10:15:00 EDT, 03/02/23 10:15:00 EDT, Capsule, [facility] #[id number], 190.5, cm, 11/06/22 9:34:00 EST, Height Start Date: 03/02/23 Stop Date: 05/01/23 Status: Ordered SEROquel 50 mg oral tablet 1 tablet = 50 mg, By Mouth, 3 times a day, # 270 tablet, 1 Refills, Maintenance, 01/25/23 10:19:00 EST, Tablet, [facility] #[id number], Partial fill upon patient request if the [...] Maintenance,03/02/23 10:15:00 EDT, Route to Pharmacy Electronically, [facility] #[id number], 190.5, cm, 11/06/22 9:34:00 EST, Height Start Date: 03/02/23 Stop Date: 05/01/23 Status: Ordered Vitamin D3 1000 intl units oral capsule 1 capsule = 25 mcg, By Mouth, Daily, # 90 capsule, 3 Refills, Maintenance, 06/28/22 10:10:00 EDT, Capsule, [facility] #[id number], Partial fill upon patient request if the [...] Care Team Personnel Name: Yosvany Ardon Position: [facility] Cardio/Pulm Mgr ([facility]) Member Role: Primary Care Nurse Name: Carlos Glasgow MD Position: [facility] Primary Care Physician Member Role: PCP Address: Address: [address] [place], [place] [address] [[email or web address]] Name: Sarah Hope Position: [facility] RN Member Role: Primary Care Nurse Name: Verenice Holt Position: [facility] RN Member Role: Primary Care Nurse Name: Margarita Lenz RN Position: [facility] RN Member Role: Primary Care Nurse Name: Lakshmi Michelle RN Position: [facility] RN Member Role: Primary Care Nurse Care Team Related Persons Name: JEZ COLEMAN Address: home [address] [place] [address]
[2024-04-30] MEDS: oxyCODONE HCl ER 10 MG TAB.ER.12H PO ×3 (06:51→19:10)
--- NOTE | 2024-04-30 07:27 | MHC.SHP ---
Pre-Procedural Eval Section A - 24 Hr Update-Section A only Date of Service: 04/30/24 The patient is an INPATIENT: No Changes since office visit: No Cold of Flu in the past 2 weeks, No New Medical Problems, No Changes in Medication and No Patient answered all questions The patient has been examined within 24 hours of the surgical procedure. The History & Physical has been completed within 30 days and I have reviewed it.: Yes Section B - Complete if H&P > 30 days Chief Complaint: R JUAN Allergies: Allergies Allergy/AdvReac Type Severity Reaction Status Date / Time amlodipine Allergy Shortness Verified 04/24/24 09:38 of Breath NSAIDS (Non-Steroidal Allergy Seizure Verified 04/24/24 09:38 Anti-Inflamma pregabalin Allergy Unknown Verified 04/30/24 06:41 Plan I have reviewed the history and physical and performed a pertinent physical examination on my patient. No changes have occurred unless specified. Time Spent With Patient Time: Total time managing care of this patient today ____ minutes.
[2024-04-30] MEDS: Lactated Ringers 1,000 ML 100 ML IVCONT ×3 (07:30→19:36)
--- NOTE | 2024-04-30 07:58 | PHA.MEDREC ---
Pharmacy Consult ? Medication Reconciliation Pharmacy has completed the medication reconciliation. Reviewed med rec done by nursing
--- NOTE | 2024-04-30 09:56 | PM.OP ---
Brief Operative Note Date of Service: 04/30/24 Pre-op diagnosis: Right hip OA Post-op diagnosis: same Procedure: Right JUAN Implants: Noa Trident2 54/10 deg liner Noa Accolade2 #6 132 with + 2.5 36 ceramic Surgeon: Peterson Cheek MD Anesthesia: GETA and local Was an Entry Driver Operator used for this Procedure?: Yes Entry Driver Operator: Wendi Hua Estimated blood loss (mL): 150 IV fluids (mL): 1,000 Pathology: other Condition: stable Disposition: PACU
[2024-04-30] MEDS: HYDROmorphone HCl 0.5 MG/0.5 ML SYRINGE 0.25 MG IVPUSH ×6 (10:00→18:01)
[2024-04-30] MEDS: fentaNYL citrate/PF 100 MCG/2 ML VIAL 50 MCG IVPUSH ×2 (10:25→10:30)
[2024-04-30] MEDS: oxyCODONE HCl Immed Release 5 MG TABLET PO ×2 (12:19→16:57)
[2024-04-30] MEDS: busPIRone HCl 10 MG TABLET 30 MG PO ×2 (12:20→19:09)
[2024-04-30] MEDS: lamoTRIgine 100 MG TABLET 200 MG PO ×2 (12:20→19:09)
[2024-04-30] MEDS: hydroCHLOROthiazide 25 MG TABLET PO (12:21)
[2024-04-30] MEDS: Docusate Sodium 100 MG CAPSULE PO ×2 (12:21→19:10)
[2024-04-30] MEDS: QUEtiapine Fumarate 50 MG TABLET PO ×2 (12:21→19:10)
[2024-04-30] MEDS: Escitalopram Oxalate 20 MG TABLET PO (12:21)
[2024-04-30] MEDS: Cholecalciferol (Vitamin D3) 25 MCG TABLET PO (12:21)
[2024-04-30] MEDS: Cyclobenzaprine HCl 5 MG TABLET PO ×2 (14:01→21:09)
[2024-04-30] MEDS: ceFAZolin Sodium/Dextrose,Iso 2 GM/50 ML PIGGYBACK IV (14:01)
[2024-04-30] MEDS: Omeprazole 20 MG CAPSULE.DR PO (16:07)
[2024-04-30] MEDS: ondansetron HCL 4 MG/2 ML VIAL IVPUSH (16:07)
--- NOTE | 2024-04-30 16:21 | PM.DS ---
DS: Providers Provider Date of Service: 05/01/24 Date of admission: 04/30/24 06:34 Primary care physician: Carlos Glasgow MD DS: Summary Hospital Course Hospital Course: The patient underwent a successful right total hip arthroplasty, they were transferred to PACU and then to the floor to recover. During their stay, their vitals were stable, afebrile at 96.9. Labs were unremarkable, H/H 13.4/38.1. POD 1 they were started on Lovenox for DVT ppx, they also received Physical Therapy services twice a day. Prior to discharge, their dressing was clean dry and intact, and the plan was to be discharged home with VNA services. Time Attestation Discharge Coordination Time (in mins): 30 Quality: Safe Use of Opioids Does Pt have an Active Cancer Diagnosis on the Problem List?: No Quality: Stroke Does the patient have a stroke diagnosis?: No Physical Exam Vital Signs: Vital Signs: Last Vital Signs Temp 97.3 F 04/30/24 11:58 Pulse 101 H 04/30/24 16:00 Resp 14 04/30/24 11:58 BP 120/60 04/30/24 16:00 Pulse Ox 94 04/30/24 11:58 O2 Del Method Room Air 04/30/24 11:58 BMI result Body Mass Index 34.1 Extrem: Other: right hip dressing is c/d/i. Able to dorsi/plantar flex. Calf is supple and nontender. Sensation intact. Pedal pulse intact. DS: Data Data Completed and Pending Pending studies at discharge: Pending at discharge 04/30/24 09:37 Surgical [PTH] Routine Discharge Plan Discharge Anticipated Discharge Date/Time: 05/01/24 13:17 Patient Disposition: Home Health Service Discharge Diagnosis: s/p RTHA Referrals: Wendi Hua PA-C [Physician Regional Geodetic Advisor] - 05/15/24 1:00 am Discharge Medications: New acetaminophen 325 mg Tablet 650 mg PO Q6H PRN (Reason: Pain, Mild (Pain Scale 1-3)) 30 Days Qty: 240 0RF docusate sodium 100 mg Capsule 100 mg PO BID 30 Days Qty: 60 0RF enoxaparin 40 mg/0.4 mL Syringe 40 mg subcut Q24H 42 Days Qty: 16.8 0RF oxycodone 10 mg tablet 10 mg PO Q4H PRN (Reason: Pain, Moderate(Pain Scale 4-6)) 7 Days Qty: 42 0RF Rx Instructions: Partial Fill upon patient request. Continued (DME) [place]er [facility] See Rx Instructions .ROUTE .MEDSUPPLY Qty: 1 0RF Rx Instructions: Folding front wheeled walker chlorpheniramine maleate [Aller-Chlor] 4 mg tablet 4 mg PO BID bisacodyl 5 mg tablet,delayed release (DR/EC) 10 mg PO DAILY PRN (Reason: Constipation) cyclobenzaprine 5 mg tablet 5 - 10 mg PO TID PRN (Reason: muscle spasm) acetaminophen 325 mg Tablet 650 mg PO QID PRN (Reason: Pain) ondansetron 4 mg tablet,disintegrating 4 mg PO BID cholecalciferol (vitamin D3) 25 mcg (1,000 unit) capsule 25 mcg PO DAILY hydrochlorothiazide 25 mg tablet 25 mg PO DAILY omeprazole 20 mg capsule,delayed release(DR/EC) 20 mg PO BID@0630,1630 lamotrigine 200 mg tablet 200 mg PO BID buspirone 30 mg tablet 30 mg PO TID hydroxyzine HCl 50 mg tablet 100 mg PO BEDTIME melatonin 5 mg tablet 10 mg PO BEDTIME PRN (Reason: Insomnia) trazodone 100 mg tablet 100 mg PO BEDTIME quetiapine 50 mg tablet 50 mg PO TID escitalopram oxalate 20 mg tablet 20 mg PO QNOON lorazepam 1 mg tablet 1 mg PO DAILY PRN (Reason: Anxiety) (DME) Raised toliet seat See Rx Instructions .ROUTE .MEDSUPPLY Qty: 1 0RF Rx Instructions: As directed Discharge Orders: Discharge Order (Routine); Ordered 05/01/24 Ordered By: Wendi Hua Diet: Advance to usual diet Activity on Discharge: Use cane or walker Stand Alone Forms: Patient Portal Discharge page Print Language: [place] Care Plan Goals: restore fxn to right hip Health Concerns: none Plan of Treatment: Physical Therapy for total hip arthroplasty: posterior precautions, gait training, ROM, strength Limit stair climbing No showering, no tub bath-keep dressing clean, dry and intact No driving x6 weeks Continue ASA tabs x 6 weeks Follow up with [facility] Orthopedics in 2 weeks Assessment: stable for d/c
--- NOTE | 2024-04-30 16:22 | W.MHC.F2F ---
Service Date Service Date: 04/30/24 Encounter Date of encounter: 05/01/24 Reasons for Services Signs and symptoms assessed: s/p RTHA Pt. is considered homebound due to recent surgery. Unable to drive, poor balance, poor gait mechanics. Reason for physical therapy: home safety and mobility, therapeutic exercises, restore joint function, gait/transfer training, assess need for DME and ADL training Reason for occupational therapy: home safety and mobility, therapeutic exercises, restore joint function, gait/transfer training, assess need for DME and ADL training Homebound: Leaving the home is medically contraindicated at this time without the asist of a device and/or another person due th the listed conditions above and below. Reason homebound: unsteady gait / fall risk, leg weakness, pain with ambulation, poor balance / fall risk and unable to drive Certification: Based on the above findings, I certify that this patient is confined to the home and needs intermittent intermediate care, physical therapy and/or speech therapy, or continues to need occupational therapy. The patient is under my care, and I have initiated the establishment of the plan of care. The patient will be followed by a physician who will periodically review the plan of care. Time Spent With Patient Time: Total time managing care of this patient today ____ minutes.
--- NOTE | 2024-04-30 17:06 | PC.NURSE ---
pt attempted to get out of chair X2 , once pt stood pt reported dizziness and feeling faint , pt immediately sat back down in chair , pt diaphoretic , then chills shorlty after . pt stated he felt like his whole body was tingly . vss . [place] made aware . pt states pain 06/28
--- NOTE | 2024-04-30 17:34 | HO.PM.IMCN ---
History of Present Illness Data of Consult Service Date: 04/30/24 Requesting physician: Jenniffer Rueda Primary Care Provider: Carlos Glasgow MD [facility] Reason for consult: Postop diaphoresis 53-year-old male with history of hypertension, hyperlipidemia, impaired fasting glucose, mood disorder and obesity admitted to Orthopedic surgery for management of osteoarthritis of the right hip s/p right JUAN with consult placed hospitalist service due to postop diaphoresis. The patient reports that since surgery, he is felt sweaty and chilled. He is also felt he is pale. Upon standing x2, he is felt very lightheaded though did not syncopized. He also reports some dyspnea when standing. At rest, denies any lightheadedness, shortness of breath, palpitations, chest pain. He denies any illicit drug use but does vape cannabis. He has a former alcohol abuser with sustained sobriety for about 10 years. Former smoker who quit in 2010. Per brief operative report, JUAN was uncomplicated with estimated blood loss of 150 mL. He has received several IV Dilaudid, most recently at 14:00 hours and oxycodone 5 mg at 1657. He is still reporting 9/10 pain. He does have lactated Ringer's running at 100 mL/hr. No history of CVD, DC known. Review of Systems Review of Systems: Yes all other systems are reviewed and are negative [facility] Medical History History of traumatic head injury Arthritis Bipolar 1 disorder Sleep apnea SOB (shortness of breath) Syncope History of lipoma Depression Severe obesity (BMI 35.0-35.9 with comorbidity) PTSD (post-traumatic stress disorder) Mixed hyperlipidemia Lung nodules Insomnia Impaired fasting glucose HTN (hypertension) Hyperlipidemia Hypercalcemia Renal cell carcinoma Acute renal failure Fatty liver Erectile dysfunction Elevated serum creatinine Colon polyp Back pain Anxiety Surgical History History of lumbar spinal fusion H/O colonoscopy Hx of umbilical hernia repair Hx of appendectomy Hx of vasectomy History of surgery on lower extremity History of partial nephrectomy Social History Household Members: Significant Other Housing: House Are you a primary child care center assistant director to a significant other at home: No Do you presently have visiting nurse or other home services: No Alcohol intake: never Patient Tobacco Use Status: Former Tobacco user Smoked in Last 30 Days: No Use of substances other than those prescribed or required for medical reasons: Yes Substance Use Type: Marijuana Substance Use Type Other:: vape Substance Use Frequency: Weekly Last Used Substance Other:: sunday Currently Displaying Signs/Symptoms of Drug Intoxication Withdrawal: No Have you been hit, kicked, punched, or otherwise hurt by someone within the past year? If so, by whom?: No Do you feel safe in your current relationship?: Yes Is there a partner from a previous relationship who is making you feel unsafe now?: No Are you DNR?: No Advance Directives: No Advance Directives Information Provided: No Advance Directives on File: No Do you have a plan to hurt others: No Plan Recently lost weight without trying: No Eating poorly because of decreased appetite: No Nutrition Risks: No Nutritional Risk Poor oral hygiene: No Current occupational status: disabled Meds Allergies Allergy/AdvReac Type Severity Reaction Status Date / Time amlodipine Allergy Shortness Verified 04/24/24 09:38 of Breath NSAIDS (Non-Steroidal Allergy Seizure Verified 04/24/24 09:38 Anti-Inflamma pregabalin Allergy Unknown Verified 04/30/24 06:41 Active Medications: Current Medications Acetaminophen (Acetaminophen 325 Mg Tablet) 650 mg PO Q6H PRN PRN Reason: Pain, Mild (Pain Scale 1-3) Aspirin (Aspirin 325 Mg Tablet) 325 mg PO BID [facility] Bisacodyl (Bisacodyl 5 Mg Tablet.Dr) 10 mg PO DAILY PRN PRN Reason: Constipation Buspirone HCl (Buspirone Hcl 10 Mg Tablet) 30 mg PO TID [facility] Last Admin: 04/30/24 14:25 Dose: Not Given Cyclobenzaprine HCl (Cyclobenzaprine Hcl 5 Mg Tablet) 5 mg PO TID PRN PRN Reason: muscle spasm Last Admin: 04/30/24 14:01 Dose: 5 mg Docusate Sodium (Docusate Sodium 100 Mg Capsule) 100 mg PO BID [facility] Last Admin: 04/30/24 12:21 Dose: 100 mg Enoxaparin Sodium (Enoxaparin Sodium 40 Mg/0.4 Ml Syringe) 40 mg SUBCUT Q24H [facility] Escitalopram Oxalate (Escitalopram Oxalate 20 Mg Tablet) 20 mg PO DAILY@1200 [facility] Last Admin: 04/30/24 12:21 Dose: 20 mg Fentanyl (Fentanyl Citrate/Pf 100 Mcg/2 Ml Vial) 50 mcg IVPUSH Q5M PRN; Protocol PRN Reason: Pain, Moderate(Pain Scale 4-6) Hydrochlorothiazide (Hydrochlorothiazide 25 Mg Tablet) 25 mg PO DAILY [facility]; Protocol Last Admin: 04/30/24 12:21 Dose: 25 mg Hydromorphone HCl (Hydromorphone Hcl 0.5 Mg/0.5 Ml Syringe) 0.25 mg IVPUSH Q4H PRN; Protocol PRN Reason: Pain, Severe (Pain Scale 7-10) Last Admin: 04/30/24 14:00 Dose: 0.25 mg Hydroxyzine HCl (Hydroxyzine Hcl 50 Mg Tablet) 100 mg PO BEDTIME [facility] Lactated Ringer's (Lr) 1,000 mls @ 100 mls/hr IVCONT .Q10H [facility] Last Admin: 04/30/24 12:12 Dose: 100 mls/hr Lamotrigine (Lamotrigine 100 Mg Tablet) 200 mg PO BID [facility] Last Admin: 04/30/24 12:20 Dose: 200 mg Lorazepam (Lorazepam 1 Mg Tablet) 1 mg PO DAILY PRN PRN Reason: Anxiety Melatonin (Melatonin 3 Mg Tablet) 9 mg PO BEDTIME PRN PRN Reason: Insomnia Omeprazole (Omeprazole 20 Mg Capsule.Dr) 20 mg PO BID@0630,1630 [facility] Last Admin: 04/30/24 16:07 Dose: 20 mg Ondansetron HCl (Ondansetron Hcl 4 Mg/2 Ml Vial) 4 mg IVPUSH Q8H PRN PRN Reason: Nausea and Vomiting Last Admin: 04/30/24 16:07 Dose: 4 mg Oxycodone HCl (Oxycodone Hcl Immed Release 5 Mg Tablet) 5 mg PO Q4H PRN PRN Reason: Pain, Moderate(Pain Scale 4-6) Last Admin: 04/30/24 16:57 Dose: 5 mg Oxycodone HCl (Oxycodone Hcl Er 10 Mg Tab.Er.12h) 10 mg PO BID [facility] Last Admin: 04/30/24 12:19 Dose: 10 mg Quetiapine Fumarate (Quetiapine Fumarate 50 Mg Tablet) 50 mg PO TID [facility] Last Admin: 06/12/24 14:25 Dose: Not Given Sodium Chloride (0.9 % Sodium Chloride Flush 3 Ml Syringe) 3 ml IVFLUSH QSHIFT [facility] Last Admin: 04/30/24 14:26 Dose: Not Given Trazodone HCl (Trazodone Hcl 100 Mg Tablet) 100 mg PO BEDTIME [facility] Vitamin D (Cholecalciferol (Vitamin D3) 25 Mcg Tablet) 25 mcg PO DAILY [facility] Last Admin: 04/30/24 12:21 Dose: 25 mcg Home Medications ?Medication ?Instructions ?Recorded ?Confirmed ?Last Taken ?Type buspirone 30 mg tablet 30 mg PO TID 08/07/23 04/21/24 04/29/24 History cholecalciferol (vitamin D3) 25 25 mcg PO DAILY 08/07/23 04/22/24 04/29/24 History mcg (1,000 unit) capsule escitalopram oxalate 20 mg tablet 20 mg PO QNOON 08/07/23 04/22/24 04/29/24 History hydrochlorothiazide 25 mg tablet 25 mg PO DAILY 08/07/23 04/22/24 04/29/24 History hydroxyzine HCl 50 mg tablet 100 mg PO BEDTIME 08/07/23 04/22/24 04/29/24 History lamotrigine 200 mg tablet 200 mg PO BID 08/07/23 04/22/24 04/29/24 History lorazepam 1 mg tablet 1 mg PO DAILY PRN Anxiety 08/07/23 04/22/24 04/29/24 History melatonin 5 mg tablet 10 mg PO BEDTIME PRN Insomnia 08/07/23 04/22/24 04/29/24 History omeprazole 20 mg capsule,delayed 20 mg PO BID@0630,1630 08/07/23 04/30/24 04/29/24 History release ondansetron 4 mg disintegrating 4 mg PO BID 08/07/23 04/22/24 Unknown History tablet quetiapine 50 mg tablet 50 mg PO TID 08/07/23 04/22/24 04/29/24 History trazodone 100 mg tablet 100 mg PO BEDTIME 08/07/23 04/22/24 04/29/24 History bisacodyl 5 mg tablet,delayed 10 mg PO DAILY PRN Constipation 04/21/24 04/22/24 Unknown History release chlorpheniramine maleate 4 mg 4 mg PO BID 04/21/24 04/22/24 04/29/24 History tablet (Aller-Chlor) cyclobenzaprine 5 mg tablet 5 - 10 mg PO TID PRN muscle spasm 04/21/24 04/21/24 04/29/24 History acetaminophen 325 mg tablet 650 mg PO QID PRN Pain 04/22/24 04/22/24 Unknown History Physical Exam Vital Signs and Narrative: Vital Signs: Last Vital Signs Temp 97.3 F 04/30/24 11:58 Pulse 101 H 04/30/24 16:00 Resp 14 04/30/24 11:58 BP 131/81 04/30/24 17:05 Pulse Ox 98 04/30/24 17:05 O2 Del Method Room Air 04/30/24 17:05 BMI result Body Mass Index 34.1 Constitutional - Awake and Alert, No apparent distress Eyes - PERRLA, EOMI Cardiovascular - S1S2, RRR, No edema Respiratory - Normal lung expansion, Normal respiratory effort, No respiratory distress, CTA bilaterally Gastrointestinal - NT / ND; +BS; No rebound or guarding Extremities - no calf tenderness bilaterally, no swelling Skin - Warm/clammy, pallor Neurological - Alert & oriented x3, CN II-XII in tact, 5/5 strength BUE and BLE Psychological - Appropriate affect Results Imaging Radiologist's Impressions: Impressions Pelvis X-Ray 04/30/24 10:51 IMPRESSION: Intact prosthesis. Alignment is anatomic. Assessment and Plan (1) Postoperative lightheadedness: Status: Acute Plan 53-year-old male with history of hypertension, hyperlipidemia, impaired fasting glucose, mood disorder and obesity admitted to Orthopedic surgery for management of osteoarthritis of the right hip s/p right JUAN with consult placed hospitalist service due to postop diaphoresis. #Diaphoresis/positional lightheadedness -suspect vasovagal vs orthostasis post anesthesia -Minimal blood loss, doubt anemia. Will check CBC -Check orthostatic VS -Check BMP and mag -Check EKG and trop -Initiate 1L iV NS bolus. Continue LR per ortho surgery -pain management Thank you for this consult. Will continue following along for results and will continue following along with you
--- NOTE | 2024-04-30 17:45 | ECG_ITS ---
Test Reason : post op diaphoresis Blood Pressure : / mmHG Vent. Rate : 087 BPM Atrial Rate : 087 BPM P-R Int : 208 ms QRS Dur : 102 ms QT Int : 370 ms P-R-T Axes : 041 -15 000 degrees QTc Int : 445 ms Normal sinus rhythm Nonspecific T wave abnormality Abnormal ECG When compared with ECG of 30-APR-2024 10:18, T wave inversion more evident in Inferior leads Nonspecific T wave abnormality now evident in Anterior leads Referred By: Windy Faith Electronically Signed By:TANIKA ARBOLEDA
[2024-04-30] MEDS: 0.9 % Sodium Chloride 1,000 ML 999 ML IV (18:05)
[2024-04-30 18:16] LABS: MANUAL DIFF FLAG NO
[2024-04-30 18:24] LABS: Basophils Percent Auto 0.2 % (0-2); Eosinophils Percent Auto 0.1 % (0-4); Hematocrit 38.1 % (42.0-52.0); Hemoglobin 13.4 g/dl (14.0-18.0); Imm Gran Abs Auto 0.08 X10*3/uL (0.00-0.03); Imm Gran Pct Auto 0.5 % (0.0-0.4); Lymphocytes Absolute Auto 1.5 X10*3/uL (1.2-4.9); Lymphocytes Percent Auto 10.3 % (20-40); Mean Corpuscular HGB Conc 35.2 g/dl (31.0-36.0); Mean Corpuscular Hemoglobin 29.5 pg (27.0-33.0); Mean Corpuscular Volume 83.9 fL (80.0-98.0); Mean Platelet Volume 8.6 fL (9.4-12.4); Monocytes Absolute Auto 1.2 X10*3/uL (0.1-1.2); Monocytes Percent Auto 8.2 % (2-11); Neutrophils Absolute Auto 12.1 x10*3/uL (2.0-8.3); Neutrophils Percent Auto 80.7 % (45-73); Platelet Count 280 X10*3/uL (160-400); Red Blood Count 4.54 X10*6/uL (4.60-5.80); Red Cell Distribution Width 13.7 % (11.0-16.0)
[2024-04-30 18:40] LABS: Anion Gap 13 (12-20); Blood Urea Nitrogen 12 mg/dL (9-16); Calcium 9.7 mg/dL (8.4-10.2); Carbon Dioxide 28 mmol/L (22-29); Chloride 100 mmol/L (96-108); Creatinine Clr Calc Pharmacy 87.1; Estimated Glomerular Filt Rate 53; Glucose Random 156 mg/dL (60-115); Magnesium 1.6 mg/dL (1.6-2.6); Potassium 3.6 mmol/L (3.3-5.1); Sodium 137 mmol/L (135-145)
[2024-04-30 18:42] LABS: Troponin-I High Sensitivity 17.9 ng/L (<3.5-35.0)
[2024-04-30] MEDS: Acetaminophen 325 MG TABLET 650 MG PO (19:09)
[2024-04-30] MEDS: 0.9 % Sodium Chloride Flush 3 ML SYRINGE IVFLUSH (19:10)
[2024-04-30] MEDS: HYDROmorphone HCl 0.5 MG/0.5 ML SYRINGE IVPUSH ×2 (20:07→23:31)
[2024-04-30] MEDS: traZODone HCL 100 MG TABLET PO (21:09)
[2024-04-30] MEDS: Melatonin 3 MG TABLET 9 MG PO (21:09)
[2024-04-30] MEDS: oxyCODONE HCl Immed Release 5 MG TABLET 10 MG PO (21:09)
[2024-04-30] MEDS: hydrOXYzine HCL 50 MG TABLET 100 MG PO (21:10)
[2024-05-01] VITALS (7 sets, daily range): BP systolic 122–137; BP diastolic 59–81; PULSE 83–117; RESP 16–18; TEMP 36.1–36.5; O2SAT 94–96
[2024-05-01] MEDS: Acetaminophen 1,000 MG/100 ML PIGGYBACK 400 MG IV ×3 (00:03→12:58)
[2024-05-01] MEDS: oxyCODONE HCl Immed Release 5 MG TABLET 10 MG PO ×3 (02:42→12:28)
[2024-05-01] MEDS: HYDROmorphone HCl 0.5 MG/0.5 ML SYRINGE IVPUSH ×2 (05:33→10:22)
[2024-05-01] MEDS: Lactated Ringers 1,000 ML 100 ML IVCONT (05:33)
[2024-05-01] MEDS: Omeprazole 20 MG CAPSULE.DR PO (05:33)
[2024-05-01] MEDS: Cyclobenzaprine HCl 5 MG TABLET PO (05:33)
--- NOTE | 2024-05-01 08:03 | HO.POSTANES ---
Post Anesthesia Evaluation Post Anesthesia Evaluation Date of Service: 05/01/24 Vital Signs: Vital Signs Temp Pulse Resp BP Pulse Ox O2 Del Method 05/01/24 07:53 96.9 F 92 18 124/70 94 Room Air 05/01/24 03:28 97.2 F 85 16 130/81 95 05/01/24 00:00 97.6 F 83 16 137/78 96 Room Air Anesthesia: General LMA Mental Status: Awake Pain Control: Satisfactory Nausea/Vomiting: None Hydration: Adequate Anesthesia-Related Issues: No Anes. Related Issues
[2024-05-01] MEDS: Cholecalciferol (Vitamin D3) 25 MCG TABLET PO (09:01)
[2024-05-01] MEDS: lamoTRIgine 100 MG TABLET 200 MG PO (09:01)
[2024-05-01] MEDS: QUEtiapine Fumarate 50 MG TABLET PO (09:02)
[2024-05-01] MEDS: oxyCODONE HCl ER 10 MG TAB.ER.12H PO (09:02)
[2024-05-01] MEDS: Docusate Sodium 100 MG CAPSULE PO (09:02)
[2024-05-01] MEDS: hydroCHLOROthiazide 25 MG TABLET PO (09:03)
[2024-05-01] MEDS: busPIRone HCl 10 MG TABLET 30 MG PO (09:03)
--- NOTE | 2024-05-01 09:41 | P.PNOP_ITS ---
Subjective Subjective Date of Service: 05/01/24 Interval history: POD 1 s/p RT JUAN post op he was lightheaded and diaphoretic hospitalist consulted currently denies cp, sob, palpitations. Physical Exam Vital Signs: Vital Signs: Last Vital Signs Temp 96.9 F 05/01/24 07:53 Pulse 92 05/01/24 07:53 Resp 18 05/01/24 07:53 BP 130/81 05/01/24 09:03 Pulse Ox 94 05/01/24 07:53 O2 Del Method Room Air 05/01/24 09:40 BMI result Body Mass Index 34.1 Const: General: cooperative, healthy appearing and no acute distress Resp: Effort & Inspection: normal respiratory effort and able to speak in complete sentences Cardio: Rate: regular rate Peripheral pulses: Peripheral pulses 2+ throughout GI: Palpation (GI): Soft to palpation Skin: General skin exam: no rashes or lesions noted Extrem: Other: incision clean dry and intact. Gage intact. No erythema or effusion. Calf supple nontender. Neurovascularly intact. Procedures Date of Service Date of Service: 05/01/24 Progress Note: A&P Assessment and plan (1) Status post total hip replacement, right: Status: Acute Assessment and Plan: * Continue pain mgmnt * Begin Aspirin for dvt ppx * begin PT/OT for RT JUAN post precautions * Dispo planning-Pending PT eval, pain mgmnt * * hospitalist recs: --EKG non ischemic. Trop detectable but wnl at 17. Given symptoms will repeat now to trend. +orhtostatic hypotension. IVF bolus given. Continue LR per ortho. Repeat orthostatics am Time Spent With Patient Time: Total time managing care of this patient today ____ minutes. Quality Stroke Does the patient have a stroke diagnosis?: No VTE Prior VTE?: No VTE Risk Level:: Surgical - very high VTE Device Contraindication: N/A - Device Ordered VTE Drug Contraindication: N/A - Med Ordered
--- NOTE | 2024-05-01 09:45 | MHC.CM.PN ---
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 COPY REQUESTED PCP: BUSHRA WEISS IMM DELIVERED DCP: HOME WITH [facility] FOR PT PT WLL ARRANGE TRANSPORT
[2024-05-01] MEDS: Enoxaparin Sodium 40 MG/0.4 ML SYRINGE SUBCUT (10:50)
[2024-05-01 10:58] LABS: MANUAL DIFF FLAG NO
[2024-05-01 11:04] LABS: Basophils Absolute Auto 0.1 X10*3/uL (0.0-0.2); Basophils Percent Auto 0.5 % (0-2); Eosinophils Percent Auto 0.4 % (0-4); Hematocrit 32.9 % (42.0-52.0); Hemoglobin 11.3 g/dl (14.0-18.0); Imm Gran Abs Auto 0.03 X10*3/uL (0.00-0.03); Imm Gran Pct Auto 0.3 % (0.0-0.4); Lymphocytes Absolute Auto 2.3 X10*3/uL (1.2-4.9); Lymphocytes Percent Auto 24.1 % (20-40); Mean Corpuscular HGB Conc 34.3 g/dl (31.0-36.0); Mean Corpuscular Volume 84.4 fL (80.0-98.0); Monocytes Absolute Auto 1.2 X10*3/uL (0.1-1.2); Neutrophils Absolute Auto 5.8 x10*3/uL (2.0-8.3); Neutrophils Percent Auto 61.7 % (45-73); Platelet Count 190 X10*3/uL (160-400); Red Cell Distribution Width 13.7 % (11.0-16.0); White Blood Count 9.4 X10*3/uL (4.8-10.8)
[2024-05-01 11:19] LABS: Anion Gap 9 (12-20); Blood Urea Nitrogen 8 mg/dL (9-16); Calcium 8.6 mg/dL (8.4-10.2); Carbon Dioxide 30 mmol/L (22-29); Chloride 98 mmol/L (96-108); Creatinine Clr Calc Pharmacy 105.3; Estimated Glomerular Filt Rate > 60; Glucose Fasting 130 mg/dL (60-99); Potassium 3.3 mmol/L (3.3-5.1); Sodium 134 mmol/L (135-145)
[2024-05-01] MEDS: Escitalopram Oxalate 20 MG TABLET PO (12:29)
--- NOTE | 2024-05-01 13:46 | MHC.CM.PN ---
Patient medically cleared for dc home w/ services. Jonn HILL will provide PT. Partner is at bedside to transport. RN aware.
--- NOTE | 2024-05-04 07:39 | P.OP_ITS ---
Operative Note Operative Note Date of Service: 04/30/24 Narrative: Date of Service: 04/30/24 Pre-op diagnosis: Right hip OA Post-op diagnosis: same Procedure: Right JUAN Implants: Wiley Trident2 54/10 deg liner Noa Accolade2 #6 132 with + 2.5 36 ceramic Surgeon: Peterson Cheek MD Anesthesia: GETA and local Was an Hot Dimpling Machine Operator used for this Procedure?: Yes Hot Dimpling Machine Operator: Wendi Hua Estimated blood loss (mL): 150 IV fluids (mL): 1,000 Pathology: other Condition: stable Disposition: PACU Procedure in detail: Patient was brought into the operating room and placed in the right lateral decubitus position. All bony prominences were well padded and the limb was prepped and draped in standard sterile fashion. A time-out was called to identify proper site procedure proper surgeon IV antibiotics and 1 g of transaxemic acid were administered. I began by making a curvilinear incision over the posterolateral aspect of the greater trochanter. Dissection was taken down to the tensor fascia which was incised in line with the incision and a Charnley retractor was placed. Cautery was used to maintain hemostasis. The hip was internally rotated and the external rotators were identified. The circumflex vessels were cauterized and a full-thickness capsular/external rotator layer was developed starting just proximal to the piriformis. This layer was tagged and a dull Hohmann retractor was placed underneath the neck in the hip was dislocated. A neck cut was made 1 cm proximal to the lesser trochanter and the head and neck were removed and measured 52mm on the back table. The head was eburnated. I then removed the labrum and cauterized the fovea. I started with a 46 reamer and medialized to the inner table. I sequentially reamed up to a size 54 and impacted a 54mm cup at 45 degrees of inclination and 25 degrees of version. I then placed a 20 deg posterior lipped liner and turned my attention to the femur. I identified the piriformis insertion and used this as a starting point for my rashida cutter. The medius tendon was protected with a Hibs retractor. A Charnley awl was inserted in the canal and a curved curette used to remove the lateral bone. I irrigated copiously. I then sequentially broached in the patient's natural version to a size 6 and placed my trial implants. I used a #6/132/+2.5 based on my pre-operative template. Using a trail head I took the hip through range of motion. I was satisfied with the stability I removed all instrumentation and copiously irrigated. I placed my final femoral implant and again took the hip through range of motion and was satisfied with the stability and length. The final 2.5 implant was impacted in place and the hip reduced. I then irrigated for 3 minutes with iodine and placed 1 g of local transaxemic acid. I performed a capsular closure and repaired the piriformis with 2.0 fiberwire, Reginaldo's fascia with 0 Vicryl, subcuticular with 2-0 Vicryl and the skin with akiko. Patient was placed into a sterile dressing. Patient was extubated brought to the recovery room in stable condition. There were no known complications.
== END 2024-05-01 14:15 | disposition home health service (06) | DRG 470 ==
LOC: HO.SSSA 06:36 → HO.S3 09:59
PROVIDERS: Physician Assistant; Admitting Provider Orthopaedic Surgery; PCP Internal Medicine; Visit Provider Orthopaedic Surgery
PROC: 0SR903A Replacement of Right Hip Joint with Ceramic Synthetic Substitute, Uncemented, Open Approach (ICD-10-PCS; CPT 27130; principal; 2024-04-30 08:30)
DX: M16.11 Unilateral primary osteoarthritis, right hip (principal); E78.2 Mixed hyperlipidemia; Z87.891 Personal history of nicotine dependence; Z79.899 Other long term (current) drug therapy
CPT/HCPCS: 27130; 36415; 71046; 72170; 80048; 83735; 84484; 85025; 86850; 86900; 86901; 87640; 87641; 88304; 88311; 93005; 96361; 96367; 96372; 96374; 96375; 96376; 97110; 97116; 97161; 97165; C1776; J0131; J0690; J1170; J1630; J1650; J1720; J2250; J2405; J2704; J2795; J3010; J7120

== ENCOUNTER 2024-04-30 06:34 | Outpatient (BNV) | payer MEDICARE, MEDICAID, SELFPAY | END 2024-04-30 10:18 | PROVIDERS: Admitting Provider Orthopaedic Surgery; PCP Internal Medicine; Visit Provider Internal Medicine | DX: R94.31 Abnormal electrocardiogram [ECG] [EKG] (principal); Z01.810 Encounter for preprocedural cardiovascular examination; I44.4 Left anterior fascicular block | CPT/HCPCS: 93010 ==

== ENCOUNTER → 2024-04-30 06:34 | Outpatient (BNV) | payer MEDICARE, MEDICAID, SELFPAY | PROVIDERS: Admitting Provider Orthopaedic Surgery; PCP Internal Medicine; Visit Provider Orthopaedic Surgery | DX: M16.11 Unilateral primary osteoarthritis, right hip (principal) | CPT/HCPCS: 27130; 99024; G0180 ==

== ENCOUNTER → 2024-04-30 06:34 | Outpatient (BNV) | payer MEDICARE, MEDICAID, SELFPAY | PROVIDERS: Admitting Provider Orthopaedic Surgery; PCP Internal Medicine; Visit Provider Physician Assistant | DX: R42 Dizziness and giddiness (principal) | CPT/HCPCS: 99222 ==

== ENCOUNTER 2024-05-15 12:45 | Outpatient (AMB) | payer MEDICARE, MEDICAID, SELFPAY ==
--- NOTE | 2024-05-15 13:01 | A.OFFVIS_ITS ---
Vital Signs 05/15/24 13:04 Height 6 ft 3 in Weight 275 lb BMI 34.4 Intake Visit Reasons: 2WK PO: R JUAN w/NE 04/30/24 Intake Note: Zev is a 53 year old male who presents today for a post op appointment s/p right JUAN 04/30/24 NE. Patient reports his pain is a 6/10 on the pain scale and he took one of his pain medications today to help. Allergies amlodipine Allergy (Verified 05/15/24 13:04) Shortness of Breath NSAIDS (Non-Steroidal Anti-Inflamma Allergy (Verified 05/15/24 13:04) Seizure pregabalin Allergy (Verified 05/15/24 13:04) Unknown HPI HPI 2WK PO: R JUAN w/NE 04/30/24: Details: 53-year-old male who presents in the office today 15 days status post right total hip arthroplasty, which was performed on 04/30/[address] Cheek.? ? While in the office today, the patient reports his pain as a 6/10. He confirms taking one oxycodone 10 mg today which gave him mild relief for about 1.5 hours between doses. ? [facility] Medical History History of traumatic head injury Arthritis Bipolar 1 disorder Sleep apnea SOB (shortness of breath) Syncope History of lipoma Depression Severe obesity (BMI 35.0-35.9 with comorbidity) PTSD (post-traumatic stress disorder) Mixed hyperlipidemia Lung nodules Insomnia Impaired fasting glucose HTN (hypertension) Hyperlipidemia Hypercalcemia Renal cell carcinoma Acute renal failure Fatty liver Erectile dysfunction Elevated serum creatinine Colon polyp Back pain Anxiety Surgical History History of lumbar spinal fusion H/O colonoscopy Hx of umbilical hernia repair Hx of appendectomy Hx of vasectomy History of surgery on lower extremity History of partial nephrectomy Social History Household Members: Significant Other Housing: House Are you a primary transitional care liaison to a significant other at home: No Do you presently have visiting nurse or other home services: No Alcohol intake: never Patient Tobacco Use Status: Former Tobacco user Substance Use Type: Marijuana service: No Current occupational status: disabled Review of Systems Const All systems reviewed & are unremarkable except as noted in HPI and below Physical Exam Vital Signs: BMI result Body Mass Index 34.4 Const General: cooperative, healthy appearing and no acute distress Resp Effort & Inspection: normal respiratory effort and able to speak in complete sentences Cardio Rate: regular rate Peripheral pulses: Peripheral pulses 2+ throughout GI Palpation (GI): Soft to palpation Skin Lesions: no lesions Rashes: no rashes Extrem Other: Right hip: Incision site is clean, dry, and intact. Gage are intact. No surrounding erythema or drainage. No signs of infection. Good ROM. NVI.? Assessment & Plan Assessment & Plan (1) Status post total hip replacement, right: Onset Date: ~04/30/24 Comment: NE Code(s): Z96.641 - Presence of right artificial hip joint Category: Surgical Plan Mr. Medrano is a 53-year-old male who presents in the office today 15 days status post right total hip arthroplasty, which was performed on 04/30/[address] Cheek. ? ?? While in the office today, the patient reports his pain as a 6/10. He confirms taking one oxycodone 10 mg today which gave him mild relief for about 1.5 hours between doses.? ? ? The patient does not appear to be in any acute distress while in the office today; however, he does look quite pale and is struggling with anxiety. At this time, I am going to increase his pain medication and a new prescription for oxycodone 10 mg PO Q3H PRN was sent to the pharmacy in an attempt to see if this gives him relief. He states the current 10 mg Q4H is roughly giving him about 1.5 hours of mild relief between doses. A message was sent to the nurse navigator to reach out to Dr. Babcock, at [facility] in [place], to see if he has any additional recommendations. Dr. Babcock is currently treating the patient?s anxiety, for which he is on multiple psychiatric medications. Follow-up will be in four weeks with Dr. Cheek, or sooner if needed. Medications: Changed From oxycodone Partial Fill upon patient request. 10 mg PO Q4H 7 days PRN 42 tabs 0RF Pain, Moderate(Pain Scale 4-6) To oxycodone Partial Fill upon patient request. 10 mg PO Q3H PRN 56 tabs 0RF Pain, Moderate(Pain Scale 4-6) 7 days Patient Instructions: Scribed by Lakia Rajan, medical technologist clinical, for Wendi Hua PA-C on 05/15/2024 at 1:05 pm, EST.? Coding Level of Care Code Global (37477) Diagnoses Status post total hip replacement, right Z96.641
[2024-05-15 13:04] VITALS: BMI 34.4
== END 2024-05-15 13:29 | disposition home or self-care (01) ==
PROVIDERS: PCP Internal Medicine; Visit Provider Physician Assistant
DX: Z96.641 Presence of right artificial hip joint (principal)
CPT/HCPCS: 99024

== ENCOUNTER → 2024-05-15 12:45 | Outpatient (BNVA) | payer MEDICARE, MEDICAID, SELFPAY | PROVIDERS: PCP Internal Medicine; Visit Provider Physician Assistant | DX: Z96.641 Presence of right artificial hip joint (principal) | CPT/HCPCS: 99212 ==

== ENCOUNTER 2024-06-12 12:50 | Outpatient (AMB) | payer MEDICARE, MEDICAID, SELFPAY ==
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
[2024-06-12 12:58] VITALS: BMI 34.4
== END 2024-06-12 13:12 | disposition home or self-care (01) ==
PROVIDERS: PCP Internal Medicine; Visit Provider Orthopaedic Surgery
DX: Z96.641 Presence of right artificial hip joint (principal)
CPT/HCPCS: 99024

== ENCOUNTER → 2024-06-12 12:50 | Outpatient (BNVA) | payer MEDICARE, MEDICAID, SELFPAY | PROVIDERS: PCP Internal Medicine; Visit Provider Orthopaedic Surgery | DX: Z47.1 Aftercare following joint replacement surgery (principal); Z96.641 Presence of right artificial hip joint | CPT/HCPCS: 99212 ==

== ENCOUNTER 2024-08-08 11:42 | Outpatient (AMB) | payer OTHER, SELFPAY ==
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
== END 2024-08-08 12:40 | disposition home or self-care (01) ==
PROVIDERS: PCP Internal Medicine; Visit Provider Orthopaedic Surgery
DX: Z47.1 Aftercare following joint replacement surgery (principal); Z96.641 Presence of right artificial hip joint
CPT/HCPCS: 99212

== ENCOUNTER → 2024-08-08 11:42 | Outpatient (BNVA) | payer OTHER, SELFPAY | PROVIDERS: PCP Internal Medicine; Visit Provider Orthopaedic Surgery | DX: Z47.1 Aftercare following joint replacement surgery (principal); Z96.641 Presence of right artificial hip joint | CPT/HCPCS: 99212 ==

== ENCOUNTER 2024-09-29 12:56 | Outpatient (AMB) | payer OTHER, SELFPAY ==
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
[2024-09-29 13:10] VITALS: BP 160/112; PULSE 126; O2SAT 98; BMI 34.4
== END 2024-09-29 13:35 | disposition home or self-care (01) ==
PROVIDERS: PCP Internal Medicine; Referring Provider Internal Medicine; Visit Provider Anesthesiology
DX: M96.1 Postlaminectomy syndrome, not elsewhere classified (principal); M46.1 Sacroiliitis, not elsewhere classified; M53.3 Sacrococcygeal disorders, not elsewhere classified; G89.29 Other chronic pain
CPT/HCPCS: 99203

== ENCOUNTER → 2024-09-29 12:56 | Outpatient (BNVA) | payer OTHER, SELFPAY | PROVIDERS: PCP Internal Medicine; Referring Provider Internal Medicine; Visit Provider Anesthesiology | DX: M46.1 Sacroiliitis, not elsewhere classified (principal); M53.3 Sacrococcygeal disorders, not elsewhere classified; G89.29 Other chronic pain; M96.1 Postlaminectomy syndrome, not elsewhere classified; Z73.6 Limitation of activities due to disability | CPT/HCPCS: 99202 ==

== ENCOUNTER 2024-11-10 10:27 | Outpatient (AMB) | payer OTHER, SELFPAY ==
--- OUTSIDE RECORDS SUMMARY | 2024-11-10 10:29 | XMS_ITS | Clinical Summary ---
Author Organization Unknown Care Team Providers Care Vascular Physician Name Role Phone DAVE SANCHEZ, JAVID Unavailable Unavailable ANA OT, ENZO Unavailable Unavailable SHY RN, ANNAMARIE Unavailable Unavailable [facility] ([facility]) C - PT, LOPEZ Unavailable Unavailable [employer] JOURNALIST, BANDAR Unavailable Unavailable [employer], LEAH Unavailable Unavailable Payers Payer Name Policy Type Policy Number Effective Date Expira tion Date MEDICARE - [place] - PDGM [id number] MEDICAID [id number] [id number] SELF PAY Problems Condition Name Condition Details Condition Category Status Onset Date Resolution Date Last Treatment Date Treating Clinician Comments AFTERCARE FOLLOWING JOINT REPLACEMENT SURGERY Active 11-19 00:00: 00 BIPOLAR DISORDER, UNSPECIFIED Active 11-19 00:00: 00 MORBID (SEVERE) OBESITY DUE TO EXCESS CALORIES Active 11-19 00:00: 00 BODY MASS INDEX [BMI] 34.0-34.9, ADULT Active 11-19 00:00: 00 ESSENTIAL (PRIMARY) HYPERTENSION Active 11-19 00:00: 00 ANXIETY DISORDER, UNSPECIFIED Active 11-19 00:00: 00 ORTHOSTATIC HYPOTENSION Active 11-19 00:00: 00 POST-TRAUMAT IC STRESS DISORDER, UNSPECIFIED Active 11-19 00:00: 00 FATTY (CHANGE OF) LIVER, NOT ELSEWHERE CLASSIFIED Active 11-19 00:00: 00 PRESENCE OF RIGHT ARTIFICIAL HIP JOINT Active 11-19 00:00: 00 PERSONAL HISTORY OF OTHER MALIGNANT NEOPLASM OF SKIN Active 11-19 00:00: 00 ARTHRODESIS STATUS Active 11-19 00:00: 00 [facility] (CURRENT) USE OF ANTICOAGULAN TS Active 11-19 00:00: 00 PERSONAL HISTORY OF NICOTINE DEPENDENCE Active 11-19 00:00: 00 HYPERLIPIDEM IA, UNSPECIFIED Active 04-19 00:00: 00 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 Ordering Clinician Indication Dosage Frequency Signature (SIG) Comments Components temazepam 7.5 mg capsule 05-02 00:00: 00 Yes [id number] Per instruc tions DAILY AT BEDTIME NEEDED Per instructio ns DAILY AT BEDTIME NEEDED (route: oral) Med Classific ation: Central Nervous System Agents melatonin 5 mg tablet 04-23 00:00: 00 05-02 00:00 :00 No [id number] Per instruc tions DAILY AT BEDTIME Per instructio ns DAILY AT BEDTIME (route: oral) Med Classific ation: Central Nervous System Agents lorazepam 1 mg tablet 04-22 00:00: 00 05-02 00:00 :00 No [id number] Per instruc tions DAILY NEEDED Per instructio ns DAILY NEEDED (route: oral) Med Classific ation: Central Nervous System Agents cyclobenzap rine 5 mg tablet 05-02 00:00: 00 Yes [id number] Per instruc tions THREE TIMES DAILY NEEDED Per instructio ns THREE TIMES DAILY NEEDED (route: oral) Med Classific ation: Locomotor System omeprazole 20 mg capsule,del ayed release 05-02 00:00: 00 Yes [id number] Per instruc tions TWICE DAILY Per instructio ns TWICE DAILY (route: oral) Med Classific ation: Gastroint estinal Therapy Agents cholecalcif ibeth (vitamin D3) 25 mcg (1,000 unit) tablet 04-05 00:00: 00 05-02 00:00 :00 No [id number] Per instruc tions ONCE DAILY Per instructio ns ONCE DAILY (route: oral) Med Classific ation: Electroly te Balance-N utritiona l Products acetaminoph en ER 650 mg tablet,exte nded release 05-02 00:00: 00 Yes [id number] 1 tablet EVERY 6 HOURS 1 tablet EVERY 6 HOURS (route: oral) Med Classific ation: Analgesic , Anti-infl ammatory or Antipyret ic bisacodyl 5 mg tablet,cecilio yed release 05-02 00:00: 00 Yes [id number] 1 tablet DAILY 1 tablet DAILY (route: oral) Med Classific ation: Gastroint estinal Therapy Agents buspirone 30 mg tablet 05-02 00:00: 00 Yes [id number] 1 tablet 3 TIMES DAILY 1 tablet 3 TIMES DAILY (route: oral) Med Classific ation: Central Nervous System Agents chlorphenir amine 4 mg tablet 05-02 00:00: 00 Yes [id number] 1 tablet 2 TIMES DAILY 1 tablet 2 TIMES DAILY (route: oral) Med Classific ation: Respirato ry Therapy Agents cholecalcif ibeth (vitamin D3) 25 mcg (1,000 unit) capsule 05-02 00:00: 00 Yes [id number] 1 capsule DAILY 1 capsule DAILY (route: oral) Med Classific ation: Electroly te Balance-N utritiona l Products Colace 100 mg capsule 05-02 00:00: 00 Yes [id number] 1 capsule DAILY 1 capsule DAILY (route: oral) Med Classific ation: Gastroint estinal Therapy Agents enoxaparin 40 mg/0.4 mL subcutaneou s syringe 05-02 00:00: 00 Yes [id number] 40 mg DAILY 40 mg DAILY (route: subcutaneo us) Med Classific ation: Hematolog ical Agents escitalopra m 20 mg tablet 05-02 00:00: 00 05-17 23:59 :00 No [id number] 1 tablet DAILY 1 tablet DAILY (route: oral) Med Classific ation: Central Nervous System Agents hydrochloro thiazide 25 mg tablet 05-02 00:00: 00 Yes [id number] 1 tablet DAILY 1 tablet DAILY (route: oral) Med Classific ation: Cardiovas cular Therapy Agents hydroxyzine HCl 50 mg tablet 05-02 00:00: 00 Yes [id number] 1 tablet DAILY 1 tablet DAILY (route: oral) Med Classific ation: Central Nervous System Agents melatonin 5 mg capsule 05-02 00:00: 00 Yes [id number] 2 capsule BEDTIME 2 capsule BEDTIME (route: oral) Med Classific ation: Central Nervous System Agents ondansetron 4 mg disintegrat ing tablet 05-02 00:00: 00 Yes [id number] 1 tablet 2 TIMES DAILY 1 tablet 2 TIMES DAILY (route: oral) Med Classific ation: Gastroint estinal Therapy Agents oxycodone 10 mg tablet 05-02 00:00: 00 Yes [id number] 1 tablet EVERY 4 HOURS 1 tablet EVERY 4 HOURS (route: oral) Med Classific ation: Analgesic , Anti-infl ammatory or Antipyret ic quetiapine 50 mg tablet 05-02 00:00: 00 Yes [id number] 1 tablet 3 TIMES DAILY 1 tablet 3 TIMES DAILY (route: oral) Med Classific ation: Central Nervous System Agents trazodone 100 mg tablet 05-02 00:00: 00 Yes [id number] 1 tablet BEDTIME 1 tablet BEDTIME (route: oral) Med Classific ation: Central Nervous System Agents Immunizations Ordered Immunization Name Filled Immunization Name Date Status Comments Refusal Reason COVID BOOSTER, COVID BOOSTER 2023-09-19 00:00:00 Vital Signs Vital Name Observation Time Observation Value Commen ts Temperature 2024-06-19 13:06:00.000 98 [degF] Temperature 2024-06-13 12:38:00.000 97.8 [degF] Temperature 2024-06-11 11:42:00.000 98 [degF] Temperature 2024-06-06 11:27:00.000 97.1 [degF] Temperature 2024-06-04 11:30:00.000 97.3 [degF] Temperature 2024-05-30 15:56:00.000 97.4 [degF] Temperature 2024-05-28 11:25:00.000 97.8 [degF] Temperature 2024-05-27 11:05:00.000 97.1 [degF] Temperature 2024-05-27 10:50:00.000 98.3 [degF] Temperature 2024-05-23 13:07:00.000 98 [degF] Temperature 2024-05-22 16:44:00.000 97.6 [degF] Temperature 2024-05-20 11:16:00.000 97.6 [degF] Temperature 2024-05-17 13:58:00.000 96.9 [degF] Temperature 2024-05-13 11:04:00.000 97.7 [degF] Temperature 2024-05-12 12:21:00.000 97.5 [degF] Temperature 2024-05-09 11:17:00.000 97.8 [degF] Temperature 2024-05-07 10:51:00.000 97.9 [degF] Temperature 2024-05-02 11:33:00.000 98.1 [degF] BMI (%) 2024-05-02 11:33:00.000 34 kg/m2 Height 2024-05-02 11:33:00.000 75 [in_us] Pulse 2024-06-19 13:06:00.000 75 /min Pulse 2024-06-13 12:38:00.000 76 /min Pulse 2024-06-11 11:42:00.000 86 /min Pulse 2024-06-06 11:27:00.000 73 /min Pulse 2024-06-04 11:40:00.000 150 /min Pulse 2024-06-04 11:30:00.000 90 /min Pulse 2024-05-30 15:56:00.000 84 /min Pulse 2024-05-28 11:25:00.000 78 /min Pulse 2024-05-27 11:05:00.000 73 /min Pulse 2024-05-27 10:50:00.000 75 /min Pulse 2024-05-23 13:07:00.000 92 /min Pulse 2024-05-22 16:44:00.000 76 /min Pulse 2024-05-20 11:16:00.000 65 /min Pulse 2024-05-17 13:58:00.000 68 /min Pulse 2024-05-13 11:04:00.000 69 /min Pulse 2024-05-12 12:21:00.000 65 /min Pulse 2024-05-07 10:51:00.000 98 /min Pulse 2024-05-02 11:33:00.000 90 /min O2 Saturation (%) 2024-06-19 13:06:00.000 99 % O2 Saturation (%) 2024-06-13 12:38:00.000 95 % O2 Saturation (%) 2024-06-06 11:27:00.000 95 % O2 Saturation (%) 2024-05-30 15:56:00.000 99 % O2 Saturation (%) 2024-05-27 11:05:00.000 96 % O2 Saturation (%) 2024-05-27 10:50:00.000 97 % O2 Saturation (%) 2024-05-23 13:07:00.000 100 % O2 Saturation (%) 2024-05-22 16:44:00.000 98 % O2 Saturation (%) 2024-05-17 13:58:00.000 98 % O2 Saturation (%) 2024-05-13 11:04:00.000 93 % Respirations 2024-06-19 13:06:00.000 16 /min Respirations 2024-06-13 12:38:00.000 16 /min Respirations 2024-06-11 11:42:00.000 18 /min Respirations 2024-06-06 11:27:00.000 16 /min Respirations 2024-06-04 11:30:00.000 16 /min Respirations 2024-05-30 15:56:00.000 16 /min Respirations 2024-05-28 11:25:00.000 17 /min Respirations 2024-05-27 11:05:00.000 16 /min Respirations 2024-05-27 10:50:00.000 14 /min Respirations 2024-05-23 13:07:00.000 17 /min Respirations 2024-05-22 16:44:00.000 16 /min Respirations 2024-05-20 11:16:00.000 18 /min Respirations 2024-05-17 13:58:00.000 17 /min Respirations 2024-05-13 11:04:00.000 16 /min Respirations 2024-05-12 12:21:00.000 19 /min Respirations 2024-05-07 10:51:00.000 20 /min Respirations 2024-05-02 11:33:00.000 16 /min Weight (lbs) 2024-05-02 11:33:00.000 275 [lb_av] Systolic Blood Pressure 2024-06-19 13:06:00.000 122 mm [Hg] Systolic Blood Pressure 2024-06-13 12:38:00.000 132 mm [Hg] Systolic Blood Pressure 2024-06-06 11:27:00.000 132 mm [Hg] Systolic Blood Pressure 2024-05-30 15:56:00.000 116 mm [Hg] Systolic Blood Pressure 2024-05-28 11:25:00.000 105 mm [Hg] Systolic Blood Pressure 2024-05-27 11:05:00.000 128 mm [Hg] Systolic Blood Pressure 2024-05-27 10:50:00.000 121 mm [Hg] Systolic Blood Pressure 2024-05-23 13:07:00.000 106 mm [Hg] Systolic Blood Pressure 2024-05-22 16:44:00.000 134 mm [Hg] Systolic Blood Pressure 2024-05-17 13:58:00.000 111 mm [Hg] Systolic Blood Pressure 2024-05-13 11:04:00.000 131 mm [Hg] Systolic Blood Pressure 2024-05-09 11:17:00.000 130 mm [Hg] Systolic Blood Pressure 2024-05-07 10:51:00.000 144 mm [Hg] Systolic Blood Pressure 2024-05-02 11:33:00.000 107 mm [Hg] Diastolic Blood Pressure 2024-06-19 13:06:00.000 82 mm [Hg] Diastolic Blood Pressure 2024-06-13 12:38:00.000 80 mm [Hg] Diastolic Blood Pressure 2024-06-06 11:27:00.000 78 mm [Hg] Diastolic Blood Pressure 2024-05-30 15:56:00.000 68 mm [Hg] Diastolic Blood Pressure 2024-05-28 11:25:00.000 63 mm [Hg] Diastolic Blood Pressure 2024-05-27 11:05:00.000 80 mm [Hg] Diastolic Blood Pressure 2024-05-27 10:50:00.000 78 mm [Hg] Diastolic Blood Pressure 2024-05-23 13:07:00.000 74 mm [Hg] Diastolic Blood Pressure 2024-05-22 16:44:00.000 76 mm [Hg] Diastolic Blood Pressure 2024-05-17 13:58:00.000 68 mm [Hg] Diastolic Blood Pressure 2024-05-13 11:04:00.000 78 mm [Hg] Diastolic Blood Pressure 2024-05-09 11:17:00.000 90 mm [Hg] Diastolic Blood Pressure 2024-05-07 10:51:00.000 98 mm [Hg] Diastolic Blood Pressure 2024-05-02 11:33:00.000 75 mm [Hg] Plan of Treatment Planned Activity Planned Date Details Comments Future Scheduled Test PHYSICAL T HERAPIST TO EVALUATE PATIENT SECONDARY TO FUNCTIONAL DEFICITS/SAFETY CONCERNS. [code = PHYSICAL THERAPIST TO EVALUATE PATIENT SECONDARY TO FUNCTIONAL DEFICITS/SAFETY CONCERNS.] Future Scheduled Test SUMMARY OF THERAPY EVAL/ASSESSMENT FINDINGS AND REASON(S) SKILLS OF A THERAPIST ARE INDICATED: PATIENT IS A 53-YEAR-OLD MALE STATUS POST RIGHT TOTAL HIP REPLACEMENT BY DR ACOSTA ON April. PAST MEDICAL HISTORY INCLUDES HYPERTENSION, OBESITY, ANXIETY, BIPOLAR, KIDNEY CANCER, LUMBAR FUSION, RIGHT TO VIEW O R I F. PRIOR LEVEL OF MOBILITY WAS WITH CANE. PATIENT IS ALERT AND ORIENTED TIMES 4. THE ANSWER APPROXIMATELY 6 FT 3 IN TALL WITH A WEIGHT OF 275 LB. PATIENT COMPLAINTS OF RIGHT HIP PAIN REACHING 8 OUT OF 10 MINUTES TO 4 OUT OF 10 WITH CURRENT MEDICATIONS. PATIENT IS CURRENTLY SPONGE BATH LEVEL WITH ASSISTANCE OF CAREGIVER THAT PROVIDES 24-HOUR ADL AND IADL CARE. PATIENTS INCISION COVERED BY NON-REMOVABLE DRESSING NO SIGNS OR SYMPTOMS OF INFECTION. LOWER EXTREMITY EDEMA WITHIN NORMAL LIMITS FOR POST-OP DATE NO SIGNS OR SYMPTOMS OF DVT. PATIENT WITH LIMITED STRENGTH RIGHT HIP GROSSLY 3 - /5. PATIENT ABLE TO ACTIVELY DORSIFLEX AND RIGHT LOWER EXTREMITY. PATIENT TRANSFERS WITH MINIMAL ASSISTANCE TIMES ONE ALL LEVELS AMBULATING WITH FRONT WHEEL WALKER ANTALGIC PATTERN ON RIGHT. PATIENT INSTRUCTED THIS VISIT AND PAIN MANAGEMENT EDEMA MANAGEMENT MEDICATION EDUCATION INCLUDING TRAINING HOW TO ADMINISTER LOVENOX INJECTION. PATIENT WILL BENEFIT FROM SHORT-TERM HOME THERAPY TO ADDRESS PAIN IN EDEMA MANAGEMENT, LOWER EXTREMITY MUSCLE RE-EDUCATION AND STRENGTHENING, PROGRESSIVE MOBILITY TRAINING WITH TRANSFERS BED MOBILITY AMBULATION WITH HIP PRECAUTIONS. MEDICATION RECONCILIATION COMPLETED WITH DISCHARGE PAPERWORK PATIENT AGREES WITH PLAN OF CARE. TELEPHONE CALL TO DR ACOSTA'S OFFICE CONFIRMED THAT PATIENT IS NOT TO TAKE ASPIRIN AT THIS TIME ONLY LOVENOX. [code = SUMMARY OF THERAPY EVAL/ASSESSMENT FINDINGS AND REASON(S) SKILLS OF A THERAPIST ARE INDICATED: PATIENT IS A 53-YEAR-OLD MALE STATUS POST RIGHT TOTAL HIP REPLACEMENT BY DR ACOSTA ON April. PAST MEDICAL HISTORY INCLUDES HYPERTENSION, OBESITY, ANXIETY, BIPOLAR, KIDNEY CANCER, LUMBAR FUSION, RIGHT TO VIEW O R I F. PRIOR LEVEL OF MOBILITY WAS WITH CANE. PATIENT IS ALERT AND ORIENTED TIMES 4. THE ANSWER APPROXIMATELY 6 FT 3 IN TALL WITH A WEIGHT OF 275 LB. PATIENT COMPLAINTS OF RIGHT HIP PAIN REACHING 8 OUT OF 10 MINUTES TO 4 OUT OF 10 WITH CURRENT MEDICATIONS. PATIENT IS CURRENTLY SPONGE BATH LEVEL WITH ASSISTANCE OF CAREGIVER THAT PROVIDES 24-HOUR ADL AND IADL CARE. PATIENTS INCISION COVERED BY NON-REMOVABLE DRESSING NO SIGNS OR SYMPTOMS OF INFECTION. LOWER EXTREMITY EDEMA WITHIN NORMAL LIMITS FOR POST-OP DATE NO SIGNS OR SYMPTOMS OF DVT. PATIENT WITH LIMITED STRENGTH RIGHT HIP GROSSLY 3 - /5. PATIENT ABLE TO ACTIVELY DORSIFLEX AND RIGHT LOWER EXTREMITY. PATIENT TRANSFERS WITH MINIMAL ASSISTANCE TIMES ONE ALL LEVELS AMBULATING WITH FRONT WHEEL WALKER ANTALGIC PATTERN ON RIGHT. PATIENT INSTRUCTED THIS VISIT AND PAIN MANAGEMENT EDEMA MANAGEMENT MEDICATION EDUCATION INCLUDING TRAINING HOW TO ADMINISTER LOVENOX INJECTION. PATIENT WILL BENEFIT FROM SHORT-TERM HOME THERAPY TO ADDRESS PAIN IN EDEMA MANAGEMENT, LOWER EXTREMITY MUSCLE RE-EDUCATION AND STRENGTHENING, PROGRESSIVE MOBILITY TRAINING WITH TRANSFERS BED MOBILITY AMBULATION WITH HIP PRECAUTIONS. MEDICATION RECONCILIATION COMPLETED WITH DISCHARGE PAPERWORK PATIENT AGREES WITH PLAN OF CARE. TELEPHONE CALL TO DR ACOSTA'S OFFICE CONFIRMED THAT PATIENT IS NOT TO TAKE ASPIRIN AT THIS TIME ONLY LOVENOX.] Future Scheduled Test PHYSICAL T HERAPY FOR OBSERVATION AND ASSESSMENT OF PAIN, EFFECTIVENESS OF PAIN MANAGEMENT REGIMEN AND SKILLED TEACHING RELATED TO PAIN MANAGEMENT. THERAPIST TO REPORT INCREASED PAIN LEVEL TO PHYSICIAN FOR PROMPT INTERVENTION. [code = PHYSICAL THERAPY FOR OBSERVATION AND ASSESSMENT OF PAIN, EFFECTIVENESS OF PAIN MANAGEMENT REGIMEN AND SKILLED TEACHING RELATED TO PAIN MANAGEMENT. THERAPIST TO REPORT INCREASED PAIN LEVEL TO PHYSICIAN FOR PROMPT INTERVENTION.] Future Scheduled Test PHYSICAL T HERAPY TO ESTABLISH /UPGRADE/DOWNGRADE THERAPEUTIC EXERCISE PROGRAM AND INSTRUCT PATIENT/CAREGIVER ON EXERCISE PRECAUTIONS WITH WRITTEN HOME PROGRAM. MAY INCLUDE PROM, AAROM, AROM, RROM APPROPRIATE TO IMPROVE FUNCTIONAL STRENGTH AND RANGE OF MOTION. [code = PHYSICAL THERAPY TO ESTABLISH /UPGRADE/DOWNGRADE THERAPEUTIC EXERCISE PROGRAM AND INSTRUCT PATIENT/CAREGIVER ON EXERCISE PRECAUTIONS WITH WRITTEN HOME PROGRAM. MAY INCLUDE PROM, AAROM, AROM, RROM APPROPRIATE TO IMPROVE FUNCTIONAL STRENGTH AND RANGE OF MOTION.] Future Scheduled Test PHYSICAL T HERAPY TO INSTRUCT PATIENT/CAREGIVER ON BED MOBILITY TECHNIQUES TO IMPROVE PATIENT MOBILITY AND POSITIONING TECHNIQUES IN ORDER TO INCREASE PATIENTS COMFORT AND DECREASE RISK OF SKIN BREAKDOWN. [code = PHYSICAL THERAPY TO INSTRUCT PATIENT/CAREGIVER ON BED MOBILITY TECHNIQUES TO IMPROVE PATIENT MOBILITY AND POSITIONING TECHNIQUES IN ORDER TO INCREASE PATIENTS COMFORT AND DECREASE RISK OF SKIN BREAKDOWN.] Future Scheduled Test PHYSICAL T HERAPY TO INSTRUCT PATIENT/CAREGIVER ON SAFE TRANSFER TECHNIQUES USING PROPER BODY MECHANICS AND EQUIPMENT. [code = PHYSICAL THERAPY TO INSTRUCT PATIENT/CAREGIVER ON SAFE TRANSFER TECHNIQUES USING PROPER BODY MECHANICS AND EQUIPMENT.] Future Scheduled Test PHYSICAL T HERAPY TO INSTRUCT PATIENT/CAREGIVER ON GAIT TRAINING TECHNIQUES USING APPROPRIATE ASSISTIVE DEVICE, PROPER BODY MECHANICS TO IMPROVE MOBILITY, AND PREVENT INJURY OF PATIENT AND/OR CAREGIVER. [code = PHYSICAL THERAPY TO INSTRUCT PATIENT/CAREGIVER ON GAIT TRAINING TECHNIQUES USING APPROPRIATE ASSISTIVE DEVICE, PROPER BODY MECHANICS TO IMPROVE MOBILITY, AND PREVENT INJURY OF PATIENT AND/OR CAREGIVER.] Future Scheduled Test PHYSICAL T HERAPY TO ASSESS AND RECOMMEND HOME SAFETY ADAPTATIONS AND EDUCATE PATIENT /CAREGIVER ON FALL PREVENTION STRATEGIES. [code = PHYSICAL THERAPY TO ASSESS AND RECOMMEND HOME SAFETY ADAPTATIONS AND EDUCATE PATIENT /CAREGIVER ON FALL PREVENTION STRATEGIES.] Goal 2024-06-19 Patient Goal - T O RETURN TO INDEPENDENT LEVEL Goal Provider Goal - PHYSICAL THERAPY EVALUATION TO BE COMPLETED WITH RECOMMENDATIONS AND/OR WRITTEN TREATMENT PLAN OF CARE ESTABLISHED FOR THE PHYSICIANS SIGNATURE Goal Provider Goal - Goal Provider Goal - INCREASED PAIN OR INEFFECTIVE PAIN CONTROL MEASURES WILL BE IDENTIFIED AND PROMPTLY REPORTED TO THE PHYSICIAN. PATIENT/CAREGIVER WILL DEMONSTRATE EFFECTIVE PAIN MANAGEMENT. Goal Provider Goal - PATIENT/CAREGIVER WILL PERFORM THERAPEUTIC EXERCISE/S AND DEMONSTRATE PARTICIPATION IN A HOME PROGRAM. Goal Provider Goal - PATIENT/CAREGIVER WILL DEMONSTRATE IMPROVED BED MOBILITY TECHNIQUES. Goal Provider Goal - PATIENT/CAREGIVER WILL DEMONSTRATE SAFE TRANSFERS USING APPROPRIATE ASSISTIVE DEVICE, BODY MECHANICS AND EQUIPMENT. Goal Provider Goal - PATIENT/CAREGIVER WILL DEMONSTRATE IMPROVED GAIT TECHNIQUES TO MINIMIZE RISK OF INJURY. Goal Provider Goal - PATIENT/CAREGIVER WILL DEMONSTRATE/VERBALIZE UNDERSTANDING OF RECOMMENDATIONS TO INCREASE SAFETY IN THE HOME AND FALL PREVENTION. Reason for Visit [facility]DEPENDENT IN THE COMMUNITY Encounters Start Date/Time End Date/Time Encounter Type Admission Type Attending [facility] Care Department Encounter ID Discharge Date Discharge Status Discharge Condition Discharge Reason Percent Goals Met 2024-05-02 00:00:00 2024-06-19 00:00:00 Outpatient NEW ADMISSION [facility] ([facility] [id number] 2024-06-19 00:00:00 DISCHARGE TO HOME OR SELF CARE [facility]DEPENDEN T IN THE COMMUNITY GOALS MET ( ONLY) 100.00
[2024-11-10 11:00] VITALS: BMI 34.4
--- NOTE | 2024-11-10 11:00 | A.OFFVIS_ITS ---
Vital Signs 11/10/24 11:00 Height 6 ft 3 in Weight 275 lb BMI 34.4 Intake Visit Reasons: OV-R JUAN w/NE 04/30/24-3 month follow up Intake Note: Zev is a 54 year old male who presents today for a follow up of his right hip s/p Right JUAN 04/30/24. Patient reports that he is still struggling with pain. He has good days and bad days, on the bad days his pain makes him nauseous. He continues to have some sensations of instability upon standing. Allergies amlodipine Allergy (Verified 11/10/24 11:03) Shortness of Breath NSAIDS (Non-Steroidal Anti-Inflamma Allergy (Verified 11/10/24 11:03) Seizure pregabalin Allergy (Verified 11/10/24 11:03) Unknown HPI HPI OV-R JUAN w/NE 04/30/24-3 month follow up: Details: Zev is a 54 year old male who presents today for a follow up of his right hip s/p Right JUAN 04/30/24. Patient reports that he is still struggling with pain. He has good days and bad days, on the bad days his pain makes him nauseous. He continues to have some sensations of instability upon standing. Most of his pain is in his SI joint and posterior lumbosacral region. This occasionally extends into his groin. [facility] Medical History History of traumatic head injury Arthritis Bipolar 1 disorder Sleep apnea SOB (shortness of breath) Syncope History of lipoma Depression Severe obesity (BMI 35.0-35.9 with comorbidity) PTSD (post-traumatic stress disorder) Mixed hyperlipidemia Lung nodules Insomnia Impaired fasting glucose HTN (hypertension) Hyperlipidemia Hypercalcemia Renal cell carcinoma Acute renal failure Fatty liver Erectile dysfunction Elevated serum creatinine Colon polyp Back pain Anxiety Surgical History History of lumbar spinal fusion H/O colonoscopy Hx of umbilical hernia repair Hx of appendectomy Hx of vasectomy History of surgery on lower extremity History of partial nephrectomy Social History Household Members: Significant Other Housing: House Are you a primary healthcare analyst to a significant other at home: No Do you presently have visiting nurse or other home services: No Alcohol intake: never Patient Tobacco Use Status: Former Tobacco user Substance Use Type: Marijuana service: No Current occupational status: disabled Physical Exam Vital Signs: BMI result Body Mass Index 34.4 Extrem Other: Walking upright and with minimal Trendelenburg. No pain with passive hip range of motion. Assessment & Plan Assessment & Plan (1) Status post total hip replacement, right: Onset Date: ~04/30/24 Comment: NE Code(s): Z96.641 - Presence of right artificial hip joint Category: Surgical Plan: Six months status post right hip replacement. Follow up 6 months. Doing well. Coding Level of Care Code Est Pt Level 3 (34063) Diagnoses Status post total hip replacement, right Z96.641
== END 2024-11-10 12:41 | disposition home or self-care (01) ==
PROVIDERS: PCP Internal Medicine; Visit Provider Orthopaedic Surgery
DX: Z47.1 Aftercare following joint replacement surgery (principal); Z96.641 Presence of right artificial hip joint
CPT/HCPCS: 99212

== ENCOUNTER → 2024-11-10 10:27 | Outpatient (BNVA) | payer OTHER, SELFPAY | PROVIDERS: PCP Internal Medicine; Visit Provider Orthopaedic Surgery | DX: Z96.641 Presence of right artificial hip joint (principal) | CPT/HCPCS: 99212 ==

== ENCOUNTER 2024-11-18 13:22 | Outpatient (REF) | payer OTHER, SELFPAY ==
--- NOTE | ~2024-11-18 | CT_ITS ---
CLINICAL HISTORY: M53.3 - Sacrococcygeal disorders, not elsewhere classified CT pelvis without contrast Comparison: None Findings: No acute fracture or dislocation identified. Degenerative change in left hip joint. Right hip prosthesis demonstrates normal alignment. There is no evidence for component loosening. L4-5 posterior fusion hardware is intact. Laminectomy defect noted. Impression: No acute bony abnormality This document has been electronically signed by: Chris Cobian MD on 11/18/2024 23:05:51
--- OUTSIDE RECORDS SUMMARY | 2024-11-18 13:24 | XMS_ITS | Clinical Summary ---
Author Organization Unknown Care Team Providers Care Cook Fry Name Role Phone DAVE SANCHEZ, JAVID Unavailable Unavailable ANA OT, ENZO Unavailable Unavailable SHY RN, ANNAMARIE Unavailable Unavailable BONAVITA ([facility]) C - PT, LOPEZ Unavailable Unavailable YEPAIGE TRUCK SWITCHER, BANDAR Unavailable Unavailable ISRAEL BOOKMOBILE DRIVER, LEAH Unavailable Unavailable Payers Payer Name Policy Type Policy Number Effective Date Expira tion Date MEDICARE - [place] - PDGM [id number] MEDICAID [facility] [id number] SELF PAY Problems Condition Name Condition Details [...] 00 ARTHRODESIS STATUS Active 11-19 00:00: 00 [facility] (CURRENT) USE OF ANTICOAGULAN TS Active 11-19 [...] 7.5 mg capsule 05-02 00:00: 00 Yes [id number] Per instruc tions DAILY AT BEDTIME NEEDED Per instructio ns DAILY AT BEDTIME NEEDED (route: oral) Med Classific ation: Central Nervous System Agents melatonin 5 mg tablet 04-23 00:00: 00 05-02 00:00 :00 No [id number] Per instruc tions DAILY AT BEDTIME Per instructio ns DAILY AT BEDTIME (route: oral) Med Classific ation: Central Nervous System Agents lorazepam 1 mg tablet 04-22 00:00: 00 05-02 00:00 :00 No [id number] Per instruc tions DAILY NEEDED Per instructio ns DAILY NEEDED (route: oral) Med Classific ation: Central Nervous System Agents cyclobenzap rine 5 mg tablet 05-02 00:00: 00 Yes [id number] Per instruc tions THREE TIMES DAILY NEEDED Per instructio ns THREE TIMES DAILY NEEDED (route: oral) Med Classific ation: Locomotor System omeprazole 20 mg capsule,del ayed release 05-02 00:00: 00 Yes [id number] Per instruc tions TWICE DAILY Per instructio ns TWICE DAILY (route: oral) Med Classific ation: Gastroint estinal Therapy Agents cholecalcif ibeth (vitamin D3) 25 mcg (1,000 unit) tablet 04-05 00:00: 00 05-02 00:00 :00 No [id number] Per instruc tions ONCE DAILY Per instructio ns ONCE DAILY (route: oral) Med Classific ation: Electroly te Balance-N utritiona l Products acetaminoph en ER 650 mg tablet,exte nded release 05-02 00:00: 00 Yes [id number] 1 tablet EVERY 6 HOURS 1 tablet EVERY 6 HOURS (route: oral) Med Classific ation: Analgesic , Anti-infl ammatory or Antipyret ic bisacodyl 5 mg tablet,cecilio yed release 05-02 00:00: 00 Yes [id number] 1 tablet DAILY 1 tablet DAILY (route: oral) Med Classific ation: Gastroint estinal Therapy Agents buspirone 30 mg tablet 05-02 00:00: 00 Yes [id number] 1 tablet 3 TIMES DAILY 1 tablet 3 TIMES DAILY (route: oral) Med Classific ation: Central Nervous System Agents chlorphenir amine 4 mg tablet 05-02 00:00: 00 Yes [id number] 1 tablet 2 TIMES DAILY 1 tablet 2 TIMES DAILY (route: oral) Med Classific ation: Respirato ry Therapy Agents cholecalcif ibeth (vitamin D3) 25 mcg (1,000 unit) capsule 05-02 00:00: 00 Yes [id number] 1 capsule DAILY 1 capsule DAILY (route: oral) Med Classific ation: Electroly te Balance-N utritiona l Products Colace 100 mg capsule 05-02 00:00: 00 Yes [id number] 1 capsule DAILY 1 capsule DAILY (route: oral) Med Classific ation: Gastroint estinal Therapy Agents enoxaparin 40 mg/0.4 mL subcutaneou s syringe 05-02 00:00: 00 Yes [id number] 40 mg DAILY 40 mg DAILY (route: subcutaneo us) Med Classific ation: Hematolog ical Agents escitalopra m 20 mg tablet 05-02 00:00: 00 05-17 23:59 :00 No [id number] 1 tablet DAILY 1 tablet DAILY (route: oral) Med Classific ation: Central Nervous System Agents hydrochloro thiazide 25 mg tablet 05-02 00:00: 00 Yes [id number] 1 tablet DAILY 1 tablet DAILY (route: oral) Med Classific ation: Cardiovas cular Therapy Agents hydroxyzine HCl 50 mg tablet 05-02 00:00: 00 Yes [id number] 1 tablet DAILY 1 tablet DAILY (route: oral) Med Classific ation: Central Nervous System Agents melatonin 5 mg capsule 05-02 00:00: 00 Yes [id number] 2 capsule BEDTIME 2 capsule BEDTIME (route: oral) Med Classific ation: Central Nervous System Agents ondansetron 4 mg disintegrat ing tablet 05-02 00:00: 00 Yes [id number] 1 tablet 2 TIMES DAILY 1 tablet 2 TIMES DAILY (route: oral) Med Classific ation: Gastroint estinal Therapy Agents oxycodone 10 mg tablet 05-02 00:00: 00 Yes [id number] 1 tablet EVERY 4 HOURS 1 tablet EVERY 4 HOURS (route: oral) Med Classific ation: Analgesic , Anti-infl ammatory or Antipyret ic quetiapine 50 mg tablet 05-02 00:00: 00 Yes [id number] 1 tablet 3 TIMES DAILY 1 tablet 3 TIMES DAILY (route: oral) Med Classific ation: Central Nervous System Agents trazodone 100 mg tablet 05-02 00:00: 00 Yes [id number] 1 tablet BEDTIME 1 tablet BEDTIME (route: [...] End Date/Time Encounter Type Admission Type Attending [facility] Care Department Encounter ID Discharge Date Discharge Status Discharge Condition Discharge Reason Percent Goals Met 2024-05-02 00:00:00 2024-06-19 00:00:00 Outpatient NEW ADMISSION MARIBETH ([facility])LOPEZ [facility] [id number] 2024-06-19 00:00:00 DISCHARGE TO HOME OR SELF CARE INDEPENDEN T IN THE COMMUNITY GOALS MET ( ONLY) 100.00
== END 2024-11-18 13:23 | disposition home or self-care (01) ==
LOC: HO.CT 13:22
PROVIDERS: PCP Internal Medicine; Visit Provider Anesthesiology
DX: M53.3 Sacrococcygeal disorders, not elsewhere classified (principal); G89.29 Other chronic pain; M96.1 Postlaminectomy syndrome, not elsewhere classified; M46.1 Sacroiliitis, not elsewhere classified
CPT/HCPCS: 72192

== ENCOUNTER → 2024-11-18 13:25 | Outpatient (BNV) | payer OTHER, SELFPAY | PROVIDERS: PCP Internal Medicine; Visit Provider Radiology Diagnostic Radiology | DX: M53.3 Sacrococcygeal disorders, not elsewhere classified (principal) | CPT/HCPCS: 72192 ==

== ENCOUNTER 2024-11-25 06:26 | Outpatient (REF) | payer OTHER, SELFPAY | END 2024-11-25 06:27 | disposition home or self-care (01) | LOC: CF 06:26 | PROVIDERS: Visit Provider Anesthesiology | DX: Z13.89 Encounter for screening for other disorder (principal) ==

== ENCOUNTER 2025-02-17 06:25 | Outpatient (REF) | payer OTHER, SELFPAY ==
--- NOTE | ~2025-02-17 | FL_ITS ---
EXAMINATION: FL GUIDANCE ONLY HISTORY: M53.3 - Sacrococcygeal disorders, not elsewhere classified COMPARISON: None available. TECHNIQUE: Fluoroscopy time: 0.1 minutes. Cumulative Dose: 2.75 mGy. DAP: 0.0297 mGym2 Images: 1. FINDINGS: The image demonstrates a needle and contrast material in the region of the right sacroiliac joint. FL/FL guidance in treatment room IMPRESSION: Fluoroscopy during procedure. Please see procedure report for additional information. Electronically signed by: Anthony Gonzalez MD 02/17/2025 03:54 PM EDT
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
--- OUTSIDE RECORDS SUMMARY | 2025-02-17 06:30 | XMS_ITS | Encounter Summary ---
Author Organization [facility] Address [address] [place] [address] Care Team Providers Care Hairspring Ii Inspector Name Role Phone Remy Shetty MD Primary Care Provider Unavailabl e Unknown Pcp, Non Rmg Primary Care Provider Unava ilable Remy Shetty MD Primary Care Provider Unavailabl e Encounter Details Date Type Department Care Team (Late st Contact Info) Description 12/30/2008 Orders Only [facility] [address] [place] [phone] Remy Shetty MD Social History Tobacco Use Types Packs/Day Years Used Date Smoking Tobacco: Every Day Cigars Comments:SMOKER Alcohol Use Standard Drinks/Week Comments Yes 1.7 (1 standard drink = 0.6 oz p ure alcohol) Sex and Gender Information Value Date Recorded Sex Assigned at Not on file Legal Sex Male 11:16 PM EDT Gender Identity Not on file Sexual Orientation Not on file documented as of this encounter Plan of Treatment Not on file documented as of this encounter Visit Diagnoses Not on filedocumented in this encounter Care Teams Hairspring Ii Inspector Relationship Specialty Start Date End Date Remy Shetty MD PCP - General 11/16/07 06/23/14 Unknown Pcp, Non Rmg PCP - General 06/24/14 07/14/14 Remy Shetty MD PCP - General Internal Medicine 07/15/14 11/18/15 documented as of this encounter
--- OUTSIDE RECORDS SUMMARY | 2025-02-17 06:30 | XMS_ITS | Encounter Summary ---
Author Organization [facility] Address [address] [place] [address] Care Team Providers Care Line Tender Name Role Phone Remy Shetty MD Primary Care Provider Unavailabl e Unknown Pcp, Non Rmg Primary Care Provider Unava ilable Remy Shetty MD Primary Care Provider Unavailabl e Encounter Details Date Type Department Care Team ([facility] st Contact Info) Description 05/09/2012 Orders Only [facility] [address] [place] [phone] Remy Shetty MD Social History Tobacco [...] on file documented as of this encounter Progress Notes * Coral Kurtz - 05/13/2012 1:01 PM EDTQuick Note: Letter sent * Remy Shetty - 05/13/2012 12:25 PM EDTQuick Note: Lyme titer is negative. No further treatment required. documented in this encounter Plan of Treatment Not on file documented as of this encounter Procedures * Due to [place] state law, this organization might not be sharing negative HIV tests. Procedure Name Priority Date/Time Associated Diagnosis Comments BORRELIA BURGDORFERI AB (LYME), EIA WITH REFLEX IGG, IGM WB Routine 05/09/2012 12:03 PM EDT Atypical facial pain documented in this encounter Results * Due to [place] state law, this organization might not be sharing negative HIV tests. * BORRELIA BURGDORFERI AB (LYME), EIA WITH REFLEX IGG, IGM WB (05/09/2012 12:03 PM EDT) Borrelia burgdorferi Ab < OR = 0.90 index [facility] Comment: {LYME AB SCREEN {[id number]) Index ? Interpretation < or = 0.90 ? Negative 0.91-1.09 ? Equivocal > or = 1.10 ? Positive As recommended by the Food and Drug Administration (FDA), all samples with positive or equivocal results in the Borrelia burgdorferi antibody EIA (screening) will be tested by Western Blot. Positive or equivocal screening test results should not be interpreted as truly positive until verified as such using a confirmatory assay (e.g., B. burgdorferi Western Blot). The screening test and/or Western Blot for B. burgdorferi antibodies may be falsely negative in early stages of Lyme disease, including the period when erythema migrans is apparent. 05/09/2012 12:0 3 PM EDT 05/09/2012 9:14 PM EDT Narrative Resulting Agency Comment [id number] Remy Shetty MD LABORATORY Final Result Performing Organization Address City/State/[facility] Co de Phone Number [facility] [address] [place] [address] documented in this encounter Visit Diagnoses Diagnosis Atypical facial pain Atypical face pain documented in this encounter Care Teams Line Tender Relationship Specialty Start Date End Date Remy Shetty MD PCP - General 11/16/07 06/23/14 Unknown Pcp, Non Rmg PCP - General 06/24/14 07/14/14 Remy Shetty MD PCP - General Internal Medicine 07/15/14 11/18/15 documented as of this encounter
--- OUTSIDE RECORDS SUMMARY | 2025-02-17 06:30 | XMS_ITS | Encounter Summary ---
Author Organization [facility] Address [address] [place] [address] Care Team Providers Care Atm Manager Name Role Phone Remy Shetty MD Primary Care Provider Unavailabl e Unknown Pcp, Non Rmg Primary Care Provider Unava ilable Remy Shetty MD Primary Care Provider Unavailabl e Encounter Details Date Type Department Care Team (Late st Contact Info) Description 02/04/2013 Orders Only [facility] [address] [place] [phone] Dominique Hernández LVN LPN Social History Tobacco Use Types Packs/Day Years [...] on filedocumented in this encounter Care Teams Atm Manager Relationship Specialty Start Date End Date Remy Shetty MD PCP - General 11/16/07 06/23/14 Unknown Pcp, Non Rmg PCP - General 06/24/14 07/14/14 Remy Shetty MD PCP - General Internal Medicine 07/15/14 11/18/15 documented as of this encounter
--- OUTSIDE RECORDS SUMMARY | 2025-02-17 06:30 | XMS_ITS | Encounter Summary ---
Author Organization [facility] Address [address] [place] [address] Care Team Providers Care Matte Cutter Name Role Phone Remy Shetty MD Primary Care Provider Unavailabl e Unknown Pcp, Non Rmg Primary Care Provider Unava ilable Remy Shetty MD Primary Care Provider Unavailabl e Encounter Details Date Type Department Care Team (Late st Contact Info) Description 08/01/2012 Orders Only [facility] [address] [place] [phone] Remy Shetty MD Social History Tobacco [...] as of this encounter Progress Notes * Lakshmi Fernandez - 08/02/2012 10:01 AM EDTQuick Note: Letter sent * Remy Shetty - 08/02/2012 8:03 AM EDTQuick Note: Please call, urinalysis negative for blood. documented in this encounter Plan of Treatment Not on file documented as of this encounter Procedures * Due to [place] state law, this organization might not be sharing negative HIV tests. Procedure Name Priority Date/Time Associated Diagnosis Comments URINALYSIS, DIPSTICK ONLY Routine 08/01/2012 12:16 PM EDT Hematuria documented in this encounter Results * Due to [place] state law, this organization might not be sharing negative HIV tests. * URINALYSIS, DIPSTICK ONLY (08/01/2012 12:16 PM EDT) Color (Urine) DARK YELLOW YELLOW [facility] Comment:{COLOR {[id number]) Appearance (Urine) CLEAR CLEAR [facility] Comment:{APPEARANCE {[id number]) Specific gravity (Urine) 1.023 1.001 - 1.035 [facility] Comment:{SPECIFIC GRAVITY {[id number]) pH (Urine) 5.5 5.0 - 8.0 [facility] Comment:{PH {[id number]) Glucose (Urine) NEGATIVE NEGATIVE [facility] Comment:{GLUCOSE {[id number]) Bilirubin (Urine) NEGATIVE NEGATIVE [facility] Comment:{BILIRUBIN {[id number]) Ketones (Urine) NEGATIVE NEGATIVE [facility] Comment:{KETONES {[id number]) Hemoglobin (Urine) NEGATIVE NEGATIVE [facility] Comment:{OCCULT BLOOD {[id number]) Protein (Urine) NEGATIVE NEGATIVE [facility] Comment:{PROTEIN {[id number]) Nitrite (Urine) NEGATIVE NEGATIVE [facility] Comment:{NITRITE {[id number]) Leukocyte esterase (Urine) NEGATIVE NEGATIVE [facility] Comment:{LEUKOCYTE ESTERASE {[id number]) 08/01/2012 12:1 6 PM EDT 08/01/2012 11:19 PM EDT Narrative Resulting Agency Comment [id number] Remy Shetty MD LAB SAME DAY RESULT Final Result [facility] [address] [place] [address] documented in this encounter Visit Diagnoses Diagnosis Hematuria Hematuria, unspecified documented in this encounter Care Teams Matte Cutter Relationship Specialty Start Date End Date Remy Shetty MD PCP - General 11/16/07 06/23/14 Unknown Pcp, Non Rmg PCP - General 06/24/14 07/14/14 Remy Shetty MD PCP - General Internal Medicine 07/15/14 11/18/15 documented as of this encounter
--- OUTSIDE RECORDS SUMMARY | 2025-02-17 06:30 | XMS_ITS | Encounter Summary ---
Author Organization [facility] Address [address] [place] [address] Care Team Providers Care Grout Machine Operator Name Role Phone Angelita Shetty MD Primary Care Provider Unavailabl e Unknown Pcp, Non Rmg Primary Care Provider Unava ilable Angelita Shetty MD Primary Care Provider Unavailabl e Reason for Visit * Reason Comments E-prescribing Refill Request Encounter Details Date Type Department Care Team (Late st Contact Info) Description 02/10/2011 Refill [facility] [address] [place] [phone] Angelita Shetty MD E-prescribing Refill Request Social History Tobacco Use Types Packs/Day Years [...] on file documented as of this encounter Miscellaneous Notes * Telephone Encounter - Ashlee Almeida - 02/10/2011 3:35 PM EDT Faxed/E-prescribed medication renewal request(s) for Zev Medrano 40 y.o. male received from pharmacy. Entered this pharmacy as preferred pharmacy for patient. Any special requests or concerns?- med renewed until cpe/labs in june. Last CPE with this specialty: Last OV with this specialty: 04/21/2010 Next OV: Future Appointments Date Time Provider Department Center 07/04/2011 3:15 PM 37-ANGELITA SHETTY [facility] Pertinent lab results: Lab Results Component Value Date POTASSIUM 4.1 09/09/2009 CREATININE 1.23 09/09/2009 BUN 14 09/09/2009 Allergies: Review of patient's allergies indicates no known allergies. BP Readings from Last 1 Encounters: 04/21/10 108/80 Patient Active Problem List Diagnoses Date Noted ??? Hypertension [401.9AH] 09/09/2009 ??? Lipoma of Other Skin and Subcutaneous Tissue [214.1] 09/17/2008 documented in this encounter Plan of Treatment Not on file documented as of this encounter Visit Diagnoses Not on filedocumented in this encounter Care Teams Grout Machine Operator Relationship Specialty Start Date End Date Angelita Shetty MD PCP - General 11/16/07 06/23/14 Unknown Pcp, Non Rmg PCP - General 06/24/14 07/14/14 Angelita Shetty MD PCP - General Internal Medicine 07/15/14 11/18/15 documented as of this encounter
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
--- OUTSIDE RECORDS SUMMARY | 2025-02-17 06:30 | XMS_ITS | Encounter Summary ---
Author Organization [facility] Address [address] [place] [address] Care Team Providers Care Manager Chemistry Name Role Phone Remy Shetty MD Primary Care Provider Unavailabl e Unknown Pcp, Non [facility]mg Primary Care Provider Unava ilable Remy Shetty MD Primary Care Provider Unavailabl e Encounter Details Date Type Department Care Team ([facility] st Contact Info) Description 12/16/2012 Orders Only [facility] [address] [place] [phone] Remy Shetty MD Social History Tobacco [...] on filedocumented in this encounter Care Teams Manager Chemistry Relationship Specialty Start Date End Date Remy Shetty MD PCP - General 11/16/07 06/23/14 Unknown Pcp, Non [facility] PCP - General 06/24/14 07/14/14 Remy Shetty MD PCP - General Internal Medicine 07/15/14 11/18/15 documented as of this encounter
--- OUTSIDE RECORDS SUMMARY | 2025-02-17 06:30 | XMS_ITS | Encounter Summary ---
Author Organization [facility] Address [address] [place] [address] Care Team Providers Care Community Service Coordinator Name Role Phone Remy Shetty MD Primary Care Provider Unavailabl e Unknown Pcp, Non [facility]mg Primary Care Provider Unava ilable Remy Shetty MD Primary Care Provider Unavailabl e Encounter Details Date Type Department Care Team (Late st Contact Info) Description 05/24/2011 Orders Only [facility] [address] [place] [phone] Remy Shetty MD Social History Tobacco [...] on filedocumented in this encounter Care Teams Community Service Coordinator Relationship Specialty Start Date End Date Remy Shetty MD PCP - General 11/16/07 06/23/14 Unknown Pcp, Non [facility] PCP - General 06/24/14 07/14/14 Remy Shetty MD PCP - General Internal Medicine 07/15/14 11/18/15 documented as of this encounter
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
--- OUTSIDE RECORDS SUMMARY | 2025-02-17 06:30 | XMS_ITS | Encounter Summary ---
Author Organization [facility] Address [address] [place] [address] Care Team Providers Care Inspector [employer] Name Role Phone Remy Shetty MD Primary Care Provider Unavailabl e Unknown Pcp, Non [facility]mg Primary Care Provider Unava ilable Remy Shetty MD Primary Care Provider Unavailabl e Encounter Details Date Type Department Care Team (Late st Contact Info) Description 12/30/2008 Orders Only [facility] [address] [place] [phone] Remy Shetty MD Social History Tobacco [...] on filedocumented in this encounter Care Teams Inspector [employer] Relationship Specialty Start Date End Date Remy Shetty MD PCP - General 11/16/07 06/23/14 Unknown Pcp, Non [facility] PCP - General 06/24/14 07/14/14 Remy Shetty MD PCP - General Internal Medicine 07/15/14 11/18/15 documented as of this encounter
--- OUTSIDE RECORDS SUMMARY | 2025-02-17 06:30 | XMS_ITS | Encounter Summary ---
Author Organization [facility] Address [address] [place] [address] Care Team Providers Care Lighter Name Role Phone Remy Shetty MD Primary Care Provider Unavailabl e Unknown Pcp, Non [facility] Primary Care Provider Unava ilable Remy Shetty MD Primary Care Provider Unavailabl e Encounter Details Date Type Department Care Team ([facility] st Contact Info) Description 09/09/2009 Orders Only [facility] Neurology [address] [facility] [address] [place] [address] Chase Jordan MD [address] [place] [address] Social History Tobacco Use Types Packs/Day Years Used Date Smoking Tobacco: Former Cigars Comments:SMOKER Alcohol Use Standard Drinks/Week Comments [...] of this encounter Procedures * Due to [place] [employer] law, this organization might not be sharing negative HIV tests. Procedure Name Priority Date/Time Associated Diagnosis Comments BASIC METABOLIC PANEL W/GLOMERULAR FILTRATION RATE (EGFR) Routine 09/09/2009 Sensory Loss THYROID STIMULATING HORMONE (TSH) WITH FREE T4 REFLEX, SERUM Routine 09/09/2009 Sensory Loss VITAMIN B12 Routine 09/09/2009 Sensory Loss documented in this encounter Results * Due to [place] state law, this organization might not be sharing negative HIV tests. * THYROID STIMULATING HORMONE (TSH) WITH FREE T4 REFLEX, SERUM (09/09/2009) TSH, THYROTROPIN 4.20 0.40 - 4.50 UIU/ML [facility] 09/09/2009 09/09/2009 9:4 3 PM EDT Chase Jordan MD LABORATORY Final Result Performing Organization Address [facility] de Phone Number [facility] [address] [place] [address] * VITAMIN B12 (09/09/2009) VITB12 407 200 - 1100 PG/ML [facility] 09/09/2009 09/09/2009 9:4 3 PM EDT Chase Jordan MD LABORATORY Final Result Performing Organization Address [facility] de Phone Number [facility] [address] [place] [address] * BASIC METABOLIC PANEL W/GLOMERULAR FILTRATION RATE (EGFR) (09/09/2009) CALCIUM 9.6 8.6 - 10.2 MG/DL [facility] BUN 14 7 - 25 MG/DL [facility] CREATININE 1.23 0.79 - 1.33 MG/DL [facility] Glucose 98 65 - 99 MG/DL [facility] SODIUM 140 135 - 146 MMOL/L [facility] POTASSIUM 4.1 3.5 - 5.3 MMOL/L [facility] CHLORIDE 103 98 - 110 MMOL/L [facility] CARBON DIOXIDE 22 21 - 33 MMOL/L [facility] GFR > 60 60 AND ABOVE [facility] Comment:UNITS: ML/MIN/1.73 S Q METERS EGFR > 60 60 AND ABOVE [facility] Comment:UNITS: ML/MIN/1.73 S Q METERS 09/09/2009 09/09/2009 9:4 3 PM EDT Narrative [facility] - 09/10/2009 3:52 AM EDT Please note that this estimated GFR does not include an adjustment for the patient's height or weight, and can therefore, be viewed as reliable only for patients with heights between 60 and 72 . More precise quantification using a 24-hour urine sample or height-based algorithm is recommended for patients outside of this range of height and for those individuals with more precise needs for GFR calculation. Chase Jordan MD LABORATORY Final Result [facility] [address] [place] [address] documented in this encounter Visit Diagnoses Diagnosis Sensory loss Disturbance of skin sensation documented in this encounter Care Teams Lighter Relationship Specialty Start Date End Date Remy Shetty MD PCP - General 11/16/07 06/23/14 Unknown Pcp, Non [facility] PCP - General 06/24/14 07/14/14 Remy Shetty MD PCP - General Internal Medicine 07/15/14 11/18/15 documented as of this encounter
--- OUTSIDE RECORDS SUMMARY | 2025-02-17 06:30 | XMS_ITS | Encounter Summary ---
Author Organization [facility] Address [address] [place] [address] Care Team Providers Care Aerobics Teacher Name Role Phone Remy Shetty MD Primary Care Provider Unavailabl e Unknown Pcp, Non Rmg Primary Care Provider Unava ilable Remy Shetty MD Primary Care Provider Unavailabl e Encounter Details Date Type Department Care Team (Late st Contact Info) Description 01/20/2013 Orders Only [facility] [address] [place] [phone] Remy Shetty MD Social History Tobacco [...] as of this encounter Progress Notes * Luz Elena Hester - 02/07/2013 4:05 PM EDTQuick Note: Booked ov and mailed to patient * Sraah Roman - 01/28/2013 2:03 PM EDTQuick Note: lmtc- pt due for cpe * Tha Garrido - 01/22/2013 12:37 PM Gianfranco Note: + Cannabinoids Unable to cont his narcotics prescriptions * Federico Posada - 01/21/2013 2:43 PM ESTQuick Note: Letter done * Sarah Roman - 01/21/2013 2:41 PM ESTQuick Note: lmtc * Alexandra Pham - 01/21/2013 2:12 PM ESTQuick Note: Send stable letter reinforce the diet , weight repeat lip panel in 3-6mos dx hyperlip to [place], message also sent to pss for f/u ov this summer * Tha Garrido - 01/21/2013 1:00 PM ESTQuick Note: 2 CV risk factors - smoker and htn LDL goal is <130, trigger >160 Currently 156 (was 116) No LLA Plan is to reinforce diet, wt life style etc and repeat FLPP 3-6 months - pt zana ledesma have some type of f/u ov this summer documented in this encounter Plan of Treatment Not on file documented as of this encounter Procedures * Due to [place] state law, this organization might not be sharing negative HIV tests. Procedure Name Priority Date/Time Associated Diagnosis Comments DRUG ABUSE PANEL 8-50 (REFLEX TO CONFIRM), URINE Routine 01/20/2013 9:59 AM EST PAIN MANAGEMENT PROFILE, URINE (PAINM) Routine 01/20/2013 9:59 AM EST Encounter for long-term (current) use of other medications CBC INCLUDES DIFFERENTIAL AND PLATELET COUNT Routine 01/20/2013 9:59 AM EST Hypertension goal BP (blood pressure) < 130/80 LIPID PANEL WITH REFLEX TO DIRECT LDL Routine 01/20/2013 9:59 AM EST Hypertension goal BP (blood pressure) < 130/80 BASIC METABOLIC PANEL WITH (GFR) Routine 01/20/2013 9:59 AM EST Hypertension goal BP (blood pressure) < 130/80 documented in this encounter Results * Due to [place] state law, this organization might not be sharing negative HIV tests. * (ABNORMAL) DRUG ABUSE PANEL 8-50 (REFLEX TO CONFIRM), URINE (01/20/2013 9:59 AM EST) CHAIN OF CUSTODY NO [facility] Comment: {CHAIN OF CUSTODY {[id number]) ?? * These results are for medical treatment only. ??* ?? * Analysis was performed as non-forensic testing. * Marijuana (Carboxy tetrahydrocanna binol) Metabolite >1500(H) ng/mL [facility] Comment:{MARIJUANA METABOLIT E {[id number]) COMMENT SEE NOTE [facility] Comment: {COMMENT {[id number]) THIS TEST WAS PERFORMED BY GC/MS ONLY. IMMUNOASSAY SCREEN, IF ORDERED, WAS PERFORMED AND REPORTED UNDER A SEPARATE TEST CODE. ? 01/20/2013 9:59 AM EST 01/20/2013 4:45 PM EST us Remy Shetty MD LABORATORY Final Result Performing Organization Address City/State/[facility] Co de Phone Number [facility] [address] [place] [address] * (ABNORMAL) PAIN MANAGEMENT PROFILE, URINE (PAINM) (01/20/2013 9:59 AM EST) CHAIN OF CUSTODY NO [facility] Comment: {CHAIN OF CUSTODY {[id number]) ?? * These results are for medical treatment only. ??* ?? * Analysis was performed as non-forensic testing. * Morphine (Urine) NONE DETECTED ng/mL [facility] Comment:{MORPHINE {[id number]) Codeine (Urine) NONE DETECTED ng/mL [facility] Comment:{CODEINE {[id number]) Hydrocodone (Urine) 176(H) ng/mL [facility] Comment:{HYDROCODONE {[id number]) Hydromorphone (Urine) NONE DETECTED ng/mL [facility] Comment:{HYDROMORPHONE {[id number]) Oxycodone (Urine) NONE DETECTED ng/mL [facility] Comment:{OXYCODONE {[id number]) Oxymorphone (Urine) NONE DETECTED ng/mL [facility] Comment:{OXYMORPHONE {[id number]) COMMENT SEE NOTE [facility] Comment: {COMMENT {[id number]) THIS TEST WAS PERFORMED BY GC/MS ONLY. IMMUNOASSAY SCREEN, IF ORDERED, WAS PERFORMED AND REPORTED UNDER A SEPARATE TEST CODE. ? Creatinine (Urine) 274 > or = 20 mg/dL [facility] Comment:{CREATININE {[id number]) pH (Urine) 5.5 5.0 - 9.0 [facility] Comment:{PH {[id number]) Service comment 02 SEE NOTE Q [facility] Comment: {PLEASE NOTE: {[id number]) ?? * These results are for medical treatment only. ??* ?? * Analysis was performed as non-forensic testing. * Amphetamines (Urine) NEGATIVE [facility] Comment:{AMPHETAMINES (1000 ng/mL SCREEN) {[id number]) Barbiturates (Urine) NEGATIVE [facility] Comment:{BARBITURATES {[id number]) Benzodiazepine And Metabolites, Urine NEGATIVE [facility] Comment:{BENZODIAZEPINES {[id number]) Benzoylecgonine (Cocaine Metabolite) (Urine) NEGATIVE [facility] Comment:{COCAINE METABOLITES {[id number]) Tetrahydrocannabinol (THC) Screen POSITIVE(A) [facility] Comment:{MARIJUANA METABOLIT ES (50 ng/mL SCREEN) {[id number]) Methadone (Urine) NEGATIVE [facility] Comment:{METHADONE {[id number]) Phencyclidine (Urine) NEGATIVE [facility] Comment:{PHENCYCLIDINE {[id number]) COMMENT SEE NOTE [facility] Comment: {COMMENT {[id number]) THE SUBMITTED URINE SPECIMEN WAS TESTED AT THE LISTED CUTOFF LEVELS. ??DRUG CLASS ?INITIAL CUTOFF ?LEVEL AMPHETAMINES ? 1000 ng/mL BARBITURATES ?300 ng/mL BENZODIAZEPINES ? 300 ng/mL COCAINE METABOLITES ? 300 ng/mL MARIJUANA METABOLITES ?50 ng/mL METHADONE ? 300 ng/mL OPIATES ? 300 ng/mL PHENCYCLIDINE ?25 ng/mL PLEASE READ THIS IMPORTANT MESSAGE: THIS DRUG SCREEN IS FOR MEDICAL USE ONLY. ??THE RESULTS ARE PRESUMPTIVE; BASED ONLY ON SCREENING METHODS, AND THEY HAVE NOT BEEN CONFIRMED BY A SECOND INDEPENDENT CHEMICAL METHOD. THESE RESULTS SHOULD BE USED ONLY BY PHYSICIANS TO RENDER DIAGNOSIS OR TREATMENT, OR TO MONITOR PROGRESS OF MEDICAL CONDITIONS. 01/20/2013 9:59 AM EST 01/20/2013 4:45 PM EST Narrative Resulting Agency Comment [id number] us Remy Shetty MD LABORATORY Final Result [facility] [address] [place] [address] * (ABNORMAL) BASIC METABOLIC PANEL WITH (GFR) (01/20/2013 9:59 AM EST) Glucose 110(H) 65 - 99 mg/dL [facility] Comment: {GLUCOSE {[id number]) ? Fasting reference interval Urea Nitrogen Blood (BUN) 12 7 - 25 mg/dL [facility] Comment:{UREA NITROGEN (BUN) {[id number]) Creatinine 0.98 0.60 - 1.35 mg/dL [facility] Comment:{CREATININE {[id number]) GFR 95 > OR = 60 mL/min/1. 73m2 [facility] Comment:{eGFR NON-AFR. AMERI CAN {[id number]) GFR () 110 > OR = 60 mL/min/1. 73m2 [facility] Comment:{eGFR AMERIC AN {[id number]) BUN/Creatinine Ratio NOT APPLICABLE 6 - (calc) [facility] Comment:{BUN/CREATININE RATI O {[id number]) Sodium 139 135 - 146 mmol/L [facility] Comment:{SODIUM {[id number]) Potassium 4.1 3.5 - 5.3 mmol/L [facility] Comment:{POTASSIUM {[id number]) Chloride 104 98 - 110 mmol/L [facility] Comment:{CHLORIDE {[id number]) Carbon dioxide 26 19 - 30 mmol/L [facility] Comment:{CARBON DIOXIDE {[id number]) Calcium 9.5 8.6 - 10.3 mg/dL [facility] Comment:{CALCIUM {[id number]) 01/20/2013 9:59 AM EST 01/20/2013 4:45 PM EST Narrative [facility] - 01/20/2013 6:39 PM EST Please note that this estimated GFR does [...] with more precise needs for GFR calculation. Resulting Agency Comment [id number] Remy Shetty MD LABORATORY Final Result [facility] [address] [place] [address] * CBC INCLUDES DIFFERENTIAL AND PLATELET COUNT (01/20/2013 9:59 AM EST) WBC 8.5 3.8 - 10.8 Thousand/u L [facility] Comment:{WHITE BLOOD CELL CO UNT {[id number]) RBC 5.02 4.20 - 5.80 Million/uL [facility] Comment:{RED BLOOD CELL COUN T {[id number]) Hemoglobin 15.4 13.2 - 17.1 g/dL [facility] Comment:{HEMOGLOBIN {[id number]) Hematocrit 47.4 38.5 - 50.0 % [facility] Comment:{HEMATOCRIT {[id number]) MCV 94.4 80.0 - 100.0 fL [facility] Comment:{MCV {[id number]) MCH 30.7 27.0 - 33.0 pg [facility] Comment:{MCH {[id number]) MCHC 32.5 32.0 - 36.0 g/dL [facility] Comment:{MCHC {[id number]) RDW 14.1 11.0 - 15.0 % [facility] Comment:{RDW {[id number]) PLT 234 140 - 400 Thousand/u L [facility] Comment:{PLATELET COUNT {[id number]) MPV 8.8 7.5 - 11.5 fL [facility] Comment:{MPV {[id number]) Neutrophils # 6205 1500 - 7800 cells/uL [facility] Comment:{ABSOLUTE NEUTROPHIL S {[id number]) Lymphocytes # 1794 850 - 3900 cells/uL [facility] Comment:{ABSOLUTE LYMPHOCYTE S {[id number]) Monocytes # 391 200 - 950 cells/uL [facility] Comment:{ABSOLUTE MONOCYTES {[id number]) Eosinophils # 77 15 - 500 cells/uL [facility] Comment:{ABSOLUTE EOSINOPHIL S {[id number]) Basophils # 34 0 - 200 cells/uL [facility] Comment:{ABSOLUTE BASOPHILS {[id number]) Neutrophils % 73.0 % [facility] Comment:{NEUTROPHILS {[id number]) Lymphocytes % 21.1 % [facility] Comment:{LYMPHOCYTES {[id number]) Monocytes % 4.6 % [facility] Comment:{MONOCYTES {[id number]) Eosinophils % 0.9 % [facility] Comment:{EOSINOPHILS {[id number]) Basophils % 0.4 % [facility] Comment:{BASOPHILS {[id number]) 01/20/2013 9:59 AM EST 01/20/2013 4:45 PM EST Narrative Resulting Agency Comment [id number] Remy Shetty MD LAB SAME DAY RESULT Final Result [facility] [address] [place] [id number] * (ABNORMAL) LIPID PANEL WITH REFLEX TO DIRECT LDL (01/20/2013 9:59 AM EST) Cholesterol 213(H) 125 - 200 mg/dL [facility] Comment:{CHOLESTEROL, TOTAL {[id number]) HDL Cholesterol 37(L) > OR = 40 mg/dL [facility] Comment:{HDL CHOLESTEROL {[id number]) Triglyceride 100 <150 mg/dL [facility] Comment:{TRIGLYCERIDES {[id number]) LDL Cholesterol 156(H) <130 mg/dL (calc) [facility] Comment: {LDL-CHOLESTEROL {[id number]) Desirable range <100 mg/dL for patients with CHD or diabetes and <70 mg/dL for diabetic patients with known heart disease. CHOL/HDL Ratio 5.8(H) < OR = 5.0 (calc) [facility] Comment:{CHOL/HDLC RATIO {[id number]) Cholesterol Non-HDL 176(H) mg/dL (calc) [facility] Comment: {NON HDL CHOLESTEROL {[id number]) Target for non-HDL cholesterol is 30 mg/dL higher than LDL cholesterol target. 01/20/2013 9:59 AM EST 01/20/2013 4:45 PM EST Narrative Resulting Agency Comment [id number] Remy Shetty MD LABORATORY Final Result Performing Organization Address City/State/[facility] Co de Phone Number [facility] [address] [place] [address] documented in this encounter Visit Diagnoses Diagnosis Hypertension goal BP (blood pressure) < 130/80 Unspecified essential hypertension Encounter for long-term (current) use of other medications Hyperlipidemia Other and unspecified hyperlipidemia documented in this encounter Care Teams Aerobics Teacher Relationship Specialty Start Date End Date Remy Shetty MD PCP - General 11/16/07 06/23/14 Unknown Pcp, Non Rmg PCP - General 06/24/14 07/14/14 Remy Shetty MD PCP - General Internal Medicine 07/15/14 11/18/15 documented as of this encounter
--- OUTSIDE RECORDS SUMMARY | 2025-02-17 06:30 | XMS_ITS | Encounter Summary ---
Author Organization [facility] Address [address] [place] [address] Care Team Providers Care Tobacco Stemmer Machine Name Role Phone Remy Shetty MD Primary Care Provider Unavailabl e Unknown Pcp, Non Rmg Primary Care Provider Unava ilable Remy Shetty MD Primary Care Provider Unavailabl e Encounter Details Date Type Department Care Team ([facility] st Contact Info) Description 08/22/2012 Orders Only [facility] [address] [place] [phone] Remy Shetty MD Social History Tobacco [...] of this encounter Procedures * Due to [place] [employer] law, this organization might not be sharing negative HIV tests. Procedure Name Priority Date/Time Associated Diagnosis Comments BASIC METABOLIC PANEL WITH (GFR) Routine 08/22/2012 11:35 AM EDT Hypertension documented in this encounter Results * Due to [place] [employer] law, this organization might not be sharing negative HIV tests. * BASIC METABOLIC PANEL WITH (GFR) (08/22/2012 11:35 AM EDT) Glucose 98 65 - 99 mg/dL [facility] Comment: {GLUCOSE {[id number]) ? Fasting reference interval Urea Nitrogen Blood (BUN) 16 7 - 25 mg/dL [facility] Comment:{UREA NITROGEN (BUN) {[id number]) Creatinine 1.19 0.60 - 1.35 mg/dL [facility] Comment:{CREATININE {[id number]) GFR 75 > OR = 60 mL/min/1. 73m2 [facility] Comment:{eGFR NON-AFR. AMERI CAN {[id number]) GFR () 87 > OR = 60 mL/min/1. 73m2 [facility] Comment:{eGFR AMERIC AN {[id number]) BUN/Creatinine Ratio NOT APPLICABLE (calc) [facility] Comment:{BUN/CREATININE RATI O {[id number]) Sodium 139 135 - 146 mmol/L [facility] Comment:{SODIUM {[id number]) Potassium 4.5 3.5 - 5.3 mmol/L [facility] Comment:{POTASSIUM {[id number]) Chloride 103 98 - 110 mmol/L [facility] Comment:{CHLORIDE {[id number]) Carbon dioxide 26 21 - 33 mmol/L [facility] Comment:{CARBON DIOXIDE {[id number]) Calcium 10.3 8.6 - 10.3 mg/dL [facility] Comment:{CALCIUM {[id number]) 08/22/2012 11:3 5 AM EDT 08/22/2012 6:12 PM EDT Narrative [facility] - 08/22/2012 9:57 PM EDT Please note that this estimated GFR [...] needs for GFR calculation. Resulting Agency Comment [id number] us Remy Shetty MD LABORATORY Final Result [facility] [address] [place] [address] documented in this encounter Visit Diagnoses Diagnosis Hypertension Unspecified essential hypertension documented in this encounter Care Teams Tobacco Stemmer Machine Relationship Specialty Start Date End Date Remy Shetty MD PCP - General 11/16/07 06/23/14 Unknown Pcp, Non [facility] PCP - General 06/24/14 07/14/14 Remy Shetty MD PCP - General Internal Medicine 07/15/14 11/18/15 documented as of this encounter
== END 2025-02-17 06:26 | disposition home or self-care (01) ==
LOC: CF 06:25
PROVIDERS: Visit Provider Anesthesiology
DX: M53.3 Sacrococcygeal disorders, not elsewhere classified (principal); G89.29 Other chronic pain; M96.1 Postlaminectomy syndrome, not elsewhere classified; M46.1 Sacroiliitis, not elsewhere classified
CPT/HCPCS: 27096; J2003; J2795; Q9967

== ENCOUNTER 2025-02-17 13:05 | Outpatient (AMB) | payer OTHER, SELFPAY ==
[2025-02-17 13:19] VITALS: BP 130/83; PULSE 96; RESP 16; O2SAT 95
--- NOTE | 2025-02-17 13:19 | MHC.OFFVIS ---
Vital Signs 02/17/25 13:19 02/17/25 14:02 BP 130/83 152/89 H Blood Pressure Location Lt brachial Lt brachial Position Sitting Sitting Respiration 16 16 Pulse 96 84 Pulse Source Pulse Oximeter Pulse Oximeter Pulse Oximetry (%) 95 94 Oxygen Delivery Method Room Air Room Air Intake Visit Reasons: RIGHT DIAGNOSTIC SIJ INJECTION Case Management Assistant Required: No Allergies amlodipine Allergy (Verified 02/17/25 13:19) Shortness of Breath NSAIDS (Non-Steroidal Anti-Inflamma Allergy (Verified 02/17/25 13:19) Seizure pregabalin Allergy (Verified 02/17/25 13:19) Unknown Medication List - Last Reconciled 02/17/25 by Alejandra Salcedo LPN acetaminophen 650 mg (2 x 325 mg) PO Q6H PRN 30 days baclofen 20 mg PO QID 30 days bisacodyl 10 mg PO DAILY PRN buspirone 30 mg PO TID chlorpheniramine maleate (Aller-Chlor) 4 mg PO BID cholecalciferol (vitamin D3) 25 mcg PO DAILY diazepam 5 mg PO DAILY docusate sodium 100 mg PO BID 30 days escitalopram oxalate 20 mg PO QNOON hydrochlorothiazide 25 mg PO DAILY hydroxyzine pamoate 50 mg PO TID lamotrigine 200 mg PO BID lorazepam 1 mg PO DAILY PRN melatonin 10 mg PO BEDTIME PRN mirtazapine 15 mg PO BEDTIME omeprazole 20 mg PO BID@0630,1630 ondansetron HCl 4 mg PO Q8H PRN quetiapine mg PO [Raised toliet seat As directed] trazodone 50 mg PO BEDTIME valsartan 80 mg PO DAILY walker Folding front wheeled walker [facility] Medical History History of traumatic head injury Arthritis Bipolar 1 disorder Sleep apnea SOB (shortness of breath) Syncope History of lipoma Depression Severe obesity (BMI 35.0-35.9 with comorbidity) PTSD (post-traumatic stress disorder) Mixed hyperlipidemia Lung nodules Insomnia Impaired fasting glucose HTN (hypertension) Hyperlipidemia Hypercalcemia Renal cell carcinoma Acute renal failure Fatty liver Erectile dysfunction Elevated serum creatinine Colon polyp Back pain Anxiety Surgical History History of lumbar spinal fusion H/O colonoscopy Hx of umbilical hernia repair Hx of appendectomy Hx of vasectomy History of surgery on lower extremity History of partial nephrectomy Social History Household Members: Significant Other Housing: House Are you a primary home care coordinator to a significant other at home: No Do you presently have visiting nurse or other home services: No Alcohol intake: never Patient Tobacco Use Status: Former Tobacco user Substance Use Type: Marijuana service: No Current occupational status: disabled Physical Exam Vital Signs: Last Vital Signs Pulse 84 02/17/25 14:02 Resp 16 02/17/25 14:02 BP 152/89 H 02/17/25 14:02 Pulse Ox 94 02/17/25 14:02 Oxygen Delivery Method Room Air 02/17/25 14:02 Assessment & Plan Assessment & Plan (1) Postlaminectomy syndrome: Code(s): M96.1 - Postlaminectomy syndrome, not elsewhere classified Category: Medical (2) Sacroiliitis: Code(s): M46.1 - Sacroiliitis, not elsewhere classified Category: Medical (3) Chronic right sacroiliac joint pain: Code(s): M53.3 - Sacrococcygeal disorders, not elsewhere classified; G89.29 - Other chronic pain Category: Medical (4) Coccydynia: Code(s): M53.3 - Sacrococcygeal disorders, not elsewhere classified Category: Medical Plan right diagnostic sacroiliac joint injection. Informed consent was thoroughly explained to the patient before the procedure.? The patient came to the operating room.? he was positioned prone on operating table with a pillow under her abdomen.? Time-out was performed delineating correct site and side of the procedure, nature of the injection, name and date of of the patient. The lower back and upper buttocks of the patient was prepped with ChloraPrep and draped with sterile utility towels.? C-arm was brought over the operating field and picture of right sacroiliac joint was demonstrated on the screen. Tilting machine contralateral left 20 degrees from the midline the anterior portion of the silhouette of the joint was superimposed on posterior portion of the silhouette of the joint. The skin was anesthetized with mixture of ropivacaine 0.5% and lidocaine 2% one-to-one slightly medial to the silhouette of the sacroiliac joint. 22 gauge 3-1/2 inch spinal needle was inserted through the skin wheal and advanced to the sacroiliac joint. When tip of the needle entered the sacroiliac joint injection of the contrast performed delineating arthrogram. After that 4 cc of ropivacaine was injected into the joint. Upon completion of the injection needle was removed and sterile bandades were applied Patient tolerated the procedure well. Orders: Orders FL guidance in treatment room Today G89.29 - Other chronic pain, M53.3 - Sacrococcygeal disorders, not elsewhere classified Coding Level of Care Code Procedure Only Diagnoses Postlaminectomy syndrome M96.1 Sacroiliitis M46.1 Chronic right sacroiliac joint pain M53.3; G89.29 Coccydynia M53.3
[2025-02-17 14:02] VITALS: BP 152/89; PULSE 84; RESP 16; O2SAT 94
--- OUTSIDE RECORDS SUMMARY | 2025-02-17 15:19 | XMS_ITS | Clinical Summary ---
Author Organization [facility] it Address [address] [place] [address] Care Team Providers Care Life Skills Educator Name Role Phone Carlos Glasgow MD Primary Care Provider Surgical History Surgery Date Site/Laterality Comments LEG [...] age to complete this topic Care Teams Life Skills Educator Relationship Specialty Start Date End Date Carlos Glasgow MD PCP - General Internal Medicine 02/22/15
--- OUTSIDE RECORDS SUMMARY | 2025-02-17 15:19 | XMS_ITS | Encounter Summary ---
Author Organization [facility] Address [address] [place] [address] Care Team Providers Care Machine Filler Name Role Phone Remy Shetty MD Primary Care Provider Unavailabl e Unknown Pcp, Non Rmg Primary Care Provider Unava ilable Remy Shetty MD Primary Care Provider Unavailabl e Encounter Details Date Type Department Care Team ([facility] st Contact Info) Description 12/16/2012 Orders Only [place] [facility] [address] [place] [phone] Remy Shetty MD Social History Tobacco [...] on filedocumented in this encounter Care Teams Machine Filler Relationship Specialty Start Date End Date Remy Shetty MD PCP - General 11/16/07 06/23/14 Unknown Pcp, Non Rmg PCP - General 06/24/14 07/14/14 Remy Shetty MD PCP - General Internal Medicine 07/15/14 11/18/15 documented as of this encounter
--- OUTSIDE RECORDS SUMMARY | 2025-02-17 15:19 | XMS_ITS | Encounter Summary ---
Author Organization [facility] Address [address] [place] [address] Care Team Providers Care Network Systems Administrator Name Role Phone Remy Shetty MD Primary Care Provider Unavailabl e Unknown Pcp, Non Rmg Primary Care Provider Unava ilable Remy Shetty MD Primary Care Provider Unavailabl e Encounter Details Date Type Department Care Team ([facility] st Contact Info) Description 08/22/2012 Orders Only [place] [facility] [address] [place] [phone] Remy Shetty MD Social History Tobacco [...] of this encounter Procedures * Due to [place] [employer] law, this organization might not be sharing negative HIV tests. Procedure Name Priority Date/Time Associated Diagnosis Comments BASIC METABOLIC PANEL WITH (GFR) Routine 08/22/2012 11:35 AM EDT Hypertension documented in this encounter Results * Due to [place] [employer] law, this organization might not be sharing negative HIV tests. * BASIC METABOLIC PANEL WITH (GFR) (08/22/2012 11:35 AM EDT) Glucose 98 65 - 99 mg/dL [facility] Comment: {GLUCOSE {[id number]) ? Fasting reference interval Urea Nitrogen Blood (BUN) 16 7 - 25 mg/dL [facility] Comment:{UREA NITROGEN (BUN) {[id number]) Creatinine 1.19 0.60 - 1.35 mg/dL [facility] Comment:{CREATININE {[id number]) GFR 75 > OR = 60 mL/min/1. 73m2 [facility] Comment:{eGFR NON-AFR. AMERI CAN {[id number]) GFR () 87 > OR = 60 mL/min/1. 73m2 [facility] Comment:{eGFR AMERIC AN {[id number]) BUN/Creatinine Ratio NOT APPLICABLE (calc) [facility] Comment:{BUN/CREATININE RATI O {[id number]) Sodium 139 135 - 146 mmol/L [facility] Comment:{SODIUM {[id number]) Potassium 4.5 3.5 - 5.3 mmol/L [facility] Comment:{POTASSIUM {[id number]) Chloride 103 98 - 110 mmol/L [facility] Comment:{CHLORIDE {[id number]) Carbon dioxide 26 21 - 33 mmol/L [facility] Comment:{CARBON DIOXIDE {[id number]) Calcium 10.3 8.6 - 10.3 mg/dL [facility] Comment:{CALCIUM {[id number]) 08/22/2012 11:3 5 AM EDT 08/22/2012 [...] needs for GFR calculation. Resulting Agency Comment [id number] us Remy Shetty MD LABORATORY Final Result [facility] [address] [place] [address] documented in this encounter Visit Diagnoses Diagnosis Hypertension Unspecified essential hypertension documented in this encounter Care Teams Network Systems Administrator Relationship Specialty Start Date End Date Remy Shetty MD PCP - General 11/16/07 06/23/14 Unknown Pcp, Non [facility] PCP - General 06/24/14 07/14/14 Remy Shetty MD PCP - General Internal Medicine 07/15/14 11/18/15 documented as of this encounter
--- OUTSIDE RECORDS SUMMARY | 2025-02-17 15:19 | XMS_ITS | Encounter Summary ---
Author Organization [facility] Address [address] [place] [address] Care Team Providers Care Office Services Representative Name Role Phone Angelita Shetty MD Primary Care Provider Unavailabl e Unknown Pcp, Non Rmg Primary Care Provider Unava ilable Angelita Shetty MD Primary Care Provider Unavailabl e Reason for Visit * Reason Comments E-prescribing Refill Request Encounter Details Date Type Department Care Team (Late st Contact Info) Description 02/10/2011 Refill [facility] [address] [place] [phone] Angelita Shetty MD E-prescribing Refill [...] on filedocumented in this encounter Care Teams Office Services Representative Relationship Specialty Start Date End Date Angelita Shetty MD PCP - General 11/16/07 06/23/14 Unknown Pcp, Non Rmg PCP - General 06/24/14 07/14/14 Angelita Shetty MD PCP - General Internal Medicine 07/15/14 11/18/15 documented as of this encounter
--- OUTSIDE RECORDS SUMMARY | 2025-02-17 15:19 | XMS_ITS | Encounter Summary ---
Author Organization [facility] Address [address] [place] [address] Care Team Providers Care Escrow Processor Name Role Phone Remy Shetty MD Primary Care Provider Unavailabl e Unknown Pcp, Non Rmg Primary Care Provider Unava ilable Remy Shetty MD Primary Care Provider Unavailabl e Encounter Details Date Type Department Care Team (Late st Contact Info) Description 12/30/2008 Orders Only [facility] [address] [place] [phone] Remy Shetty MD Social History Tobacco [...] on filedocumented in this encounter Care Teams Escrow Processor Relationship Specialty Start Date End Date Remy Shetty MD PCP - General 11/16/07 06/23/14 Unknown Pcp, Non Rmg PCP - General 06/24/14 07/14/14 Remy Shetty MD PCP - General Internal Medicine 07/15/14 11/18/15 documented as of this encounter
--- OUTSIDE RECORDS SUMMARY | 2025-02-17 15:19 | XMS_ITS | Encounter Summary ---
Author Organization [facility] Address [address] [place] [address] Care Team Providers Care Fish Salter Name Role Phone Remy Shetty MD Primary Care Provider Unavailabl e Unknown Pcp, Non Rmg Primary Care Provider Unava ilable Remy Shetty MD Primary Care Provider Unavailabl e Encounter Details Date Type Department Care Team ([facility] st Contact Info) Description 05/09/2012 Orders Only [facility] [address] [place] [phone] Remy Shetty MD Social History Tobacco [...] of this encounter Procedures * Due to [place] state law, this organization might not be sharing negative HIV tests. Procedure Name Priority Date/Time Associated Diagnosis Comments BORRELIA BURGDORFERI AB (LYME), EIA WITH REFLEX IGG, IGM WB Routine 05/09/2012 12:03 PM EDT Atypical facial pain documented in this encounter Results * Due to [place] state law, this organization might not be sharing negative HIV tests. * BORRELIA BURGDORFERI AB (LYME), EIA WITH REFLEX IGG, IGM WB (05/09/2012 12:03 PM EDT) Borrelia burgdorferi Ab < OR = 0.90 index [facility] Comment: {LYME AB SCREEN {[id number]) Index ? Interpretation < or = 0.90 [...] 9:14 PM EDT Narrative Resulting Agency Comment [id number] Remy Shetty MD LABORATORY Final Result Performing Organization Address City/State/[facility] Co de Phone Number [facility] [address] [place] [address] documented in this encounter Visit Diagnoses Diagnosis Atypical facial pain Atypical face pain documented in this encounter Care Teams Fish Salter Relationship Specialty Start Date End Date Remy Shetty MD PCP - General 11/16/07 06/23/14 Unknown Pcp, Non Rmg PCP - General 06/24/14 07/14/14 Remy Shetty MD PCP - General Internal Medicine 07/15/14 11/18/15 documented as of this encounter
--- OUTSIDE RECORDS SUMMARY | 2025-02-17 15:19 | XMS_ITS | Encounter Summary ---
Author Organization [facility] Address [address] [place] [address] Care Team Providers Care Street Cleaner Name Role Phone Remy Shetty MD Primary Care Provider Unavailabl e Unknown Pcp, Non Rmg Primary Care Provider Unava ilable Remy Shetty MD Primary Care Provider Unavailabl e Encounter Details Date Type Department Care Team (Late st Contact Info) Description 05/24/2011 Orders Only [facility] [address] [place] [phone] Remy Shetty MD Social History Tobacco [...] on filedocumented in this encounter Care Teams Street Cleaner Relationship Specialty Start Date End Date Remy Shetty MD PCP - General 11/16/07 06/23/14 Unknown Pcp, Non Rmg PCP - General 06/24/14 07/14/14 Remy Shetty MD PCP - General Internal Medicine 07/15/14 11/18/15 documented as of this encounter
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
--- OUTSIDE RECORDS SUMMARY | 2025-02-17 15:19 | XMS_ITS | Encounter Summary ---
Author Organization [facility] Address [address] [place] [address] Care Team Providers Care Signals Officer Name Role Phone Remy Shetty MD Primary Care Provider Unavailabl e Unknown Pcp, Non Rmg Primary Care Provider Unava ilable Remy Shetty MD Primary Care Provider Unavailabl e Encounter Details Date Type Department Care Team ([facility] st Contact Info) Description 09/09/2009 Orders Only [facility] Neurology [address] [facility] [address] [place] [phone] Chase Jordan MD [address] [place] [address] Social History Tobacco Use Types Packs/Day Years [...] this encounter Procedures * Due to [place] [email or web address] law, this organization might not be sharing [...] MD LABORATORY Final Result Performing Organization Address [facility] de Phone Number [facility] [address] [place] [address] * VITAMIN B12 (09/09/2009) VITB12 [phone] - 1100 PG/ML [facility] 09/09/2009 09/09/2009 9:4 3 PM EDT Chase Jordan MD LABORATORY Final Result Performing Organization Address [facility] de Phone Number [facility] [address] [place] [address] * BASIC METABOLIC PANEL W/GLOMERULAR FILTRATION RATE [...] MD LABORATORY Final Result [facility] [address] [place] [address] documented in this encounter Visit Diagnoses Diagnosis Sensory loss Disturbance of skin sensation documented in this encounter Care Teams Signals Officer Relationship Specialty Start Date End Date Remy Shetty MD PCP - General 11/16/07 06/23/14 Unknown Pcp, Non Rmg PCP - General 06/24/14 07/14/14 Remy Shetty MD PCP - General Internal Medicine 07/15/14 11/18/15 documented as of this encounter
--- OUTSIDE RECORDS SUMMARY | 2025-02-17 15:19 | XMS_ITS | Encounter Summary ---
Author Organization [facility] Address [address] [place] [address] Care Team Providers Care Executive Producer Name Role Phone Remy Shetty MD Primary Care Provider Unavailabl e Unknown Pcp, Non Rmg Primary Care Provider Unava ilable Remy Shetty MD Primary Care Provider Unavailabl e Encounter Details Date Type Department Care Team (Late st Contact Info) Description 01/20/2013 Orders Only [facility] [address] [place] [phone] Remy Shetty MD Social History Tobacco [...] Booked ov and mailed to patient * Sarah Roman - 01/28/2013 2:03 PM EDTQuick Note: [...] of this encounter Procedures * Due to [place] state law, this organization might not be [...] in this encounter Results * Due to [place] state law, this organization might not be sharing negative HIV tests. * (ABNORMAL) DRUG ABUSE PANEL 8-50 (REFLEX TO CONFIRM), URINE (01/20/2013 9:59 AM EST) CHAIN OF CUSTODY NO [facility] Comment: {CHAIN OF CUSTODY {[id number]) ?? * These results are for medical treatment only. ??* ?? * Analysis was performed as non-forensic testing. * Marijuana (Carboxy tetrahydrocanna binol) Metabolite >1500(H) ng/mL [facility] Comment:{MARIJUANA METABOLIT E {[id number]) COMMENT SEE NOTE [facility] Comment: {COMMENT {[id number]) THIS TEST WAS PERFORMED BY GC/MS ONLY. IMMUNOASSAY SCREEN, IF ORDERED, WAS PERFORMED AND REPORTED UNDER A SEPARATE TEST CODE. ? 01/20/2013 9:59 AM EST 01/20/2013 4:45 PM EST us Remy Shetty MD LABORATORY Final Result Performing Organization Address City/State/[facility] Co de Phone Number [facility] [address] [place] [address] * (ABNORMAL) PAIN MANAGEMENT PROFILE, URINE (PAINM) (01/20/2013 9:59 AM EST) CHAIN OF CUSTODY NO [facility] Comment: {CHAIN OF CUSTODY {[id number]) ?? * These results are for medical treatment only. ??* ?? * Analysis was performed as non-forensic testing. * Morphine (Urine) NONE DETECTED ng/mL [facility] Comment:{MORPHINE {[id number]) Codeine (Urine) NONE DETECTED ng/mL [facility] Comment:{CODEINE {[id number]) Hydrocodone (Urine) 176(H) ng/mL [facility] Comment:{HYDROCODONE {[id number]) Hydromorphone (Urine) NONE DETECTED ng/mL [facility] Comment:{HYDROMORPHONE {[id number]) Oxycodone (Urine) NONE DETECTED ng/mL [facility] Comment:{OXYCODONE {[id number]) Oxymorphone (Urine) NONE DETECTED ng/mL [facility] Comment:{OXYMORPHONE {[id number]) COMMENT SEE NOTE [facility] Comment: {COMMENT {[id number]) THIS TEST WAS PERFORMED BY GC/MS ONLY. IMMUNOASSAY SCREEN, IF ORDERED, WAS PERFORMED AND REPORTED UNDER A SEPARATE TEST CODE. ? Creatinine (Urine) 274 > or = 20 mg/dL [facility] Comment:{CREATININE {[id number]) pH (Urine) 5.5 5.0 - 9.0 [facility] Comment:{PH {[id number]) Service comment 02 SEE NOTE [facility] Comment: {PLEASE NOTE: {[id number]) ?? * These results are for medical treatment only. ??* ?? * Analysis was performed as non-forensic testing. * Amphetamines (Urine) NEGATIVE [facility] Comment:{AMPHETAMINES (1000 ng/mL SCREEN) {[id number]) Barbiturates (Urine) NEGATIVE [facility] Comment:{BARBITURATES {[id number]) Benzodiazepine And Metabolites, Urine NEGATIVE [facility] Comment:{BENZODIAZEPINES {[id number]) Benzoylecgonine (Cocaine Metabolite) (Urine) NEGATIVE [facility] Comment:{COCAINE METABOLITES {[id number]) Tetrahydrocannabinol (THC) Screen POSITIVE(A) [facility] Comment:{MARIJUANA METABOLIT ES (50 ng/mL SCREEN) {[id number]) Methadone (Urine) NEGATIVE [facility] Comment:{METHADONE {[id number]) Phencyclidine (Urine) NEGATIVE [facility] Comment:{PHENCYCLIDINE {[id number]) COMMENT SEE NOTE [facility] Comment: {COMMENT {[id number]) THE SUBMITTED URINE SPECIMEN WAS TESTED AT [...] 4:45 PM EST Narrative Resulting Agency Comment [id number] Remy Shetty MD LABORATORY Final Result [facility] [address] [place] [address] * (ABNORMAL) BASIC METABOLIC PANEL WITH (GFR) (01/20/2013 9:59 AM EST) Glucose 110(H) 65 - 99 mg/dL [facility] Comment: {GLUCOSE {[id number]) ? Fasting reference interval Urea Nitrogen Blood (BUN) 12 7 - 25 mg/dL [facility] Comment:{UREA NITROGEN (BUN) {[id number]) Creatinine 0.98 0.60 - 1.35 mg/dL [facility] Comment:{CREATININE {[id number]) GFR 95 > OR = 60 mL/min/1. 73m2 [facility] Comment:{eGFR NON-AFR. AMERI CAN {[id number]) GFR () 110 > OR = 60 mL/min/1. 73m2 [facility] Comment:{eGFR AMERIC AN {[id number]) BUN/Creatinine Ratio NOT APPLICABLE 6 - (calc) [facility] Comment:{BUN/CREATININE RATI O {[id number]) Sodium 139 135 - 146 mmol/L [facility] Comment:{SODIUM {[id number]) Potassium 4.1 3.5 - 5.3 mmol/L [facility] Comment:{POTASSIUM {[id number]) Chloride 104 98 - 110 mmol/L [facility] Comment:{CHLORIDE {[id number]) Carbon dioxide 26 19 - 30 mmol/L [facility] Comment:{CARBON DIOXIDE {[id number]) Calcium 9.5 8.6 - 10.3 mg/dL [facility] Comment:{CALCIUM {[id number]) 01/20/2013 9:59 AM EST 01/20/2013 4:45 [...] needs for GFR calculation. Resulting Agency Comment [id number] Remy Shetty MD LABORATORY Final Result [facility] [address] [place] [address] * CBC INCLUDES DIFFERENTIAL AND PLATELET COUNT (01/20/2013 9:59 AM EST) WBC 8.5 3.8 - 10.8 Thousand/u L [facility] Comment:{WHITE BLOOD CELL CO UNT {[id number]) RBC 5.02 4.20 - 5.80 Million/uL [facility] Comment:{RED BLOOD CELL COUN T {[id number]) Hemoglobin 15.4 13.2 - 17.1 g/dL [facility] Comment:{HEMOGLOBIN {[id number]) Hematocrit 47.4 38.5 - 50.0 % [facility] Comment:{HEMATOCRIT {[id number]) MCV 94.4 80.0 - 100.0 fL [facility] Comment:{MCV {[id number]) MCH 30.7 27.0 - 33.0 pg [facility] Comment:{MCH {[id number]) MCHC 32.5 32.0 - 36.0 g/dL [facility] Comment:{MCHC {[id number]) RDW 14.1 11.0 - 15.0 % [facility] Comment:{RDW {[id number]) PLT 234 140 - 400 Thousand/u L [facility] Comment:{PLATELET COUNT {[id number]) MPV 8.8 7.5 - 11.5 fL [facility] Comment:{MPV {[id number]) Neutrophils # 6205 1500 - 7800 cells/uL [facility] Comment:{ABSOLUTE NEUTROPHIL S {[id number]) Lymphocytes # 1794 850 - 3900 cells/uL [facility] Comment:{ABSOLUTE LYMPHOCYTE S {[id number]) Monocytes # 391 200 - 950 cells/uL [facility] Comment:{ABSOLUTE MONOCYTES {[id number]) Eosinophils # 77 15 - 500 cells/uL [facility] Comment:{ABSOLUTE EOSINOPHIL S {[id number]) Basophils # 34 0 - 200 cells/uL [facility] Comment:{ABSOLUTE BASOPHILS {[id number]) Neutrophils % 73.0 % [facility] Comment:{NEUTROPHILS {[id number]) Lymphocytes % 21.1 % [facility] Comment:{LYMPHOCYTES {[id number]) Monocytes % 4.6 % [facility] Comment:{MONOCYTES {[id number]) Eosinophils % 0.9 % [facility] Comment:{EOSINOPHILS {[id number]) Basophils % 0.4 % [facility] Comment:{BASOPHILS {[id number]) 01/20/2013 9:59 AM EST 01/20/2013 4:45 PM EST Narrative Resulting Agency Comment [id number] Remy Shetty MD LAB SAME DAY RESULT Final Result [facility] [address] [place] [id number] * (ABNORMAL) LIPID PANEL WITH REFLEX TO DIRECT LDL (01/20/2013 9:59 AM EST) Cholesterol 213(H) 125 - 200 mg/dL [facility] Comment:{CHOLESTEROL, TOTAL {[id number]) HDL Cholesterol 37(L) > OR = 40 mg/dL [facility] Comment:{HDL CHOLESTEROL {[id number]) Triglyceride 100 <150 mg/dL [facility] Comment:{TRIGLYCERIDES {[id number]) LDL Cholesterol 156(H) <130 mg/dL (calc) [facility] Comment: {LDL-CHOLESTEROL {[id number]) Desirable range <100 mg/dL for patients with CHD or diabetes and <70 mg/dL for diabetic patients with known heart disease. CHOL/HDL Ratio 5.8(H) < OR = 5.0 (calc) [facility] Comment:{CHOL/HDLC RATIO {[id number]) Cholesterol Non-HDL 176(H) mg/dL (calc) [facility] Comment: {NON HDL CHOLESTEROL {[id number]) Target for non-HDL cholesterol is 30 mg/dL higher than LDL cholesterol target. 01/20/2013 9:59 AM EST 01/20/2013 4:45 PM EST Narrative Resulting Agency Comment [id number] Remy Shetty MD LABORATORY Final Result Performing Organization Address City/State/[facility] Co de Phone Number [facility] [address] [place] [address] documented in this encounter Visit Diagnoses Diagnosis Hypertension goal BP (blood pressure) < 130/80 Unspecified essential hypertension Encounter for long-term (current) use of other medications Hyperlipidemia Other and unspecified hyperlipidemia documented in this encounter Care Teams Executive Producer Relationship Specialty Start Date End Date Remy Shetty MD PCP - General 11/16/07 06/23/14 Unknown Pcp, Non Rmg PCP - General 06/24/14 07/14/14 Remy Shetty MD PCP - General Internal Medicine 07/15/14 11/18/15 documented as of this encounter
--- OUTSIDE RECORDS SUMMARY | 2025-02-17 15:19 | XMS_ITS | Encounter Summary ---
Author Organization [facility] Address [address] [place] [address] Care Team Providers Care Steam Shovel Runner Name Role Phone Remy Shetty MD Primary Care Provider Unavailabl e Unknown Pcp, Non Rmg Primary Care Provider Unava ilable Remy Shetty MD Primary Care Provider Unavailabl e Encounter Details Date Type Department Care Team (Late st Contact Info) Description 12/30/2008 Orders Only [facility] [address] [place] [phone] Remy Shetty MD Social History Tobacco [...] on filedocumented in this encounter Care Teams Steam Shovel Runner Relationship Specialty Start Date End Date Remy Shetty MD PCP - General 11/16/07 06/23/14 Unknown Pcp, Non Rmg PCP - General 06/24/14 07/14/14 Remy Shetty MD PCP - General Internal Medicine 07/15/14 11/18/15 documented as of this encounter
--- OUTSIDE RECORDS SUMMARY | 2025-02-17 15:19 | XMS_ITS | Encounter Summary ---
Author Organization [facility] Address [address] [place] [address] Care Team Providers Care Floor Scraper Name Role Phone Remy Shetty MD Primary Care Provider Unavailabl e Unknown Pcp, Non Rmg Primary Care Provider Unava ilable Remy Shetty MD Primary Care Provider Unavailabl e Encounter Details Date Type Department Care Team (Late st Contact Info) Description 02/04/2013 Orders Only [facility] [address] [place] [phone] Dominique Hernández LVN LPN Social History [...] on filedocumented in this encounter Care Teams Floor Scraper Relationship Specialty Start Date End Date Remy Shetty MD PCP - General 11/16/07 06/23/14 Unknown Pcp, Non Rmg PCP - General 06/24/14 07/14/14 Remy Shetty MD PCP - General Internal Medicine 07/15/14 11/18/15 documented as of this encounter
--- OUTSIDE RECORDS SUMMARY | 2025-02-17 15:19 | XMS_ITS | Encounter Summary ---
Author Organization [facility] Address [address] [place] [address] Care Team Providers Care Seo Team Lead Name Role Phone Remy Shetty MD Primary Care Provider Unavailabl e Unknown Pcp, Non Rmg Primary Care Provider Unava ilable Remy Shetty MD Primary Care Provider Unavailabl e Encounter Details Date Type Department Care Team (Late st Contact Info) Description 08/01/2012 Orders Only [facility] [address] [place] [phone] Remy Shetty MD Social History Tobacco [...] [facility]ARK [facility]LLOW [facility] Comment:{COLOR {[id number]) Appearance (Urine) CLEAR CLEAR [facility] Comment:{APPEARANCE {[id number]) Specific gravity (Urine) 1.023 1.001 - 1.035 [facility] Comment:{SPECIFIC GRAVITY {[id number]) pH (Urine) 5.5 5.0 - 8.0 [facility] Comment:{PH {[id number]) Glucose (Urine) NEGATIVE NEGATIVE [facility] Comment:{GLUCOSE {[id number]) Bilirubin (Urine) NEGATIVE NEGATIVE [facility] Comment:{BILIRUBIN {[id number]) Ketones (Urine) NEGATIVE NEGATIVE [facility] Comment:{KETONES {[id number]) Hemoglobin (Urine) NEGATIVE NEGATIVE [facility] Comment:{OCCULT BLOOD {[id number]) Protein (Urine) NEGATIVE NEGATIVE [facility] Comment:{PROTEIN {[id number]) Nitrite (Urine) NEGATIVE NEGATIVE [facility] Comment:{NITRITE {[id number]) Leukocyte esterase (Urine) NEGATIVE NEGATIVE [facility] Comment:{LEUKOCYTE ESTERASE {[id number]) 08/01/2012 12:1 6 PM EDT 08/01/2012 11:19 PM EDT Narrative Resulting Agency Comment [id number] Remy Shetty MD LAB SAME DAY RESULT Final Result [facility] [address] [place] [address] documented in this encounter Visit Diagnoses Diagnosis Hematuria Hematuria, unspecified documented in this encounter Care Teams Seo Team Lead Relationship Specialty Start Date End Date Remy Shetty MD PCP - General 11/16/07 06/23/14 Unknown Pcp, Non Rmg PCP - General 06/24/14 07/14/14 Remy Shetty MD PCP - General Internal Medicine 07/15/14 11/18/15 documented as of this encounter
== END 2025-02-17 14:02 | disposition home or self-care (01) ==
LOC: HO.PMCPRC 13:05
PROVIDERS: PCP Internal Medicine; Visit Provider Anesthesiology
DX: M96.1 Postlaminectomy syndrome, not elsewhere classified (principal); M46.1 Sacroiliitis, not elsewhere classified; M53.3 Sacrococcygeal disorders, not elsewhere classified; G89.29 Other chronic pain
CPT/HCPCS: 27096

== ENCOUNTER 2025-03-02 10:37 | Outpatient (AMB) | payer OTHER, SELFPAY ==
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
[2025-03-02 10:40] VITALS: BP 193/92; PULSE 122; RESP 16; O2SAT 97; BMI 33.7
--- OUTSIDE RECORDS SUMMARY | 2025-03-02 12:17 | XMS_ITS | Encounter Summary ---
Author Organization [facility] Address [address] [place] [address] Care Team Providers Care Community Services Manager Name Role Phone Remy Shetty MD Primary Care Provider Unavailabl e Unknown Pcp, Non Rmg Primary Care Provider Unava ilable Remy Shetty MD Primary Care Provider Unavailabl e Encounter Details Date Type Department Care Team (Late st Contact Info) Description 05/24/2011 Orders Only [facility] [address] [place] [phone] Remy Shetty MD Social History Tobacco [...] filedocumented in this encounter Care Teams Community Services Manager Relationship Specialty Start Date End Date Remy Shetty MD PCP - General 11/16/07 06/23/14 Unknown Pcp, Non Rmg PCP - General 06/24/14 07/14/14 Remy Shetty MD PCP - General Internal Medicine 07/15/14 11/18/15 documented as of this encounter
--- OUTSIDE RECORDS SUMMARY | 2025-03-02 12:17 | XMS_ITS | Encounter Summary ---
Author Organization [facility] Address [address] [place] [address] Care Team Providers Care Milk Drier Name Role Phone Remy Shetty MD Primary Care Provider Unavailabl e Unknown Pcp, Non Rmg Primary Care Provider Unava ilable Remy Shetty MD Primary Care Provider Unavailabl e Encounter Details Date Type Department Care Team ([facility] st Contact Info) Description 12/16/2012 Orders Only [facility] [address] [place] [phone] Remy Shetty MD Social History Tobacco [...] on filedocumented in this encounter Care Teams Milk Drier Relationship Specialty Start Date End Date Remy Shetty MD PCP - General 11/16/07 06/23/14 Unknown Pcp, Non Rmg PCP - General 06/24/14 07/14/14 Remy Shetty MD PCP - General Internal Medicine 07/15/14 11/18/15 documented as of this encounter
--- OUTSIDE RECORDS SUMMARY | 2025-03-02 12:17 | XMS_ITS | Encounter Summary ---
Author Organization [facility] Address [address] [place] [address] Care Team Providers Care Garment Parts Cutter Hand Name Role Phone Remy Shetty MD Primary Care Provider Unavailabl e Unknown Pcp, Non Rmg Primary Care Provider Unava ilable Remy Shetty MD Primary Care Provider Unavailabl e Encounter Details Date Type Department Care Team ([facility] st Contact Info) Description 12/30/2008 Orders Only [facility] [address] [place] [phone] Remy Shetty MD Social History Tobacco [...] on filedocumented in this encounter Care Teams Garment Parts Cutter Hand Relationship Specialty Start Date End Date Remy Shetty MD PCP - General 11/16/07 06/23/14 Unknown Pcp, Non Rmg PCP - General 06/24/14 07/14/14 Remy Shetty MD PCP - General Internal Medicine 07/15/14 11/18/15 documented as of this encounter
--- OUTSIDE RECORDS SUMMARY | 2025-03-02 12:17 | XMS_ITS | Encounter Summary ---
Author Organization [facility] Address [address] [place] [address] Care Team Providers Care Caregivers Non Medical Name Role Phone Remy Shetty MD Primary Care Provider Unavailabl e Unknown Pcp, Non Rmg Primary Care Provider Unava ilable Remy Shetty MD Primary Care Provider Unavailabl e Encounter Details Date Type Department Care Team ([facility] st Contact Info) Description 09/09/2009 Orders Only [facility] Neurology [address] [facility] [address] [place] [phone] Chase Jordan MD [address] [facility] [address] [place] [address] Social History Tobacco Use Types Packs/Day Years [...] this encounter Procedures * Due to [place] law, this organization might not be sharing [...] MD LABORATORY Final Result Performing Organization Address [facility] de Phone Number [facility] [address] [place] [address] * VITAMIN B12 (09/09/2009) [id number] [phone] 1100 PG/ML [facility] 09/09/2009 09/09/2009 9:4 3 PM EDT Chase Jordan MD LABORATORY Final Result Performing Organization Address [facility] de Phone Number [facility] [address] [place] [address] * BASIC METABOLIC PANEL W/GLOMERULAR FILTRATION RATE [...] MD LABORATORY Final Result [facility] [address] [place] [address] documented in this encounter Visit Diagnoses Diagnosis Sensory loss Disturbance of skin sensation documented in this encounter Care Teams Caregivers Non Medical Relationship Specialty Start Date End Date Remy Shetty MD PCP - General 11/16/07 06/23/14 Unknown Pcp, Non Rmg PCP - General 06/24/14 07/14/14 Remy Shetty MD PCP - General Internal Medicine 07/15/14 11/18/15 documented as of this encounter
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
--- OUTSIDE RECORDS SUMMARY | 2025-03-02 12:17 | XMS_ITS | Encounter Summary ---
Author Organization [facility] Address [address] [place] [address] Care Team Providers Care Foreign Law Consultant Name Role Phone Remy Shetty MD Primary Care Provider Unavailabl e Unknown Pcp, Non Rmg Primary Care Provider Unava ilable Remy Shetty MD Primary Care Provider Unavailabl e Encounter Details Date Type Department Care Team ([facility] st Contact Info) Description 05/09/2012 Orders Only [facility] [address] [place] [phone] Remy Shetty MD Social History Tobacco [...] of this encounter Procedures * Due to [place] state law, this organization might not be sharing negative HIV tests. Procedure Name Priority Date/Time Associated Diagnosis Comments BORRELIA BURGDORFERI AB (LYME), EIA WITH REFLEX IGG, IGM WB Routine 05/09/2012 12:03 PM EDT Atypical facial pain documented in this encounter Results * Due to [place] state law, this organization might not be sharing negative HIV tests. * BORRELIA BURGDORFERI AB (LYME), EIA WITH REFLEX IGG, IGM WB (05/09/2012 12:03 PM EDT) Borrelia burgdorferi Ab < OR = 0.90 index [facility] Comment: {LYME AB SCREEN {[id number]) Index ? Interpretation < or = 0.90 [...] 9:14 PM EDT Narrative Resulting Agency Comment [id number] Remy Shetty MD LABORATORY Final Result Performing Organization Address City/State/[facility] Co de Phone Number [facility] [address] [place] [address] documented in this encounter Visit Diagnoses Diagnosis Atypical facial pain Atypical face pain documented in this encounter Care Teams Foreign Law Consultant Relationship Specialty Start Date End Date Remy Shetty MD PCP - General 11/16/07 06/23/14 Unknown Pcp, Non Rmg PCP - General 06/24/14 07/14/14 Remy Shetty MD PCP - General Internal Medicine 07/15/14 11/18/15 documented as of this encounter
--- OUTSIDE RECORDS SUMMARY | 2025-03-02 12:17 | XMS_ITS | Encounter Summary ---
Author Organization [facility] Address [address] [place] [address] Care Team Providers Care Line Out Worker Name Role Phone Remy Shetty MD Primary Care Provider Unavailabl e Unknown Pcp, Non Rmg Primary Care Provider Unava ilable Remy Shetty MD Primary Care Provider Unavailabl e Encounter Details Date Type Department Care Team (Late st Contact Info) Description 01/20/2013 Orders Only [place] [facility] [address] [place] [phone] Remy Shetty MD Social History Tobacco [...] this encounter Procedures * Due to [place] state law, this organization might not be [...] this encounter Results * Due to [place] state law, this organization might not be sharing negative HIV tests. * (ABNORMAL) DRUG ABUSE PANEL 8-50 (REFLEX TO CONFIRM), URINE (01/20/2013 9:59 AM EST) CHAIN OF CUSTODY NO [facility] Comment: {CHAIN OF CUSTODY {[id number]) ?? * These results are for medical treatment only. ??* ?? * Analysis was performed as non-forensic testing. * Marijuana (Carboxy tetrahydrocanna binol) Metabolite >1500(H) ng/mL [facility] Comment:{MARIJUANA METABOLIT E {[id number]) COMMENT SEE NOTE [facility] Comment: {COMMENT {[id number]) THIS TEST WAS PERFORMED BY GC/MS ONLY. IMMUNOASSAY SCREEN, IF ORDERED, WAS PERFORMED AND REPORTED UNDER A SEPARATE TEST CODE. ? 01/20/2013 9:59 AM EST 01/20/2013 4:45 PM EST us Remy Shetty MD LABORATORY Final Result Performing Organization Address City/State/[facility] Co de Phone Number [facility] [address] [place] [address] * (ABNORMAL) PAIN MANAGEMENT PROFILE, URINE (PAINM) (01/20/2013 9:59 AM EST) CHAIN OF CUSTODY NO [facility] Comment: {CHAIN OF CUSTODY {[id number]) ?? * These results are for medical treatment only. ??* ?? * Analysis was performed as non-forensic testing. * Morphine (Urine) NONE DETECTED ng/mL [facility] Comment:{MORPHINE {[id number]) Codeine (Urine) NONE DETECTED ng/mL [facility] Comment:{CODEINE {[id number]) Hydrocodone (Urine) 176(H) ng/mL [facility] Comment:{HYDROCODONE {[id number]) Hydromorphone (Urine) NONE DETECTED ng/mL [facility] Comment:{HYDROMORPHONE {[id number]) Oxycodone (Urine) NONE DETECTED ng/mL [facility] Comment:{OXYCODONE {[id number]) Oxymorphone (Urine) NONE DETECTED ng/mL [facility] Comment:{OXYMORPHONE {[id number]) COMMENT SEE NOTE [facility] Comment: {COMMENT {[id number]) THIS TEST WAS PERFORMED BY GC/MS ONLY. IMMUNOASSAY SCREEN, IF ORDERED, WAS PERFORMED AND REPORTED UNDER A SEPARATE TEST CODE. ? Creatinine (Urine) 274 > or = 20 mg/dL [facility] Comment:{CREATININE {[id number]) pH (Urine) 5.5 5.0 - 9.0 [facility] Comment:{PH {[id number]) Service comment 02 SEE NOTE Q [facility] Comment: {PLEASE NOTE: {[id number]) ?? * These results are for medical treatment only. ??* ?? * Analysis was performed as non-forensic testing. * Amphetamines (Urine) NEGATIVE [facility] Comment:{AMPHETAMINES (1000 ng/mL SCREEN) {[id number]) Barbiturates (Urine) NEGATIVE [facility] Comment:{BARBITURATES {[id number]) Benzodiazepine And Metabolites, Urine NEGATIVE [facility] Comment:{BENZODIAZEPINES {[id number]) Benzoylecgonine (Cocaine Metabolite) (Urine) NEGATIVE [facility] Comment:{COCAINE METABOLITES {[id number]) Tetrahydrocannabinol (THC) Screen POSITIVE(A) [facility] Comment:{MARIJUANA METABOLIT ES (50 ng/mL SCREEN) {[id number]) Methadone (Urine) NEGATIVE [facility] Comment:{METHADONE {[id number]) Phencyclidine (Urine) NEGATIVE [facility] Comment:{PHENCYCLIDINE {[id number]) COMMENT SEE NOTE [facility] Comment: {COMMENT {[id number]) THE SUBMITTED URINE SPECIMEN WAS TESTED AT [...] 4:45 PM EST Narrative Resulting Agency Comment [id number] Remy Shetty MD LABORATORY Final Result [facility] [address] [place] [address] * (ABNORMAL) BASIC METABOLIC PANEL WITH (GFR) (01/20/2013 9:59 AM EST) Glucose 110(H) 65 - 99 mg/dL [facility] Comment: {GLUCOSE {[id number]) ? Fasting reference interval Urea Nitrogen Blood (BUN) 12 7 - 25 mg/dL [facility] Comment:{UREA NITROGEN (BUN) {[id number]) Creatinine 0.98 0.60 - 1.35 mg/dL [facility] Comment:{CREATININE {[id number]) GFR 95 > OR = 60 mL/min/1. 73m2 [facility] Comment:{eGFR NON-AFR. AMERI CAN {[id number]) GFR () 110 > OR = 60 mL/min/1. 73m2 [facility] Comment:{eGFR AMERIC AN {[id number]) BUN/Creatinine Ratio NOT APPLICABLE 6 - (calc) [facility] Comment:{BUN/CREATININE RATI O {[id number]) Sodium 139 135 - 146 mmol/L [facility] Comment:{SODIUM {[id number]) Potassium 4.1 3.5 - 5.3 mmol/L [facility] Comment:{POTASSIUM {[id number]) Chloride 104 98 - 110 mmol/L [facility] Comment:{CHLORIDE {[id number]) Carbon dioxide 26 19 - 30 mmol/L [facility] Comment:{CARBON DIOXIDE {[id number]) Calcium 9.5 8.6 - 10.3 mg/dL [facility] Comment:{CALCIUM {[id number]) 01/20/2013 9:59 AM EST 01/20/2013 4:45 [...] needs for GFR calculation. Resulting Agency Comment [id number] Remy Shetty MD LABORATORY Final Result [facility] [address] [place] [address] * CBC INCLUDES DIFFERENTIAL AND PLATELET COUNT (01/20/2013 9:59 AM EST) WBC 8.5 3.8 - 10.8 Thousand/u L [facility] Comment:{WHITE BLOOD CELL CO UNT {[id number]) RBC 5.02 4.20 - 5.80 Million/uL [facility] Comment:{RED BLOOD CELL COUN T {[id number]) Hemoglobin 15.4 13.2 - 17.1 g/dL [facility] Comment:{HEMOGLOBIN {[id number]) Hematocrit 47.4 38.5 - 50.0 % [facility] Comment:{HEMATOCRIT {[id number]) MCV 94.4 80.0 - 100.0 fL [facility] Comment:{MCV {[id number]) MCH 30.7 27.0 - 33.0 pg [facility] Comment:{MCH {[id number]) MCHC 32.5 32.0 - 36.0 g/dL [facility] Comment:{MCHC {[id number]) RDW 14.1 11.0 - 15.0 % [facility] Comment:{RDW {[id number]) PLT 234 140 - 400 Thousand/u L [facility] Comment:{PLATELET COUNT {[id number]) MPV 8.8 7.5 - 11.5 fL [facility] Comment:{MPV {[id number]) Neutrophils # 6205 1500 - 7800 cells/uL [facility] Comment:{ABSOLUTE NEUTROPHIL S {[id number]) Lymphocytes # 1794 850 - 3900 cells/uL [facility] Comment:{ABSOLUTE LYMPHOCYTE S {[id number]) Monocytes # 391 200 - 950 cells/uL [facility] Comment:{ABSOLUTE MONOCYTES {[id number]) Eosinophils # 77 15 - 500 cells/uL [facility] Comment:{ABSOLUTE EOSINOPHIL S {[id number]) Basophils # 34 0 - 200 cells/uL [facility] Comment:{ABSOLUTE BASOPHILS {[id number]) Neutrophils % 73.0 % [facility] Comment:{NEUTROPHILS {[id number]) Lymphocytes % 21.1 % [facility] Comment:{LYMPHOCYTES {[id number]) Monocytes % 4.6 % [facility] Comment:{MONOCYTES {[id number]) Eosinophils % 0.9 % [facility] Comment:{EOSINOPHILS {[id number]) Basophils % 0.4 % [facility] Comment:{BASOPHILS {[id number]) 01/20/2013 9:59 AM EST 01/20/2013 4:45 PM EST Narrative Resulting Agency Comment [id number] Remy Shetty MD LAB SAME DAY RESULT Final Result [facility] [address] [place] [id number] * (ABNORMAL) LIPID PANEL WITH REFLEX TO DIRECT LDL (01/20/2013 9:59 AM EST) Cholesterol 213(H) 125 - 200 mg/dL [facility] Comment:{CHOLESTEROL, TOTAL {[id number]) HDL Cholesterol 37(L) > OR = 40 mg/dL [facility] Comment:{HDL CHOLESTEROL {[id number]) Triglyceride 100 <150 mg/dL [facility] Comment:{TRIGLYCERIDES {[id number]) LDL Cholesterol 156(H) <130 mg/dL (calc) [facility] Comment: {LDL-CHOLESTEROL {[id number]) Desirable range <100 mg/dL for patients with CHD or diabetes and <70 mg/dL for diabetic patients with known heart disease. CHOL/HDL Ratio 5.8(H) < OR = 5.0 (calc) [facility] Comment:{CHOL/HDLC RATIO {[id number]) Cholesterol Non-HDL 176(H) mg/dL (calc) [facility] Comment: {NON HDL CHOLESTEROL {[id number]) Target for non-HDL cholesterol is 30 mg/dL higher than LDL cholesterol target. 01/20/2013 9:59 AM EST 01/20/2013 4:45 PM EST Narrative Resulting Agency Comment [id number] Remy Shetty MD LABORATORY Final Result Performing Organization Address City/State/[facility] Co de Phone Number [facility] [address] [place] [address] documented in this encounter Visit Diagnoses Diagnosis Hypertension goal BP (blood pressure) < 130/80 Unspecified essential hypertension Encounter for long-term (current) use of other medications Hyperlipidemia Other and unspecified hyperlipidemia documented in this encounter Care Teams Line Out Worker Relationship Specialty Start Date End Date Remy Shetty MD PCP - General 11/16/07 06/23/14 Unknown Pcp, Non Rmg PCP - General 06/24/14 07/14/14 Remy Shetty MD PCP - General Internal Medicine 07/15/14 11/18/15 documented as of this encounter
--- OUTSIDE RECORDS SUMMARY | 2025-03-02 12:17 | XMS_ITS | Encounter Summary ---
Author Organization [facility] Address [address] [place] [address] Care Team Providers Care Navy Fighter Pilot Name Role Phone Angelita Shetty MD Primary Care Provider Unavailabl e Unknown Pcp, Non Rmg Primary Care Provider Unava ilable Angelita Shetty MD Primary Care Provider Unavailabl e Reason for Visit * Reason Comments E-prescribing Refill Request Encounter Details Date Type Department Care Team (Late st Contact Info) Description 02/10/2011 Refill [place] [facility] [address] [place] [phone] Angelita Shetty MD E-prescribing Refill [...] Department Center 07/04/2011 3:15 PM 37-ANGELITA SHETTY ALURY Pertinent lab results: Lab Results Component Value [...] on filedocumented in this encounter Care Teams Navy Fighter Pilot Relationship Specialty Start Date End Date Angelita Shetty MD PCP - General 11/16/07 06/23/14 Unknown Pcp, Non Rmg PCP - General 06/24/14 07/14/14 Angelita Shetty MD PCP - General Internal Medicine 07/15/14 11/18/15 documented as of this encounter
--- OUTSIDE RECORDS SUMMARY | 2025-03-02 12:17 | XMS_ITS | Clinical Summary ---
Author Organization [facility] it Address [address] [place] [address] Care Team Providers Care Shellfish Checker Name Role Phone Carlos Glasgow MD Primary Care Provider [phone] Surgical History Surgery Date Site/Laterality Comments LEG [...] age to complete this topic Meningococcal B Vaccine Aged Out No l onger eligible based on patient's age to complete this topic RSV Immunization Patients Under 20 months Aged Out No longer eligible based on patient's age to complete this topic Varicella Vaccines Aged Out No longer eligible based on patient's age to complete this topic Care Teams Shellfish Checker Relationship Specialty Start Date End Date Carlos Glasgow MD PCP - General Internal Medicine 02/22/15
--- OUTSIDE RECORDS SUMMARY | 2025-03-02 12:17 | XMS_ITS | Encounter Summary ---
Author Organization [facility] Address [address] [place] [address] Care Team Providers Care Dining Car Server Name Role Phone Remy Shetty MD Primary Care Provider Unavailabl e Unknown Pcp, Non Rmg Primary Care Provider Unava ilable Rmey Shetty MD Primary Care Provider Unavailabl e Encounter Details Date Type Department Care Team (Late st Contact Info) Description 08/01/2012 Orders Only [place] [facility] [address] [place] [phone] Remy Shetty MD Social History Tobacco [...] of this encounter Procedures * Due to [place] state law, this organization might not be sharing negative HIV tests. Procedure Name Priority Date/Time Associated Diagnosis Comments URINALYSIS, DIPSTICK ONLY Routine 08/01/2012 12:16 PM EDT Hematuria documented in this encounter Results * Due to [place] state law, this organization might not be sharing negative HIV tests. * URINALYSIS, DIPSTICK ONLY (08/01/2012 12:16 PM EDT) Color (Urine) DARK YELLOW YELLOW [facility] Comment:{COLOR {[id number]) Appearance (Urine) CLEAR CLEAR [facility] Comment:{APPEARANCE {[id number]) Specific gravity (Urine) 1.023 1.001 - 1.035 [facility] Comment:{SPECIFIC GRAVITY {[id number]) pH (Urine) 5.5 5.0 - 8.0 [facility] Comment:{PH {[id number]) Glucose (Urine) NEGATIVE NEGATIVE [facility] Comment:{GLUCOSE {[id number]) Bilirubin (Urine) NEGATIVE NEGATIVE [facility] Comment:{BILIRUBIN {[id number]) Ketones (Urine) NEGATIVE NEGATIVE [facility] Comment:{KETONES {[id number]) Hemoglobin (Urine) NEGATIVE NEGATIVE [facility] Comment:{OCCULT BLOOD {[id number]) Protein (Urine) NEGATIVE NEGATIVE [facility] Comment:{PROTEIN {[id number]) Nitrite (Urine) NEGATIVE NEGATIVE [facility] Comment:{NITRITE {[id number]) Leukocyte esterase (Urine) NEGATIVE NEGATIVE [facility] Comment:{LEUKOCYTE ESTERASE {[id number]) 08/01/2012 12:1 6 PM EDT 08/01/2012 11:19 PM EDT Narrative Resulting Agency Comment [id number] Remy Shetty MD LAB SAME DAY RESULT Final Result [facility] [address] [place] [address] documented in this encounter Visit Diagnoses Diagnosis Hematuria Hematuria, unspecified documented in this encounter Care Teams Dining Car Server Relationship Specialty Start Date End Date Remy Shetty MD PCP - General 11/16/07 06/23/14 Unknown Pcp, Non Rmg PCP - General 06/24/14 07/14/14 Remy Shetty MD PCP - General Internal Medicine 07/15/14 11/18/15 documented as of this encounter
--- OUTSIDE RECORDS SUMMARY | 2025-03-02 12:17 | XMS_ITS | Encounter Summary ---
Author Organization [facility] Address [address] [place] [address] Care Team Providers Care Flight Attendant/Inflight Supervisor Name Role Phone Remy Shetty MD Primary Care Provider Unavailabl e Unknown Pcp, Non Rmg Primary Care Provider Unava ilable Remy Shetty MD Primary Care Provider Unavailabl e Encounter Details Date Type Department Care Team ([facility] st Contact Info) Description 08/22/2012 Orders Only [place] [facility] [address] [place] [phone] Remy Shetty MD Social History Tobacco [...] of this encounter Procedures * Due to [place] law, this organization might not be sharing negative HIV tests. Procedure Name Priority Date/Time Associated Diagnosis Comments BASIC METABOLIC PANEL WITH (GFR) Routine 08/22/2012 11:35 AM EDT Hypertension documented in this encounter Results * Due to [place] [employer] law, this organization might not be sharing negative HIV tests. * BASIC METABOLIC PANEL WITH (GFR) (08/22/2012 11:35 AM EDT) Glucose 98 65 - 99 mg/dL [facility] Comment: {GLUCOSE {[id number]) ? Fasting reference interval Urea Nitrogen Blood (BUN) 16 7 - 25 mg/dL [facility] Comment:{UREA NITROGEN (BUN) {[id number]) Creatinine 1.19 0.60 - 1.35 mg/dL [facility] Comment:{CREATININE {[id number]) GFR 75 > OR = 60 mL/min/1. 73m2 [facility] Comment:{eGFR NON-AFR. AMERI CAN {[id number]) GFR () 87 > OR = 60 mL/min/1. 73m2 [facility] Comment:{eGFR AMERIC AN {[id number]) BUN/Creatinine Ratio NOT APPLICABLE (calc) [facility] Comment:{BUN/CREATININE RATI O {[id number]) Sodium 139 135 - 146 mmol/L [facility] Comment:{SODIUM {[id number]) Potassium 4.5 3.5 - 5.3 mmol/L [facility] Comment:{POTASSIUM {[id number]) Chloride 103 98 - 110 mmol/L [facility] Comment:{CHLORIDE {[id number]) Carbon dioxide 26 21 - 33 mmol/L [facility] Comment:{CARBON DIOXIDE {[id number]) Calcium 10.3 8.6 - 10.3 mg/dL [facility] Comment:{CALCIUM {[id number]) 08/22/2012 11:3 5 AM EDT 08/22/2012 [...] needs for GFR calculation. Resulting Agency Comment [id number] Remy Shetty MD LABORATORY Final Result [facility] [address] [place] [address] documented in this encounter Visit Diagnoses Diagnosis Hypertension Unspecified essential hypertension documented in this encounter Care Teams Flight Attendant/Inflight Supervisor Relationship Specialty Start Date End Date Remy Shetty MD PCP - General 11/16/07 06/23/14 Unknown Pcp, Non [facility] PCP - General 06/24/14 07/14/14 Remy Shetty MD PCP - General Internal Medicine 07/15/14 11/18/15 documented as of this encounter
--- OUTSIDE RECORDS SUMMARY | 2025-03-02 12:17 | XMS_ITS | Encounter Summary ---
Author Organization [facility] Address [address] [place] [address] Care Team Providers Care Disc Jockey Name Role Phone Remy Shetty MD Primary Care Provider Unavailabl e Unknown Pcp, Non Rmg Primary Care Provider Unava ilable Remy Shetty MD Primary Care Provider Unavailabl e Encounter Details Date Type Department Care Team (Late st Contact Info) Description 02/04/2013 Orders Only [place] [facility] [address] [place] [phone] Dominique Hernández LVN LPN Social History [...] on filedocumented in this encounter Care Teams Disc Jockey Relationship Specialty Start Date End Date Remy Shetty MD PCP - General 11/16/07 06/23/14 Unknown Pcp, Non Rmg PCP - General 06/24/14 07/14/14 Remy Shetty MD PCP - General Internal Medicine 07/15/14 11/18/15 documented as of this encounter
--- OUTSIDE RECORDS SUMMARY | 2025-03-02 12:17 | XMS_ITS | Data Portability ---
Author Organization [facility] [place] [facility] [employer] Address [address] [place] [phone] Assessment No assessment recorded. Plan of Treatment [...] Updated DateTime 4 102 /min 190.5 cm 089004. 656 g 97.5 [degF] 18 /min 97 % 97 % 138 mm[Hg] 98 mm[Hg] Not Available [employer] - production 14:46:41 Social History None recorded. Functional Status None recorded. Mental Status None recorded. Family History Nothing Reported. Medical History No medical history recorded. Past Encounters Encounter ID Performer Location Encounter Start Date Encounter Closed Date Diagnosis/Indication Diagnosis SNOMED-CT Code Diagnosis ICD10 Code Diagnosis Note [id number] Raegan Rivas MD Main - [facility] [address] [place] [address] 07/25/2024 14:46:26 07/28/2024 22:09:41 Hypokalemia 10374255 E87.6 I provided real -time medical direction via phone for this encounter, and was available for additional phone based assistance as needed. I have reviewed and agree with the Assessment and Plan as documented by the Washer Repairman. Patient given the opportunit y to ask [...] with PCP for his multiple complaints . Washer Repairman kindly assisted pt in calling and arranged [...] Stevens Member ID Guarantor Name 07/25/2024 1 [facility] - DOS ON OR AFTER 2023 - DUAL ELIGIBLE - LONGTERM OPTIONS AND ONE CARE (MEDICARE REPLACEMENT/ADV ANTAGE - HMO) Zev Medrano [id number] Zev Medrano Notes Date Note Type Note Provider Name and Address Organization Details Recorded Time 4 text/html HPI: Higher than normal blood pressure ,dizziness upon standing and fatigue . ........................ ........................ ........................ ........................ ........................ ..................... [facility] Nurse Triage Notes (Carito Briones): Reason For Request: HTN Chief Complaints: Hypertension PMH: Hypertension, Other Other Allergies: amlodipine, NSAID/ lyrica Comments: [employer] Salesperson verified the member's name//address and phone number. [...] s/s and seek emergency treatment if needed Washer Repairman Organization Information for [employer] [employer] Business Legal Name: [employer]? Address: [address] [place] [address], Hamper Maker Machine: Benoit Cortes MD CLIA No.: [id number] Washer Repairman POC Test Results from [facility] EKG [...] section. ........................ ........................ ........................ ........................ ........................ ..................... Washer Repairman Note From [employer] [facility]: Sent to a [...] warm, dry; 12 lead ECG: uploaded to [employer]; Venous blood draw performed; Istat Chem8+ results: uploaded to [employer]; K:2.6; Pt reports potassium is usually low. Pt states he called PCP office this morning and was advised to go to ED. Pt is prescribed Hydrochlorothiazide 25mg daily (AM). C consulted and orders Potassium 80meq PO. [facility] advises contacting pt's PCP office. Potassium ER 80meq PO administered. PCP office contacted ([facility] [place]) and [facility] PCP office schedules appt for pt on Sunday at 1pm. Red flags discussed. Pt has no further questions. ........................ ........................ ........................ ........................ ........................ ..................... Disposition: Fulfilled Raegan Rivas MD [address] [facility],[address], [place], [address], [employer] - [employer] TA 07/25/2024 22:53:29
--- OUTSIDE RECORDS SUMMARY | 2025-03-02 12:17 | XMS_ITS | Encounter Summary ---
Author Organization [facility] Address [address] [place] [address] Care Team Providers Care Roof Truss Machine Tender Name Role Phone Remy Shetty MD Primary Care Provider Unavailabl e Unknown Pcp, Non Rmg Primary Care Provider Unava ilable Remy Shetty MD Primary Care Provider Unavailabl e Encounter Details Date Type Department Care Team ([facility] st Contact Info) Description 12/30/2008 Orders Only [place] [facility] [address] [place] [phone] Remy Shetty MD Social History Tobacco [...] on filedocumented in this encounter Care Teams Roof Truss Machine Tender Relationship Specialty Start Date End Date Remy Shetty MD PCP - General 11/16/07 06/23/14 Unknown Pcp, Non Rmg PCP - General 06/24/14 07/14/14 Remy Shetty MD PCP - General Internal Medicine 07/15/14 11/18/15 documented as of this encounter
== END 2025-03-02 10:59 | disposition home or self-care (01) ==
PROVIDERS: PCP Internal Medicine; Visit Provider Anesthesiology
DX: M96.1 Postlaminectomy syndrome, not elsewhere classified (principal); M46.1 Sacroiliitis, not elsewhere classified; M53.3 Sacrococcygeal disorders, not elsewhere classified; G89.29 Other chronic pain
CPT/HCPCS: 99213

== ENCOUNTER → 2025-03-02 10:37 | Outpatient (BNVA) | payer OTHER, SELFPAY | PROVIDERS: PCP Internal Medicine; Visit Provider Anesthesiology | DX: M96.1 Postlaminectomy syndrome, not elsewhere classified (principal); M46.1 Sacroiliitis, not elsewhere classified; M53.3 Sacrococcygeal disorders, not elsewhere classified; G89.29 Other chronic pain | CPT/HCPCS: 99212 ==

== ENCOUNTER 2025-05-11 09:15 | Outpatient (REF) | payer OTHER, SELFPAY ==
--- NOTE | ~2025-05-11 | XR_ITS ---
EXAMINATION: XR PELVIS 1-2 VIEWS HISTORY: M25.559 - Pain in unspecified hip COMPARISON: Comparison is made with the prior examination dated 04/30/2024. FINDINGS: A single AP view of the pelvis is submitted. The patient is again noted to be status post right total hip arthroplasty. The orthopedic elements are in anatomic alignment on this single AP view. There is no radiographic evidence of loosening. There is no fracture or dislocation. There is moderate narrowing of the left hip joint. XR/XR pelvis 1-2V IMPRESSION: Status post right total hip arthroplasty. Electronically signed by: Anthony Gonzalez MD 05/11/2025 12:05 PM EDT
--- OUTSIDE RECORDS SUMMARY | 2025-05-11 09:59 | XMS_ITS | Encounter Summary ---
Author Organization [facility] Address [address] [place] [address] Care Team Providers Care Medicare Coordinator Name Role Phone Remy Shetty MD Primary Care Provider Unavailabl e Unknown Pcp, Non Rmg Primary Care Provider Unava ilable Remy Shetty MD Primary Care Provider Unavailabl e Encounter Details Date Type Department Care Team ([facility] st Contact Info) Description 12/16/2012 Orders Only [place] [facility] [address] [place] [phone] Remy Shetty MD Social History Tobacco [...] on filedocumented in this encounter Care Teams Medicare Coordinator Relationship Specialty Start Date End Date Remy Shetty MD PCP - General 11/16/07 06/23/14 Unknown Pcp, Non Rmg PCP - General 06/24/14 07/14/14 Remy Shetty MD PCP - General Internal Medicine 07/15/14 11/18/15 documented as of this encounter
== END 2025-05-11 09:16 | disposition home or self-care (01) ==
LOC: HO.HOSX 09:15
PROVIDERS: Visit Provider Orthopaedic Surgery
DX: Z96.641 Presence of right artificial hip joint (principal)
CPT/HCPCS: 72170; 99212

== ENCOUNTER 2025-05-11 10:30 | Outpatient (AMB) | payer OTHER, SELFPAY ==
[2025-05-11 10:39] VITALS: BMI 33.7
--- NOTE | 2025-05-11 10:39 | A.OFFVIS_ITS ---
Vital Signs 05/11/25 10:39 Height 6 ft 3 in Weight 270 lb BMI 33.7 Intake Visit Reasons: OV-R JUAN w/NE 04/30/24 Intake Note: Zev is a 54 year old male who presents today for a follow up of his right hip s/p Right JUAN 04/30/24. He continues to have increased pain with weight barring, he describes this pain as a pressure . Patient states no pain, redness, tender around the incision site to report at this time. He continues to have radiating numbness and tingling down the leg. He was seen with Pain Management on 02/17/25 where he had a right Diagnostic SI Joint Allergies amlodipine Allergy (Verified 05/11/25 10:41) Shortness of Breath NSAIDS (Non-Steroidal Anti-Inflamma Allergy (Verified 05/11/25 10:41) Seizure pregabalin Allergy (Verified 05/11/25 10:41) Unknown HPI HPI OV-R JUAN w/NE 04/30/24: Details: Zev is a 54 year old male who presents today for a follow up of his right hip s/p Right JUAN 04/30/24. He continues to have increased pain with weight barring, he describes this pain as a pressure . Patient states no pain, redness, tender around the incision site to report at this time. He continues to have radiating numbness and tingling down the leg. [facility] Medical History History of traumatic head injury Arthritis Bipolar 1 disorder Sleep apnea SOB (shortness of breath) Syncope History of lipoma Depression Severe obesity (BMI 35.0-35.9 with comorbidity) PTSD (post-traumatic stress disorder) Mixed hyperlipidemia Lung nodules Insomnia Impaired fasting glucose HTN (hypertension) Hyperlipidemia Hypercalcemia Renal cell carcinoma Acute renal failure Fatty liver Erectile dysfunction Elevated serum creatinine Colon polyp Back pain Anxiety Surgical History History of lumbar spinal fusion H/O colonoscopy Hx of umbilical hernia repair Hx of appendectomy Hx of vasectomy History of surgery on lower extremity History of partial nephrectomy Social History Household Members: Significant Other Housing: House Are you a primary medicare contact specialist to a significant other at home: No Do you presently have visiting nurse or other home services: No Alcohol intake: never Patient Tobacco Use Status: Former Tobacco user Substance Use Type: Marijuana service: No Current occupational status: disabled Physical Exam Vital Signs: BMI result Body Mass Index 33.7 Extrem Other: No groin pain with hip range of motion. Normal gait. Results Reviewed Results Reviewed: I personally reviewed relevant radiographs. Right JUAN in expected post operative position with no hardware complications or evidence of loosening. There is some persistent heterotopic ossification around the abductor tendon Assessment & Plan Assessment & Plan (1) Status post total hip replacement, right: Onset Date: ~04/30/24 Comment: NE Code(s): Z96.641 - Presence of right artificial hip joint Category: Surgical Plan: Status post right hip replacement. Overall he is doing well. Does have some ongoing spine issues which she is trying to work through and some chronic pain. Hip replacement has been successful. He can follow up as needed. Orders: Orders XR pelvis 1-2V Today M25.559 - Pain in unspecified hip Coding Level of Care Code Est Pt Level 3 (83140) Diagnoses Status post total hip replacement, right Z96.641
== END 2025-05-11 11:09 | disposition home or self-care (01) ==
LOC: HO.HOS 10:31
PROVIDERS: PCP Internal Medicine; Visit Provider Orthopaedic Surgery
DX: Z47.1 Aftercare following joint replacement surgery (principal); Z96.641 Presence of right artificial hip joint
CPT/HCPCS: 99213

== ENCOUNTER → 2025-05-11 10:32 | Outpatient (BNV) | payer OTHER, SELFPAY | PROVIDERS: Visit Provider Radiology Diagnostic Radiology | DX: M16.12 Unilateral primary osteoarthritis, left hip (principal) | CPT/HCPCS: 72170 ==